=== PATIENT | male | born 1945 | race American Indian/Alaskan Native ===

== ENCOUNTER 2020-10-05 12:10 | Emergency (ER) | payer MEDICARE ==
[2020-10-05 14:25] LABS: Basophils # (Auto) 0.1 K/mm3 (0.0-0.1); Basophils % (Auto) 0.9 % (0.0-1.8); Eosinophils # (Auto) 0.2 K/mm3 (0.0-0.4); Hematocrit 32.5 % (35.5-45.6); Hemoglobin 10.7 gm/dl (11.8-15.2); Lymphocytes # (Auto) 2.4 K/mm3 (1.2-5.4); Lymphocytes % (Auto) 25.7 % (13.4-35.0); Mean Corpuscular HGB Conc 33 % (32-34); Mean Corpuscular Volume 84 fl (84-94); Monocytes # (Auto) 0.8 K/mm3 (0.0-0.8); Monocytes % (Auto) 8.8 % (0.0-7.3); Platelet Count 263 K/mm3 (140-440); Red Blood Count 3.87 M/mm3 (3.65-5.03); Red Cell Distribution Width 15.4 % (13.2-15.2)
[2020-10-05 14:44] LABS: Calcium 9.6 mg/dL (8.4-10.2)
--- NOTE | 2020-10-05 20:21 | Emergency Department Report ---
ED Psych HPI - General Chief Complaint: Psych Stated Complaint: BEHAVIORAL PROMBLEMS Time Seen by Provider: 10/05/20 20:16 Source: patient Mode of arrival: Ambulatory Limitations: Altered Mental Status - History of Present Illness Initial Comments: Patient is a 74-year-old male that presents to the emergency room with complaints of aggressive behavior and agitation. Patient son is at bedside. Patient son states that the patient moved into a new [facility] and became combative and violent and keeps trying to run away from the [facility]. Suha singer was sent here by [facility] for mental health evaluation and to be admitted for a medication adjustment. The son states that the patient is able to go back to this [facility] as long as his meds have been adjusted and his behavior improves. Patient denies pain. Patient is oriented x1. Patient's son states is the patient's baseline. Patient denies recent travel. Patient denies recent international travel. Patient denies exposure to the novel coronavirus. Patient denies sick contacts. Patient denies fever and chills. Patient denies cough. Patient denies diarrhea. Patient denies coming in contact with anybody with symptoms of the novel coronavirus. MD Complaint: altered mental status, other -: Sudden History of same: Yes Quality: constant Improves With: none Worsens With: none Associated Symptoms: denies: headache, shortness of breath, nausea, vomiting, syncope, insomnia Treatments Prior to Arrival: none - Related Data Home Medications Medication Instructions Recorded Confirmed Last Taken Aspirin [Aspirin BABY CHEW TAB] 81 mg PO QDAY 10/06/20 10/06/20 10/05/20 Atorvastatin [Lipitor Tab] 80 mg PO QHS 10/06/20 10/06/20 10/05/20 B-Complex with Vitamin C [Vitamin 1 tab PO DAILY 10/06/20 10/06/20 Unknown B Complex-Vitamin C] Cholecalciferol (Vitamin D3) 1 tab PO DAILY 10/06/20 10/06/20 Unknown [Vitamin D3 2,000 UNIT CAP] Donepezil HCl [Donepezil HCl Odt] 10 mg PO QHS 10/06/20 10/06/20 Unknown Doxazosin Mesylate [Cardura Xl] 4 mg PO BID 10/06/20 10/06/20 10/05/20 Fenofibrate 160 mg PO DAILY 10/06/20 10/06/20 10/05/20 Fiber 2 tab PO QHS 10/06/20 10/06/20 Unknown Furosemide [Lasix] 20 mg PO QDAY 10/06/20 10/06/20 10/05/20 Insulin Lispro [Humalog Kwikpen See Protocol SQ ACHS 10/06/20 10/06/20 Unknown 200 UNITS/ML] Isosorbide Mononitrate [Isosorbide 30 mg PO QHS 10/06/20 10/06/20 10/05/20 Mononitrate ER] LORazepam [Ativan] 0.5 mg PO BID PRN 10/06/20 10/06/20 Unknown Lisinopril [Zestril TAB] 30 mg PO QDAY 10/06/20 10/06/20 10/05/20 Memantine HCl 10 mg PO BID 10/06/20 10/06/20 Unknown Mv,Ca,Min/FA/K1/Lycopene/Lutn [Eql 1 tab PO DAILY 10/06/20 10/06/20 10/05/20 Century Mature Tablet] Mycophenolate [Cellcept] 2 tab PO BID 10/06/20 10/06/20 10/05/20 NIFEdipine [Nifedipine ER] 60 mg PO DAILY 10/06/20 10/06/20 10/05/20 OLANZapine [Zyprexa] 0.5 tab PO QHS 10/06/20 10/06/20 Unknown [place]-3/Dha/Epa/Fish Oil [[place] 3 1,000 mg PO DAILY 10/06/20 10/06/20 Unknown 500 Softgel] Primidone [Mysoline] 3 tab PO HS 10/06/20 10/06/20 10/05/20 Ranolazine ER [Ranexa ER] 500 mg PO BID 10/06/20 10/06/20 Unknown Sirolimus [Rapamune] 1 mg PO Q4W 10/06/20 10/06/20 10/05/20 Sodium Bicarbonate 1 tab PO 3XW 10/06/20 10/06/20 Unknown Sulfamethoxazole/Trimethoprim 1 each PO 4XW 10/06/20 10/06/20 10/05/20 [Sulfamethoxazole-Tmp Ds Tablet] allopurinoL [Zyloprim] 100 mg PO 4XW 10/06/20 10/06/20 10/05/20 carvediloL [Coreg] 12.5 mg PO BID 10/06/20 10/06/20 10/05/20 cilostazoL [Pletal] 100 mg PO BID 10/06/20 10/06/20 Unknown glipiZIDE XL [Glucotrol Xl] 10 mg PO QHS 10/06/20 10/06/20 10/05/20 predniSONE [Deltasone] 5 mg PO QDAY 10/06/20 10/06/20 10/05/20 Allergies Allergy/AdvReac Type Severity Reaction Status Date / Time clopidogrel Allergy Swelling Verified 10/06/20 00:43 ED Review of Systems ROS: Stated complaint: BEHAVIORAL PROMBLEMS Other details as noted in HPI Comment: All other systems reviewed and negative ED Past Medical Hx - Past Medical History Previous Medical History?: Yes Hx Hypertension: Yes Hx Diabetes: Yes Hx Renal Disease: Yes Hx Dementia: Yes Additional medical history: hyperlipidemia - Surgical History Past Surgical History?: Yes Additional Surgical History: kidney transplant - Social History Smoking Status: Former Smoker - Medications Home Medications: Home Medications Medication Instructions Recorded Confirmed Last Taken Type Aspirin [Aspirin BABY CHEW TAB] 81 mg PO QDAY 10/06/20 10/06/20 10/05/20 History Atorvastatin [Lipitor Tab] 80 mg PO QHS 10/06/20 10/06/20 10/05/20 History B-Complex with Vitamin C [Vitamin 1 tab PO DAILY 10/06/20 10/06/20 Unknown His tory B Complex-Vitamin C] Cholecalciferol (Vitamin D3) 1 tab PO DAILY 10/06/20 10/06/20 Unknown History [Vitamin D3 2,000 UNIT CAP] Donepezil HCl [Donepezil HCl Odt] 10 mg PO QHS 10/06/20 10/06/20 Unknown History Doxazosin Mesylate [Cardura Xl] 4 mg PO BID 10/06/20 10/06/20 10/05/20 History Fenofibrate 160 mg PO DAILY 10/06/20 10/06/20 10/05/20 History Fiber 2 tab PO QHS 10/06/20 10/06/20 Unknown History Furosemide [Lasix] 20 mg PO QDAY 10/06/20 10/06/20 10/05/20 History Insulin Lispro [Humalog Kwikpen See Protocol SQ ACHS 10/06/20 10/06/20 Unknown History 200 UNITS/ML] Isosorbide Mononitrate [Isosorbide 30 mg PO QHS 10/06/20 10/06/20 10/05/20 History Mononitrate ER] LORazepam [Ativan] 0.5 mg PO BID PRN 10/06/20 10/06/20 Unknown History Lisinopril [Zestril TAB] 30 mg PO QDAY 10/06/20 10/06/20 10/05/20 History Memantine HCl 10 mg PO BID 10/06/20 10/06/20 Unknown History Mv,Ca,Min/FA/K1/Lycopene/Lutn [Eql 1 tab PO DAILY 10/06/20 10/06/20 10/05/20 History Century Mature Tablet] Mycophenolate [Cellcept] 2 tab PO BID 10/06/20 10/06/20 10/05/20 History NIFEdipine [Nifedipine ER] 60 mg PO DAILY 10/06/20 10/06/20 10/05/20 History OLANZapine [Zyprexa] 0.5 tab PO QHS 10/06/20 10/06/20 Unknown History [place]-3/Dha/Epa/Fish Oil [[place] 3 1,000 mg PO DAILY 10/06/20 10/06/20 Unknown History 500 Softgel] Primidone [Mysoline] 3 tab PO HS 10/06/20 10/06/20 10/05/20 History Ranolazine ER [Ranexa ER] 500 mg PO BID 10/06/20 10/06/20 Unknown History Sirolimus [Rapamune] 1 mg PO Q4W 10/06/20 10/06/20 10/05/20 History Sodium Bicarbonate 1 tab PO 3XW 10/06/20 10/06/20 Unknown History Sulfamethoxazole/Trimethoprim 1 each PO 4XW 10/06/20 10/06/20 10/05/20 History [Sulfamethoxazole-Tmp Ds Tablet] allopurinoL [Zyloprim] 100 mg PO 4XW 10/06/20 10/06/20 10/05/20 History carvediloL [Coreg] 12.5 mg PO BID 10/06/20 10/06/20 10/05/20 History cilostazoL [Pletal] 100 mg PO BID 10/06/20 10/06/20 Unknown History glipiZIDE XL [Glucotrol Xl] 10 mg PO QHS 10/06/20 10/06/20 10/05/20 History predniSONE [Deltasone] 5 mg PO QDAY 10/06/20 10/06/20 10/05/20 History ED Physical Exam - General Limitations: No Limitations General appearance: alert, in no apparent distress - Head Head exam: Present: atraumatic, normocephalic - Eye Eye exam: Present: normal appearance - ENT ENT exam: Present: mucous membranes moist - Neck Neck exam: Present: normal inspection - Respiratory Respiratory exam: Present: normal lung sounds bilaterally. Absent: respiratory distress - Cardiovascular Cardiovascular Exam: Present: regular rate, normal rhythm. Absent: systolic murmur, diastolic murmur, rubs, gallop - GI/Abdominal GI/Abdominal exam: Present: soft, normal bowel sounds - Rectal Rectal exam: Present: deferred - Extremities Exam Extremities exam: Present: normal inspection - Back Exam Back exam: Present: normal inspection - Neurological Exam Neurological exam: Present: alert, altered - Psychiatric Psychiatric exam: Present: flat affect - Skin Skin exam: Present: warm, dry, intact, normal color. Absent: rash ED Course Vital Signs 10/05/20 10/05/20 10/06/20 12:59 20:28 01:20 Temperature 98.2 F 97.7 F Pulse Rate 72 74 76 Respiratory 20 18 18 Rate Blood Pressure 141/70 Blood Pressure 173/65 156/69 [Left] O2 Sat by Pulse 98 98 95 Oximetry 10/06/20 10/06/20 10/06/20 08:19 08:50 13:04 Temperature 97.8 F Pulse Rate 63 98 H Respiratory 18 18 Rate Blood Pressure 163/67 Blood Pressure 156/57 [Left] O2 Sat by Pulse 100 100 Oximetry 10/06/20 10/06/20 10/06/20 13:07 13:31 13:46 Temperature 98 F Pulse Rate 98 H 98 H Respiratory 20 Rate Blood Pressure 163/67 163/67 Blood Pressure [Left] O2 Sat by Pulse 97 Oximetry 10/06/20 20:37 Temperature Pulse Rate Respiratory 20 Rate Blood Pressure Blood Pressure [Left] O2 Sat by Pulse 97 Oximetry - Reevaluation(s) Reevaluation #1: Patient is medically cleared. Patient will remain in the ER as an ER hold until the patient is accepted into the [facility]. Patient has a pending Covid test. I discussed all results and clinical findings with patient. I discussed plan of care with patient. Patient agrees with plan of care. Patient is stable for transfer to [facility]. 10/05/20 21:50 Reevaluation #2: Patient to be discharged from the ER and directly readmitted to the geriatric psych floor. Patient placed on a 1013 in accordance with the geriatric psych floor policy. 10/06/20 21:54 - Consultations Consultation #1: Mental health consulted. 10/05/20 20:21 I discussed case with mental health latin american studies professor and the medical latin american studies professor states that the patient can be accepted into the [facility] but the patient needs a Covid test done. 10/05/20 21:52 ED Medical Decision Making - Lab Data Result diagrams: 10/05/20 13:50 10/05/20 13:50 - Medical Decision Making Patient is a 74-year-old male that presents emergency room for aggressive behavior and agitation. Patient recently transferred to another [facility] and the family brought the patient to the emergency room to be evaluated for possible [facility] admission because the staff at the [facility] was unable to accept him due to his behaviors. Patient has a history of dementia is at his baseline but is having increased wandering and running away as well as aggressive and agitated behavior and confusion. Patient had labs done which were essentially unremarkable. Patient is medically cleared. I discussed the case with our mental health lithographic photographer and they are recommending a general psych admission and the patient has been accepted to 0 psych but just needs a Covid test. Patient will remain in the ER until the Covid test is done and negative. Patient medically cleared. - Differential Diagnosis Agitation, psychosis, dementia, aggressive behavior Critical care attestation.: If time is entered above; I have spent that time in minutes in the direct care of this critically ill patient, excluding procedure time. ED Disposition Clinical Impression: Aggressive behavior due to dementia, Agitation due to dementia Disposition: DC-01 TO HOME OR SELFCARE Is pt being admited?: No Does the pt Need Aspirin: No Condition: Stable Instructions: Dementia, Dementia, [id number] Additional Instructions: Patient to be discharged from the ER and readmitted into the general psych floor. Referrals: PRIMARY CARE,MD [Primary Care Provider] - 2-3 Days Time of Disposition: 21:51
[2020-10-06 05:52] LABS: Bilirubin,Urine NEG (Negative); Blood,Urine NEG (Negative); Color,Urine Yellow (Yellow); Urobilinogen,Urine < 2.0 mg/dL (<2.0)
[2020-10-06 06:00] LABS: Amphetamine Screen,Urine Negative; Benzodiazepines Screen,Urine Negative; Cannabinoid Screen,Urine Negative; Cocaine Screen,Urine Negative; Methadone Screen,Urine Negative; Opiate Screen,Urine Negative
--- NOTE | 2020-10-06 10:40 | Consultation ---
History of Present Illness - Reason for Consult Consult date: 10/06/20 Reason for consult: agitation - History of Present Psychiatric Illness Per ER Note: Patient is a 74-year-old male that presents to the emergency room with complaints of aggressive behavior and agitation. Patient son is at bedside. Patient son states that the patient moved into a new alf and became combative and violent and keeps trying to run away from the alf. Patient was sent here by alf for mental health evaluation and to be admitted for a medication adjustment. The son states that the patient is able to go back to this alf as long as his meds have been adjusted and his behavior improves. The patient was seen today, he is calm and cooperative. He is confused with poor insight. It's reported that the patient was violent at the alf, when I mentioned this to him, he replied "I kept trying to tell them they needed to stop." PAST PSYCHIATRIC HISTORY: Unable to obtain PAST MEDICAL HISTORY: unable to obtain Family Psychiatric History: None reported or documented SOCIAL HISTORY unable to obtain REVIEW OF SYSTEMS Unable to obtain MENTAL STATUS EXAMINATION unable to assess Assessment Dementia with Behavioral Disturbance Treatment Plan [address] 125mg po BID Sitter: Per primary Medical: Per primary Disposition: Recommend acute psychiatric inpatient treatment Will follow. Thanks Case staffed with Dr. [place] Medications and Allergies Allergies Allergy/AdvReac Type Severity Reaction Status Date / Time clopidogrel Allergy Swelling Verified 10/06/20 00:43 Home Medications Medication Instructions Recorded Confirmed Last Taken Type Aspirin [Aspirin BABY CHEW TAB] 81 mg PO QDAY 10/06/20 10/06/20 10/05/20 History Atorvastatin [Lipitor Tab] 80 mg PO QHS 10/06/20 10/06/20 10/05/20 History B-Complex with Vitamin C [Vitamin 1 tab PO DAILY 10/06/20 10/06/20 Unknown History B Complex-Vitamin C] Cholecalciferol (Vitamin D3) 1 tab PO DAILY 10/06/20 10/06/20 Unknown History [Vitamin D3 2,000 UNIT CAP] Donepezil HCl [Donepezil HCl Odt] 10 mg PO QHS 10/06/20 10/06/20 Unknown History Doxazosin Mesylate [Cardura Xl] 4 mg PO BID 10/06/20 10/06/20 10/05/20 History Fenofibrate 160 mg PO DAILY 10/06/20 10/06/20 10/05/20 History Fiber 2 tab PO QHS 10/06/20 10/06/20 Unknown History Furosemide [Lasix] 20 mg PO QDAY 10/06/20 10/06/20 10/05/20 History Insulin Lispro [Humalog Kwikpen See Protocol SQ ACHS 10/06/20 10/06/20 Unknown History 200 UNITS/ML] Isosorbide Mononitrate [Isosorbide 30 mg PO QHS 10/06/20 10/06/20 10/05/20 History Mononitrate ER] LORazepam [Ativan] 0.5 mg PO BID PRN 10/06/20 10/06/20 Unknown History Lisinopril [Zestril TAB] 30 mg PO QDAY 10/06/20 10/06/20 10/05/20 History Memantine HCl 10 mg PO BID 10/06/20 10/06/20 Unknown History Mv,Ca,Min/FA/K1/Lycopene/Lutn [Eql 1 tab PO DAILY 10/06/20 10/06/20 10/05/20 History Century Mature Tablet] Mycophenolate [Cellcept] 2 tab PO BID 10/06/20 10/06/20 10/05/20 History NIFEdipine [Nifedipine ER] 60 mg PO DAILY 10/06/20 10/06/20 10/05/20 History OLANZapine [Zyprexa] 0.5 tab PO QHS 10/06/20 10/06/20 Unknown History [place]-3/Dha/Epa/Fish Oil [[place] 3 1,000 mg PO DAILY 10/06/20 10/06/20 Unknown History 500 Softgel] Primidone [Mysoline] 3 tab PO HS 10/06/20 10/06/20 10/05/20 History Ranolazine ER [Ranexa ER] 500 mg PO BID 10/06/20 10/06/20 Unknown History Sirolimus [Rapamune] 1 mg PO Q4W 10/06/20 10/06/20 10/05/20 History Sodium Bicarbonate 1 tab PO 3XW 10/06/20 10/06/20 Unknown History Sulfamethoxazole/Trimethoprim 1 each PO 4XW 10/06/20 10/06/20 10/05/20 History [Sulfamethoxazole-Tmp Ds Tablet] allopurinoL [Zyloprim] 100 mg PO 4XW 10/06/20 10/06/20 10/05/20 History carvediloL [Coreg] 12.5 mg PO BID 10/06/20 10/06/20 10/05/20 History cilostazoL [Pletal] 100 mg PO BID 10/06/20 10/06/20 Unknown History glipiZIDE XL [Glucotrol Xl] 10 mg PO QHS 10/06/20 10/06/20 10/05/20 History predniSONE [Deltasone] 5 mg PO QDAY 10/06/20 10/06/20 10/05/20 History Mental Status Exam - Vital signs Last Vital Signs Temp 97.8 F 10/06/20 08:19 Pulse 63 10/06/20 08:19 Resp 18 10/06/20 08:50 BP 156/57 10/06/20 08:19 Pulse Ox 100 10/06/20 08:50 Results Result Diagrams: 10/05/20 13:50 10/05/20 13:50 Abnormal lab results 10/05/20 10/05/20 10/05/20 Range/Units 13:50 13:50 13:50 Hgb (11.8-15.2) gm/dl Hct (35.5-45.6) % RDW (13.2-15.2) % Cascade % (Auto) (0.0-7.3) % Chloride 108.6 H (98-107) mmol/L BUN 30 H (9-20) mg/dL Glucose 117 H (75-100) mg/dL Salicylates < 0.3 L (2.8-20.0) mg/dL Acetaminophen 5.0 L (10.0-30.0) ug/mL 10/05/20 Range/Units 13:50 Hgb 10.7 L (11.8-15.2) gm/dl Hct 32.5 L (35.5-45.6) % RDW 15.4 H (13.2-15.2) % Cascade % (Auto) 8.8 H (0.0-7.3) % Chloride (98-107) mmol/L BUN (9-20) mg/dL Glucose (75-100) mg/dL Salicylates (2.8-20.0) mg/dL Acetaminophen (10.0-30.0) ug/mL All other labs normal.
[2020-10-06] MEDS ORDERED: SIROLIMUS 1 MG PO SCH (11:00)
[2020-10-06] MEDS ORDERED: [UNRECOGNIZED DRUG - OTHER] PO SCH (11:00)
[2020-10-06] MEDS ORDERED: K1 PO SCH (11:00)
[2020-10-06] MEDS ORDERED: NON-FORMULARY EACH (Cholecalciferol (Vitamin D3) [Vitamin D3 2,000 Unit Cap] 2,000 UNIT Ca PO SCH (11:00)
[2020-10-06] MEDS ORDERED: DOXAZOSIN MESYLATE 4 MG PO SCH (11:00)
[2020-10-06] MEDS ORDERED: predniSONE 5 MG TAB PO SCH (11:00)
[2020-10-06] MEDS ORDERED: LYCOPENE PO SCH (11:00)
[2020-10-06] MEDS ORDERED: NON-FORMULARY EACH (Fenofibrate [Fenofibrate] 160 MG Tablet) PO SCH (11:00)
[2020-10-06] MEDS ORDERED: B COMPLEX W/VITAMIN C TAB PO SCH (12:00)
[2020-10-06] MEDS ORDERED: ASPIRIN 81 MG TAB CHEW PO SCH (12:00)
[2020-10-06] MEDS ORDERED: MULTIVITAMINS,THER W-MINERALS TAB PO SCH (12:00)
[2020-10-06] MEDS ORDERED: FENOFIBRATE 145 MG TAB PO SCH (12:00)
[2020-10-06] MEDS ORDERED: FUROSEMIDE 20 MG TAB PO SCH (12:00)
[2020-10-06] MEDS ORDERED: CHOLECALCIFEROL (VIT D3) 1000 UNIT (25 mcg) TAB PO SCH (12:00)
[2020-10-06] MEDS ORDERED: NIFEdipine XL 60 MG TAB PO SCH (12:00)
[2020-10-06] MEDS: CILOSTAZOL 100 MG TAB PO SCH ×2 (13:04→22:45)
[2020-10-06] MEDS: carvediloL 12.5 MG TAB PO SCH ×2 (13:04→22:43)
[2020-10-06] MEDS: MEMANTINE 10 MG TAB PO SCH ×2 (13:04→22:44)
[2020-10-06] MEDS: DIVALPROEX DR 125 MG TAB PO SCH ×2 (13:18→22:43)
[2020-10-06] MEDS: MYCOPHENOLATE 250 MG CAP PO SCH ×2 (13:46→22:43)
[2020-10-06] MEDS: DOXAZOSIN 4 MG TAB PO SCH ×2 (13:46→22:42)
[2020-10-06] MEDS ORDERED: NON-FORMULARY EACH (Donepezil Hcl [Donepezil Hcl Odt] 10 MG Tab.Rapdis) PO SCH (22:00)
[2020-10-06] MEDS ORDERED: RANOLAZINE ER 500 MG TAB 12HR PO SCH (22:00)
[2020-10-06] MEDS ORDERED: PRIMIDONE 50 MG TAB PO SCH (22:00)
[2020-10-06] MEDS ORDERED: NON-FORMULARY EACH (Atorvastatin [Lipitor] 80 MG Tablet) PO SCH (22:00)
[2020-10-06] MEDS ORDERED: DONEPEZIL 10 MG TAB PO SCH (22:00)
[2020-10-06 22:45] VITALS: BP 132/94
[2020-10-07] MEDS ORDERED: SODIUM BICARBONATE 650 MG TAB PO SCH (10:00)
[2020-10-07] MEDS ORDERED: LISINOPRIL 10 MG TAB PO SCH (10:00)
[2020-10-07] MEDS ORDERED: NON-FORMULARY EACH (Lisinopril [Zestril Tab] 30 MG Tablet) PO SCH (10:00)
[2020-10-07] MEDS ORDERED: SULFAMETHOXAZOLE/TRIMETHOPRIM 800/160MG DS TAB PO SCH (10:00)
[2020-10-07] MEDS ORDERED: SIROLIMUS 1 MG PO SCH (15:51)
== END 2020-10-06 23:00 | disposition home or self-care (01) ==
LOC: EEVIPCON 12:10 → ED 12:10
DX: F03.91 Unspecified dementia, unspecified severity, with behavioral disturbance (principal); Z20.822 Contact with and (suspected) exposure to COVID-19; R45.4 Irritability and anger; R45.1 Restlessness and agitation; I10 Essential (primary) hypertension; E11.9 Type 2 diabetes mellitus without complications; Z98.890 Other specified postprocedural states; Z79.4 Long term (current) use of insulin; Z79.899 Other long term (current) drug therapy; Z88.8 Allergy status to other drugs, medicaments and biological substances
CPT/HCPCS: 36415; 80048; 80307; 81001; 85025; 99285; A9270; U0003; 80320; G0480; J7512; J7517

== ENCOUNTER 2020-10-06 00:19 | Inpatient (IN) | payer MEDICARE ==
[2020-10-07] MEDS ORDERED: SIROLIMUS 1 MG PO SCH ×2 (09:30→11:00)
[2020-10-07] MEDS ORDERED: NON-FORMULARY EACH (Fenofibrate [Fenofibrate] 160 MG Tablet) PO SCH (10:00)
[2020-10-07] MEDS ORDERED: NON-FORMULARY EACH (Lisinopril [Zestril Tab] 30 MG Tablet) PO SCH (10:00)
[2020-10-07] MEDS ORDERED: NON-FORMULARY EACH (Cholecalciferol (Vitamin D3) [Vitamin D3 2,000 Unit Cap] 2,000 UNIT Ca PO SCH (10:00)
--- NOTE | 2020-10-07 10:07 | Progress Note ---
Subjective Date of service: 10/07/20 Subjective Comment: Per Nurse Note: After the admission the patient rested quietly in bed. He woke one time and was confused. He tried to kick staff and demanded to know where he is at. Patient was oriented to his surroundings and returned to bed. Will continue to monitor patient for safety. Patient was seen inn the activity room. Patient presents with disorganized thoughts. When asked why he is here, patient continued to repeat " I just want to know where my son is." This contract writer is unable to obtain information at this time. PAST PSYCHIATRIC HISTORY- Unable to assess SOCIAL HISTORY- Unable to assess REVIEW OF SYSTEMS- Unable to assess MENTAL STATUS EXAMINATION- Unable to assess Assessment and Plan (1) MDD Treatment Plan Patient admitted for inpatient psychiatric evaluation, medication adjustment and close monitoring The patient's behavior, mood, sleep and appetite will be closely monitored. Patient enrolled in individual and group therapeutic sessions and encouraged to attend. Patient provided with a safe and structured environment. Patient's physical health needs will be addressed by the Hospitalist. Hospitalist Consulted Labs including CBC, CMP, Lipid profile and Hemoglobin A1C levels ordered for baseline reference Social Assessment will be completed and the Analyst Business Analysis will work with patient and family to ensure a suitable and safe disposition Medication adjustment will be made as clinically indicated Contrinue- Olanzapine 5mg 1/2 tablet at bedtime Continue- Depakote DR 125mg po BID Please see Mar- Continue home medications. Usual Wellness Jainism/Preservation: - Start Trazodone 50 mg po QHS & 50 mg po QHS PRN between 10 PM & 2 AM for insomnia - Start Melatonin 5 mg po QHS to promote circadian rhythm - Start Turon-3 for brain health, reduce impulsivity, and as adjunctive treatment for mood disorder, continue upon discharge given overall benefits. - Start B1 prophylaxis with 200 mg po for 5 days The patient agreed on the treatment plan, understood the risk, benefit, alternative treatment, potential consequence of no treatment, and gave informed consent. Estimated days: 7 Post hospital care: primary care provider, psychiatric provider Legal Status: Voluntary Reaction to Hospitalization: Accepting Medications and Allergies Allergies Allergy/AdvReac Type Severity Reaction Status Date / Time clopidogrel Allergy Swelling Verified 10/06/20 00:43 Home Medications Medication Instructions Recorded Confirmed Last Taken Type Aspirin [Aspirin BABY CHEW TAB] 81 mg PO QDAY 10/06/20 10/07/20 10/06/20 10:00 History Atorvastatin [Lipitor Tab] 80 mg PO QHS 10/06/20 10/07/20 10/06/20 22:00 History B-Complex with Vitamin C [Vitamin 1 tab PO DAILY 10/06/20 10/07/20 10/06/20 10:00 History B Complex-Vitamin C] Cholecalciferol (Vitamin D3) 1 tab PO DAILY 10/06/20 10/07/20 Unknown History [Vitamin D3 2,000 UNIT CAP] Donepezil HCl [Donepezil HCl Odt] 10 mg PO QHS 10/06/20 10/07/20 10/06/20 22:00 History Fenofibrate 160 mg PO DAILY 10/06/20 10/07/20 10/06/20 13:00 History Fiber 2 tab PO QHS 10/06/20 10/07/20 Unknown History Furosemide [Lasix] 20 mg PO QDAY 10/06/20 10/07/20 10/06/20 10:00 History Insulin Lispro [Humalog Kwikpen See Protocol SQ ACHS 10/06/20 10/07/20 Unknown History 200 UNITS/ML] Isosorbide Mononitrate [Isosorbide 30 mg PO QHS 10/06/20 10/07/20 10/06/20 22:00 History Mononitrate ER] LORazepam [Ativan] 0.5 mg PO BID PRN 10/06/20 10/07/20 Unknown History Lisinopril [Zestril TAB] 30 mg PO QDAY 10/06/20 10/07/20 10/06/20 10:00 History Memantine HCl 10 mg PO BID 10/06/20 10/07/20 10/06/20 22:00 History Mv,Ca,Min/FA/K1/Lycopene/Lutn [Eql 1 tab PO DAILY 10/06/20 10/07/20 10/05/20 History Century Mature Tablet] Mycophenolate [Cellcept] 2 tab PO BID 10/06/20 10/07/20 10/06/20 22:00 History NIFEdipine [Nifedipine ER] 60 mg PO DAILY 10/06/20 10/07/20 10/06/20 10:00 History OLANZapine [Zyprexa] 0.5 tab PO QHS 10/06/20 10/07/20 Unknown History [place]-3/Dha/Epa/Fish Oil [[place] 3 1,000 mg PO DAILY 10/06/20 10/07/20 Unknown History 500 Softgel] Primidone [Mysoline] 3 tab PO HS 10/06/20 10/07/20 10/06/20 22:00 History Ranolazine ER [Ranexa ER] 500 mg PO BID 10/06/20 10/07/20 10/06/20 22:00 History Sirolimus [Rapamune] 1 mg PO Q4W 10/06/20 10/07/20 10/05/20 History Sodium Bicarbonate 1 tab PO 3XW 10/06/20 10/07/20 10/05/20 10:00 History Sulfamethoxazole/Trimethoprim 1 each PO 4XW 10/06/20 10/07/20 10/05/20 History [Sulfamethoxazole-Tmp Ds Tablet] allopurinoL [Zyloprim] 100 mg PO 4XW 10/06/20 10/07/20 10/05/20 History carvediloL [Coreg] 12.5 mg PO BID 10/06/20 10/07/20 10/06/20 22:00 History cilostazoL [Pletal] 100 mg PO BID 10/06/20 10/07/20 10/06/20 22:00 History glipiZIDE XL [Glucotrol Xl] 10 mg PO QHS 10/06/20 10/07/20 10/06/20 22:00 History predniSONE [Deltasone] 5 mg PO QDAY 10/06/20 10/07/20 10/06/20 22:00 History Divalproex [Jak NUR] 125 mg PO BID 10/07/20 10/07/20 10/06/20 22:00 History Doxazosin [Cardura] 4 mg PO BID 10/07/20 10/07/20 10/06/20 22:00 History Multivitamin Tab W-MINERAL 1 each PO QD 10/07/20 10/07/20 10/06/20 10:00 History [Multiple Vitamin/Mineral (Theragran M)] Active Meds: Active Medications Allopurinol (Allopurinol 100 Mg Tab) 100 mg PO 4XW BRYAN Aspirin (Aspirin 81 Mg Tab Chew) 81 mg PO QDAY BRYAN Atorvastatin Calcium (Atorvastatin 40 Mg Tab) 80 mg PO QHS BRYAN Carvedilol (Carvedilol 12.5 Mg Tab) 12.5 mg PO BID [facility] Cholecalciferol (Cholecalciferol (Vit D3) 1000 Unit (25 Mcg) Tab) 2,000 unit PO QDAY [facility] Cilostazol (Cilostazol 100 Mg Tab) 100 mg PO BID [facility] Divalproex Sodium (Divalproex Dr 125 Mg Tab) 125 mg PO BID [facility] Donepezil HCl (Donepezil 10 Mg Tab) 10 mg PO QHS [facility] Doxazosin Mesylate (Doxazosin 4 Mg Tab) 4 mg PO BID [facility] Glipizide (Glipizide Xl 10 Mg Tab) 10 mg PO QHS [facility] Isosorbide Mononitrate (Isosorbide Mononitrate Er 30 Mg Tab) 30 mg PO QHS [facility] Lisinopril (Lisinopril 10 Mg Tab) 30 mg PO QDAY [facility] Memantine (Memantine 10 Mg Tab) 10 mg PO BID [facility] Miscellaneous Medication (Sirolimus [Rapamune]) 1 mg PO Q4W [facility] Miscellaneous Medication (Fenofibrate [Fenofibrate]) 160 mg PO DAILY [facility] Miscellaneous Medication (Insulin Lispro [Humalog Kwikpen 200 Units/Ml]) 0 units SQ ACHS [facility] Mycophenolate Mofetil (Mycophenolate 250 Mg Cap) 500 mg PO BID [facility] Nifedipine (Nifedipine Xl 60 Mg Tab) 60 mg PO DAILY [facility] Olanzapine (Olanzapine 5 Mg Tab) mg PO QHS [facility] Prednisone (Prednisone 5 Mg Tab) 5 mg PO QDAY [facility] Primidone (Primidone 50 Mg Tab) 150 mg PO QHS [facility] Ranolazine (Ranolazine Er 500 Mg Tab 12hr) 500 mg PO BID [facility] Results - Results Labs/Vitals: Laboratory Last Values POC Glucose 79 mg/dL (70-105) 10/07/20 08:15 Last Vital Signs Temp 97.6 F 10/07/20 00:00 Pulse 101 H 10/07/20 00:00 Resp 18 10/07/20 00:00 BP 133/69 10/07/20 00:00 Pulse Ox 96 10/07/20 00:00
[2020-10-07] MEDS ORDERED: INSULIN LISPRO 200 UNIT/ML SQ SCH (11:30)
[2020-10-07] MEDS ORDERED: [UNRECOGNIZED DRUG - OTHER] SQ SCH (11:30)
[2020-10-07] MEDS: DOXAZOSIN 4 MG TAB PO SCH ×2 (11:46→21:38)
[2020-10-07] MEDS: CILOSTAZOL 100 MG TAB PO SCH ×2 (11:47→21:38)
[2020-10-07] MEDS: ASPIRIN 81 MG TAB CHEW PO SCH (11:47)
[2020-10-07] MEDS: MEMANTINE 10 MG TAB PO SCH ×2 (11:48→21:35)
[2020-10-07] MEDS: NIFEdipine XL 60 MG TAB PO SCH (11:48)
[2020-10-07] MEDS: DIVALPROEX DR 125 MG TAB PO SCH ×2 (11:48→21:34)
[2020-10-07] MEDS: CHOLECALCIFEROL (VIT D3) 1000 UNIT (25 mcg) TAB PO SCH (11:48)
[2020-10-07] MEDS: RANOLAZINE ER 500 MG TAB 12HR PO SCH ×2 (11:48→21:40)
[2020-10-07] MEDS: LISINOPRIL 10 MG TAB PO SCH (11:49)
[2020-10-07] MEDS: carvediloL 12.5 MG TAB PO SCH ×2 (11:50→21:40)
[2020-10-07] MEDS: MYCOPHENOLATE 250 MG CAP PO SCH ×2 (11:53→21:37)
[2020-10-07] MEDS: INSULIN LISPRO 100 UNIT/ML SUB-Q SCH ×3 (12:02→21:43)
[2020-10-07] MEDS: FENOFIBRATE 145 MG TAB PO SCH (12:02)
[2020-10-07] MEDS: predniSONE 5 MG TAB PO SCH (15:47)
[2020-10-07] MEDS: DONEPEZIL 10 MG TAB PO SCH (21:35)
[2020-10-07] MEDS: PRIMIDONE 50 MG TAB PO SCH (21:41)
[2020-10-07] MEDS: SIROLIMUS 1 MG PO SCH (21:41)
[2020-10-07] MEDS ORDERED: NON-FORMULARY EACH (Donepezil Hcl [Donepezil Hcl Odt] 10 MG Tab.Rapdis) PO SCH (22:00)
[2020-10-07] MEDS ORDERED: NON-FORMULARY EACH (Atorvastatin [Lipitor] 80 MG Tablet) PO SCH (22:00)
[2020-10-08] MEDS: INSULIN LISPRO 100 UNIT/ML SUB-Q SCH ×4 (07:40→23:12)
[2020-10-08] MEDS: ASPIRIN 81 MG TAB CHEW PO SCH (09:52)
[2020-10-08] MEDS: MEMANTINE 10 MG TAB PO SCH ×2 (09:52→22:01)
[2020-10-08] MEDS: FENOFIBRATE 145 MG TAB PO SCH (09:52)
[2020-10-08] MEDS: DOXAZOSIN 4 MG TAB PO SCH ×2 (09:52→22:07)
[2020-10-08] MEDS: DIVALPROEX DR 125 MG TAB PO SCH ×2 (09:52→21:56)
[2020-10-08] MEDS: predniSONE 5 MG TAB PO SCH (09:54)
[2020-10-08] MEDS: NIFEdipine XL 60 MG TAB PO SCH (09:54)
[2020-10-08] MEDS: allopurinoL 100 MG TAB PO SCH (09:54)
[2020-10-08] MEDS: CHOLECALCIFEROL (VIT D3) 1000 UNIT (25 mcg) TAB PO SCH (09:54)
[2020-10-08] MEDS: RANOLAZINE ER 500 MG TAB 12HR PO SCH ×2 (09:54→22:01)
[2020-10-08] MEDS: MYCOPHENOLATE 250 MG CAP PO SCH ×2 (09:55→21:56)
[2020-10-08] MEDS: CILOSTAZOL 100 MG TAB PO SCH ×2 (09:56→21:59)
[2020-10-08] MEDS: carvediloL 12.5 MG TAB PO SCH ×2 (09:56→21:56)
[2020-10-08] MEDS: LISINOPRIL 10 MG TAB PO SCH (09:56)
--- NOTE | 2020-10-08 11:29 | Progress Note ---
Subjective Date of service: 10/08/20 Subjective Comment: Per Nurse note: pt is compliant with medication, pleasantly confused, no aggressive behaviour issue, slept all night, no distress noted, will continue to monitor for safety. Patient was seen today in the activity room. Patient continues to present with confusion. " I want to find my , I don't know what is going on." Patient states mood as good. He denies suicidal/homicidal ideation. REVIEW OF SYSTEMS- Unable to assess MENTAL STATUS EXAMINATION- Unable to assess Assessment and Plan (1) MDD Treatment Plan Patient admitted for inpatient psychiatric evaluation, medication adjustment and close monitoring The patient's behavior, mood, sleep and appetite will be closely monitored. Patient enrolled in individual and group therapeutic sessions and encouraged to attend. Patient provided with a safe and structured environment. Patient's physical health needs will be addressed by the Hospitalist. Hospitalist Consulted Labs including CBC, CMP, Lipid profile and Hemoglobin A1C levels ordered for baseline reference Social Assessment will be completed and the Grocery Sacker will work with patient and family to ensure a suitable and safe disposition Medication adjustment will be made as clinically indicated Continue- Olanzapine 5mg 1/2 tablet at bedtime Continue- Depakote DR 125mg po BID Please see Mar- Continue home medications. Usual Wellness Jainism/Preservation: - Start Trazodone 50 mg po QHS & 50 mg po QHS PRN between 10 PM & 2 AM for insomnia - Start Melatonin 5 mg po QHS to promote circadian rhythm - Start [place]-3 for brain health, reduce impulsivity, and as adjunctive treatment for mood disorder, continue upon discharge given overall benefits. - Start B1 prophylaxis with 200 mg po for 5 days The patient agreed on the treatment plan, understood the risk, benefit, alternative treatment, potential consequence of no treatment, and gave informed consent. Estimated days: 7 Post hospital care: primary care provider, psychiatric provider Legal Status: Voluntary Reaction to Hospitalization: Accepting Medications and Allergies Allergies Allergy/AdvReac Type Severity Reaction Status Date / Time clopidogrel Allergy Swelling Verified 10/06/20 00:43 Home Medications Medication Instructions Recorded Confirmed Last Taken Type Aspirin [Aspirin BABY CHEW TAB] 81 mg PO QDAY 10/06/20 10/07/20 10/06/20 10:00 History Atorvastatin [Lipitor Tab] 80 mg PO QHS 10/06/20 10/07/20 10/06/20 22:00 History B-Complex with Vitamin C [Vitamin 1 tab PO DAILY 10/06/20 10/07/20 10/06/20 10:00 History B Complex-Vitamin C] Cholecalciferol (Vitamin D3) 1 tab PO DAILY 10/06/20 10/07/20 Unknown History [Vitamin D3 2,000 UNIT CAP] Donepezil HCl [Donepezil HCl Odt] 10 mg PO QHS 10/06/20 10/07/20 10/06/20 22:00 History Fenofibrate 160 mg PO DAILY 10/06/20 10/07/20 10/06/20 13:00 History Fiber 2 tab PO QHS 10/06/20 10/07/20 Unknown History Furosemide [Lasix] 20 mg PO QDAY 10/06/20 10/07/20 10/06/20 10:00 History Insulin Lispro [Humalog Kwikpen See Protocol SQ ACHS 10/06/20 10/07/20 Unknown History 200 UNITS/ML] Isosorbide Mononitrate [Isosorbide 30 mg PO QHS 10/06/20 10/07/20 10/06/20 22:00 History Mononitrate ER] LORazepam [Ativan] 0.5 mg PO BID PRN 10/06/20 10/07/20 Unknown History Lisinopril [Zestril TAB] 30 mg PO QDAY 10/06/20 10/07/20 10/06/20 10:00 History Memantine HCl 10 mg PO BID 10/06/20 10/07/20 10/06/20 22:00 History Mv,Ca,Min/FA/K1/Lycopene/Lutn [Eql 1 tab PO DAILY 10/06/20 10/07/20 10/05/20 History Century Mature Tablet] Mycophenolate [Cellcept] 2 tab PO BID 10/06/20 10/07/20 10/06/20 22:00 History NIFEdipine [Nifedipine ER] 60 mg PO DAILY 10/06/20 10/07/20 10/06/20 10:00 History OLANZapine [Zyprexa] 0.5 tab PO QHS 10/06/20 10/07/20 Unknown History [place]-3/Dha/Epa/Fish Oil [[place] 3 1,000 mg PO DAILY 10/06/20 10/07/20 Unknown History 500 Softgel] Primidone [Mysoline] 3 tab PO HS 10/06/20 10/07/20 10/06/20 22:00 History Ranolazine ER [Ranexa ER] 500 mg PO BID 10/06/20 10/07/20 10/06/20 22:00 History Sirolimus [Rapamune] 1 mg PO Q4W 10/06/20 10/07/20 10/05/20 History Sodium Bicarbonate 1 tab PO 3XW 10/06/20 10/07/20 10/05/20 10:00 History Sulfamethoxazole/Trimethoprim 1 each PO 4XW 10/06/20 10/07/20 10/05/20 History [Sulfamethoxazole-Tmp Ds Tablet] allopurinoL [Zyloprim] 100 mg PO 4XW 10/06/20 10/07/20 10/05/20 History carvediloL [Coreg] 12.5 mg PO BID 10/06/20 10/07/20 10/06/20 22:00 History cilostazoL [Pletal] 100 mg PO BID 10/06/20 10/07/20 10/06/20 22:00 History glipiZIDE XL [Glucotrol Xl] 10 mg PO QHS 10/06/20 10/07/20 10/06/20 22:00 History predniSONE [Deltasone] 5 mg PO QDAY 10/06/20 10/07/20 10/06/20 22:[address] [DepGenTE DR] 125 mg PO BID 10/07/20 10/07/20 10/06/20 22:00 History Doxazosin [Cardura] 4 mg PO BID 10/07/20 10/07/20 10/06/20 22:00 History Multivitamin Tab W-MINERAL 1 each PO QD 10/07/20 10/07/20 10/06/20 10:00 History [Multiple Vitamin/Mineral (Theragran M)] Active Meds: Active Medications [facility] Mg [facility]: 10/08/20 09:54 Dose: 100 mg Documented by: Aspirin (Aspirin 81 Mg Tab Chew) 81 mg PO QDAY [facility] Last Admin: 10/08/20 09:52 Dose: 81 mg Documented by: Atorvastatin Calcium (Atorvastatin 40 Mg Tab) 80 mg PO QHS [facility] Last Admin: 10/07/20 21:40 Dose: 80 mg Documented by: Carvedilol (Carvedilol 12.5 Mg Tab) 12.5 mg PO BID [facility] Last Admin: 10/08/20 09:56 Dose: 12.5 mg Documented by: Cholecalciferol (Cholecalciferol (Vit D3) 1000 Unit (25 Mcg) Tab) 2,000 unit PO QDAY [facility] Last Admin: 10/08/20 09:54 Dose: 2,000 unit Documented by: Cilostazol (Cilostazol 100 Mg Tab) 100 mg PO BID [facility] Last Admin: 10/08/20 09:56 Dose: 100 mg Documented by: Divalproex Sodium (Divalproex Dr 125 Mg Tab) 125 mg PO BID [facility] Last Admin: 10/08/20 09:52 Dose: 125 mg Documented by: Donepezil HCl (Donepezil 10 Mg Tab) 10 mg PO QHS [facility] Last Admin: 10/07/20 21:35 Dose: 10 mg Documented by: Doxazosin Mesylate (Doxazosin 4 Mg Tab) 4 mg PO BID [facility] Last Admin: 10/08/20 09:52 Dose: 4 mg Documented by: Fenofibrate (Fenofibrate 145 Mg Tab) 145 mg PO DAILY [facility] Last Admin: 10/08/20 09:52 Dose: 145 mg Documented by: Glipizide (Glipizide Xl 10 Mg Tab) 10 mg PO QHS [facility] Last Admin: 10/07/20 21:35 Dose: 10 mg Documented by: Insulin Human Lispro (Insulin Lispro 100 Unit/Ml) 0 unit SUB-Q ACHS [facility] Last Admin: 10/08/20 07:40 Dose: Not Given Documented by: Isosorbide Mononitrate (Isosorbide Mononitrate Er 30 Mg Tab) 30 mg PO QHS [facility] Last Admin: 10/07/20 21:39 Dose: 30 mg Documented by: Lisinopril (Lisinopril 10 Mg Tab) 30 mg PO QDAY [facility] Last Admin: 10/08/20 09:56 Dose: 30 mg Documented by: Memantine (Memantine 10 Mg Tab) 10 mg PO BID [facility] Last Admin: 10/08/20 09:52 Dose: 10 mg Documented by: Mycophenolate Mofetil (Mycophenolate 250 Mg Cap) 500 mg PO BID [facility] Last Admin: 10/08/20 09:55 Dose: 500 mg Documented by: Nifedipine (Nifedipine Xl 60 Mg Tab) 60 mg PO DAILY [facility] Last Admin: 10/08/20 09:54 Dose: 60 mg Documented by: Olanzapine (Olanzapine 5 Mg Tab) 2.5 mg PO QHS [facility] Last Admin: 10/07/20 21:36 Dose: 2.5 mg Documented by: Prednisone (Prednisone 5 Mg Tab) 5 mg PO QDAY [facility] Last Admin: 10/08/20 09:54 Dose: 5 mg Documented by: Primidone (Primidone 50 Mg Tab) 150 mg PO QHS [facility] Last Admin: 10/07/20 21:41 Dose: 150 mg Documented by: Ranolazine (Ranolazine Er 500 Mg Tab 12hr) 500 mg PO BID [facility] Last Admin: 10/08/20 09:54 Dose: 500 mg Documented by: Sirolimus (Sirolimus (Nf) 1 Mg Tab) 2 mg PO [facility] Sirolimus (Sirolimus (Nf) 1 Mg Tab) [facility] Last Admin: 10/07/20 21:41 Dose: 1 mg Documented by: Results - Results Labs/Vitals: Laboratory Last Values POC Glucose 115 mg/dL (70-105) H 10/08/20 06:06 Last Vital Signs Temp 97.6 F 10/07/20 00:00 Pulse 84 10/08/20 09:56 Resp 18 10/07/20 00:00 BP 121/67 10/08/20 09:56 Pulse Ox 98 10/08/20 09:53
[2020-10-08] MEDS: SIROLIMUS 1 MG PO SCH (21:55)
[2020-10-08] MEDS: PRIMIDONE 50 MG TAB PO SCH (22:00)
[2020-10-08] MEDS: DONEPEZIL 10 MG TAB PO SCH (22:01)
[2020-10-09] MEDS: INSULIN LISPRO 100 UNIT/ML SUB-Q SCH ×4 (07:34→21:38)
[2020-10-09] MEDS: DIVALPROEX DR 125 MG TAB PO SCH ×2 (09:29→21:36)
[2020-10-09] MEDS: MEMANTINE 10 MG TAB PO SCH ×2 (09:29→21:39)
[2020-10-09] MEDS: CHOLECALCIFEROL (VIT D3) 1000 UNIT (25 mcg) TAB PO SCH (09:29)
[2020-10-09] MEDS: ASPIRIN 81 MG TAB CHEW PO SCH (09:29)
[2020-10-09] MEDS: RANOLAZINE ER 500 MG TAB 12HR PO SCH ×2 (09:30→21:38)
[2020-10-09] MEDS: LISINOPRIL 10 MG TAB PO SCH (09:30)
[2020-10-09] MEDS: MYCOPHENOLATE 250 MG CAP PO SCH ×2 (09:31→21:35)
[2020-10-09] MEDS: allopurinoL 100 MG TAB PO SCH (09:32)
[2020-10-09] MEDS: carvediloL 12.5 MG TAB PO SCH ×2 (09:32→21:40)
[2020-10-09] MEDS: NIFEdipine XL 60 MG TAB PO SCH (09:32)
[2020-10-09] MEDS: predniSONE 5 MG TAB PO SCH (09:33)
[2020-10-09] MEDS: FENOFIBRATE 145 MG TAB PO SCH (09:33)
[2020-10-09] MEDS: CILOSTAZOL 100 MG TAB PO SCH ×2 (09:33→21:37)
[2020-10-09] MEDS: DOXAZOSIN 4 MG TAB PO SCH ×2 (09:33→21:35)
--- NOTE | 2020-10-09 09:37 | Progress Note ---
Subjective Date of service: 10/09/20 Subjective Comment: Per Nurse note: Last evening the patient spent time with peer in the activity room. There was no agitation or aggression. He denies si/hi/ah/vh. He was medication compliant. He requested to talk to his . Staff assisted with the call. He made jokes with her and smiled during the call. He became mildly upset when he was asking her to come visit. He is upset he has none of his clothes here. Overnight the patient rested quietly. He slept until around 3 am and has been awake since then. He is questioning staff about his clothing and why he has to stay in his room. Will continue to monitor patient for safety. I interviewed the patient this morning. Medical records reviewed and patient's progress was discussed with unit staff. Patient was seen in the activity room eating breakfast. Patient states he is doing well. Patient is asking about his . He reports mood as "ok. " States sleep and appetite as fair. Patient denies any current SI/HI and denies AVHs. REVIEW OF SYSTEMS Constitutional: Negative for weight loss ENT: Negative for stridor Respiratory: Negative for cough or hemoptysis All other systems reviewed and are negative MENTAL STATUS EXAMINATION General Appearance and Behavior: Age appropriate, dressed appropriately, calm and cooperative Cooperation: Participating Psychomotor Behavior: psychomotor normal Mood: "ok" Affect and affective range: congruent with states mood Thought Process: goal directed Thought Content: obsessions Speech: Normal volume, Regular rate and rhythm, Intellectual Functioning: Average Suicidal Ideation: Denies Homicidal Ideation: Denies Hallucinations: Denies Impulse Control: Impaired Insight and Judgment: Limited insight and judgment, Memory: Limited Attention: Undivided Orientation: Alert, oriented Assessment and Plan (1) MDD Treatment Plan Patient admitted for inpatient psychiatric evaluation, medication adjustment and close monitoring The patient's behavior, mood, sleep and appetite will be closely monitored. Patient enrolled in individual and group therapeutic sessions and encouraged to attend. Patient provided with a safe and structured environment. Patient's physical health needs will be addressed by the Hospitalist. Hospitalist Consulted Labs including CBC, CMP, Lipid profile and Hemoglobin A1C levels ordered for baseline reference Social Assessment will be completed and the Director Of Leadership Development will work with patient and family to ensure a suitable and safe disposition Medication adjustment will be made as clinically indicated Continue- Olanzapine 2.5mg tablet at bedtime Continue- Depakote DR 125mg po BID Please see Mar- Continue home medications. Usual Wellness Restorationism/Preservation: - Start Trazodone 50 mg po QHS & 50 mg po QHS PRN between 10 PM & 2 AM for insomnia - Start Melatonin 5 mg po QHS to promote circadian rhythm - Start [place]-3 for brain health, reduce impulsivity, and as adjunctive treatment for mood disorder, continue upon discharge given overall benefits. - Start B1 prophylaxis with 200 mg po for 5 days The patient agreed on the treatment plan, understood the risk, benefit, alternative treatment, potential consequence of no treatment, and gave informed consent. Estimated days: 7 Post hospital care: primary care provider, psychiatric provider Legal Status: Voluntary Reaction to Hospitalization: Accepting Medications and Allergies Allergies Allergy/AdvReac Type Severity Reaction Status Date / Time clopidogrel Allergy Swelling Verified 10/06/20 00:43 Home Medications Medication Instructions Recorded Confirmed Last Taken Type Aspirin [Aspirin BABY CHEW TAB] 81 mg PO QDAY 10/06/20 10/07/20 10/06/20 10:00 History Atorvastatin [Lipitor Tab] 80 mg PO QHS 10/06/20 10/07/20 10/06/20 22:00 History B-Complex with Vitamin C [Vitamin 1 tab PO DAILY 10/06/20 10/07/20 10/06/20 10:00 History B Complex-Vitamin C] Cholecalciferol (Vitamin D3) 1 tab PO DAILY 10/06/20 10/07/20 Unknown History [Vitamin D3 2,000 UNIT CAP] Donepezil HCl [Donepezil HCl Odt] 10 mg PO QHS 10/06/20 10/07/20 10/06/20 22:00 History Fenofibrate 160 mg PO DAILY 10/06/20 10/07/20 10/06/20 13:00 History Fiber 2 tab PO QHS 10/06/20 10/07/20 Unknown History Furosemide [Lasix] 20 mg PO QDAY 10/06/20 10/07/20 10/06/20 10:00 History Insulin Lispro [Humalog Kwikpen See Protocol SQ ACHS 10/06/20 10/07/20 Unknown History 200 UNITS/ML] Isosorbide Mononitrate [Isosorbide 30 mg PO QHS 10/06/20 10/07/20 10/06/20 22:00 History Mononitrate ER] LORazepam [Ativan] 0.5 mg PO BID PRN 10/06/20 10/07/20 Unknown History Lisinopril [Zestril TAB] 30 mg PO QDAY 10/06/20 10/07/20 10/06/20 10:00 History Memantine HCl 10 mg PO BID 10/06/20 10/07/20 10/06/20 22:00 History Mv,Ca,Min/FA/K1/Lycopene/Lutn [Eql 1 tab PO DAILY 10/06/20 10/07/20 10/05/20 History Century Mature Tablet] Mycophenolate [Cellcept] 2 tab PO BID 10/06/20 10/07/20 10/06/20 22:00 History NIFEdipine [Nifedipine ER] 60 mg PO DAILY 10/06/20 10/07/20 10/06/20 10:00 History OLANZapine [Zyprexa] 0.5 tab PO QHS 10/06/20 10/07/20 Unknown History [place]-3/Dha/Epa/Fish Oil [[place] 3 1,000 mg PO DAILY 10/06/20 10/07/20 Unknown History 500 Softgel] Primidone [Mysoline] 3 tab PO HS 10/06/20 10/07/20 10/06/20 22:00 History Ranolazine ER [Ranexa ER] 500 mg PO BID 10/06/20 10/07/20 10/06/20 22:00 History Sirolimus [Rapamune] 1 mg PO Q4W 10/06/20 10/07/20 10/05/20 History Sodium Bicarbonate 1 tab PO 3XW 10/06/20 10/07/20 10/05/20 10:00 History Sulfamethoxazole/Trimethoprim 1 each PO 4XW 10/06/20 10/07/20 10/05/20 History [Sulfamethoxazole-Tmp Ds Tablet] allopurinoL [Zyloprim] 100 mg PO 4XW 10/06/20 10/07/20 10/05/20 History carvediloL [Coreg] 12.5 mg PO BID 10/06/20 10/07/20 10/06/20 22:00 History cilostazoL [Pletal] 100 mg PO BID 10/06/20 10/07/20 10/06/20 22:00 History glipiZIDE XL [Glucotrol Xl] 10 mg PO QHS 10/06/20 10/07/20 10/06/20 22:00 History predniSONE [Deltasone] 5 mg PO QDAY 10/06/20 10/07/20 10/06/20 22:[address] [DepaKOTE DR] 125 mg PO BID 10/07/20 10/07/20 10/06/20 22:00 History Doxazosin [Cardura] 4 mg PO BID 10/07/20 10/07/20 10/06/20 22:00 History Multivitamin Tab W-MINERAL 1 each PO QD 10/07/20 10/07/20 10/06/20 10:00 History [Multiple Vitamin/Mineral (Theragran M)] Active Meds: Active Medications Allop[facility] ([facility] 100 Mg Tab) [facility] Admin: 10/09/20 09:32 Dose: 100 mg Documented by: Aspirin (Aspirin 81 Mg Tab Chew) 81 mg PO QDAY [facility] Last Admin: 10/09/20 09:29 Dose: 81 mg Documented by: Atorvastatin Calcium (Atorvastatin 40 Mg Tab) 80 mg PO QHS [facility] Last Admin: 10/08/20 21:59 Dose: 80 mg Documented by: Carvedilol (Carvedilol 12.5 Mg Tab) 12.5 mg PO BID [facility] Last Admin: 10/09/20 09:32 Dose: 12.5 mg Documented by: Cholecalciferol (Cholecalciferol (Vit D3) 1000 Unit (25 Mcg) Tab) 2,000 unit PO QDAY [facility] Last Admin: 10/09/20 09:29 Dose: 2,000 unit Documented by: Cilostazol (Cilostazol 100 Mg Tab) 100 mg PO BID [facility] Last Admin: 10/09/20 09:33 Dose: 100 mg Documented by: Divalproex Sodium (Divalproex Dr 125 Mg Tab) 125 mg PO BID [facility] Last Admin: 10/09/20 09:29 Dose: 125 mg Documented by: Donepezil HCl (Donepezil 10 Mg Tab) 10 mg PO QHS [facility] Last Admin: 10/08/20 22:01 Dose: 10 mg Documented by: Doxazosin Mesylate (Doxazosin 4 Mg Tab) 4 mg PO BID [facility] Last Admin: 10/09/20 09:33 Dose: 4 mg Documented by: Fenofibrate (Fenofibrate 145 Mg Tab) 145 mg PO DAILY [facility] Last Admin: 10/09/20 09:33 Dose: 145 mg Documented by: Glipizide (Glipizide Xl 10 Mg Tab) 10 mg PO QHS [facility] Last Admin: 10/08/20 22:01 Dose: 10 mg Documented by: Insulin Human Lispro (Insulin Lispro 100 Unit/Ml) 0 unit SUB-Q ACHS [facility] Last Admin: 10/09/20 07:34 Dose: Not Given Documented by: Isosorbide Mononitrate (Isosorbide Mononitrate Er 30 Mg Tab) 30 mg PO QHS [facility] Last Admin: 10/08/20 22:00 Dose: 30 mg Documented by: Lisinopril (Lisinopril 10 Mg Tab) 30 mg PO QDAY [facility] Last Admin: 10/09/20 09:30 Dose: 30 mg Documented by: Memantine (Memantine 10 Mg Tab) 10 mg PO BID [facility] Last Admin: 10/09/20 09:29 Dose: 10 mg Documented by: Mycophenolate Mofetil (Mycophenolate 250 Mg Cap) 500 mg PO BID [facility] Last Admin: 10/09/20 09:31 Dose: 500 mg Documented by: Nifedipine (Nifedipine Xl 60 Mg Tab) 60 mg PO DAILY [facility] Last Admin: 10/09/20 09:32 Dose: 60 mg Documented by: Olanzapine (Olanzapine 5 Mg Tab) 2.5 mg PO QHS [facility] Last Admin: 10/08/20 21:57 Dose: 2.5 mg Documented by: Prednisone (Prednisone 5 Mg Tab) 5 mg PO QDAY [facility] Last Admin: 10/09/20 09:33 Dose: 5 mg Documented by: Primidone (Primidone 50 Mg Tab) 150 mg PO QHS [facility] Last Admin: 10/08/20 22:00 Dose: 150 mg Documented by: Ranolazine (Ranolazine Er 500 Mg Tab 12hr) 500 mg PO BID [facility] Last Admin: 10/09/20 09:30 Dose: 500 mg Documented by: Sirolimus (Sirolimus (Nf) 1 Mg Tab) 2 mg PO SuTuThSa [facility] Last Admin: 10/08/20 21:55 Dose: 2 mg Documented by: Sirolimus (Sirolimus (Nf) 1 Mg Tab) 1 mg PO MoWeFr [facility] Last Admin: 10/07/20 21:41 Dose: 1 mg Documented by: Results - Results Labs/Vitals: Laboratory Last Values POC Glucose 115 mg/dL (70-105) H 10/08/20 06:06 Last Vital Signs Temp 97.4 F L 10/09/20 06:33 Pulse 78 10/09/20 09:33 Resp 20 10/09/20 06:33 BP 150/67 10/09/20 09:33 Pulse Ox 98 10/09/20 09:29
[2020-10-09] MEDS: DONEPEZIL 10 MG TAB PO SCH (21:34)
[2020-10-09] MEDS: PRIMIDONE 50 MG TAB PO SCH (21:37)
[2020-10-09] MEDS: SIROLIMUS 1 MG PO SCH (23:35)
[2020-10-10 00:01] LABS: Hematocrit 30.4 % (35.5-45.6); Hemoglobin 10.2 gm/dl (11.8-15.2); Mean Corpuscular HGB Conc 34 % (32-34); Mean Corpuscular Volume 84 fl (84-94); Platelet Count 262 K/mm3 (140-440); Red Blood Count 3.63 M/mm3 (3.65-5.03)
[2020-10-10 03:07] LABS: Albumin 3.6 g/dL (3.9-5); Calcium 9.3 mg/dL (8.4-10.2); Chol/HDL Ratio 5.1 %
[2020-10-10 05:22] LABS: Anisocytosis 1+; Platelet Estimate Consistent w Auto; Total Cells Counted 100
[2020-10-10] MEDS: INSULIN LISPRO 100 UNIT/ML SUB-Q SCH ×4 (08:00→21:28)
--- NOTE | 2020-10-10 09:13 | Progress Note ---
Subjective Date of service: 10/10/20 Subjective Comment: Per Nurse Note: Last evening the patient spent in the activity room with peers. His interactions with others were appropriate. He presents as confused and he forgets he is in a hospital. He often asks what he is supposed to be doing. He denies si/hi/ah/vh. His appetite is about 50%. He is medication compliant. He has no complaints of pain. He often asks to talk to his by phone. When that happens he becomes calmer. Overnight the patient slept until around 2 am. He awoke for about an hour. He wandered in the hallway wondering how to open doors. He came and stated he forgot where he was staying. Patient was assisted back to his room and he returned to sleep. He slept around 7 hours. Will continue to monitor patient for safety. I interviewed the patient this morning. Medical records reviewed and patient's progress was discussed with unit staff. Patient was seen in the activity room with peers but withdrawn. Patient reports doing well. Patient is asking about his and when asked if he spoke to his yesterday his response was "no". States sleep and appetite as fair. Patient denies any current SI/HI and denies AVHs. BUN- 59 and Creatinine 1.7, Nurse consulted medical team. REVIEW OF SYSTEMS Constitutional: Negative for weight loss ENT: Negative for stridor Respiratory: Negative for cough or hemoptysis All other systems reviewed and are negative MENTAL STATUS EXAMINATION General Appearance and Behavior: Age appropriate, dressed appropriately, calm and cooperative Cooperation: Participating Psychomotor Behavior: psychomotor normal Mood: "ok" Affect and affective range: congruent with states mood Thought Process: goal directed Thought Content: obsessions Speech: Normal volume, Regular rate and rhythm, Intellectual Functioning: Average Suicidal Ideation: Denies Homicidal Ideation: Denies Hallucinations: Denies Impulse Control: Impaired Insight and Judgment: Limited insight and judgment, Memory: Limited Attention: Undivided Orientation: Alert, oriented Assessment and Plan (1) MDD Treatment Plan Patient admitted for inpatient psychiatric evaluation, medication adjustment and close monitoring The patient's behavior, mood, sleep and appetite will be closely monitored. Patient enrolled in individual and group therapeutic sessions and encouraged to attend. Patient provided with a safe and structured environment. Patient's physical health needs will be addressed by the Hospitalist. Hospitalist Consulted Labs including CBC, CMP, Lipid profile and Hemoglobin A1C levels ordered for baseline reference Social Assessment will be completed and the Analyst Microbiology Lab will work with patient and family to ensure a suitable and safe disposition Medication adjustment will be made as clinically indicated Continue- Olanzapine 2.5mg tablet at bedtime Continue- Depakote DR 125mg po BID Please see Mar- Continue home medications. Usual Wellness Mormonism/Preservation: - Start Trazodone 50 mg po QHS & 50 mg po QHS PRN between 10 PM & 2 AM for insomnia - Start Melatonin 5 mg po QHS to promote circadian rhythm - Start Colden-3 for brain health, reduce impulsivity, and as adjunctive treatment for mood disorder, continue upon discharge given overall benefits. - Start B1 prophylaxis with 200 mg po for 5 days The patient agreed on the treatment plan, understood the risk, benefit, alternative treatment, potential consequence of no treatment, and gave informed consent. Estimated days: 7 Post hospital care: primary care provider, psychiatric provider Legal Status: Voluntary Reaction to Hospitalization: Accepting Medications and Allergies Medications and Allergies Allergies Allergy/AdvReac Type Severity Reaction Status Date / Time clopidogrel Allergy Swelling Verified 10/06/20 00:43 Home Medications Medication Instructions Recorded Confirmed Last Taken Type Aspirin [Aspirin BABY CHEW TAB] 81 mg PO QDAY 10/06/20 10/07/20 10/06/20 10:00 History Atorvastatin [Lipitor Tab] 80 mg PO QHS 10/06/20 10/07/20 10/06/20 22:00 History B-Complex with Vitamin C [Vitamin 1 tab PO DAILY 10/06/20 10/07/20 10/06/20 10:00 History B Complex-Vitamin C] Cholecalciferol (Vitamin D3) 1 tab PO DAILY 10/06/20 10/07/20 Unknown History [Vitamin D3 2,000 UNIT CAP] Donepezil HCl [Donepezil HCl Odt] 10 mg PO QHS 10/06/20 10/07/20 10/06/20 22:00 History Fenofibrate 160 mg PO DAILY 10/06/20 10/07/20 10/06/20 13:00 History Fiber 2 tab PO QHS 10/06/20 10/07/20 Unknown History Furosemide [Lasix] 20 mg PO QDAY 10/06/20 10/07/20 10/06/20 10:00 History Insulin Lispro [Humalog Kwikpen See Protocol SQ ACHS 10/06/20 10/07/20 Unknown History 200 UNITS/ML] Isosorbide Mononitrate [Isosorbide 30 mg PO QHS 10/06/20 10/07/20 10/06/20 22:00 History Mononitrate ER] LORazepam [Ativan] 0.5 mg PO BID PRN 10/06/20 10/07/20 Unknown History Lisinopril [Zestril TAB] 30 mg PO QDAY 10/06/20 10/07/20 10/06/20 10:00 History Memantine HCl 10 mg PO BID 10/06/20 10/07/20 10/06/20 22:00 History Mv,Ca,Min/FA/K1/Lycopene/Lutn [Eql 1 tab PO DAILY 10/06/20 10/07/20 10/05/20 History Century Mature Tablet] Mycophenolate [Cellcept] 2 tab PO BID 10/06/20 10/07/20 10/06/20 22:00 History NIFEdipine [Nifedipine ER] 60 mg PO DAILY 10/06/20 10/07/20 10/06/20 10:00 History OLANZapine [Zyprexa] 0.5 tab PO QHS 10/06/20 10/07/20 Unknown History Colden-3/Dha/Epa/Fish Oil [Colden 3 1,000 mg PO DAILY 10/06/20 10/07/20 Unknown History 500 Softgel] Primidone [Mysoline] 3 tab PO HS 10/06/20 10/07/20 10/06/20 22:00 History Ranolazine ER [Ranexa ER] 500 mg PO BID 10/06/20 10/07/20 10/06/20 22:00 History Sirolimus [Rapamune] 1 mg PO Q4W 10/06/20 10/07/20 10/05/20 History Sodium Bicarbonate 1 tab PO 3XW 10/06/20 10/07/20 10/05/20 10:00 History Sulfamethoxazole/Trimethoprim 1 each PO 4XW 10/06/20 10/07/20 10/05/20 History [Sulfamethoxazole-Tmp Ds Tablet] allopurinoL [Zyloprim] 100 mg PO 4XW 10/06/20 10/07/20 10/05/20 History carvediloL [Coreg] 12.5 mg PO BID 10/06/20 10/07/20 10/06/20 22:00 History cilostazoL [Pletal] 100 mg PO BID 10/06/20 10/07/20 10/06/20 22:00 History glipiZIDE XL [Glucotrol Xl] 10 mg PO QHS 10/06/20 10/07/20 10/06/20 22:00 History predniSONE [Deltasone] 5 mg PO QDAY 10/06/20 10/07/20 10/06/20 22:[address] [DepaKOTE DR] 125 mg PO BID 10/07/20 10/07/20 10/06/20 22:00 History Doxazosin [Cardura] 4 mg PO BID 10/07/20 10/07/20 10/06/20 22:00 History Multivitamin Tab W-MINERAL 1 each PO QD 10/07/20 10/07/20 10/06/20 10:00 History [Multiple Vitamin/Mineral (Theragran M)] Active Meds: Active Medications Allopurinol (Allopurinol 100 Mg Tab) 100 mg PO [facility] Last Admin: 10/09/20 09:32 Dose: 100 mg Documented by: Aspirin (Aspirin 81 Mg Tab Chew) 81 mg PO QDAY [facility] Last Admin: 10/09/20 09:29 Dose: 81 mg Documented by: Atorvastatin Calcium (Atorvastatin 40 Mg Tab) 80 mg PO QHS [facility] Last Admin: 10/09/20 21:38 Dose: 80 mg Documented by: Carvedilol (Carvedilol 12.5 Mg Tab) 12.5 mg PO BID [facility] Last Admin: 10/09/20 21:40 Dose: 12.5 mg Documented by: Cholecalciferol (Cholecalciferol (Vit D3) 1000 Unit (25 Mcg) Tab) 2,000 unit PO QDAY [facility] Last Admin: 10/09/20 09:29 Dose: 2,000 unit Documented by: Cilostazol (Cilostazol 100 Mg Tab) 100 mg PO BID [facility] Last Admin: 10/09/20 21:37 Dose: 100 mg Documented by: Divalproex Sodium (Divalproex Dr 125 Mg Tab) 125 mg PO BID [facility] Last Admin: 10/09/20 21:36 Dose: 125 mg Documented by: Donepezil HCl (Donepezil 10 Mg Tab) 10 mg PO QHS [facility] Last Admin: 10/09/20 21:34 Dose: 10 mg Documented by: Doxazosin Mesylate (Doxazosin 4 Mg Tab) 4 mg PO BID [facility] Last Admin: 10/09/20 21:35 Dose: 4 mg Documented by: Fenofibrate (Fenofibrate 145 Mg Tab) 145 mg PO DAILY [facility] Last Admin: 10/09/20 09:33 Dose: 145 mg Documented by: Glipizide (Glipizide Xl 10 Mg Tab) 10 mg PO QHS [facility] Last Admin: 10/09/20 21:38 Dose: 10 mg Documented by: Insulin Human Lispro (Insulin Lispro 100 Unit/Ml) 0 unit SUB-Q ACHS [facility] Last Admin: 10/09/20 21:38 Dose: Not Given Documented by: Isosorbide Mononitrate (Isosorbide Mononitrate Er 30 Mg Tab) 30 mg PO QHS [facility] Last Admin: 10/09/20 21:40 Dose: 30 mg Documented by: Lisinopril (Lisinopril 10 Mg Tab) 30 mg PO QDAY [facility] Last Admin: 10/09/20 09:30 Dose: 30 mg Documented by: Memantine (Memantine 10 Mg Tab) 10 mg PO BID [facility] Last Admin: 10/09/20 21:39 Dose: 10 mg Documented by: Mycophenolate Mofetil (Mycophenolate 250 Mg Cap) 500 mg PO BID [facility] Last Admin: 10/09/20 21:35 Dose: 500 mg Documented by: Nifedipine (Nifedipine Xl 60 Mg Tab) 60 mg PO DAILY [facility] Last Admin: 10/09/20 09:32 Dose: 60 mg Documented by: Olanzapine (Olanzapine 5 Mg Tab) 2.5 mg PO QHS [facility] Last Admin: 10/09/20 21:39 Dose: 2.5 mg Documented by: Prednisone (Prednisone 5 Mg Tab) 5 mg PO QDAY [facility] Last Admin: 10/09/20 09:33 Dose: 5 mg Documented by: Primidone (Primidone 50 Mg Tab) 150 mg PO QHS [facility] Last Admin: 10/09/20 21:37 Dose: 150 mg Documented by: Ranolazine (Ranolazine Er 500 Mg Tab 12hr) 500 mg PO BID [facility] Last Admin: 10/09/20 21:38 Dose: 500 mg Documented by: Sirolimus (Sirolimus (Nf) 1 Mg Tab) 2 mg PO SuTuThSa [facility] Last Admin: 10/09/20 23:35 Dose: 2 mg Documented by: Sirolimus (Sirolimus (Nf) 1 Mg Tab) 1 mg PO MoWeFr [facility] Last Admin: 10/07/20 21:41 Dose: 1 mg Documented by: Results - Results Labs/Vitals: Laboratory Last Values WBC 6.4 K/mm3 (4.5-11.0) 10/09/20 23:39 RBC 3.63 M/mm3 (3.65-5.03) L 10/09/20 23:39 Hgb 10.2 gm/dl (11.8-15.2) L 10/09/20 23:39 Hct 30.4 % (35.5-45.6) L 10/09/20 23:39 MCV 84 fl (84-94) 10/09/20 23:39 MCH 28 pg (28-32) 10/09/20 23:39 MCHC 34 % (32-34) 10/09/20 23:39 RDW 15.0 % (13.2-15.2) 10/09/20 23:39 Plt Count 262 K/mm3 (140-440) 10/09/20 23:39 [place] % (Auto) Brass Cutter 10/09/20 23:39 Add Manual Diff Complete 10/09/20 23:39 Total Counted 100 10/09/20 23:39 Seg Neuts % (Manual) 72.0 % (40.0-70.0) H 10/09/20 23:39 Lymphocytes % (Manual) 18.0 % (13.4-35.0) 10/09/20 23:39 Monocytes % (Manual) 8.0 % (0.0-7.3) H 10/09/20 23:39 Eosinophils % (Manual) 2.0 % (0.0-4.3) 10/09/20 23:39 Nucleated RBC % Not Reportable 10/09/20 23:39 Seg Neutrophils # Man 4.6 K/mm3 (1.8-7.7) 10/09/20 23:39 Band Neutrophils # 0.0 K/mm3 10/09/20 23:39 Lymphocytes # (Manual) 1.2 K/mm3 (1.2-5.4) 10/09/20 23:39 Abs React Lymphs (Man) 0.0 K/mm3 10/09/20 23:39 Monocytes # (Manual) 0.5 K/mm3 (0.0-0.8) 10/09/20 23:39 Eosinophils # (Manual) 0.1 K/mm3 (0.0-0.4) 10/09/20 23:39 Basophils # (Manual) 0.0 K/mm3 (0.0-0.1) 10/09/20 23:39 Metamyelocytes # 0.0 K/mm3 10/09/20 23:39 Myelocytes # 0.0 K/mm3 10/09/20 23:39 Promyelocytes # 0.0 K/mm3 10/09/20 23:39 Blast Cells # 0.0 K/mm3 10/09/20 23:39 WBC Morphology Not Reportable 10/09/20 23:39 Hypersegmented Neuts Not Reportable 10/09/20 23:39 Hyposegmented Neuts Not Reportable 10/09/20 23:39 Hypogranular Neuts Not Reportable 10/09/20 23:39 Smudge Cells Not Reportable 10/09/20 23:39 Toxic Granulation Not Reportable 10/09/20 23:39 Toxic Vacuolation Not Reportable 10/09/20 23:39 Dohle Bodies Not Reportable 10/09/20 23:39 Pelger-Huet Anomaly Not Reportable 10/09/20 23:39 Sly Rods Not Reportable 10/09/20 23:39 Platelet Estimate Consistent w auto 10/09/20 23:39 Clumped Platelets Not Reportable 10/09/20 23:39 Plt Clumps, EDTA Not Reportable 10/09/20 23:39 Large Platelets Not Reportable 10/09/20 23:39 Giant Platelets Not Reportable 10/09/20 23:39 Platelet Satelliting Not Reportable 10/09/20 23:39 Plt Morphology Comment Not Reportable 10/09/20 23:39 RBC Morphology Not Reportable 10/09/20 23:39 Dimorphic RBCs Not Reportable 10/09/20 23:39 Polychromasia Not Reportable 10/09/20 23:39 Hypochromasia Not Reportable 10/09/20 23:39 Poikilocytosis Not Reportable 10/09/20 23:39 Anisocytosis 1+ 10/09/20 23:39 Microcytosis Not Reportable 10/09/20 23:39 Macrocytosis Not Reportable 10/09/20 23:39 Spherocytes Not Reportable 10/09/20 23:39 Pappenheimer Bodies Not Reportable 10/09/20 23:39 Sickle Cells Not Reportable 10/09/20 23:39 Target Cells Not Reportable 10/09/20 23:39 Tear Drop Cells Not Reportable 10/09/20 23:39 Ovalocytes Not Reportable 10/09/20 23:39 Helmet Cells Not Reportable 10/09/20 23:39 [place] Bodies Not Reportable 10/09/20 23:39 Mangum Rings Not Reportable 10/09/20 23:39 Johnnie Cells Not Reportable 10/09/20 23:39 Bite Cells Not Reportable 10/09/20 23:39 Crenated Cell Not Reportable 10/09/20 23:39 Elliptocytes Not Reportable 10/09/20 23:39 Acanthocytes (Spur) Not Reportable 10/09/20 23:39 Rouleaux Not Reportable 10/09/20 23:39 Hemoglobin C Crystals Not Reportable 10/09/20 23:39 Schistocytes Not Reportable 10/09/20 23:39 Malaria parasites Not Reportable 10/09/20 23:39 Khai Bodies Not Reportable 10/09/20 23:39 Hem Pathologist Commnt No 10/09/20 23:39 Sodium 140 mmol/L (137-145) 10/09/20 23:39 Potassium 4.0 mmol/L (3.6-5.0) 10/09/20 23:39 Chloride 103.8 mmol/L (98-107) 10/09/20 23:39 Carbon Dioxide 18 mmol/L (22-30) L 10/09/20 23:39 Anion Gap 22 mmol/L 10/09/20 23:39 BUN 59 mg/dL (9-20) H 10/09/20 23:39 Creatinine 1.7 mg/dL (0.8-1.3) H 10/09/20 23:39 Estimated GFR 48 ml/min 10/09/20 23:39 BUN/Creatinine Ratio 35 % 10/09/20 23:39 Glucose 132 mg/dL (75-100) H 10/09/20 23:39 POC Glucose 115 mg/dL (70-105) H 10/08/20 06:06 Hemoglobin A1c 6.5 % (4-6) H 10/09/20 23:39 Calcium 9.3 mg/dL (8.4-10.2) 10/09/20 23:39 Total Bilirubin 0.30 mg/dL (0.1-1.2) 10/09/20 23:39 AST 40 units/L (5-40) 10/09/20 23:39 ALT 25 units/L (7-56) 10/09/20 23:39 Alkaline Phosphatase 51 units/L (35-129) 10/09/20 23:39 Total Protein 6.1 g/dL (6.3-8.2) L 10/09/20 23:39 Albumin 3.6 g/dL (3.9-5) L 10/09/20 23:39 Albumin/Globulin Ratio 1.4 % 10/09/20 23:39 Triglycerides 235 mg/dL (2-149) H 10/09/20 23:39 Cholesterol 143 mg/dL (50-199) 10/09/20 23:39 LDL Cholesterol Direct 77 mg/dL (50-130) 10/09/20 23:39 HDL Cholesterol 28 mg/dL (40-59) L 10/09/20 23:39 Cholesterol/HDL Ratio 5.10 % 10/09/20 23:39 Last Vital Signs Temp 97.6 F 10/10/20 07:35 Pulse 86 10/10/20 07:35 Resp 20 10/10/20 07:35 BP 118/65 10/10/20 07:35 Pulse Ox 99 10/10/20 07:35
[2020-10-10] MEDS: FENOFIBRATE 145 MG TAB PO SCH (11:53)
[2020-10-10] MEDS: MYCOPHENOLATE 250 MG CAP PO SCH ×2 (11:53→21:23)
[2020-10-10] MEDS: CILOSTAZOL 100 MG TAB PO SCH ×2 (11:53→21:22)
[2020-10-10] MEDS: predniSONE 5 MG TAB PO SCH (11:54)
[2020-10-10] MEDS: DOXAZOSIN 4 MG TAB PO SCH ×2 (11:54→21:24)
[2020-10-10] MEDS: ASPIRIN 81 MG TAB CHEW PO SCH (11:55)
[2020-10-10] MEDS: DIVALPROEX DR 125 MG TAB PO SCH ×2 (11:55→21:22)
[2020-10-10] MEDS: carvediloL 12.5 MG TAB PO SCH ×2 (11:55→21:25)
[2020-10-10] MEDS: MEMANTINE 10 MG TAB PO SCH ×2 (11:56→21:23)
[2020-10-10] MEDS: NIFEdipine XL 60 MG TAB PO SCH (11:57)
[2020-10-10] MEDS: RANOLAZINE ER 500 MG TAB 12HR PO SCH ×2 (11:57→21:23)
[2020-10-10] MEDS: CHOLECALCIFEROL (VIT D3) 1000 UNIT (25 mcg) TAB PO SCH (11:57)
[2020-10-10] MEDS: LISINOPRIL 10 MG TAB PO SCH (15:17)
--- NOTE | 2020-10-10 19:43 | Consultation ---
History of Present Illness - Reason for Consult Consult date: 10/10/20 medical Management Requesting physician: JAS DIALLO - History of Present Illness 74 YO Male with HTN, DM, Vascular Dementia with Behavioral Disturbance, Cerebral Atherosclerosis, HLD, CKD S/P Renal Transplant on anti Graft rejection medication, DM, Gout admitted to [facility] for psychiatric stabilization. Consult placed by Dr. Diallo for medical management. Patient seen and evaluate d in the recreation room. Patient denies fever, chills, chest pain, palpitation, adductive cough, skin rash, recent ill contact, or known exposure to COVID-19. No reported nursing events. Past History Past Medical History: diabetes, hypertension, hyperlipidemia, other (See HPI) Past Surgical History: Other (Renal transplant) Social history: . denies: smoking, alcohol abuse Family history: diabetes, hypertension Medications and Allergies Allergies Allergy/AdvReac Type Severity Reaction Status Date / Time clopidogrel Allergy Swelling Verified 10/06/20 00:43 Home Medications Medication Instructions Recorded Confirmed Last Taken Type Aspirin [Aspirin BABY CHEW TAB] 81 mg PO QDAY 10/06/20 10/07/20 10/06/20 10:00 History Atorvastatin [Lipitor Tab] 80 mg PO QHS 10/06/20 10/07/20 10/06/20 22:00 History B-Complex with Vitamin C [Vitamin 1 tab PO DAILY 10/06/20 10/07/20 10/06/20 1 0:00 History B Complex-Vitamin C] Cholecalciferol (Vitamin D3) 1 tab PO DAILY 10/06/20 10/07/20 Unknown History [Vitamin D3 2,000 UNIT CAP] Donepezil HCl [Donepezil HCl Odt] 10 mg PO QHS 10/06/20 10/07/20 10/06/20 22:00 History Fenofibrate 160 mg PO DAILY 10/06/20 10/07/20 10/06/20 13:00 History Fiber 2 tab PO QHS 10/06/20 10/07/20 Unknown History Furosemide [Lasix] 20 mg PO QDAY 10/06/20 10/07/20 10/06/20 10:00 History Insulin Lispro [Humalog Kwikpen See Protocol SQ ACHS 10/06/20 10/07/20 Unknown History 200 UNITS/ML] Isosorbide Mononitrate [Isosorbide 30 mg PO QHS 10/06/20 10/07/20 10/06/20 22:00 History Mononitrate ER] LORazepam [Ativan] 0.5 mg PO BID PRN 10/06/20 10/07/20 Unknown History Lisinopril [Zestril TAB] 30 mg PO QDAY 10/06/20 10/07/20 10/06/20 10:00 History Memantine HCl 10 mg PO BID 10/06/20 10/07/20 10/06/20 22:00 History Mv,Ca,Min/FA/K1/Lycopene/Lutn [Eql 1 tab PO DAILY 10/06/20 10/07/20 10/05/20 History Century Mature Tablet] Mycophenolate [Cellcept] 2 tab PO BID 10/06/20 10/07/20 10/06/20 22:00 History NIFEdipine [Nifedipine ER] 60 mg PO DAILY 10/06/20 10/07/20 10/06/20 10:00 History OLANZapine [Zyprexa] 0.5 tab PO QHS 10/06/20 10/07/20 Unknown History [place]-3/Dha/Epa/Fish Oil [[place] 3 1,000 mg PO DAILY 10/06/20 10/07/20 Unknown History 500 Softgel] Primidone [Mysoline] 3 tab PO HS 10/06/20 10/07/20 10/06/20 22:00 History Ranolazine ER [Ranexa ER] 500 mg PO BID 10/06/20 10/07/20 10/06/20 22:00 History Sirolimus [Rapamune] 1 mg PO Q4W 10/06/20 10/07/20 10/05/20 History Sodium Bicarbonate 1 tab PO 3XW 10/06/20 10/07/20 10/05/20 10:00 History Sulfamethoxazole/Trimethoprim 1 each PO 4XW 10/06/20 10/07/20 10/05/20 History [Sulfamethoxazole-Tmp Ds Tablet] allopurinoL [Zyloprim] 100 mg PO 4XW 10/06/20 10/07/20 10/05/20 History carvediloL [Coreg] 12.5 mg PO BID 10/06/20 10/07/20 10/06/20 22:00 History cilostazoL [Pletal] 100 mg PO BID 10/06/20 10/07/20 10/06/20 22:00 History glipiZIDE XL [Glucotrol Xl] 10 mg PO QHS 10/06/20 10/07/20 10/06/20 22:00 History predniSONE [Deltasone] 5 mg PO QDAY 10/06/20 10/07/20 10/06/20 22:[address] [DepaKOTE DR] 125 mg PO BID 10/07/20 10/07/20 10/06/20 22:00 History Doxazosin [Cardura] 4 mg PO BID 10/07/20 10/07/20 10/06/20 22:00 History Multivitamin Tab W-MINERAL 1 each PO QD 10/07/20 10/07/20 10/06/20 10:00 History [Multiple Vitamin/Mineral (Theragran M)] Active Meds: Active Medications Allopurinol (Allopurinol 100 Mg Tab) 100 mg PO [facility] Last Admin: 10/09/20 09:32 Dose: 100 mg Documented by: Aspirin (Aspirin 81 Mg Tab Chew) 81 mg PO QDAY [facility] Last Admin: 10/10/20 11:55 Dose: 81 mg Documented by: Atorvastatin Calcium (Atorvastatin 40 Mg Tab) 80 mg PO QHS [facility] Last Admin: 10/09/20 21:38 Dose: 80 mg Documented by: Carvedilol (Carvedilol 12.5 Mg Tab) 12.5 mg PO BID [facility] Last Admin: 10/10/20 11:55 Dose: 12.5 mg Documented by: Cholecalciferol (Cholecalciferol (Vit D3) 1000 Unit (25 Mcg) Tab) 2,000 unit PO QDAY [facility] Last Admin: 10/10/20 11:57 Dose: 2,000 unit Documented by: Cilostazol (Cilostazol 100 Mg Tab) 100 mg PO BID [facility] Last Admin: 10/10/20 11:53 Dose: 100 mg Documented by: Divalproex Sodium (Divalproex Dr 125 Mg Tab) 125 mg PO BID [facility] Last Admin: 10/10/20 11:55 Dose: 125 mg Documented by: Donepezil HCl (Donepezil 10 Mg Tab) 10 mg PO QHS [facility] Last Admin: 10/09/20 21:34 Dose: 10 mg Documented by: Doxazosin Mesylate (Doxazosin 4 Mg Tab) 4 mg PO BID [facility] Last Admin: 10/10/20 11:54 Dose: 4 mg Documented by: Fenofibrate (Fenofibrate 145 Mg Tab) 145 mg PO DAILY [facility] Last Admin: 10/10/20 11:53 Dose: 145 mg Documented by: Glipizide (Glipizide Xl 10 Mg Tab) 10 mg PO QHS [facility] Last Admin: 10/09/20 21:38 Dose: 10 mg Documented by: Insulin Human Lispro (Insulin Lispro 100 Unit/Ml) 0 unit SUB-Q ACHS [facility] Last Admin: 10/10/20 17:00 Dose: Not Given Documented by: Isosorbide Mononitrate (Isosorbide Mononitrate Er 30 Mg Tab) 30 mg PO QHS [facility] Last Admin: 10/09/20 21:40 Dose: 30 mg Documented by: Lisinopril (Lisinopril 10 Mg Tab) 30 mg PO QDAY [facility] Last Admin: 10/10/20 15:17 Dose: 30 mg Documented by: Memantine (Memantine 10 Mg Tab) 10 mg PO BID [facility] Last Admin: 10/10/20 11:56 Dose: 10 mg Documented by: Mycophenolate Mofetil (Mycophenolate 250 Mg Cap) 500 mg PO BID [facility] Last Admin: 10/10/20 11:53 Dose: 500 mg Documented by: Nifedipine (Nifedipine Xl 60 Mg Tab) 60 mg PO DAILY [facility] Last Admin: 10/10/20 11:57 Dose: 60 mg Documented by: Olanzapine (Olanzapine 5 Mg Tab) 2.5 mg PO QHS [facility] Last Admin: 10/09/20 21:39 Dose: 2.5 mg Documented by: Prednisone (Prednisone 5 Mg Tab) 5 mg PO QDAY [facility] Last Admin: 10/10/20 11:54 Dose: 5 mg Documented by: Primidone (Primidone 50 Mg Tab) 150 mg PO QHS [facility] Last Admin: 10/09/20 21:37 Dose: 150 mg Documented by: Ranolazine (Ranolazine Er 500 Mg Tab 12hr) 500 mg PO BID [facility] Last Admin: 10/10/20 11:57 Dose: 500 mg Documented by: Sirolimus (Sirolimus (Nf) 1 Mg Tab) 2 mg PO SuTuThSa [facility] Last Admin: 10/09/20 23:35 Dose: 2 mg Documented by: Sirolimus (Sirolimus (Nf) 1 Mg Tab) 1 mg PO MoWe [facility] Last Admin: 10/07/20 21:41 Dose: 1 mg Documented by: Review of Systems Constitutional: no weight loss, no weight gain, no fever, no chills Ears, nose, mouth and throat: no ear pain, no ear discharge, no decreased hearing, no nose pain, no nasal discharge Cardiovascular: no chest pain, no orthopnea, no palpitations, no edema, no syncope Respiratory: no cough, no excessive sputum Gastrointestinal: no abdominal pain, no nausea, no vomiting, no diarrhea Genitourinary Male: no hematuria, no flank pain, no discharge, no urinary frequency Rectal: no pain, no bleeding Musculoskeletal: no neck stiffness, no neck pain, no shooting arm pain, no shooting leg pain Integumentary: no rash, no pruritis, no redness, no sores, no jaundice Neurological: no head injury, no transient paralysis, no paralysis, no parathesias, no numbness Endocrine: no cold intolerance, no heat intolerance, no polyphagia, no polydipsia, no nocturia Hematologic/Lymphatic: no easy bruising, no easy bleeding Allergic/Immunologic: no urticaria, no allergic rhinitis, no wheezing Exam - Constitutional Vitals: Temp Pulse Resp BP Pulse Ox 97.6 F 92 H 18 133/74 95 10/10/20 19:38 10/10/20 19:38 10/10/20 19:38 10/10/20 19:38 10/10/20 19:38 General appearance: Present: no acute distress, well-nourished - EENT Eyes: Present: PERRL ENT: hearing intact, clear oral mucosa - Neck Neck: Present: supple, normal ROM - Respiratory Respiratory effort: normal Respiratory: bilateral: CTA - Cardiovascular Heart Sounds: Present: S1 & S2. Absent: rub, click - Extremities Extremities: pulses symmetrical, No edema Peripheral Pulses: within normal limits - Abdominal General gastrointestinal: Present: soft, non-tender, non-distended, normal bowel sounds Male genitourinary: Present: normal - Integumentary Integumentary: Present: clear, warm, dry - Musculoskeletal Musculoskeletal: gait normal, strength equal bilaterally - Psychiatric Psychiatric: appropriate mood/affect, intact judgment & insight - Neurologic Neurologic: CNII-XII intact, moves all extremities Results - Labs CBC & Chem 7: 10/09/20 23:39 10/09/20 23:39 Labs: Abnormal lab results 10/09/20 10/09/20 10/09/20 Range/Units 23:39 23:39 23:39 RBC 3.63 L (3.65-5.03) M/mm3 Hgb 10.2 L (11.8-15.2) gm/dl Hct 30.4 L (35.5-45.6) % Seg Neuts % (Manual) 72.0 H (40.0-70.0) % Monocytes % (Manual) 8.0 H (0.0-7.3) % Carbon Dioxide 18 L (22-30) mmol/L BUN 59 H (9-20) mg/dL Creatinine 1.7 H (0.8-1.3) mg/dL Glucose 132 H (75-100) mg/dL Hemoglobin A1c 6.5 H (4-6) % Total Protein 6.1 L (6.3-8.2) g/dL Albumin 3.6 L (3.9-5) g/dL Triglycerides 235 H (2-149) mg/dL HDL Cholesterol 28 L (40-59) mg/dL Assessment and Plan - Patient Problems (1) Vascular dementia with behavioral disturbance Current Visit: Yes Status: Acute Plan to address problem: Verbal prompting, verbal redirection, benzodiazepine therapy as clinically indicated, supportive care. (2) Cerebral atherosclerosis Current Visit: Yes Status: Acute Plan to address problem: Supportive care, risk factor reduction, antiplatelet therapy as clinically indicated. (3) Renal transplant recipient Current Visit: Yes Status: Acute Plan to address problem: Continue prehospital antigravity action medication, supportive care, outpatient transplant follow-up as per routine (4) Hypertension Current Visit: Yes Status: Acute Qualifiers: Hypertension type: essential hypertension Qualified Code(s): I10 - Essential (primary) hypertension Plan to address problem: Monitor blood pressure every shift, continue medical management (5) Hyperlipidemia Current Visit: Yes Status: Acute Qualifiers: Hyperlipidemia type: mixed hyperlipidemia Qualified Code(s): E78.2 - Mixed hyperlipidemia Plan to address problem: Statin therapy, supportive care. Low-cholesterol diet
[2020-10-10] MEDS ORDERED: LORazepam 0.5 MG TAB PO PRN (20:06)
[2020-10-10] MEDS: DONEPEZIL 10 MG TAB PO SCH (21:22)
[2020-10-10] MEDS: SIROLIMUS 1 MG PO SCH (21:24)
[2020-10-10] MEDS: PRIMIDONE 50 MG TAB PO SCH (21:24)
[2020-10-10] MEDS: PSYLLIUM SEED (WITH SUGAR) 3.4 GM PACKET PO SCH (23:12)
[2020-10-11] MEDS: INSULIN LISPRO 100 UNIT/ML SUB-Q SCH ×4 (07:30→21:42)
--- NOTE | 2020-10-11 09:22 | Progress Note ---
Subjective Date of service: 10/11/20 Subjective Comment: Per Nurse Note: pt spent last evening in activity room watching television, alert and oriented to person,calm and cooperative, confused, forgetful, constantly asking for his , pt is medication compliant, pt observed to have a wet cough at night intermittently, pt got up at approximately 0230 and refused to go back to bed, he was setting off bed alarm, pt was brought to the nursing station in javier chair so that staff will monitor him, while in recliner, he slept off and on, pt slept for 6hrs, no distress noted, will continue to monitor for safety. I interviewed the patient this morning. Medical records reviewed and patient's progress was discussed with unit staff. Patient was seen in the activity room with peers. Patient continues to be confused. He reports not sleeping well last night and when asked why, he reports " I was worried about my because she has been in the hospital for too long. " Patient denies any current SI/HI and denies AVHs. REVIEW OF SYSTEMS Constitutional: Negative for weight loss ENT: Negative for stridor Respiratory: Negative for cough or hemoptysis All other systems reviewed and are negative MENTAL STATUS EXAMINATION General Appearance and Behavior: Age appropriate, dressed appropriately, calm and cooperative Cooperation: Participating Psychomotor Behavior: psychomotor normal Mood: "ok" Affect and affective range: congruent with states mood Thought Process: goal directed Thought Content: obsessions Speech: Normal volume, Regular rate and rhythm, Intellectual Functioning: Average Suicidal Ideation: Denies Homicidal Ideation: Denies Hallucinations: Denies Impulse Control: Impaired Insight and Judgment: Limited insight and judgment, Memory: Abnormal Attention: Undivided Orientation: Alert, oriented Assessment and Plan (1) MDD Treatment Plan Patient admitted for inpatient psychiatric evaluation, medication adjustment and close monitoring The patient's behavior, mood, sleep and appetite will be closely monitored. Patient enrolled in individual and group therapeutic sessions and encouraged to attend. Patient provided with a safe and structured environment. Patient's physical health needs will be addressed by the Hospitalist. Hospitalist Consulted Labs including CBC, CMP, Lipid profile and Hemoglobin A1C levels ordered for baseline reference Social Assessment will be completed and the Potato Inspector will work with patient and family to ensure a suitable and safe disposition Medication adjustment will be made as clinically indicated Continue- Olanzapine 2.5mg tablet at bedtime Continue- Depakote DR 125mg po BID Please see Mar- Continue home medications. Usual Wellness Buddhist/Preservation: - Start Trazodone 50 mg po QHS & 50 mg po QHS PRN between 10 PM & 2 AM for insomnia - Start Melatonin 5 mg po QHS to promote circadian rhythm - Start [place]-3 for brain health, reduce impulsivity, and as adjunctive treatment for mood disorder, continue upon discharge given overall benefits. - Start B1 prophylaxis with 200 mg po for 5 days The patient agreed on the treatment plan, understood the risk, benefit, alternative treatment, potential consequence of no treatment, and gave informed consent. Estimated days: 7 Post hospital care: primary care provider, psychiatric provider Legal Status: Voluntary Reaction to Hospitalization: Accepting Medications and Allergies Medications and Allergies Allergies Allergy/AdvReac Type Severity Reaction Status Date / Time clopidogrel Allergy Swelling Verified 10/06/20 00:43 Home Medications Medication Instructions Recorded Confirmed Last Taken Type Aspirin [Aspirin BABY CHEW TAB] 81 mg PO QDAY 10/06/20 10/07/20 10/06/20 10:00 History Atorvastatin [Lipitor Tab] 80 mg PO QHS 10/06/20 10/07/20 10/06/20 22:00 History B-Complex with Vitamin C [Vitamin 1 tab PO DAILY 10/06/20 10/07/20 10/06/20 10:00 History B Complex-Vitamin C] Cholecalciferol (Vitamin D3) 1 tab PO DAILY 10/06/20 10/07/20 Unknown History [Vitamin D3 2,000 UNIT CAP] Donepezil HCl [Donepezil HCl Odt] 10 mg PO QHS 10/06/20 10/07/20 10/06/20 22:00 History Fenofibrate 160 mg PO DAILY 10/06/20 10/07/20 10/06/20 13:00 History Fiber 2 tab PO QHS 10/06/20 10/07/20 Unknown History Furosemide [Lasix] 20 mg PO QDAY 10/06/20 10/07/20 10/06/20 10:00 History Insulin Lispro [Humalog Kwikpen See Protocol SQ ACHS 10/06/20 10/07/20 Unknown History 200 UNITS/ML] Isosorbide Mononitrate [Isosorbide 30 mg PO QHS 10/06/20 10/07/20 10/06/20 22:00 History Mononitrate ER] LORazepam [Ativan] 0.5 mg PO BID PRN 10/06/20 10/07/20 Unknown History Lisinopril [Zestril TAB] 30 mg PO QDAY 10/06/20 10/07/20 10/06/20 10:00 History Memantine HCl 10 mg PO BID 10/06/20 10/07/20 10/06/20 22:00 History Mv,Ca,Min/FA/K1/Lycopene/Lutn [Eql 1 tab PO DAILY 10/06/20 10/07/20 10/05/20 History Century Mature Tablet] Mycophenolate [Cellcept] 2 tab PO BID 10/06/20 10/07/20 10/06/20 22:00 History NIFEdipine [Nifedipine ER] 60 mg PO DAILY 10/06/20 10/07/20 10/06/20 10:00 History OLANZapine [Zyprexa] 0.5 tab PO QHS 10/06/20 10/07/20 Unknown History [place]-3/Dha/Epa/Fish Oil [[place] 3 1,000 mg PO DAILY 10/06/20 10/07/20 Unknown History 500 Softgel] Primidone [Mysoline] 3 tab PO HS 10/06/20 10/07/20 10/06/20 22:00 History Ranolazine ER [Ranexa ER] 500 mg PO BID 10/06/20 10/07/20 10/06/20 22:00 History Sirolimus [Rapamune] 1 mg PO Q4W 10/06/20 10/07/20 10/05/20 History Sodium Bicarbonate 1 tab PO 3XW 10/06/20 10/07/20 10/05/20 10:00 History Sulfamethoxazole/Trimethoprim 1 each PO 4XW 10/06/20 10/07/20 10/05/20 History [Sulfamethoxazole-Tmp Ds Tablet] allopurinoL [Zyloprim] 100 mg PO 4XW 10/06/20 10/07/20 10/05/20 History carvediloL [Coreg] 12.5 mg PO BID 10/06/20 10/07/20 10/06/20 22:00 History cilostazoL [Pletal] 100 mg PO BID 10/06/20 10/07/20 10/06/20 22:00 History glipiZIDE XL [Glucotrol Xl] 10 mg PO QHS 10/06/20 10/07/20 10/06/20 22:00 History predniSONE [Deltasone] 5 mg PO QDAY 10/06/20 10/07/20 10/06/20 22:[address] [DepaKOTE DR] 125 mg PO BID 10/07/20 10/07/20 10/06/20 22:00 History Doxazosin [Cardura] 4 mg PO BID 10/07/20 10/07/20 10/06/20 22:00 History Multivitamin Tab W-MINERAL 1 each PO QD 10/07/20 10/07/20 10/06/20 10:00 History [Multiple Vitamin/Mineral (Theragran M)] Active Meds: Active Medications All[facility] ([facility] 100 Mg Tab) [facility] Admin: 10/09/20 09:32 Dose: 100 mg Documented by: Aspirin (Aspirin 81 Mg Tab Chew) 81 mg PO QDAY [facility] Last Admin: 10/10/20 11:55 Dose: 81 mg Documented by: Atorvastatin Calcium (Atorvastatin 40 Mg Tab) 80 mg PO QHS [facility] Last Admin: 10/10/20 21:23 Dose: 80 mg Documented by: Carvedilol (Carvedilol 12.5 Mg Tab) 12.5 mg PO BID [facility] Last Admin: 10/10/20 21:25 Dose: 12.5 mg Documented by: Cholecalciferol (Cholecalciferol (Vit D3) 1000 Unit (25 Mcg) Tab) 2,000 unit PO QDAY [facility] Last Admin: 10/10/20 11:57 Dose: 2,000 unit Documented by: Cilostazol (Cilostazol 100 Mg Tab) 100 mg PO BID [facility] Last Admin: 10/10/20 21:22 Dose: 100 mg Documented by: Divalproex Sodium (Divalproex Dr 125 Mg Tab) 125 mg PO BID [facility] Last Admin: 10/10/20 21:22 Dose: 125 mg Documented by: Donepezil HCl (Donepezil 10 Mg Tab) 10 mg PO QHS [facility] Last Admin: 10/10/20 21:22 Dose: 10 mg Documented by: Doxazosin Mesylate (Doxazosin 4 Mg Tab) 4 mg PO BID [facility] Last Admin: 10/10/20 21:24 Dose: 4 mg Documented by: Fenofibrate (Fenofibrate 145 Mg Tab) 145 mg PO DAILY [facility] Last Admin: 10/10/20 11:53 Dose: 145 mg Documented by: Fish Oil ([place]-3 Fatty Acids/Fish Oil 1 Gram Cap) 1,000 mg PO DAILY [facility] Furosemide (Furosemide 20 Mg Tab) 20 mg PO QDAY [facility] Glipizide (Glipizide Xl 10 Mg Tab) 10 mg PO QHS [facility] Last Admin: 10/10/20 21:23 Dose: 10 mg Documented by: Insulin Human Lispro (Insulin Lispro 100 Unit/Ml) 0 unit SUB-Q ACHS [facility] Last Admin: 10/10/20 21:28 Dose: Not Given Documented by: Isosorbide Mononitrate (Isosorbide Mononitrate Er 30 Mg Tab) 30 mg PO QHS [facility] Last Admin: 10/10/20 21:25 Dose: 30 mg Documented by: Lisinopril (Lisinopril 10 Mg Tab) 30 mg PO QDAY [facility] Last Admin: 10/10/20 15:17 Dose: 30 mg Documented by: Lorazepam (Lorazepam 0.5 Mg Tab) 0.5 mg PO BID PRN PRN Reason: Anxiety Memantine (Memantine 10 Mg Tab) 10 mg PO BID [facility] Last Admin: 10/10/20 21:23 Dose: 10 mg Documented by: Multivitamins/Minerals (Multivitamins,Ther W-Minerals Tab) 1 each PO QDAY [facility] Mycophenolate Mofetil (Mycophenolate 250 Mg Cap) 500 mg PO BID [facility] Last Admin: 10/10/20 21:23 Dose: 500 mg Documented by: Nifedipine (Nifedipine Xl 60 Mg Tab) 60 mg PO DAILY [facility] Last Admin: 10/10/20 11:57 Dose: 60 mg Documented by: Olanzapine (Olanzapine 5 Mg Tab) 2.5 mg PO QHS [facility] Last Admin: 10/10/20 21:21 Dose: 2.5 mg Documented by: Prednisone (Prednisone 5 Mg Tab) 5 mg PO QDAY [facility] Last Admin: 10/10/20 11:54 Dose: 5 mg Documented by: Primidone (Primidone 50 Mg Tab) 150 mg PO QHS [facility] Last Admin: 10/10/20 21:24 Dose: 150 mg Documented by: Psyllium Hydrophilic Mucilloid (Psyllium Seed (With Sugar) 3.4 Gm Packet) 1 each PO QHS [facility] Last Admin: 10/10/20 23:12 Dose: Not Given Documented by: Ranolazine (Ranolazine Er 500 Mg Tab 12hr) 500 mg PO BID [facility] Last Admin: 10/10/20 21:23 Dose: 500 mg Documented by: Sirolimus (Sirolimus (Nf) 1 Mg Tab) 2 mg PO SuTuThSa [facility] Last Admin: 10/09/20 23:35 Dose: 2 mg Documented by: Sirolimus (Sirolimus (Nf) 1 Mg Tab) 1 mg PO MoWeFr [facility] Last Admin: 10/10/20 21:24 Dose: 1 mg Documented by: Sodium Bicarbonate (Sodium Bicarbonate 650 Mg Tab) 650 mg PO MoWeFr [facility] Vitamin B Complex/Vitamin C (B Complex W/Vitamin C Tab) 1 each PO DAILY [facility] Results - Results Labs/Vitals: Laboratory Last Values WBC 6.4 K/mm3 (4.5-11.0) 10/09/20 23:39 RBC 3.63 M/mm3 (3.65-5.03) L 10/09/20 23:39 Hgb 10.2 gm/dl (11.8-15.2) L 10/09/20 23:39 Hct 30.4 % (35.5-45.6) L 10/09/20 23:39 MCV 84 fl (84-94) 10/09/20 23:39 MCH 28 pg (28-32) 10/09/20 23:39 MCHC 34 % (32-34) 10/09/20 23:39 RDW 15.0 % (13.2-15.2) 10/09/20 23:39 Plt Count 262 K/mm3 (140-440) 10/09/20 23:39 Imperial % (Auto) Boiler Room Helper 10/09/20 23:39 Add Manual Diff Complete 10/09/20 23:39 Total Counted 100 10/09/20 23:39 Seg Neuts % (Manual) 72.0 % (40.0-70.0) H 10/09/20 23:39 Lymphocytes % (Manual) 18.0 % (13.4-35.0) 10/09/20 23:39 Monocytes % (Manual) 8.0 % (0.0-7.3) H 10/09/20 23:39 Eosinophils % (Manual) 2.0 % (0.0-4.3) 10/09/20 23:39 Nucleated RBC % Not Reportable 10/09/20 23:39 Seg Neutrophils # Man 4.6 K/mm3 (1.8-7.7) 10/09/20 23:39 Band Neutrophils # 0.0 K/mm3 10/09/20 23:39 Lymphocytes # (Manual) 1.2 K/mm3 (1.2-5.4) 10/09/20 23:39 Abs React Lymphs (Man) 0.0 K/mm3 10/09/20 23:39 Monocytes # (Manual) 0.5 K/mm3 (0.0-0.8) 10/09/20 23:39 Eosinophils # (Manual) 0.1 K/mm3 (0.0-0.4) 10/09/20 23:39 Basophils # (Manual) 0.0 K/mm3 (0.0-0.1) 10/09/20 23:39 Metamyelocytes # 0.0 K/mm3 10/09/20 23:39 Myelocytes # 0.0 K/mm3 10/09/20 23:39 Promyelocytes # 0.0 K/mm3 10/09/20 23:39 Blast Cells # 0.0 K/mm3 10/09/20 23:39 WBC Morphology Not Reportable 10/09/20 23:39 Hypersegmented Neuts Not Reportable 10/09/20 23:39 Hyposegmented Neuts Not Reportable 10/09/20 23:39 Hypogranular Neuts Not Reportable 10/09/20 23:39 Smudge Cells Not Reportable 10/09/20 23:39 Toxic Granulation Not Reportable 10/09/20 23:39 Toxic Vacuolation Not Reportable 10/09/20 23:39 Dohle Bodies Not Reportable 10/09/20 23:39 Pelger-Huet Anomaly Not Reportable 10/09/20 23:39 Sly Rods Not Reportable 10/09/20 23:39 Platelet Estimate Consistent w auto 10/09/20 23:39 Clumped Platelets Not Reportable 10/09/20 23:39 Plt Clumps, EDTA Not Reportable 10/09/20 23:39 Large Platelets Not Reportable 10/09/20 23:39 Giant Platelets Not Reportable 10/09/20 23:39 Platelet Satelliting Not Reportable 10/09/20 23:39 Plt Morphology Comment Not Reportable 10/09/20 23:39 RBC Morphology Not Reportable 10/09/20 23:39 Dimorphic RBCs Not Reportable 10/09/20 23:39 Polychromasia Not Reportable 10/09/20 23:39 Hypochromasia Not Reportable 10/09/20 23:39 Poikilocytosis Not Reportable 10/09/20 23:39 Anisocytosis 1+ 10/09/20 23:39 Microcytosis Not Reportable 10/09/20 23:39 Macrocytosis Not Reportable 10/09/20 23:39 Spherocytes Not Reportable 10/09/20 23:39 Pappenheimer Bodies Not Reportable 10/09/20 23:39 Sickle Cells Not Reportable 10/09/20 23:39 Target Cells Not Reportable 10/09/20 23:39 Tear Drop Cells Not Reportable 10/09/20 23:39 Ovalocytes Not Reportable 10/09/20 23:39 Helmet Cells Not Reportable 10/09/20 23:39 [place] Bodies Not Reportable 10/09/20 23:39 [place] Rings Not Reportable 10/09/20 23:39 Johnnie Cells Not Reportable 10/09/20 23:39 Bite Cells Not Reportable 10/09/20 23:39 Crenated Cell Not Reportable 10/09/20 23:39 Elliptocytes Not Reportable 10/09/20 23:39 Acanthocytes (Spur) Not Reportable 10/09/20 23:39 Rouleaux Not Reportable 10/09/20 23:39 Hemoglobin C Crystals Not Reportable 10/09/20 23:39 Schistocytes Not Reportable 10/09/20 23:39 Malaria parasites Not Reportable 10/09/20 23:39 Khai Bodies Not Reportable 10/09/20 23:39 Hem Pathologist Commnt No 10/09/20 23:39 Sodium 140 mmol/L (137-145) 10/09/20 23:39 Potassium 4.0 mmol/L (3.6-5.0) 10/09/20 23:39 Chloride 103.8 mmol/L (98-107) 10/09/20 23:39 Carbon Dioxide 18 mmol/L (22-30) L 10/09/20 23:39 Anion Gap 22 mmol/L 10/09/20 23:39 BUN 59 mg/dL (9-20) H 10/09/20 23:39 Creatinine 1.7 mg/dL (0.8-1.3) H 10/09/20 23:39 Estimated GFR 48 ml/min 10/09/20 23:39 BUN/Creatinine Ratio 35 % 10/09/20 23:39 Glucose 132 mg/dL (75-100) H 10/09/20 23:39 POC Glucose 76 mg/dL (70-105) 10/11/20 06:09 Hemoglobin A1c 6.5 % (4-6) H 10/09/20 23:39 Calcium 9.3 mg/dL (8.4-10.2) 10/09/20 23:39 Total Bilirubin 0.30 mg/dL (0.1-1.2) 10/09/20 23:39 AST 40 units/L (5-40) 10/09/20 23:39 ALT 25 units/L (7-56) 10/09/20 23:39 Alkaline Phosphatase 51 units/L (35-129) 10/09/20 23:39 Total Protein 6.1 g/dL (6.3-8.2) L 10/09/20 23:39 Albumin 3.6 g/dL (3.9-5) L 10/09/20 23:39 Albumin/Globulin Ratio 1.4 % 10/09/20 23:39 Triglycerides 235 mg/dL (2-149) H 10/09/20 23:39 Cholesterol 143 mg/dL (50-199) 10/09/20 23:39 LDL Cholesterol Direct 77 mg/dL (50-130) 10/09/20 23:39 HDL Cholesterol 28 mg/dL (40-59) L 10/09/20 23:39 Cholesterol/HDL Ratio 5.10 % 10/09/20 23:39 Last Vital Signs Temp 97.6 F 10/10/20 19:38 Pulse 92 H 10/10/20 21:25 Resp 18 10/10/20 19:38 BP 133/74 10/10/20 21:25 Pulse Ox 95 10/10/20 19:38
[2020-10-11] MEDS ORDERED: K1 PO SCH (10:00)
[2020-10-11] MEDS ORDERED: [UNRECOGNIZED DRUG - OTHER] PO SCH (10:00)
[2020-10-11] MEDS ORDERED: LYCOPENE PO SCH (10:00)
[2020-10-11] MEDS: MYCOPHENOLATE 250 MG CAP PO SCH ×2 (11:37→21:37)
[2020-10-11] MEDS: CILOSTAZOL 100 MG TAB PO SCH ×2 (11:38→21:41)
[2020-10-11] MEDS: B COMPLEX W/VITAMIN C TAB PO SCH (11:38)
[2020-10-11] MEDS: FENOFIBRATE 145 MG TAB PO SCH (11:38)
[2020-10-11] MEDS: MULTIVITAMINS,THER W-MINERALS TAB PO SCH (11:38)
[2020-10-11] MEDS: OMEGA-3 FATTY ACIDS/FISH OIL 1 GRAM CAP PO SCH (11:38)
[2020-10-11] MEDS: DIVALPROEX DR 125 MG TAB PO SCH ×2 (11:38→21:37)
[2020-10-11] MEDS: MEMANTINE 10 MG TAB PO SCH ×2 (11:38→21:56)
[2020-10-11] MEDS: FUROSEMIDE 20 MG TAB PO SCH (11:38)
[2020-10-11] MEDS: predniSONE 5 MG TAB PO SCH (11:39)
[2020-10-11] MEDS: allopurinoL 100 MG TAB PO SCH (11:39)
[2020-10-11] MEDS: RANOLAZINE ER 500 MG TAB 12HR PO SCH ×2 (11:39→21:37)
[2020-10-11] MEDS: ASPIRIN 81 MG TAB CHEW PO SCH (11:39)
[2020-10-11] MEDS: carvediloL 12.5 MG TAB PO SCH ×2 (11:40→21:43)
[2020-10-11] MEDS: LISINOPRIL 10 MG TAB PO SCH (11:40)
[2020-10-11] MEDS: NIFEdipine XL 60 MG TAB PO SCH (11:54)
[2020-10-11] MEDS: DOXAZOSIN 4 MG TAB PO SCH ×2 (12:13→21:37)
[2020-10-11] MEDS: CHOLECALCIFEROL (VIT D3) 1000 UNIT (25 mcg) TAB PO SCH (12:13)
--- NOTE | 2020-10-11 13:48 | History and Physical Report ---
GP History & Physical - History of Present Illness Date of admission: 10/07/20 Reason for Admission: Danger to self Chief Complaint: Altered mental status History of Present Illness: er Nurse Note: After the admission the patient rested quietly in bed. He woke one time and was confused. He tried to kick staff and demanded to know where he is at. Patient was oriented to his surroundings and returned to bed. Will continue to monitor patient for safety. Patient was seen inn the activity room. Patient presents with disorganized thoughts. 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 PAST PSYCHIATRIC HISTORY- Unable to assess SOCIAL HISTORY- Unable to assess REVIEW OF SYSTEMS- Unable to assess MENTAL STATUS EXAMINATION- Unable to assess Assessment and Plan (1) MDD Treatment Plan Patient admitted for inpatient psychiatric evaluation, medication adjustment and close monitoring The patient's behavior, mood, sleep and appetite will be closely monitored. Patient enrolled in individual and group therapeutic sessions and encouraged to attend. Patient provided with a safe and structured environment. Patient's physical health needs will be addressed by the Hospitalist. Hospitalist Consulted Labs including CBC, CMP, Lipid profile and Hemoglobin A1C levels ordered for baseline reference Social Assessment will be completed and the Operator Receptionist will work with patient and family to ensure a suitable and safe disposition Medication adjustment will be made as clinically indicated Start- Olanzapine 5mg 1/2 tablet at bedtime Start- Depakote DR 125mg po BID Please see Mar- Continue home medications. Usual Wellness Cheondoism/Preservation: - Start Trazodone 50 mg po QHS & 50 mg po QHS PRN between 10 PM & 2 AM for insomnia - Start Melatonin 5 mg po QHS to promote circadian rhythm - Start [place]-3 for brain health, reduce impulsivity, and as adjunctive treatment for mood disorder, continue upon discharge given overall benefits. - Start B1 prophylaxis with 200 mg po for 5 days The patient agreed on the treatment plan, understood the risk, benefit, alternative treatment, potential consequence of no treatment, and gave informed consent. Estimated days: 7 Post hospital care: primary care provider, psychiatric provider Legal Status: Voluntary Reaction to Hospitalization: Accepting Legal Status: Voluntary Patient Problems: Current Active Problems Cerebral atherosclerosis (Acute) Hyperlipidemia (Acute) Hypertension (Acute) Renal transplant recipient (Acute) Vascular dementia with behavioral disturbance (Acute) Reaction to Hospitalization: Accepting Medications and Allergies Allergies Allergy/AdvReac Type Severity Reaction Status Date / Time clopidogrel Allergy Swelling Verified 10/06/20 00:43 Home Medications Medication Instructions Recorded Confirmed Last Taken Type Aspirin [Aspirin BABY CHEW TAB] 81 mg PO QDAY 10/06/20 10/07/20 10/06/20 10:00 History Atorvastatin [Lipitor Tab] 80 mg PO QHS 10/06/20 10/07/20 10/06/20 22:00 History B-Complex with Vitamin C [Vitamin 1 tab PO DAILY 10/06/20 10/07/20 10/06/20 10:00 History B Complex-Vitamin C] Cholecalciferol (Vitamin D3) 1 tab PO DAILY 10/06/20 10/07/20 Unknown History [Vitamin D3 2,000 UNIT CAP] Donepezil HCl [Donepezil HCl Odt] 10 mg PO QHS 10/06/20 10/07/20 10/06/20 22:00 History Fenofibrate 160 mg PO DAILY 10/06/20 10/07/20 10/06/20 13:00 History Fiber 2 tab PO QHS 10/06/20 10/07/20 Unknown History Furosemide [Lasix] 20 mg PO QDAY 10/06/20 10/07/20 10/06/20 10:00 History Insulin Lispro [Humalog Kwikpen See Protocol SQ ACHS 10/06/20 10/07/20 Unknown History 200 UNITS/ML] Isosorbide Mononitrate [Isosorbide 30 mg PO QHS 10/06/20 10/07/20 10/06/20 22:00 History Mononitrate ER] LORazepam [Ativan] 0.5 mg PO BID PRN 10/06/20 10/07/20 Unknown History Lisinopril [Zestril TAB] 30 mg PO QDAY 10/06/20 10/07/20 10/06/20 10:00 History Memantine HCl 10 mg PO BID 10/06/20 10/07/20 10/06/20 22:00 History Mv,Ca,Min/FA/K1/Lycopene/Lutn [Eql 1 tab PO DAILY 10/06/20 10/07/20 10/05/20 History Century Mature Tablet] Mycophenolate [Cellcept] 2 tab PO BID 10/06/20 10/07/20 10/06/20 22:00 History NIFEdipine [Nifedipine ER] 60 mg PO DAILY 10/06/20 10/07/20 10/06/20 10:00 History OLANZapine [Zyprexa] 0.5 tab PO QHS 10/06/20 10/07/20 Unknown History Weston-3/Dha/Epa/Fish Oil [[place]on 3 1,000 mg PO DAILY 10/06/20 10/07/20 Unknown History 500 Softgel] Primidone [Mysoline] 3 tab PO HS 10/06/20 10/07/20 10/06/20 22:00 History Ranolazine ER [Ranexa ER] 500 mg PO BID 10/06/20 10/07/20 10/06/20 22:00 History Sirolimus [Rapamune] 1 mg PO Q4W 10/06/20 10/07/20 10/05/20 History Sodium Bicarbonate 1 tab PO 3XW 10/06/20 10/07/20 10/05/20 10:00 History Sulfamethoxazole/Trimethoprim 1 each PO 4XW 10/06/20 10/07/20 10/05/20 History [Sulfamethoxazole-Tmp Ds Tablet] allopurinoL [Zyloprim] 100 mg PO 4XW 10/06/20 10/07/20 10/05/20 History carvediloL [Coreg] 12.5 mg PO BID 10/06/20 10/07/20 10/06/20 22:00 History cilostazoL [Pletal] 100 mg PO BID 10/06/20 10/07/20 10/06/20 22:00 History glipiZIDE XL [Glucotrol Xl] 10 mg PO QHS 10/06/20 10/07/20 10/06/20 22:00 History predniSONE [Deltasone] 5 mg PO QDAY 10/06/20 10/07/20 10/06/20 22:00 History Divalproex [Jak NUR] 125 mg PO BID 10/07/20 10/07/20 10/06/20 22:00 History Doxazosin [Cardura] 4 mg PO BID 10/07/20 10/07/20 10/06/20 22:00 History Multivitamin Tab W-MINERAL 1 each PO QD 10/07/20 10/07/20 10/06/20 10:00 History [Multiple Vitamin/Mineral (Theragran M)] Active Meds: Active Medications Allopurinol (Allopurinol 100 Mg Tab) 100 mg PO SuTuThSa [facility] Last Admin: 10/11/20 11:39 Dose: 100 mg Documented by: Aspirin (Aspirin 81 Mg Tab Chew) 81 mg PO QDAY [facility] Last Admin: 10/11/20 11:39 Dose: 81 mg Documented by: Atorvastatin Calcium (Atorvastatin 40 Mg Tab) 80 mg PO QHS [facility] Last Admin: 10/10/20 21:23 Dose: 80 mg Documented by: Carvedilol (Carvedilol 12.5 Mg Tab) 12.5 mg PO BID [facility] Last Admin: 10/11/20 11:40 Dose: 12.5 mg Documented by: Cholecalciferol (Cholecalciferol (Vit D3) 1000 Unit (25 Mcg) Tab) 2,000 unit PO QDAY [facility] Last Admin: 10/11/20 12:13 Dose: 2,000 unit Documented by: Cilostazol (Cilostazol 100 Mg Tab) 100 mg PO BID [facility] Last Admin: 10/11/20 11:38 Dose: 100 mg Documented by: Divalproex Sodium (Divalproex Dr 125 Mg Tab) 125 mg PO BID [facility] Last Admin: 10/11/20 11:38 Dose: 125 mg Documented by: Donepezil HCl (Donepezil 10 Mg Tab) 10 mg PO QHS [facility] Last Admin: 10/10/20 21:22 Dose: 10 mg Documented by: Doxazosin Mesylate (Doxazosin 4 Mg Tab) 4 mg PO BID [facility] Last Admin: 10/11/20 12:13 Dose: 4 mg Documented by: Fenofibrate (Fenofibrate 145 Mg Tab) 145 mg PO DAILY [facility] Last Admin: 10/11/20 11:38 Dose: 145 mg Documented by: Fish Oil (Weston-3 Fatty Acids/Fish Oil 1 Gram Cap) 1,000 mg PO DAILY [facility] Last Admin: 10/11/20 11:38 Dose: 1,000 mg Documented by: Furosemide (Furosemide 20 Mg Tab) 20 mg PO QDAY [facility] Last Admin: 10/11/20 11:38 Dose: 20 mg Documented by: Glipizide (Glipizide Xl 10 Mg Tab) 10 mg PO QHS [facility] Last Admin: 10/10/20 21:23 Dose: 10 mg Documented by: Insulin Human Lispro (Insulin Lispro 100 Unit/Ml) 0 unit SUB-Q ACHS [facility] Last Admin: 10/11/20 12:22 Dose: Not Given Documented by: Isosorbide Mononitrate (Isosorbide Mononitrate Er 30 Mg Tab) 30 mg PO QHS [facility] Last Admin: 10/10/20 21:25 Dose: 30 mg Documented by: Lisinopril (Lisinopril 10 Mg Tab) 30 mg PO QDAY [facility] Last Admin: 10/11/20 11:40 Dose: 30 mg Documented by: Lorazepam (Lorazepam 0.5 Mg Tab) 0.5 mg PO BID PRN PRN Reason: Anxiety Memantine (Memantine 10 Mg Tab) 10 mg PO BID [facility] Last Admin: 10/11/20 11:38 Dose: 10 mg Documented by: Multivitamins/Minerals (Multivitamins,Ther W-Minerals Tab) 1 each PO QDAY [facility] Last Admin: 10/11/20 11:38 Dose: 1 each Documented by: Mycophenolate Mofetil (Mycophenolate 250 Mg Cap) 500 mg PO BID [facility] Last Admin: 10/11/20 11:37 Dose: 500 mg Documented by: Nifedipine (Nifedipine Xl 60 Mg Tab) 60 mg PO DAILY [facility] Last Admin: 10/11/20 11:54 Dose: 60 mg Documented by: Olanzapine (Olanzapine 5 Mg Tab) 2.5 mg PO QHS [facility] Last Admin: 10/10/20 21:21 Dose: 2.5 mg Documented by: Prednisone (Prednisone 5 Mg Tab) 5 mg PO QDAY [facility] Last Admin: 10/11/20 11:39 Dose: 5 mg Documented by: Primidone (Primidone 50 Mg Tab) 150 mg PO QHS [facility] Last Admin: 10/10/20 21:24 Dose: 150 mg Documented by: Psyllium Hydrophilic Mucilloid (Psyllium Seed (With Sugar) 3.4 Gm Packet) 1 each PO QHS [facility] Last Admin: 10/10/20 23:12 Dose: Not Given Documented by: Ranolazine (Ranolazine Er 500 Mg Tab 12hr) 500 mg PO BID [facility] Last Admin: 10/11/20 11:39 Dose: 500 mg Documented by: Sirolimus (Sirolimus (Nf) 1 Mg Tab) 2 mg PO SuTuThSa [facility] Last Admin: 10/09/20 23:35 Dose: 2 mg Documented by: Sirolimus (Sirolimus (Nf) 1 Mg Tab) 1 mg PO MoWeFr [facility] Last Admin: 10/10/20 21:24 Dose: 1 mg Documented by: Sodium Bicarbonate (Sodium Bicarbonate 650 Mg Tab) 650 mg PO MoWeFr [facility] Vitamin B Complex/Vitamin C (B Complex W/Vitamin C Tab) 1 each PO DAILY [facility] Last Admin: 10/11/20 11:38 Dose: 1 each Documented by: Results - Results Labs/Vitals: Laboratory Last Values WBC 6.4 K/mm3 (4.5-11.0) 10/09/20 23:39 RBC 3.63 M/mm3 (3.65-5.03) L 10/09/20 23:39 Hgb 10.2 gm/dl (11.8-15.2) L 10/09/20 23:39 Hct 30.4 % (35.5-45.6) L 10/09/20 23:39 MCV 84 fl (84-94) 10/09/20 23:39 MCH 28 pg (28-32) 10/09/20 23:39 MCHC 34 % (32-34) 10/09/20 23:39 RDW 15.0 % (13.2-15.2) 10/09/20 23:39 Plt Count 262 K/mm3 (140-440) 10/09/20 23:39 [place] % (Auto) Tech Intern 10/09/20 23:39 Add Manual Diff Complete 10/09/20 23:39 Total Counted 100 10/09/20 23:39 Seg Neuts % (Manual) 72.0 % (40.0-70.0) H 10/09/20 23:39 Lymphocytes % (Manual) 18.0 % (13.4-35.0) 10/09/20 23:39 Monocytes % (Manual) 8.0 % (0.0-7.3) H 10/09/20 23:39 Eosinophils % (Manual) 2.0 % (0.0-4.3) 10/09/20 23:39 Nucleated RBC % Not Reportable 10/09/20 23:39 Seg Neutrophils # Man 4.6 K/mm3 (1.8-7.7) 10/09/20 23:39 Band Neutrophils # 0.0 K/mm3 10/09/20 23:39 Lymphocytes # (Manual) 1.2 K/mm3 (1.2-5.4) 10/09/20 23:39 Abs React Lymphs (Man) 0.0 K/mm3 10/09/20 23:39 Monocytes # (Manual) 0.5 K/mm3 (0.0-0.8) 10/09/20 23:39 Eosinophils # (Manual) 0.1 K/mm3 (0.0-0.4) 10/09/20 23:39 Basophils # (Manual) 0.0 K/mm3 (0.0-0.1) 10/09/20 23:39 Metamyelocytes # 0.0 K/mm3 10/09/20 23:39 Myelocytes # 0.0 K/mm3 10/09/20 23:39 Promyelocytes # 0.0 K/mm3 10/09/20 23:39 Blast Cells # 0.0 K/mm3 10/09/20 23:39 WBC Morphology Not Reportable 10/09/20 23:39 Hypersegmented Neuts Not Reportable 10/09/20 23:39 Hyposegmented Neuts Not Reportable 10/09/20 23:39 Hypogranular Neuts Not Reportable 10/09/20 23:39 Smudge Cells Not Reportable 10/09/20 23:39 Toxic Granulation Not Reportable 10/09/20 23:39 Toxic Vacuolation Not Reportable 10/09/20 23:39 Dohle Bodies Not Reportable 10/09/20 23:39 Pelger-Huet Anomaly Not Reportable 10/09/20 23:39 Sly Rods Not Reportable 10/09/20 23:39 Platelet Estimate Consistent w auto 10/09/20 23:39 Clumped Platelets Not Reportable 10/09/20 23:39 Plt Clumps, EDTA Not Reportable 10/09/20 23:39 Large Platelets Not Reportable 10/09/20 23:39 Giant Platelets Not Reportable 10/09/20 23:39 Platelet Satelliting Not Reportable 10/09/20 23:39 Plt Morphology Comment Not Reportable 10/09/20 23:39 RBC Morphology Not Reportable 10/09/20 23:39 Dimorphic RBCs Not Reportable 10/09/20 23:39 Polychromasia Not Reportable 10/09/20 23:39 Hypochromasia Not Reportable 10/09/20 23:39 Poikilocytosis Not Reportable 10/09/20 23:39 Anisocytosis 1+ 10/09/20 23:39 Microcytosis Not Reportable 10/09/20 23:39 Macrocytosis Not Reportable 10/09/20 23:39 Spherocytes Not Reportable 10/09/20 23:39 Pappenheimer Bodies Not Reportable 10/09/20 23:39 Sickle Cells Not Reportable 10/09/20 23:39 Target Cells Not Reportable 10/09/20 23:39 Tear Drop Cells Not Reportable 10/09/20 23:39 Ovalocytes Not Reportable 10/09/20 23:39 Helmet Cells Not Reportable 10/09/20 23:39 [place] Bodies Not Reportable 10/09/20 23:39 [place] Rings Not Reportable 10/09/20 23:39 [place] Cells Not Reportable 10/09/20 23:39 Bite Cells Not Reportable 10/09/20 23:39 Crenated Cell Not Reportable 10/09/20 23:39 Elliptocytes Not Reportable 10/09/20 23:39 Acanthocytes (Spur) Not Reportable 10/09/20 23:39 Rouleaux Not Reportable 10/09/20 23:39 Hemoglobin C Crystals Not Reportable 10/09/20 23:39 Schistocytes Not Reportable 10/09/20 23:39 Malaria parasites Not Reportable 10/09/20 23:39 Khai Bodies Not Reportable 10/09/20 23:39 Hem Pathologist Commnt No 10/09/20 23:39 Sodium 140 mmol/L (137-145) 10/09/20 23:39 Potassium 4.0 mmol/L (3.6-5.0) 10/09/20 23:39 Chloride 103.8 mmol/L (98-107) 10/09/20 23:39 Carbon Dioxide 18 mmol/L (22-30) L 10/09/20 23:39 Anion Gap 22 mmol/L 10/09/20 23:39 BUN 59 mg/dL (9-20) H 10/09/20 23:39 Creatinine 1.7 mg/dL (0.8-1.3) H 10/09/20 23:39 Estimated GFR 48 ml/min 10/09/20 23:39 BUN/Creatinine Ratio 35 % 10/09/20 23:39 Glucose 132 mg/dL (75-100) H 10/09/20 23:39 POC Glucose 76 mg/dL (70-105) 10/11/20 06:09 Hemoglobin A1c 6.5 % (4-6) H 10/09/20 23:39 Calcium 9.3 mg/dL (8.4-10.2) 10/09/20 23:39 Total Bilirubin 0.30 mg/dL (0.1-1.2) 10/09/20 23:39 AST 40 units/L (5-40) 10/09/20 23:39 ALT 25 units/L (7-56) 10/09/20 23:39 Alkaline Phosphatase 51 units/L (35-129) 10/09/20 23:39 Total Protein 6.1 g/dL (6.3-8.2) L 10/09/20 23:39 Albumin 3.6 g/dL (3.9-5) L 10/09/20 23:39 Albumin/Globulin Ratio 1.4 % 10/09/20 23:39 Triglycerides 235 mg/dL (2-149) H 10/09/20 23:39 Cholesterol 143 mg/dL (50-199) 10/09/20 23:39 LDL Cholesterol Direct 77 mg/dL (50-130) 10/09/20 23:39 HDL Cholesterol 28 mg/dL (40-59) L 10/09/20 23:39 Cholesterol/HDL Ratio 5.10 % 10/09/20 23:39 Last Vital Signs Temp 97.6 F 10/10/20 19:38 Pulse 80 10/11/20 12:13 Resp 18 10/10/20 19:38 BP 157/91 10/11/20 12:13 Pulse Ox 95 10/10/20 19:38 Physical Examination - Constitutional Vitals: Vital Signs Temp Pulse Resp BP Pulse Ox 97.6 F 80 18 157/91 95 10/10/20 19:38 10/11/20 12:13 10/10/20 19:38 10/11/20 12:13 10/10/20 19:38 Temperature -Last 24 Hours Temperature 97.6 F Mental Status Exam - Vital signs Last Vital Signs Temp 97.6 F 10/10/20 19:38 Pulse 80 10/11/20 12:13 Resp 18 10/10/20 19:38 BP 157/91 10/11/20 12:13 Pulse Ox 95 10/10/20 19:38 Physician Certification - Certification Statement Physician Certification Statement: This is an acknowledgement statement that GENE SUN is a 74 year old M who requires inpatient psychiatric admission for treatment which could reasonably be expected to improve the patient's condition for Estimated period of time patient will need to remain in the hospital: [ ] Plan for post-hospital care: [ ]
--- NOTE | 2020-10-11 15:01 | XRay Report ---
CHEST 1 VIEW INDICATION / CLINICAL INFORMATION: For discharge. COMPARISON: None available. FINDINGS: SUPPORT DEVICES: None. HEART / MEDIASTINUM: No significant abnormality. LUNGS / PLEURA: Minimal left basilar density No pneumothorax. ADDITIONAL FINDINGS: No significant additional findings. IMPRESSION: Minimal left basilar density represents either subsegmental atelectasis or scar. No other significant abnormality Signer Name: Cliff Lozano MD FACR Signed: 10/11/2020 2:56 PM Workstation Name: [id number]
--- NOTE | 2020-10-11 19:41 | Event Note ---
Date: 10/11/20 I spoke with Mrs Jill Cleaning regarding the recent medical consult for elevated BUN and Creatinine. She is in agreement with the recommendation given by Dr. Cyrus Landaverde for the patient to follow-up with his PCP post discharge.
[2020-10-11] MEDS: PRIMIDONE 50 MG TAB PO SCH (21:37)
[2020-10-11] MEDS: DONEPEZIL 10 MG TAB PO SCH (21:43)
[2020-10-11] MEDS: PSYLLIUM SEED (WITH SUGAR) 3.4 GM PACKET PO SCH (21:44)
[2020-10-11] MEDS: SIROLIMUS 1 MG PO SCH (21:57)
[2020-10-12] MEDS: INSULIN LISPRO 100 UNIT/ML SUB-Q SCH ×4 (08:45→21:35)
--- NOTE | 2020-10-12 09:39 | Progress Note ---
Subjective Date of service: 10/12/20 Subjective Comment: Per Nurse Note: Last evening the patient was calm and cooperative until almost 2200. He began to focus on his not being here with him. He started cursing her if she wasn't at home. He kept forgetting that she visited during the afternoon. He denies si/hi/ah/vh. His appetite is good and he is medication compliant. Overnight the patient rested quietly. He slept 8 hours. Will continue to monitor patient for safety. I interviewed the patient this morning. Medical records reviewed and patient's progress was discussed with unit staff. Patient was seen eating breakfast in activity room. Patient continues to be confused. He reports mood as good. He continues to ask about his . Patient denies any current SI/HI and denies AVHs. REVIEW OF SYSTEMS Constitutional: Negative for weight loss ENT: Negative for stridor Respiratory: Negative for cough or hemoptysis All other systems reviewed and are negative MENTAL STATUS EXAMINATION General Appearance and Behavior: Age appropriate, dressed appropriately, calm and cooperative Cooperation: Participating Psychomotor Behavior: psychomotor normal Mood: "good" Affect and affective range: congruent with states mood Thought Process: goal directed Thought Content: obsessions Speech: Normal volume, Regular rate and rhythm, Intellectual Functioning: Average Suicidal Ideation: Denies Homicidal Ideation: Denies Hallucinations: Denies Impulse Control: Impaired Insight and Judgment: Limited insight and judgment, Memory: Abnormal Attention: Undivided Orientation: Alert, oriented Assessment and Plan (1) MDD Treatment Plan Patient admitted for inpatient psychiatric evaluation, medication adjustment and close monitoring The patient's behavior, mood, sleep and appetite will be closely monitored. Patient enrolled in individual and group therapeutic sessions and encouraged to attend. Patient provided with a safe and structured environment. Patient's physical health needs will be addressed by the Hospitalist. Hospitalist Consulted Labs including CBC, CMP, Lipid profile and Hemoglobin A1C levels ordered for baseline reference Social Assessment will be completed and the [facility] will work with patient and family to ensure a suitable and safe disposition Medication adjustment will be made as clinically indicated Continue- Olanzapine 2.5mg tablet at bedtime Continue- Depakote DR 125mg po BID Please see Mar- Continue home medications. Usual Wellness [employer]/Preservation: - Start Trazodone 50 mg po QHS & 50 mg po QHS PRN between 10 PM & 2 AM for insomnia - Start Melatonin 5 mg po QHS to promote circadian rhythm - Start [place]-3 for brain health, reduce impulsivity, and as adjunctive treatment for mood disorder, continue upon discharge given overall benefits. - Start B1 prophylaxis with 200 mg po for 5 days The patient agreed on the treatment plan, understood the risk, benefit, alternative treatment, potential consequence of no treatment, and gave informed consent. Estimated days: 7 Post hospital care: primary care provider, psychiatric provider Legal Status: Voluntary Reaction to Hospitalization: Accepting Medications and Allergies Medications and Allergies Allergies Allergy/AdvReac Type Severity Reaction Status Date / Time clopidogrel Allergy Swelling Verified 10/06/20 00:43 Home Medications Medication Instructions Recorded Confirmed Last Taken Type Aspirin [Aspirin BABY CHEW TAB] 81 mg PO QDAY 10/06/20 10/07/20 10/06/20 10:00 History Atorvastatin [Lipitor Tab] 80 mg PO QHS 10/06/20 10/07/20 10/06/20 22:00 History B-Complex with Vitamin C [Vitamin 1 tab PO DAILY 10/06/20 10/07/20 10/06/20 10:00 History B Complex-Vitamin C] Cholecalciferol (Vitamin D3) 1 tab PO DAILY 10/06/20 10/07/20 Unknown History [Vitamin D3 2,000 UNIT CAP] Donepezil HCl [Donepezil HCl Odt] 10 mg PO QHS 10/06/20 10/07/20 10/06/20 22:00 History Fenofibrate 160 mg PO DAILY 10/06/20 10/07/20 10/06/20 13:00 History Fiber 2 tab PO QHS 10/06/20 10/07/20 Unknown History Furosemide [Lasix] 20 mg PO QDAY 10/06/20 10/07/20 10/06/20 10:00 History Insulin Lispro [Humalog Kwikpen See Protocol SQ ACHS 10/06/20 10/07/20 Unknown History 200 UNITS/ML] Isosorbide Mononitrate [Isosorbide 30 mg PO QHS 10/06/20 10/07/20 10/06/20 22:00 History Mononitrate ER] LORazepam [Ativan] 0.5 mg PO BID PRN 10/06/20 10/07/20 Unknown History Lisinopril [Zestril TAB] 30 mg PO QDAY 10/06/20 10/07/20 10/06/20 10:00 History Memantine HCl 10 mg PO BID 10/06/20 10/07/20 10/06/20 22:00 History Mv,Ca,Min/FA/K1/Lycopene/Lutn [Eql 1 tab PO DAILY 10/06/20 10/07/20 10/05/20 History Century Mature Tablet] Mycophenolate [Cellcept] 2 tab PO BID 10/06/20 10/07/20 10/06/20 22:00 History NIFEdipine [Nifedipine ER] 60 mg PO DAILY 10/06/20 10/07/20 10/06/20 10:00 History OLANZapine [Zyprexa] 0.5 tab PO QHS 10/06/20 10/07/20 Unknown History [place]-3/Dha/Epa/Fish Oil [[place] 3 1,000 mg PO DAILY 10/06/20 10/07/20 Unknown History 500 Softgel] Primidone [Mysoline] 3 tab PO HS 10/06/20 10/07/20 10/06/20 22:00 History Ranolazine ER [Ranexa ER] 500 mg PO BID 10/06/20 10/07/20 10/06/20 22:00 History Sirolimus [Rapamune] 1 mg PO Q4W 10/06/20 10/07/20 10/05/20 History Sodium Bicarbonate 1 tab PO 3XW 10/06/20 10/07/20 10/05/20 10:00 History Sulfamethoxazole/Trimethoprim 1 each PO 4XW 10/06/20 10/07/20 10/05/20 History [Sulfamethoxazole-Tmp Ds Tablet] allopurinoL [Zyloprim] 100 mg PO 4XW 10/06/20 10/07/20 10/05/20 History carvediloL [Coreg] 12.5 mg PO BID 10/06/20 10/07/20 10/06/20 22:00 History cilostazoL [Pletal] 100 mg PO BID 10/06/20 10/07/20 10/06/20 22:00 History glipiZIDE XL [Glucotrol Xl] 10 mg PO QHS 10/06/20 10/07/20 10/06/20 22:00 History predniSONE [Deltasone] 5 mg PO QDAY 10/06/20 10/07/20 10/06/20 22:[address] [Jak NUR] 125 mg PO BID 10/07/20 10/07/20 10/06/20 22:00 History Doxazosin [Cardura] 4 mg PO BID 10/07/20 10/07/20 10/06/20 22:00 History Multivitamin Tab W-MINERAL 1 each PO QD 10/07/20 10/07/20 10/06/20 10:00 History [Multiple Vitamin/Mineral (Theragran M)] Active Meds: Active Medications Allopurinol (Allopurinol 100 Mg Tab) 100 mg PO SuTuThSa [facility] Last Admin: 10/11/20 11:39 Dose: 100 mg Documented by: Aspirin (Aspirin 81 Mg Tab Chew) 81 mg PO QDAY [facility] Last Admin: 10/11/20 11:39 Dose: 81 mg Documented by: Atorvastatin Calcium (Atorvastatin 40 Mg Tab) 80 mg PO QHS [facility] Last Admin: 10/11/20 21:41 Dose: 80 mg Documented by: Carvedilol (Carvedilol 12.5 Mg Tab) 12.5 mg PO BID [facility] Last Admin: 10/11/20 21:43 Dose: 12.5 mg Documented by: Cholecalciferol (Cholecalciferol (Vit D3) 1000 Unit (25 Mcg) Tab) 2,000 unit PO QDAY [facility] Last Admin: 10/11/20 12:13 Dose: 2,000 unit Documented by: Cilostazol (Cilostazol 100 Mg Tab) 100 mg PO BID [facility] Last Admin: 10/11/20 21:41 Dose: 100 mg Documented by: Divalproex Sodium (Divalproex Dr 125 Mg Tab) 125 mg PO BID [facility] Last Admin: 10/11/20 21:37 Dose: 125 mg Documented by: Donepezil HCl (Donepezil 10 Mg Tab) 10 mg PO QHS [facility] Last Admin: 10/11/20 21:43 Dose: 10 mg Documented by: Doxazosin Mesylate (Doxazosin 4 Mg Tab) 4 mg PO BID [facility] Last Admin: 10/11/20 21:37 Dose: 4 mg Documented by: Fenofibrate (Fenofibrate 145 Mg Tab) 145 mg PO DAILY [facility] Last Admin: 10/11/20 11:38 Dose: 145 mg Documented by: Fish Oil ([place]-3 Fatty Acids/Fish Oil 1 Gram Cap) 1,000 mg PO DAILY [facility] Last Admin: 10/11/20 11:38 Dose: 1,000 mg Documented by: Furosemide (Furosemide 20 Mg Tab) 20 mg PO QDAY [facility] Last Admin: 10/11/20 11:38 Dose: 20 mg Documented by: Glipizide (Glipizide Xl 10 Mg Tab) 10 mg PO QHS [facility] Last Admin: 10/11/20 21:41 Dose: 10 mg Documented by: Insulin Human Lispro (Insulin Lispro 100 Unit/Ml) 0 unit SUB-Q ACHS [facility] Last Admin: 10/12/20 08:45 Dose: Not Given Documented by: Isosorbide Mononitrate (Isosorbide Mononitrate Er 30 Mg Tab) 30 mg PO QHS [facility] Last Admin: 10/11/20 21:41 Dose: 30 mg Documented by: Lisinopril (Lisinopril 10 Mg Tab) 30 mg PO QDAY [facility] Last Admin: 10/11/20 11:40 Dose: 30 mg Documented by: Lorazepam (Lorazepam 0.5 Mg Tab) 0.5 mg PO BID PRN PRN Reason: Anxiety Memantine (Memantine 10 Mg Tab) 10 mg PO BID [facility] Last Admin: 10/11/20 21:56 Dose: 10 mg Documented by: Multivitamins/Minerals (Multivitamins,Ther W-Minerals Tab) 1 each PO QDAY [facility] Last Admin: 10/11/20 11:38 Dose: 1 each Documented by: Mycophenolate Mofetil (Mycophenolate 250 Mg Cap) 500 mg PO BID [facility] Last Admin: 10/11/20 21:37 Dose: 500 mg Documented by: Nifedipine (Nifedipine Xl 60 Mg Tab) 60 mg PO DAILY [facility] Last Admin: 10/11/20 11:54 Dose: 60 mg Documented by: Olanzapine (Olanzapine 5 Mg Tab) 2.5 mg PO QHS [facility] Last Admin: 10/11/20 21:56 Dose: 2.5 mg Documented by: Prednisone (Prednisone 5 Mg Tab) 5 mg PO QDAY [facility] Last Admin: 10/11/20 11:39 Dose: 5 mg Documented by: Primidone (Primidone 50 Mg Tab) 150 mg PO QHS [facility] Last Admin: 10/11/20 21:37 Dose: 150 mg Documented by: Psyllium Hydrophilic Mucilloid (Psyllium Seed (With Sugar) 3.4 Gm Packet) 1 each PO QHS [facility] Last Admin: 10/11/20 21:44 Dose: 1 each Documented by: Ranolazine (Ranolazine Er 500 Mg Tab 12hr) 500 mg PO BID [facility] Last Admin: 10/11/20 21:37 Dose: 500 mg Documented by: Sirolimus (Sirolimus (Nf) 1 Mg Tab) 2 mg PO SuTuThSa [facility] Last Admin: 10/11/20 21:57 Dose: 2 mg Documented by: Sirolimus (Sirolimus (Nf) 1 Mg Tab) 1 mg PO MoWeFr [facility] Last Admin: 10/10/20 21:24 Dose: 1 mg Documented by: Sodium Bicarbonate (Sodium Bicarbonate 650 Mg Tab) 650 mg PO MoWeFr [facility] Vitamin B Complex/Vitamin C (B Complex W/Vitamin C Tab) 1 each PO DAILY [facility] Last Admin: 10/11/20 11:38 Dose: 1 each Documented by: Results - Results Labs/Vitals: Laboratory Last Values WBC 6.4 K/mm3 (4.5-11.0) 10/09/20 23:39 RBC 3.63 M/mm3 (3.65-5.03) L 10/09/20 23:39 Hgb 10.2 gm/dl (11.8-15.2) L 10/09/20 23:39 Hct 30.4 % (35.5-45.6) L 10/09/20 23:39 MCV 84 fl (84-94) 10/09/20 23:39 MCH 28 pg (28-32) 10/09/20 23:39 MCHC 34 % (32-34) 10/09/20 23:39 RDW 15.0 % (13.2-15.2) 10/09/20 23:39 Plt Count 262 K/mm3 (140-440) 10/09/20 23:39 Grant % (Auto) Tax Adjuster 10/09/20 23:39 Add Manual Diff Complete 10/09/20 23:39 Total Counted 100 10/09/20 23:39 Seg Neuts % (Manual) 72.0 % (40.0-70.0) H 10/09/20 23:39 Lymphocytes % (Manual) 18.0 % (13.4-35.0) 10/09/20 23:39 Monocytes % (Manual) 8.0 % (0.0-7.3) H 10/09/20 23:39 Eosinophils % (Manual) 2.0 % (0.0-4.3) 10/09/20 23:39 Nucleated RBC % Not Reportable 10/09/20 23:39 Seg Neutrophils # Man 4.6 K/mm3 (1.8-7.7) 10/09/20 23:39 Band Neutrophils # 0.0 K/mm3 10/09/20 23:39 Lymphocytes # (Manual) 1.2 K/mm3 (1.2-5.4) 10/09/20 23:39 Abs React Lymphs (Man) 0.0 K/mm3 10/09/20 23:39 Monocytes # (Manual) 0.5 K/mm3 (0.0-0.8) 10/09/20 23:39 Eosinophils # (Manual) 0.1 K/mm3 (0.0-0.4) 10/09/20 23:39 Basophils # (Manual) 0.0 K/mm3 (0.0-0.1) 10/09/20 23:39 Metamyelocytes # 0.0 K/mm3 10/09/20 23:39 Myelocytes # 0.0 K/mm3 10/09/20 23:39 Promyelocytes # 0.0 K/mm3 10/09/20 23:39 Blast Cells # 0.0 K/mm3 10/09/20 23:39 WBC Morphology Not Reportable 10/09/20 23:39 Hypersegmented Neuts Not Reportable 10/09/20 23:39 Hyposegmented Neuts Not Reportable 10/09/20 23:39 Hypogranular Neuts Not Reportable 10/09/20 23:39 Smudge Cells Not Reportable 10/09/20 23:39 Toxic Granulation Not Reportable 10/09/20 23:39 Toxic Vacuolation Not Reportable 10/09/20 23:39 Dohle Bodies Not Reportable 10/09/20 23:39 Pelger-Huet Anomaly Not Reportable 10/09/20 23:39 Sly Rods Not Reportable 10/09/20 23:39 Platelet Estimate Consistent w auto 10/09/20 23:39 Clumped Platelets Not Reportable 10/09/20 23:39 Plt Clumps, EDTA Not Reportable 10/09/20 23:39 Large Platelets Not Reportable 10/09/20 23:39 Giant Platelets Not Reportable 10/09/20 23:39 Platelet Satelliting Not Reportable 10/09/20 23:39 Plt Morphology Comment Not Reportable 10/09/20 23:39 RBC Morphology Not Reportable 10/09/20 23:39 Dimorphic RBCs Not Reportable 10/09/20 23:39 Polychromasia Not Reportable 10/09/20 23:39 Hypochromasia Not Reportable 10/09/20 23:39 Poikilocytosis Not Reportable 10/09/20 23:39 Anisocytosis 1+ 10/09/20 23:39 Microcytosis Not Reportable 10/09/20 23:39 Macrocytosis Not Reportable 10/09/20 23:39 Spherocytes Not Reportable 10/09/20 23:39 Pappenheimer Bodies Not Reportable 10/09/20 23:39 Sickle Cells Not Reportable 10/09/20 23:39 Target Cells Not Reportable 10/09/20 23:39 Tear Drop Cells Not Reportable 10/09/20 23:39 Ovalocytes Not Reportable 10/09/20 23:39 Helmet Cells Not Reportable 10/09/20 23:39 Nava-Prue Bodies Not Reportable 10/09/20 23:39 Gridley Rings Not Reportable 10/09/20 23:39 Barrington Cells Not Reportable 10/09/20 23:39 Bite Cells Not Reportable 10/09/20 23:39 Crenated Cell Not Reportable 10/09/20 23:39 Elliptocytes Not Reportable 10/09/20 23:39 Acanthocytes (Spur) Not Reportable 10/09/20 23:39 Rouleaux Not Reportable 10/09/20 23:39 Hemoglobin C Crystals Not Reportable 10/09/20 23:39 Schistocytes Not Reportable 10/09/20 23:39 Malaria parasites Not Reportable 10/09/20 23:39 Khai Bodies Not Reportable 10/09/20 23:39 Hem Pathologist Commnt No 10/09/20 23:39 Sodium 140 mmol/L (137-145) 10/09/20 23:39 Potassium 4.0 mmol/L (3.6-5.0) 10/09/20 23:39 Chloride 103.8 mmol/L (98-107) 10/09/20 23:39 Carbon Dioxide 18 mmol/L (22-30) L 10/09/20 23:39 Anion Gap 22 mmol/L 10/09/20 23:39 BUN 59 mg/dL (9-20) H 10/09/20 23:39 Creatinine 1.7 mg/dL (0.8-1.3) H 10/09/20 23:39 Estimated GFR 48 ml/min 10/09/20 23:39 BUN/Creatinine Ratio 35 % 10/09/20 23:39 Glucose 132 mg/dL (75-100) H 10/09/20 23:39 POC Glucose 98 mg/dL (70-105) 10/12/20 08:02 Hemoglobin A1c 6.5 % (4-6) H 10/09/20 23:39 Calcium 9.3 mg/dL (8.4-10.2) 10/09/20 23:39 Total Bilirubin 0.30 mg/dL (0.1-1.2) 10/09/20 23:39 AST 40 units/L (5-40) 10/09/20 23:39 ALT 25 units/L (7-56) 10/09/20 23:39 Alkaline Phosphatase 51 units/L (35-129) 10/09/20 23:39 Total Protein 6.1 g/dL (6.3-8.2) L 10/09/20 23:39 Albumin 3.6 g/dL (3.9-5) L 10/09/20 23:39 Albumin/Globulin Ratio 1.4 % 10/09/20 23:39 Triglycerides 235 mg/dL (2-149) H 10/09/20 23:39 Cholesterol 143 mg/dL (50-199) 10/09/20 23:39 LDL Cholesterol Direct 77 mg/dL (50-130) 10/09/20 23:39 HDL Cholesterol 28 mg/dL (40-59) L 10/09/20 23:39 Cholesterol/HDL Ratio 5.10 % 10/09/20 23:39 Last Vital Signs Temp 97.9 F 10/11/20 22:00 Pulse 73 10/11/20 22:00 Resp 18 10/11/20 22:00 BP 149/83 10/11/20 22:00 Pulse Ox 96 10/11/20 22:00
[2020-10-12] MEDS: ASPIRIN 81 MG TAB CHEW PO SCH (10:03)
[2020-10-12] MEDS: CHOLECALCIFEROL (VIT D3) 1000 UNIT (25 mcg) TAB PO SCH (10:03)
[2020-10-12] MEDS: OMEGA-3 FATTY ACIDS/FISH OIL 1 GRAM CAP PO SCH (10:03)
[2020-10-12] MEDS: DIVALPROEX DR 125 MG TAB PO SCH ×2 (10:04→21:16)
[2020-10-12] MEDS: DOXAZOSIN 4 MG TAB PO SCH ×2 (10:04→21:21)
[2020-10-12] MEDS: MEMANTINE 10 MG TAB PO SCH ×2 (10:04→21:23)
[2020-10-12] MEDS: MULTIVITAMINS,THER W-MINERALS TAB PO SCH (10:04)
[2020-10-12] MEDS: SODIUM BICARBONATE 650 MG TAB PO SCH (10:04)
[2020-10-12] MEDS: B COMPLEX W/VITAMIN C TAB PO SCH (10:04)
[2020-10-12] MEDS: NIFEdipine XL 60 MG TAB PO SCH (10:04)
[2020-10-12] MEDS: LISINOPRIL 10 MG TAB PO SCH (10:05)
[2020-10-12] MEDS: FUROSEMIDE 20 MG TAB PO SCH (10:05)
[2020-10-12] MEDS: carvediloL 12.5 MG TAB PO SCH ×2 (10:06→21:17)
[2020-10-12] MEDS: FENOFIBRATE 145 MG TAB PO SCH (10:06)
[2020-10-12] MEDS: predniSONE 5 MG TAB PO SCH (10:06)
[2020-10-12] MEDS: CILOSTAZOL 100 MG TAB PO SCH ×2 (10:07→21:23)
[2020-10-12] MEDS: RANOLAZINE ER 500 MG TAB 12HR PO SCH ×2 (10:07→21:43)
[2020-10-12] MEDS: MYCOPHENOLATE 250 MG CAP PO SCH ×2 (10:07→21:16)
[2020-10-12] MEDS: SIROLIMUS 1 MG PO SCH (21:15)
[2020-10-12] MEDS: PRIMIDONE 50 MG TAB PO SCH (21:19)
[2020-10-12] MEDS: DONEPEZIL 10 MG TAB PO SCH (21:23)
[2020-10-12] MEDS: PSYLLIUM SEED (WITH SUGAR) 3.4 GM PACKET PO SCH (21:24)
[2020-10-13] MEDS: INSULIN LISPRO 100 UNIT/ML SUB-Q SCH ×4 (08:10→21:16)
--- NOTE | 2020-10-13 08:54 | Progress Note ---
Subjective Date of service: 10/13/20 Subjective Comment: Per Nurse Note: pt is compliant with medication, pleasantly confused, talked to his last night, no aggressive behaviour, no distress noted, will continue to monitor for safety. slept for approximately 7hrs plus. I interviewed the patient this morning. Medical records reviewed and patient's progress was discussed with unit staff. Patient was seen in activity room socializing with peers. He reports doing well " . He states sleep and appetite as good. Patient denies any current SI/HI and denies AVHs. REVIEW OF SYSTEMS Constitutional: Negative for weight loss ENT: Negative for stridor Respiratory: Negative for cough or hemoptysis All other systems reviewed and are negative MENTAL STATUS EXAMINATION General Appearance and Behavior: Age appropriate, dressed appropriately, calm and cooperative Cooperation: Participating Psychomotor Behavior: psychomotor normal Mood: Ok Affect and affective range: congruent with states mood Thought Process: goal directed Thought Content: obsessions Speech: Normal volume, Regular rate and rhythm, Intellectual Functioning: Average Suicidal Ideation: Denies Homicidal Ideation: Denies Hallucinations: Denies Impulse Control: Impaired Insight and Judgment: Limited insight and judgment, Memory: Abnormal Attention: Undivided Orientation: Alert, oriented Assessment and Plan (1) MDD Treatment Plan Patient admitted for inpatient psychiatric evaluation, medication adjustment and close monitoring The patient's behavior, mood, sleep and appetite will be closely monitored. Patient enrolled in individual and group therapeutic sessions and encouraged to attend. Patient provided with a safe and structured environment. Patient's physical health needs will be addressed by the Hospitalist. Hospitalist Consulted Labs including CBC, CMP, Lipid profile and Hemoglobin A1C levels ordered for baseline reference Social Assessment will be completed and the Sider will work with patient and family to ensure a suitable and safe disposition Medication adjustment will be made as clinically indicated Continue- Olanzapine 2.5mg tablet at bedtime Continue- Depakote DR 125mg po BID Please see Mar- Continue home medications. Usual Wellness Buddhist/Preservation: - Start Trazodone 50 mg po QHS & 50 mg po QHS PRN between 10 PM & 2 AM for insomnia - Start Melatonin 5 mg po QHS to promote circadian rhythm - Start [place]-3 for brain health, reduce impulsivity, and as adjunctive treatment for mood disorder, continue upon discharge given overall benefits. - Start B1 prophylaxis with 200 mg po for 5 days The patient agreed on the treatment plan, understood the risk, benefit, alternative treatment, potential consequence of no treatment, and gave informed consent. Estimated days: 7 Post hospital care: primary care provider, psychiatric provider Legal Status: Voluntary Reaction to Hospitalization: Accepting Medications and Allergies Allergies Allergy/AdvReac Type Severity Reaction Status Date / Time clopidogrel Allergy Swelling Verified 10/06/20 00:43 Home Medications Medication Instructions Recorded Confirmed Last Taken Type Aspirin [Aspirin BABY CHEW TAB] 81 mg PO QDAY 10/06/20 10/07/20 10/06/20 10:00 History Atorvastatin [Lipitor Tab] 80 mg PO QHS 10/06/20 10/07/20 10/06/20 22:00 History B-Complex with Vitamin C [Vitamin 1 tab PO DAILY 10/06/20 10/07/20 10/06/20 10:00 History B Complex-Vitamin C] Cholecalciferol (Vitamin D3) 1 tab PO DAILY 10/06/20 10/07/20 Unknown History [Vitamin D3 2,000 UNIT CAP] Donepezil HCl [Donepezil HCl Odt] 10 mg PO QHS 10/06/20 10/07/20 10/06/20 22:00 History Fenofibrate 160 mg PO DAILY 10/06/20 10/07/20 10/06/20 13:00 History Fiber 2 tab PO QHS 10/06/20 10/07/20 Unknown History Furosemide [Lasix] 20 mg PO QDAY 10/06/20 10/07/20 10/06/20 10:00 History Insulin Lispro [Humalog Kwikpen See Protocol SQ ACHS 10/06/20 10/07/20 Unknown History 200 UNITS/ML] Isosorbide Mononitrate [Isosorbide 30 mg PO QHS 10/06/20 10/07/20 10/06/20 22:00 History Mononitrate ER] LORazepam [Ativan] 0.5 mg PO BID PRN 10/06/20 10/07/20 Unknown History Lisinopril [Zestril TAB] 30 mg PO QDAY 10/06/20 10/07/20 10/06/20 10:00 History Memantine HCl 10 mg PO BID 10/06/20 10/07/20 10/06/20 22:00 History Mv,Ca,Min/FA/K1/Lycopene/Lutn [Eql 1 tab PO DAILY 0610/07/20 10/05/20 History Century Mature Tablet] Mycophenolate [Cellcept] 2 tab PO BID 10/06/20 10/07/20 10/06/20 22:00 History NIFEdipine [Nifedipine ER] 60 mg PO DAILY 10/06/20 10/07/20 10/06/20 10:00 History OLANZapine [Zyprexa] 0.5 tab PO QHS 10/06/20 10/07/20 Unknown History [place]-3/Dha/Epa/Fish Oil [[place] 3 1,000 mg PO DAILY 10/06/20 10/07/20 Unknown History 500 Softgel] Primidone [Mysoline] 3 tab PO HS 10/06/20 10/07/20 10/06/20 22:00 History Ranolazine ER [Ranexa ER] 500 mg PO BID 10/06/20 10/07/20 10/06/20 22:00 History Sirolimus [Rapamune] 1 mg PO Q4W 10/06/20 10/07/20 10/05/20 History Sodium Bicarbonate 1 tab PO 3XW 10/06/20 10/07/20 10/05/20 10:00 History Sulfamethoxazole/Trimethoprim 1 each PO 4XW 10/06/20 10/07/20 10/05/20 History [Sulfamethoxazole-Tmp Ds Tablet] allopurinoL [Zyloprim] 100 mg PO 4XW 10/06/20 10/07/20 10/05/20 History carvediloL [Coreg] 12.5 mg PO BID 10/06/20 10/07/20 10/06/20 22:00 History cilostazoL [Pletal] 100 mg PO BID 10/06/20 10/07/20 10/06/20 22:00 History glipiZIDE XL [Glucotrol Xl] 10 mg PO QHS 10/06/20 10/07/20 10/06/20 22:00 History predniSONE [Deltasone] 5 mg PO QDAY 10/06/20 10/07/20 10/06/20 22:00 History Divalproex [Jak NUR] 125 mg PO BID 10/07/20 10/07/20 10/06/20 22:00 History Doxazosin [Cardura] 4 mg PO BID 10/07/20 10/07/20 10/06/20 22:00 History Multivitamin Tab W-MINERAL 1 each PO QD 10/07/20 10/07/20 10/06/20 10:00 History [Multiple Vitamin/Mineral (Theragran M)] Active Meds: Active Medications Allopurinol (Allopurinol 100 Mg Tab) 100 mg PO SuTuThSa [facility] Last Admin: 10/11/20 11:39 Dose: 100 mg Documented by: Aspirin (Aspirin 81 Mg Tab Chew) 81 mg PO QDAY [facility] Last Admin: 10/12/20 10:03 Dose: 81 mg Documented by: Atorvastatin Calcium (Atorvastatin 40 Mg Tab) 80 mg PO QHS [facility] Last Admin: 10/12/20 21:20 Dose: 80 mg Documented by: Carvedilol (Carvedilol 12.5 Mg Tab) 12.5 mg PO BID [facility] Last Admin: 10/12/20 21:17 Dose: 12.5 mg Documented by: Cholecalciferol (Cholecalciferol (Vit D3) 1000 Unit (25 Mcg) Tab) 2,000 unit PO QDAY [facility] Last Admin: 10/12/20 10:03 Dose: 2,000 unit Documented by: Cilostazol (Cilostazol 100 Mg Tab) 100 mg PO BID [facility] Last Admin: 10/12/20 21:23 Dose: 100 mg Documented by: Divalproex Sodium (Divalproex Dr 125 Mg Tab) 125 mg PO BID [facility] Last Admin: 10/12/20 21:16 Dose: 125 mg Documented by: Donepezil HCl (Donepezil 10 Mg Tab) 10 mg PO QHS [facility] Last Admin: 10/12/20 21:23 Dose: 10 mg Documented by: Doxazosin Mesylate (Doxazosin 4 Mg Tab) 4 mg PO BID [facility] Last Admin: 10/12/20 21:21 Dose: 4 mg Documented by: Fenofibrate (Fenofibrate 145 Mg Tab) 145 mg PO DAILY [facility] Last Admin: 10/12/20 10:06 Dose: 145 mg Documented by: Fish Oil ([place]-3 Fatty Acids/Fish Oil 1 Gram Cap) 1,000 mg PO DAILY [facility] Last Admin: 10/12/20 10:03 Dose: 1,000 mg Documented by: Furosemide (Furosemide 20 Mg Tab) 20 mg PO QDAY [facility] Last Admin: 10/12/20 10:05 Dose: 20 mg Documented by: Glipizide (Glipizide Xl 10 Mg Tab) 10 mg PO QHS [facility] Last Admin: 10/12/20 21:22 Dose: 10 mg Documented by: Insulin Human Lispro (Insulin Lispro 100 Unit/Ml) 0 unit SUB-Q ACHS [facility] Last Admin: 10/12/20 21:35 Dose: Not Given Documented by: Isosorbide Mononitrate (Isosorbide Mononitrate Er 30 Mg Tab) 30 mg PO QHS [facility] Last Admin: 10/12/20 21:18 Dose: 30 mg Documented by: Lisinopril (Lisinopril 10 Mg Tab) 30 mg PO QDAY [facility] Last Admin: 10/12/20 10:05 Dose: 30 mg Documented by: Lorazepam (Lorazepam 0.5 Mg Tab) 0.5 mg PO BID PRN PRN Reason: Anxiety Memantine (Memantine 10 Mg Tab) 10 mg PO BID [facility] Last Admin: 10/12/20 21:23 Dose: 10 mg Documented by: Multivitamins/Minerals (Multivitamins,Ther W-Minerals Tab) 1 each PO QDAY [facility] Last Admin: 10/12/20 10:04 Dose: 1 each Documented by: Mycophenolate Mofetil (Mycophenolate 250 Mg Cap) 500 mg PO BID [facility] Last Admin: 10/12/20 21:16 Dose: 500 mg Documented by: Nifedipine (Nifedipine Xl 60 Mg Tab) 60 mg PO DAILY [facility] Last Admin: 10/12/20 10:04 Dose: 60 mg Documented by: Olanzapine (Olanzapine 5 Mg Tab) 2.5 mg PO QHS [facility] Last Admin: 10/12/20 21:21 Dose: 2.5 mg Documented by: Prednisone (Prednisone 5 Mg Tab) 5 mg PO QDAY [facility] Last Admin: 10/12/20 10:06 Dose: 5 mg Documented by: Primidone (Primidone 50 Mg Tab) 150 mg PO QHS [facility] Last Admin: 10/12/20 21:19 Dose: 150 mg Documented by: Psyllium Hydrophilic Mucilloid (Psyllium Seed (With Sugar) 3.4 Gm Packet) 1 each PO QHS [facility] Last Admin: 10/12/20 21:24 Dose: 1 each Documented by: Ranolazine (Ranolazine Er 500 Mg Tab 12hr) 500 mg PO BID [facility] Last Admin: 10/12/20 21:43 Dose: 500 mg Documented by: Sirolimus (Sirolimus (Nf) 1 Mg Tab) 2 mg PO SuTuThSa [facility] Last Admin: 10/11/20 21:57 Dose: 2 mg Documented by: Sirolimus ([facility] (Nf) 1 Mg Tab) [facility]: 10/12/20 21:15 Dose: 1 mg Documented by: Sodium Bicarbonate (Sodium Bicarbonate 650 Mg Tab) 650 mg PO MoWe [facility] Last Admin: 10/12/20 10:04 Dose: 650 mg Documented by: Vitamin B Complex/Vitamin C (B Complex W/Vitamin C Tab) 1 each PO DAILY [facility] Last Admin: 10/12/20 10:04 Dose: 1 each Documented by: Results - Results Labs/Vitals: Laboratory Last Values WBC 6.4 K/mm3 (4.5-11.0) 10/09/20 23:39 RBC 3.63 M/mm3 (3.65-5.03) L 10/09/20 23:39 Hgb 10.2 gm/dl (11.8-15.2) L 10/09/20 23:39 Hct 30.4 % (35.5-45.6) L 10/09/20 23:39 MCV 84 fl (84-94) 10/09/20 23:39 MCH 28 pg (28-32) 10/09/20 23:39 MCHC 34 % (32-34) 10/09/20 23:39 RDW 15.0 % (13.2-15.2) 10/09/20 23:39 Plt Count 262 K/mm3 (140-440) 10/09/20 23:39 George % (Auto) Night Nurse 10/09/20 23:39 Add Manual Diff Complete 10/09/20 23:39 Total Counted 100 10/09/20 23:39 Seg Neuts % (Manual) 72.0 % (40.0-70.0) H 10/09/20 23:39 Lymphocytes % (Manual) 18.0 % (13.4-35.0) 10/09/20 23:39 Monocytes % (Manual) 8.0 % (0.0-7.3) H 10/09/20 23:39 Eosinophils % (Manual) 2.0 % (0.0-4.3) 10/09/20 23:39 Nucleated RBC % Not Reportable 10/09/20 23:39 Seg Neutrophils # Man 4.6 K/mm3 (1.8-7.7) 10/09/20 23:39 Band Neutrophils # 0.0 K/mm3 10/09/20 23:39 Lymphocytes # (Manual) 1.2 K/mm3 (1.2-5.4) 10/09/20 23:39 Abs React Lymphs (Man) 0.0 K/mm3 10/09/20 23:39 Monocytes # (Manual) 0.5 K/mm3 (0.0-0.8) 10/09/20 23:39 Eosinophils # (Manual) 0.1 K/mm3 (0.0-0.4) 10/09/20 23:39 Basophils # (Manual) 0.0 K/mm3 (0.0-0.1) 10/09/20 23:39 Metamyelocytes # 0.0 K/mm3 10/09/20 23:39 Myelocytes # 0.0 K/mm3 10/09/20 23:39 Promyelocytes # 0.0 K/mm3 10/09/20 23:39 Blast Cells # 0.0 K/mm3 10/09/20 23:39 WBC Morphology Not Reportable 10/09/20 23:39 Hypersegmented Neuts Not Reportable 10/09/20 23:39 Hyposegmented Neuts Not Reportable 10/09/20 23:39 Hypogranular Neuts Not Reportable 10/09/20 23:39 Smudge Cells Not Reportable 10/09/20 23:39 Toxic Granulation Not Reportable 10/09/20 23:39 Toxic Vacuolation Not Reportable 10/09/20 23:39 Dohle Bodies Not Reportable 10/09/20 23:39 Pelger-Huet Anomaly Not Reportable 10/09/20 23:39 Sly Rods Not Reportable 10/09/20 23:39 Platelet Estimate Consistent w auto 10/09/20 23:39 Clumped Platelets Not Reportable 10/09/20 23:39 Plt Clumps, EDTA Not Reportable 10/09/20 23:39 Large Platelets Not Reportable 10/09/20 23:39 Giant Platelets Not Reportable 10/09/20 23:39 Platelet Satelliting Not Reportable 10/09/20 23:39 Plt Morphology Comment Not Reportable 10/09/20 23:39 RBC Morphology Not Reportable 10/09/20 23:39 Dimorphic RBCs Not Reportable 10/09/20 23:39 Polychromasia Not Reportable 10/09/20 23:39 Hypochromasia Not Reportable 10/09/20 23:39 Poikilocytosis Not Reportable 10/09/20 23:39 Anisocytosis 1+ 10/09/20 23:39 Microcytosis Not Reportable 10/09/20 23:39 Macrocytosis Not Reportable 10/09/20 23:39 Spherocytes Not Reportable 10/09/20 23:39 Pappenheimer Bodies Not Reportable 10/09/20 23:39 Sickle Cells Not Reportable 10/09/20 23:39 Target Cells Not Reportable 10/09/20 23:39 Tear Drop Cells Not Reportable 10/09/20 23:39 Ovalocytes Not Reportable 10/09/20 23:39 Helmet Cells Not Reportable 10/09/20 23:39 [place] Bodies Not Reportable 10/09/20 23:39 [place] Rings Not Reportable 10/09/20 23:39 Johnnie Cells Not Reportable 10/09/20 23:39 Bite Cells Not Reportable 10/09/20 23:39 Crenated Cell Not Reportable 10/09/20 23:39 Elliptocytes Not Reportable 10/09/20 23:39 Acanthocytes (Spur) Not Reportable 10/09/20 23:39 Rouleaux Not Reportable 10/09/20 23:39 Hemoglobin C Crystals Not Reportable 10/09/20 23:39 Schistocytes Not Reportable 10/09/20 23:39 Malaria parasites Not Reportable 10/09/20 23:39 Khai Bodies Not Reportable 10/09/20 23:39 Hem Pathologist Commnt No 10/09/20 23:39 Sodium 140 mmol/L (137-145) 10/09/20 23:39 Potassium 4.0 mmol/L (3.6-5.0) 10/09/20 23:39 Chloride 103.8 mmol/L (98-107) 10/09/20 23:39 Carbon Dioxide 18 mmol/L (22-30) L 10/09/20 23:39 Anion Gap 22 mmol/L 10/09/20 23:39 BUN 59 mg/dL (9-20) H 10/09/20 23:39 Creatinine 1.7 mg/dL (0.8-1.3) H 10/09/20 23:39 Estimated GFR 48 ml/min 10/09/20 23:39 BUN/Creatinine Ratio 35 % 10/09/20 23:39 Glucose 132 mg/dL (75-100) H 10/09/20 23:39 POC Glucose 75 mg/dL (70-105) 10/13/20 06:23 Hemoglobin A1c 6.5 % (4-6) H 10/09/20 23:39 Calcium 9.3 mg/dL (8.4-10.2) 10/09/20 23:39 Total Bilirubin 0.30 mg/dL (0.1-1.2) 10/09/20 23:39 AST 40 units/L (5-40) 10/09/20 23:39 ALT 25 units/L (7-56) 10/09/20 23:39 Alkaline Phosphatase 51 units/L (35-129) 10/09/20 23:39 Total Protein 6.1 g/dL (6.3-8.2) L 10/09/20 23:39 Albumin 3.6 g/dL (3.9-5) L 10/09/20 23:39 Albumin/Globulin Ratio 1.4 % 10/09/20 23:39 Triglycerides 235 mg/dL (2-149) H 10/09/20 23:39 Cholesterol 143 mg/dL (50-199) 10/09/20 23:39 LDL Cholesterol Direct 77 mg/dL (50-130) 10/09/20 23:39 HDL Cholesterol 28 mg/dL (40-59) L 10/09/20 23:39 Cholesterol/HDL Ratio 5.10 % 10/09/20 23:39 Coronavirus (PCR) Negative (Negative) 10/11/20 Unknown Last Vital Signs Temp 98.2 F 10/13/20 08:10 Pulse 86 10/13/20 08:10 Resp 18 10/13/20 08:10 BP 127/72 10/13/20 08:10 Pulse Ox 95 10/13/20 08:10
[2020-10-13] MEDS: OMEGA-3 FATTY ACIDS/FISH OIL 1 GRAM CAP PO SCH (09:10)
[2020-10-13] MEDS: NIFEdipine XL 60 MG TAB PO SCH (09:10)
[2020-10-13] MEDS: MYCOPHENOLATE 250 MG CAP PO SCH ×2 (09:10→21:14)
[2020-10-13] MEDS: allopurinoL 100 MG TAB PO SCH (09:11)
[2020-10-13] MEDS: B COMPLEX W/VITAMIN C TAB PO SCH (09:11)
[2020-10-13] MEDS: DIVALPROEX DR 125 MG TAB PO SCH ×2 (09:11→21:15)
[2020-10-13] MEDS: ASPIRIN 81 MG TAB CHEW PO SCH (09:11)
[2020-10-13] MEDS: FENOFIBRATE 145 MG TAB PO SCH (09:11)
[2020-10-13] MEDS: predniSONE 5 MG TAB PO SCH (09:11)
[2020-10-13] MEDS: MULTIVITAMINS,THER W-MINERALS TAB PO SCH (09:11)
[2020-10-13] MEDS: RANOLAZINE ER 500 MG TAB 12HR PO SCH ×2 (09:11→21:46)
[2020-10-13] MEDS: FUROSEMIDE 20 MG TAB PO SCH (09:11)
[2020-10-13] MEDS: MEMANTINE 10 MG TAB PO SCH ×2 (09:11→21:21)
[2020-10-13] MEDS: CILOSTAZOL 100 MG TAB PO SCH ×2 (09:11→21:22)
[2020-10-13] MEDS: DOXAZOSIN 4 MG TAB PO SCH ×2 (09:12→21:12)
[2020-10-13] MEDS: CHOLECALCIFEROL (VIT D3) 1000 UNIT (25 mcg) TAB PO SCH (09:12)
[2020-10-13] MEDS: LISINOPRIL 10 MG TAB PO SCH (09:12)
[2020-10-13] MEDS: carvediloL 12.5 MG TAB PO SCH ×2 (09:12→21:14)
--- NOTE | 2020-10-13 14:59 | Event Note ---
Date: 10/13/20
[2020-10-13] MEDS: QUEtiapine 25 MG TAB PO SCH ×2 (16:29→21:25)
[2020-10-13] MEDS: DONEPEZIL 10 MG TAB PO SCH (21:12)
[2020-10-13] MEDS: PSYLLIUM SEED (WITH SUGAR) 3.4 GM PACKET PO SCH (21:21)
[2020-10-13] MEDS: PRIMIDONE 50 MG TAB PO SCH (21:21)
[2020-10-13] MEDS: SIROLIMUS 1 MG PO SCH (21:25)
--- NOTE | 2020-10-14 09:02 | Progress Note ---
Subjective Date of service: 10/14/20 Principal diagnosis: Dementia with Behavioral Disturbance Subjective Comment: Per Nurse Note: Last evening the patient was confused. He was focused on his and could talk of hardly anything else. Staff reported he had already spoken to her multiple times. His appetite was not good on this shift. He denies si/hi/ah/vh. When it was time to take medications the patient refused until he could speak to his . He agreed to take them and staff assisted with his call to his . The patient was seen today, he is sitting in the dayroom. He is confused, but pleasant and polite. He greets me and thanks me. He says he "feels well." He says "I'm just waiting to get out of here and have them put me where I live." He denies SI/HI, stating "I have no desire to hurt myself or anybody else. I would hurt somebody only if I had to." He also denies hallucinations of any kind, stating "no ma'am, I don't." Reason for continued inpatient treatment: The patient appears to be stable for discharge from a psych standpoint, but is awaiting placement to ensue a safe discharge and continuity of psych care upon discharging. REVIEW OF SYSTEMS Constitutional: Negative for weight loss ENT: Negative for stridor Respiratory: Negative for cough or hemoptysis All other systems reviewed and are negative MENTAL STATUS EXAMINATION General Appearance and Behavior: Age appropriate, dressed appropriately, calm and cooperative Cooperation: Participating Psychomotor Behavior: psychomotor normal Mood: "well" Affect and affective range: congruent with states mood Thought Process: goal directed Thought Content: obsessions Speech: Normal volume, Regular rate and rhythm, Intellectual Functioning: Average Suicidal Ideation: Denies Homicidal Ideation: Denies Hallucinations: Denies Delusions: None elicited Impulse Control: Impaired Insight and Judgment: Limited insight and judgment, Memory: Impaired Attention: Undivided Orientation: Alert, oriented Assessment and Plan (1) Dementia with Behavioral Disturbance Treatment Plan Patient admitted for inpatient psychiatric evaluation, medication adjustment and close monitoring The patient's behavior, mood, sleep and appetite will be closely monitored. Patient enrolled in individual and group therapeutic sessions and encouraged to attend. Patient provided with a safe and structured environment. Patient's physical health needs will be addressed by the Hospitalist. Hospitalist Consulted Labs including CBC, CMP, Lipid profile and Hemoglobin A1C levels ordered for [facility] reference Social Assessment will be completed and the Corporate Administrative Assistant will work with patient and family to ensure a suitable and safe disposition Medication adjustment will be made as clinically indicated D/C seroquel to prevent polypharm Continue Olanzapine [facility]: - Start Trazodone 50 mg po QHS & 50 mg po QHS PRN between 10 PM & 2 AM for insomnia - Start Melatonin 5 mg po QHS to promote circadian rhythm - Start [place]-3 for brain health, reduce impulsivity, and as adjunctive treatment for mood disorder, continue upon discharge given overall benefits. - Start B1 prophylaxis with 200 mg po for 5 days The patient agreed on the treatment plan, understood the risk, benefit, alternative treatment, potential consequence of no treatment, and gave informed consent. Estimated days: 2 Post hospital care: primary care provider, psychiatric provider Medications and Allergies Allergies Allergy/AdvReac Type Severity Reaction Status Date / Time clopidogrel Allergy Swelling Verified 10/06/20 00:43 Home Medications Medication Instructions Recorded Confirmed Last Taken Type Aspirin [Aspirin BABY CHEW TAB] 81 mg PO QDAY 10/06/20 10/07/20 10/06/20 10:00 History Atorvastatin [Lipitor Tab] 80 mg PO QHS 10/06/20 10/07/20 10/06/20 22:00 History B-Complex with Vitamin C [Vitamin 1 tab PO DAILY 10/06/20 10/07/20 10/06/20 10:00 History B Complex-Vitamin C] Cholecalciferol (Vitamin D3) 1 tab PO DAILY 10/06/20 10/07/20 Unknown History [Vitamin D3 2,000 UNIT CAP] Donepezil HCl [Donepezil HCl Odt] 10 mg PO QHS 10/06/20 10/07/20 10/06/20 22:00 History Fenofibrate 160 mg PO DAILY 10/06/20 10/07/20 10/06/20 13:00 History Fiber 2 tab PO QHS 10/06/20 10/07/20 Unknown History Furosemide [Lasix] 20 mg PO QDAY 10/06/20 10/07/20 10/06/20 10:00 History Insulin Lispro [Humalog Kwikpen See Protocol SQ ACHS 10/06/20 10/07/20 Unknown History 200 UNITS/ML] Isosorbide Mononitrate [Isosorbide 30 mg PO QHS 10/06/20 10/07/20 10/06/20 22:00 History Mononitrate ER] LORazepam [Ativan] 0.5 mg PO BID PRN 10/06/20 10/07/20 Unknown History Lisinopril [Zestril TAB] 30 mg PO QDAY 10/06/20 10/07/20 10/06/20 10:00 History Memantine HCl 10 mg PO BID 10/06/20 10/07/20 10/06/20 22:00 History Mv,Ca,Min/FA/K1/Lycopene/Lutn [Eql 1 tab PO DAILY 10/06/20 10/07/20 10/05/20 History Century Mature Tablet] Mycophenolate [Cellcept] 2 tab PO BID 10/06/20 10/07/20 10/06/20 22:00 History NIFEdipine [Nifedipine ER] 60 mg PO DAILY 10/06/20 10/07/20 10/06/20 10:00 History OLANZapine [Zyprexa] 0.5 tab PO QHS 10/06/20 10/07/20 Unknown History [place]-3/Dha/Epa/Fish Oil [[place] 3 1,000 mg PO DAILY 10/06/20 10/07/20 Unknown History 500 Softgel] Primidone [Mysoline] 3 tab PO HS 10/06/20 10/07/20 10/06/20 22:00 History Ranolazine ER [Ranexa ER] 500 mg PO BID 10/06/20 10/07/20 10/06/20 22:00 History Sirolimus [Rapamune] 1 mg PO Q4W 10/06/20 10/07/20 10/05/20 History Sodium Bicarbonate 1 tab PO 3XW 10/06/20 10/07/20 10/05/20 10:00 History Sulfamethoxazole/Trimethoprim 1 each PO 4XW 10/06/20 10/07/20 10/05/20 History [Sulfamethoxazole-Tmp Ds Tablet] allopurinoL [Zyloprim] 100 mg PO 4XW 10/06/20 10/07/20 10/05/20 History carvediloL [Coreg] 12.5 mg PO BID 10/06/20 10/07/20 10/06/20 22:00 History cilostazoL [Pletal] 100 mg PO BID 10/06/20 10/07/20 10/06/20 22:00 History glipiZIDE XL [Glucotrol Xl] 10 mg PO QHS 10/06/20 10/07/20 10/06/20 22:00 History predniSONE [Deltasone] 5 mg PO QDAY 10/06/20 10/07/20 10/06/20 22:[address] [DepaKOTE DR] 125 mg PO BID 10/07/20 10/07/20 10/06/20 22:00 History Doxazosin [Cardura] 4 mg PO BID 10/07/20 10/07/20 10/06/20 22:00 History Multivitamin Tab W-MINERAL 1 each PO QD 10/07/20 10/07/20 10/06/20 10:00 History [Multiple Vitamin/Mineral (Theragran M)] Active Meds: Active Medications All[facility] ([facility] 100 Mg Tab) [facility] Admin: 10/13/20 09:11 Dose: 100 mg Documented by: Aspirin (Aspirin 81 Mg Tab Chew) 81 mg PO QDAY [facility] Last Admin: 10/13/20 09:11 Dose: 81 mg Documented by: Atorvastatin Calcium (Atorvastatin 40 Mg Tab) 80 mg PO QHS [facility] Last Admin: 10/13/20 21:21 Dose: 80 mg Documented by: Carvedilol (Carvedilol 12.5 Mg Tab) 12.5 mg PO BID [facility] Last Admin: 10/13/20 21:14 Dose: 12.5 mg Documented by: Cholecalciferol (Cholecalciferol (Vit D3) 1000 Unit (25 Mcg) Tab) 2,000 unit PO QDAY [facility] Last Admin: 10/13/20 09:12 Dose: 2,000 unit Documented by: Cilostazol (Cilostazol 100 Mg Tab) 100 mg PO BID [facility] Last Admin: 10/13/20 21:22 Dose: 100 mg Documented by: Divalproex Sodium (Divalproex Dr 125 Mg Tab) 125 mg PO BID [facility] Last Admin: 10/13/20 21:15 Dose: 125 mg Documented by: Donepezil HCl (Donepezil 10 Mg Tab) 10 mg PO QHS [facility] Last Admin: 10/13/20 21:12 Dose: 10 mg Documented by: Doxazosin Mesylate (Doxazosin 4 Mg Tab) 4 mg PO BID [facility] Last Admin: 10/13/20 21:12 Dose: 4 mg Documented by: Fenofibrate (Fenofibrate 145 Mg Tab) 145 mg PO DAILY [facility] Last Admin: 10/13/20 09:11 Dose: 145 mg Documented by: Fish Oil ([place]-3 Fatty Acids/Fish Oil 1 Gram Cap) 1,000 mg PO DAILY [facility] Last Admin: 10/13/20 09:10 Dose: 1,000 mg Documented by: Furosemide (Furosemide 20 Mg Tab) 20 mg PO QDAY [facility] Last Admin: 10/13/20 09:11 Dose: 20 mg Documented by: Glipizide (Glipizide Xl 10 Mg Tab) 10 mg PO QHS [facility] Last Admin: 10/13/20 21:16 Dose: 10 mg Documented by: Insulin Human Lispro (Insulin Lispro 100 Unit/Ml) 0 unit SUB-Q ACHS [facility] Last Admin: 10/13/20 21:16 Dose: Not Given Documented by: Isosorbide Mononitrate (Isosorbide Mononitrate Er 30 Mg Tab) 30 mg PO QHS [facility] Last Admin: 10/13/20 21:20 Dose: 30 mg Documented by: Lisinopril (Lisinopril 10 Mg Tab) 30 mg PO QDAY [facility] Last Admin: 10/13/20 09:12 Dose: 30 mg Documented by: Lorazepam (Lorazepam 0.5 Mg Tab) 0.5 mg PO BID PRN PRN Reason: Anxiety Memantine (Memantine 10 Mg Tab) 10 mg PO BID [facility] Last Admin: 10/13/20 21:21 Dose: 10 mg Documented by: Multivitamins/Minerals (Multivitamins,Ther W-Minerals Tab) 1 each PO QDAY [facility] Last Admin: 10/13/20 09:11 Dose: 1 each Documented by: Mycophenolate Mofetil (Mycophenolate 250 Mg Cap) 500 mg PO BID [facility] Last Admin: 10/13/20 21:14 Dose: 500 mg Documented by: Nifedipine (Nifedipine Xl 60 Mg Tab) 60 mg PO DAILY [facility] Last Admin: 10/13/20 09:10 Dose: 60 mg Documented by: Olanzapine (Olanzapine 5 Mg Tab) 2.5 mg PO QHS [facility] Last Admin: 10/13/20 21:26 Dose: 2.5 mg Documented by: Prednisone (Prednisone 5 Mg Tab) 5 mg PO QDAY [facility] Last Admin: 10/13/20 09:11 Dose: 5 mg Documented by: Primidone (Primidone 50 Mg Tab) 150 mg PO QHS [facility] Last Admin: 10/13/20 21:21 Dose: 150 mg Documented by: Psyllium Hydrophilic Mucilloid (Psyllium Seed (With Sugar) 3.4 Gm Packet) 1 each PO QHS [facility] Last Admin: 10/13/20 21:21 Dose: 1 each Documented by: Quetiapine Fumarate (Quetiapine 25 Mg Tab) 25 mg PO BID [facility] Last Admin: 10/13/20 21:25 Dose: 25 mg Documented by: Ranolazine (Ranolazine Er 500 Mg Tab 12hr) 500 mg PO BID [facility] Last Admin: 10/13/20 21:46 Dose: 500 mg Documented by: Sirolimus (Sirolimus (Nf) 1 Mg Tab) 2 mg PO SuTuThSa [facility] Last Admin: 10/13/20 21:25 Dose: 2 mg Documented by: Sirolimus (Sirolimus (Nf) 1 Mg Tab) 1 mg PO MoWeFr [facility] Last Admin: 10/12/20 21:15 Dose: 1 mg Documented by: Sodium Bicarbonate (Sodium Bicarbonate 650 Mg Tab) 650 mg PO MoWeFr [facility] Last Admin: 10/12/20 10:04 Dose: 650 mg Documented by: Vitamin B Complex/Vitamin C (B Complex W/Vitamin C Tab) 1 each PO DAILY [facility] Last Admin: 10/13/20 09:11 Dose: 1 each Documented by: Results - Results Labs/Vitals: Laboratory Last Values WBC 6.4 K/mm3 (4.5-11.0) 10/09/20 23:39 RBC 3.63 M/mm3 (3.65-5.03) L 10/09/20 23:39 Hgb 10.2 gm/dl (11.8-15.2) L 10/09/20 23:39 Hct 30.4 % (35.5-45.6) L 10/09/20 23:39 MCV 84 fl (84-94) 10/09/20 23:39 MCH 28 pg (28-32) 10/09/20 23:39 MCHC 34 % (32-34) 10/09/20 23:39 RDW 15.0 % (13.2-15.2) 10/09/20 23:39 Plt Count 262 K/mm3 (140-440) 10/09/20 23:39 Moffat % (Auto) Filler And Trimmer 10/09/20 23:39 Add Manual Diff Complete 10/09/20 23:39 Total Counted 100 10/09/20 23:39 Seg Neuts % (Manual) 72.0 % (40.0-70.0) H 10/09/20 23:39 Lymphocytes % (Manual) 18.0 % (13.4-35.0) 10/09/20 23:39 Monocytes % (Manual) 8.0 % (0.0-7.3) H 10/09/20 23:39 Eosinophils % (Manual) 2.0 % (0.0-4.3) 10/09/20 23:39 Nucleated RBC % Not Reportable 10/09/20 23:39 Seg Neutrophils # Man 4.6 K/mm3 (1.8-7.7) 10/09/20 23:39 Band Neutrophils # 0.0 K/mm3 10/09/20 23:39 Lymphocytes # (Manual) 1.2 K/mm3 (1.2-5.4) 10/09/20 23:39 Abs React Lymphs (Man) 0.0 K/mm3 10/09/20 23:39 Monocytes # (Manual) 0.5 K/mm3 (0.0-0.8) 10/09/20 23:39 Eosinophils # (Manual) 0.1 K/mm3 (0.0-0.4) 10/09/20 23:39 Basophils # (Manual) 0.0 K/mm3 (0.0-0.1) 10/09/20 23:39 Metamyelocytes # 0.0 K/mm3 10/09/20 23:39 Myelocytes # 0.0 K/mm3 10/09/20 23:39 Promyelocytes # 0.0 K/mm3 10/09/20 23:39 Blast Cells # 0.0 K/mm3 10/09/20 23:39 WBC Morphology Not Reportable 10/09/20 23:39 Hypersegmented Neuts Not Reportable 10/09/20 23:39 Hyposegmented Neuts Not Reportable 10/09/20 23:39 Hypogranular Neuts Not Reportable 10/09/20 23:39 Smudge Cells Not Reportable 10/09/20 23:39 Toxic Granulation Not Reportable 10/09/20 23:39 Toxic Vacuolation Not Reportable 10/09/20 23:39 Dohle Bodies Not Reportable 10/09/20 23:39 Pelger-Huet Anomaly Not Reportable 10/09/20 23:39 Sly Rods Not Reportable 10/09/20 23:39 Platelet Estimate Consistent w auto 10/09/20 23:39 Clumped Platelets Not Reportable 10/09/20 23:39 Plt Clumps, EDTA Not Reportable 10/09/20 23:39 Large Platelets Not Reportable 10/09/20 23:39 Giant Platelets Not Reportable 10/09/20 23:39 Platelet Satelliting Not Reportable 10/09/20 23:39 Plt Morphology Comment Not Reportable 10/09/20 23:39 RBC Morphology Not Reportable 10/09/20 23:39 Dimorphic RBCs Not Reportable 10/09/20 23:39 Polychromasia Not Reportable 10/09/20 23:39 Hypochromasia Not Reportable 10/09/20 23:39 Poikilocytosis Not Reportable 10/09/20 23:39 Anisocytosis 1+ 10/09/20 23:39 Microcytosis Not Reportable 10/09/20 23:39 Macrocytosis Not Reportable 10/09/20 23:39 Spherocytes Not Reportable 10/09/20 23:39 Pappenheimer Bodies Not Reportable 10/09/20 23:39 Sickle Cells Not Reportable 10/09/20 23:39 Target Cells Not Reportable 10/09/20 23:39 Tear Drop Cells Not Reportable 10/09/20 23:39 Ovalocytes Not Reportable 10/09/20 23:39 Helmet Cells Not Reportable 10/09/20 23:39 Nava-Moquino Bodies Not Reportable 10/09/20 23:39 [place] Rings Not Reportable 10/09/20 23:39 Johnnie Cells Not Reportable 10/09/20 23:39 Bite Cells Not Reportable 10/09/20 23:39 Crenated Cell Not Reportable 10/09/20 23:39 Elliptocytes Not Reportable 10/09/20 23:39 Acanthocytes (Spur) Not Reportable 10/09/20 23:39 Rouleaux Not Reportable 10/09/20 23:39 Hemoglobin C Crystals Not Reportable 10/09/20 23:39 Schistocytes Not Reportable 10/09/20 23:39 Malaria parasites Not Reportable 10/09/20 23:39 Khai Bodies Not Reportable 10/09/20 23:39 Hem Pathologist Commnt No 10/09/20 23:39 Sodium 140 mmol/L (137-145) 10/09/20 23:39 Potassium 4.0 mmol/L (3.6-5.0) 10/09/20 23:39 Chloride 103.8 mmol/L (98-107) 10/09/20 23:39 Carbon Dioxide 18 mmol/L (22-30) L 10/09/20 23:39 Anion Gap 22 mmol/L 10/09/20 23:39 BUN 59 mg/dL (9-20) H 10/09/20 23:39 Creatinine 1.7 mg/dL (0.8-1.3) H 10/09/20 23:39 Estimated GFR 48 ml/min 10/09/20 23:39 BUN/Creatinine Ratio 35 % 10/09/20 23:39 Glucose 132 mg/dL (75-100) H 10/09/20 23:39 POC Glucose 86 mg/dL (70-105) 10/14/20 08:04 Hemoglobin A1c 6.5 % (4-6) H 10/09/20 23:39 Calcium 9.3 mg/dL (8.4-10.2) 10/09/20 23:39 Total Bilirubin 0.30 mg/dL (0.1-1.2) 10/09/20 23:39 AST 40 units/L (5-40) 10/09/20 23:39 ALT 25 units/L (7-56) 10/09/20 23:39 Alkaline Phosphatase 51 units/L (35-129) 10/09/20 23:39 Total Protein 6.1 g/dL (6.3-8.2) L 10/09/20 23:39 Albumin 3.6 g/dL (3.9-5) L 10/09/20 23:39 Albumin/Globulin Ratio 1.4 % 10/09/20 23:39 Triglycerides 235 mg/dL (2-149) H 10/09/20 23:39 Cholesterol 143 mg/dL (50-199) 10/09/20 23:39 LDL Cholesterol Direct 77 mg/dL (50-130) 10/09/20 23:39 HDL Cholesterol 28 mg/dL (40-59) L 10/09/20 23:39 Cholesterol/HDL Ratio 5.10 % 10/09/20 23:39 Coronavirus (PCR) Negative (Negative) 10/11/20 Unknown Last Vital Signs Temp 98.1 F 10/13/20 19:05 Pulse 83 10/13/20 21:20 Resp 18 10/13/20 19:05 BP 174/82 10/13/20 21:20 Pulse Ox 98 10/13/20 19:05
[2020-10-14] MEDS: FENOFIBRATE 145 MG TAB PO SCH (10:59)
[2020-10-14] MEDS: ASPIRIN 81 MG TAB CHEW PO SCH (10:59)
[2020-10-14] MEDS: SODIUM BICARBONATE 650 MG TAB PO SCH (10:59)
[2020-10-14] MEDS: OMEGA-3 FATTY ACIDS/FISH OIL 1 GRAM CAP PO SCH (10:59)
[2020-10-14] MEDS: CHOLECALCIFEROL (VIT D3) 1000 UNIT (25 mcg) TAB PO SCH (11:00)
[2020-10-14] MEDS: MULTIVITAMINS,THER W-MINERALS TAB PO SCH (11:00)
[2020-10-14] MEDS: MYCOPHENOLATE 250 MG CAP PO SCH ×2 (11:00→21:27)
[2020-10-14] MEDS: predniSONE 5 MG TAB PO SCH (11:00)
[2020-10-14] MEDS: B COMPLEX W/VITAMIN C TAB PO SCH (11:00)
[2020-10-14] MEDS: DIVALPROEX DR 125 MG TAB PO SCH ×2 (11:00→21:31)
[2020-10-14] MEDS: CILOSTAZOL 100 MG TAB PO SCH ×2 (11:01→21:26)
[2020-10-14] MEDS: INSULIN LISPRO 100 UNIT/ML SUB-Q SCH ×4 (11:01→21:33)
[2020-10-14] MEDS: MEMANTINE 10 MG TAB PO SCH ×2 (11:01→21:26)
[2020-10-14] MEDS: FUROSEMIDE 20 MG TAB PO SCH (11:01)
[2020-10-14] MEDS: NIFEdipine XL 60 MG TAB PO SCH (11:02)
[2020-10-14] MEDS: carvediloL 12.5 MG TAB PO SCH ×2 (11:03→21:30)
[2020-10-14] MEDS: RANOLAZINE ER 500 MG TAB 12HR PO SCH ×2 (11:04→21:32)
[2020-10-14] MEDS: DOXAZOSIN 4 MG TAB PO SCH ×2 (11:05→21:27)
[2020-10-14] MEDS: LISINOPRIL 10 MG TAB PO SCH (11:07)
[2020-10-14] MEDS: SIROLIMUS 1 MG PO SCH (21:25)
[2020-10-14] MEDS: PRIMIDONE 50 MG TAB PO SCH (21:26)
[2020-10-14] MEDS: DONEPEZIL 10 MG TAB PO SCH (21:26)
[2020-10-14] MEDS: PSYLLIUM SEED (WITH SUGAR) 3.4 GM PACKET PO SCH (21:31)
[2020-10-15] MEDS: ASPIRIN 81 MG TAB CHEW PO SCH (09:05)
[2020-10-15] MEDS: MULTIVITAMINS,THER W-MINERALS TAB PO SCH (09:06)
[2020-10-15] MEDS: FUROSEMIDE 20 MG TAB PO SCH (09:07)
[2020-10-15] MEDS: OMEGA-3 FATTY ACIDS/FISH OIL 1 GRAM CAP PO SCH (09:07)
[2020-10-15] MEDS: DIVALPROEX DR 125 MG TAB PO SCH ×2 (09:07→21:13)
[2020-10-15] MEDS: predniSONE 5 MG TAB PO SCH (09:08)
[2020-10-15] MEDS: MEMANTINE 10 MG TAB PO SCH ×2 (09:08→21:12)
[2020-10-15] MEDS: LISINOPRIL 10 MG TAB PO SCH (09:09)
[2020-10-15] MEDS: CHOLECALCIFEROL (VIT D3) 1000 UNIT (25 mcg) TAB PO SCH (09:09)
[2020-10-15] MEDS: carvediloL 12.5 MG TAB PO SCH ×2 (09:10→21:14)
[2020-10-15] MEDS: NIFEdipine XL 60 MG TAB PO SCH (09:12)
[2020-10-15] MEDS: allopurinoL 100 MG TAB PO SCH (09:13)
[2020-10-15] MEDS: B COMPLEX W/VITAMIN C TAB PO SCH (09:13)
[2020-10-15] MEDS: RANOLAZINE ER 500 MG TAB 12HR PO SCH ×2 (09:14→21:12)
[2020-10-15] MEDS: DOXAZOSIN 4 MG TAB PO SCH ×2 (09:15→21:13)
[2020-10-15] MEDS: MYCOPHENOLATE 250 MG CAP PO SCH ×2 (09:17→21:12)
[2020-10-15] MEDS: CILOSTAZOL 100 MG TAB PO SCH ×2 (09:18→21:13)
[2020-10-15] MEDS: FENOFIBRATE 145 MG TAB PO SCH (09:18)
[2020-10-15] MEDS ORDERED: INSULIN LISPRO 100 UNIT/ML SUB-Q SCH (10:00)
--- NOTE | 2020-10-15 10:36 | Progress Note ---
Subjective Date of service: 10/15/20 Principal diagnosis: Dementia with Behavioral Disturbance Subjective Comment: The patient was seen today, sitting in the dayroom. He is dressed appropriately. He is confused, but pleasant. He says he's "doing okay" when asked. He denies SI/HI, he smiles and says "I assume not unless I had to." The patient denies hallucinations. He says he's just waiting to leave and work on some things. Reason for continued inpatient treatment: The patient appears to be stable for discharge from a psych standpoint, but is awaiting placement to ensue a safe discharge and continuity of psych care upon discharging. REVIEW OF SYSTEMS Constitutional: Negative for weight loss ENT: Negative for stridor Respiratory: Negative for cough or hemoptysis All other systems reviewed and are negative MENTAL STATUS EXAMINATION General Appearance and Behavior: Age appropriate, dressed appropriately, calm and cooperative Cooperation: Participating Psychomotor Behavior: psychomotor normal Mood: "good" Affect and affective range: congruent with states mood Thought Process: goal directed Thought Content: obsessions Speech: Normal volume, Regular rate and rhythm, Intellectual Functioning: Average Suicidal Ideation: Denies Homicidal Ideation: Denies Hallucinations: Denies Delusions: None elicited Impulse Control: Impaired Insight and Judgment: Limited insight and judgment, Memory: Impaired Attention: Undivided Orientation: Alert, oriented Assessment and Plan (1) Dementia with Behavioral Disturbance Treatment Plan Patient admitted for inpatient psychiatric evaluation, medication adjustment and close monitoring The patient's behavior, mood, sleep and appetite will be closely monitored. Patient enrolled in individual and group therapeutic sessions and encouraged to attend. Patient provided with a safe and structured environment. Patient's physical health needs will be addressed by the Hospitalist. Hospitalist Consulted Labs including CBC, CMP, Lipid profile and Hemoglobin A1C levels ordered for baseline reference Social Assessment will be completed and the Aviation Safety Equipment Technician will work with patient and family to ensure a suitable and safe disposition Medication adjustment will be made as clinically indicated No changes made Usual Wellness Yazidism/Preservation: - Start Trazodone 50 mg po QHS & 50 mg po QHS PRN between 10 PM & 2 AM for insomnia - Start Melatonin 5 mg po QHS to promote circadian rhythm - Start Williams-3 for brain health, reduce impulsivity, and as adjunctive treatment for mood disorder, continue upon discharge given overall benefits. - Start B1 prophylaxis with 200 mg po for 5 days The patient agreed on the treatment plan, understood the risk, benefit, alternative treatment, potential consequence of no treatment, and gave informed consent. Estimated days: 2 Post hospital care: primary care provider, psychiatric provider Medications and Allergies Allergies Allergy/AdvReac Type Severity Reaction Status Date / Time clopidogrel Allergy Swelling Verified 10/06/20 00:43 Home Medications Medication Instructions Recorded Confirmed Last Taken Type Aspirin [Aspirin BABY CHEW TAB] 81 mg PO QDAY 10/06/20 10/07/20 10/06/20 10:00 History Atorvastatin [Lipitor Tab] 80 mg PO QHS 10/06/20 10/07/20 10/06/20 22:00 History B-Complex with Vitamin C [Vitamin 1 tab PO DAILY 10/06/20 10/07/20 10/06/20 10:00 History B Complex-Vitamin C] Cholecalciferol (Vitamin D3) 1 tab PO DAILY 10/06/20 10/07/20 Unknown History [Vitamin D3 2,000 UNIT CAP] Donepezil HCl [Donepezil HCl Odt] 10 mg PO QHS 10/06/20 10/07/20 10/06/20 22:00 History Fenofibrate 160 mg PO DAILY 10/06/20 10/07/20 10/06/20 13:00 History Fiber 2 tab PO QHS 10/06/20 10/07/20 Unknown History Furosemide [Lasix] 20 mg PO QDAY 10/06/20 10/07/20 10/06/20 10:00 History Insulin Lispro [Humalog Kwikpen See Protocol SQ ACHS 10/06/20 10/07/20 Unknown History 200 UNITS/ML] Isosorbide Mononitrate [Isosorbide 30 mg PO QHS 10/06/20 10/07/20 10/06/20 22:00 History Mononitrate ER] LORazepam [Ativan] 0.5 mg PO BID PRN 10/06/20 10/07/20 Unknown History Lisinopril [Zestril TAB] 30 mg PO QDAY 10/06/20 10/07/20 10/06/20 10:00 History Memantine HCl 10 mg PO BID 10/06/20 10/07/20 10/06/20 22:00 History Mv,Ca,Min/FA/K1/Lycopene/Lutn [Eql 1 tab PO DAILY 10/06/20 10/07/20 10/05/20 History Century Mature Tablet] Mycophenolate [Cellcept] 2 tab PO BID 10/06/20 10/07/20 10/06/20 22:00 History NIFEdipine [Nifedipine ER] 60 mg PO DAILY 10/06/20 10/07/20 10/06/20 10:00 History OLANZapine [Zyprexa] 0.5 tab PO QHS 10/06/20 10/07/20 Unknown History Williams-3/Dha/Epa/Fish Oil [Williams 3 1,000 mg PO DAILY 10/06/20 10/07/20 Unknown History 500 Softgel] Primidone [Mysoline] 3 tab PO HS 10/06/20 10/07/20 10/06/20 22:00 History Ranolazine ER [Ranexa ER] 500 mg PO BID 10/06/20 10/07/20 10/06/20 22:00 History Sirolimus [Rapamune] 1 mg PO Q4W 10/06/20 10/07/20 10/05/20 History Sodium Bicarbonate 1 tab PO 3XW 10/06/20 10/07/20 10/05/20 10:00 History Sulfamethoxazole/Trimethoprim 1 each PO 4XW 10/06/20 10/07/20 10/05/20 History [Sulfamethoxazole-Tmp Ds Tablet] allopurinoL [Zyloprim] 100 mg PO 4XW 10/06/20 10/07/20 10/05/20 History carvediloL [Coreg] 12.5 mg PO BID 10/06/20 10/07/20 10/06/20 22:00 History cilostazoL [Pletal] 100 mg PO BID 10/06/20 10/07/20 10/06/20 22:00 History glipiZIDE XL [Glucotrol Xl] 10 mg PO QHS 10/06/20 10/07/20 10/06/20 22:00 History predniSONE [Deltasone] 5 mg PO QDAY 10/06/20 10/07/20 10/06/20 22:00 History Divalproex [Jak NUR] 125 mg PO BID 10/07/20 10/07/20 10/06/20 22:00 History Doxazosin [Cardura] 4 mg PO BID 10/07/20 10/07/20 10/06/20 22:00 History Multivitamin Tab W-MINERAL 1 each PO QD 10/07/20 10/07/20 10/06/20 10:00 History [Multiple Vitamin/Mineral (Theragran M)] Active Meds: Active Medications Allopurinol (Allopurinol 100 Mg Tab) 100 mg PO SuTuThSa [facility] Last Admin: 10/15/20 09:13 Dose: 100 mg Documented by: Aspirin (Aspirin 81 Mg Tab Chew) 81 mg PO QDAY [facility] Last Admin: 10/15/20 09:05 Dose: 81 mg Documented by: Atorvastatin Calcium (Atorvastatin 40 Mg Tab) 80 mg PO QHS [facility] Last Admin: 10/14/20 21:27 Dose: 80 mg Documented by: Carvedilol (Carvedilol 12.5 Mg Tab) 12.5 mg PO BID [facility] Last Admin: 10/15/20 09:10 Dose: 12.5 mg Documented by: Cholecalciferol (Cholecalciferol (Vit D3) 1000 Unit (25 Mcg) Tab) 2,000 unit PO QDAY [facility] Last Admin: 10/15/20 09:09 Dose: 2,000 unit Documented by: Cilostazol (Cilostazol 100 Mg Tab) 100 mg PO BID [facility] Last Admin: 10/15/20 09:18 Dose: 100 mg Documented by: Divalproex Sodium (Divalproex Dr 125 Mg Tab) 125 mg PO BID [facility] Last Admin: 10/15/20 09:07 Dose: 125 mg Documented by: Donepezil HCl (Donepezil 10 Mg Tab) 10 mg PO QHS [facility] Last Admin: 10/14/20 21:26 Dose: 10 mg Documented by: Doxazosin Mesylate (Doxazosin 4 Mg Tab) 4 mg PO BID [facility] Last Admin: 10/15/20 09:15 Dose: 4 mg Documented by: Fenofibrate (Fenofibrate 145 Mg Tab) 145 mg PO DAILY [facility] Last Admin: 10/15/20 09:18 Dose: 145 mg Documented by: Fish Oil (Williams-3 Fatty Acids/Fish Oil 1 Gram Cap) 1,000 mg PO DAILY [facility] Last Admin: 10/15/20 09:07 Dose: 1,000 mg Documented by: Furosemide (Furosemide 20 Mg Tab) 20 mg PO QDAY [facility] Last Admin: 10/15/20 09:07 Dose: 20 mg Documented by: Glipizide (Glipizide Xl 10 Mg Tab) 10 mg PO QHS [facility] Last Admin: 10/14/20 21:29 Dose: 10 mg Documented by: Insulin Human Lispro (Insulin Lispro 100 Unit/Ml) 0 unit SUB-Q QHS [facility]; Protocol Last Admin: 10/14/20 21:33 Dose: Not Given Documented by: Isosorbide Mononitrate (Isosorbide Mononitrate Er 30 Mg Tab) 30 mg PO QHS [facility] Last Admin: 10/14/20 21:29 Dose: 30 mg Documented by: Lisinopril (Lisinopril 10 Mg Tab) 30 mg PO QDAY [facility] Last Admin: 10/15/20 09:09 Dose: 30 mg Documented by: Lorazepam (Lorazepam 0.5 Mg Tab) 0.5 mg PO BID PRN PRN Reason: Anxiety Memantine (Memantine 10 Mg Tab) 10 mg PO BID [facility] Last Admin: 10/15/20 09:08 Dose: 10 mg Documented by: Multivitamins/Minerals (Multivitamins,Ther W-Minerals Tab) 1 each PO QDAY [facility] Last Admin: 10/15/20 09:06 Dose: 1 each Documented by: Mycophenolate Mofetil (Mycophenolate 250 Mg Cap) 500 mg PO BID [facility] Last Admin: 10/15/20 09:17 Dose: 500 mg Documented by: Nifedipine (Nifedipine Xl 60 Mg Tab) 60 mg PO DAILY [facility] Last Admin: 10/15/20 09:12 Dose: 60 mg Documented by: Olanzapine (Olanzapine 5 Mg Tab) 2.5 mg PO QHS [facility] Last Admin: 10/14/20 21:29 Dose: 2.5 mg Documented by: Prednisone (Prednisone 5 Mg Tab) 5 mg PO QDAY [facility] Last Admin: 10/15/20 09:08 Dose: 5 mg Documented by: Primidone (Primidone 50 Mg Tab) 150 mg PO QHS [facility] Last Admin: 10/14/20 21:26 Dose: 150 mg Documented by: Psyllium Hydrophilic Mucilloid (Psyllium Seed (With Sugar) 3.4 Gm Packet) 1 each PO QHS [facility] Last Admin: 10/14/20 21:31 Dose: 1 each Documented by: Ranolazine (Ranolazine Er 500 Mg Tab 12hr) 500 mg PO BID [facility] Last Admin: 10/15/20 09:14 Dose: 500 mg Documented by: Sirolimus (Sirolimus (Nf) 1 Mg Tab) 2 mg PO SuTuThSa [facility] Last Admin: 10/13/20 21:25 Dose: 2 mg Documented by: Sirolimus (Sirolimus (Nf) 1 Mg Tab) [facility] Admin: 10/14/20 21:25 Dose: 1 mg Documented by: Sodium Bicarbonate (Sodium Bicarbonate 650 Mg Tab) 650 mg PO MoWeFr [facility] Last Admin: 10/14/20 10:59 Dose: 650 mg Documented by: Vitamin B Complex/Vitamin C (B Complex W/Vitamin C Tab) 1 each PO DAILY [facility] Last Admin: 10/15/20 09:13 Dose: 1 each Documented by: Results - Results Labs/Vitals: Laboratory Last Values WBC 6.4 K/mm3 (4.5-11.0) 10/09/20 23:39 RBC 3.63 M/mm3 (3.65-5.03) L 10/09/20 23:39 Hgb 10.2 gm/dl (11.8-15.2) L 10/09/20 23:39 Hct 30.4 % (35.5-45.6) L 10/09/20 23:39 MCV 84 fl (84-94) 10/09/20 23:39 MCH 28 pg (28-32) 10/09/20 23:39 MCHC 34 % (32-34) 10/09/20 23:39 RDW 15.0 % (13.2-15.2) 10/09/20 23:39 Plt Count 262 K/mm3 (140-440) 10/09/20 23:39 Sebastian % (Auto) Blowing [place]and 10/09/20 23:39 Add Manual Diff Complete 10/09/20 23:39 Total Counted 100 10/09/20 23:39 Seg Neuts % (Manual) 72.0 % (40.0-70.0) H 10/09/20 23:39 Lymphocytes % (Manual) 18.0 % (13.4-35.0) 10/09/20 23:39 Monocytes % (Manual) 8.0 % (0.0-7.3) H 10/09/20 23:39 Eosinophils % (Manual) 2.0 % (0.0-4.3) 10/09/20 23:39 Nucleated RBC % Not Reportable 10/09/20 23:39 Seg Neutrophils # Man 4.6 K/mm3 (1.8-7.7) 10/09/20 23:39 Band Neutrophils # 0.0 K/mm3 10/09/20 23:39 Lymphocytes # (Manual) 1.2 K/mm3 (1.2-5.4) 10/09/20 23:39 Abs React Lymphs (Man) 0.0 K/mm3 10/09/20 23:39 Monocytes # (Manual) 0.5 K/mm3 (0.0-0.8) 10/09/20 23:39 Eosinophils # (Manual) 0.1 K/mm3 (0.0-0.4) 10/09/20 23:39 Basophils # (Manual) 0.0 K/mm3 (0.0-0.1) 10/09/20 23:39 Metamyelocytes # 0.0 K/mm3 10/09/20 23:39 Myelocytes # 0.0 K/mm3 10/09/20 23:39 Promyelocytes # 0.0 K/mm3 10/09/20 23:39 Blast Cells # 0.0 K/mm3 10/09/20 23:39 WBC Morphology Not Reportable 10/09/20 23:39 Hypersegmented Neuts Not Reportable 10/09/20 23:39 Hyposegmented Neuts Not Reportable 10/09/20 23:39 Hypogranular Neuts Not Reportable 10/09/20 23:39 Smudge Cells Not Reportable 10/09/20 23:39 Toxic Granulation Not Reportable 10/09/20 23:39 Toxic Vacuolation Not Reportable 10/09/20 23:39 Dohle Bodies Not Reportable 10/09/20 23:39 Pelger-Huet Anomaly Not Reportable 10/09/20 23:39 Sly Rods Not Reportable 10/09/20 23:39 Platelet Estimate Consistent w auto 10/09/20 23:39 Clumped Platelets Not Reportable 10/09/20 23:39 Plt Clumps, EDTA Not Reportable 10/09/20 23:39 Large Platelets Not Reportable 10/09/20 23:39 Giant Platelets Not Reportable 10/09/20 23:39 Platelet Satelliting Not Reportable 10/09/20 23:39 Plt Morphology Comment Not Reportable 10/09/20 23:39 RBC Morphology Not Reportable 10/09/20 23:39 Dimorphic RBCs Not Reportable 10/09/20 23:39 Polychromasia Not Reportable 10/09/20 23:39 Hypochromasia Not Reportable 10/09/20 23:39 Poikilocytosis Not Reportable 10/09/20 23:39 Anisocytosis 1+ 10/09/20 23:39 Microcytosis Not Reportable 10/09/20 23:39 Macrocytosis Not Reportable 10/09/20 23:39 Spherocytes Not Reportable 10/09/20 23:39 Pappenheimer Bodies Not Reportable 10/09/20 23:39 Sickle Cells Not Reportable 10/09/20 23:39 Target Cells Not Reportable 10/09/20 23:39 Tear Drop Cells Not Reportable 10/09/20 23:39 Ovalocytes Not Reportable 10/09/20 23:39 Helmet Cells Not Reportable 10/09/20 23:39 Nava-Egeland Bodies Not Reportable 10/09/20 23:39 Little Silver Rings Not Reportable 10/09/20 23:39 D[place] Cells Not Reportable 10/09/20 23:39 Bite Cells Not Reportable 10/09/20 23:39 Crenated Cell Not Reportable 10/09/20 23:39 Elliptocytes Not Reportable 10/09/20 23:39 Acanthocytes (Spur) Not Reportable 10/09/20 23:39 Rouleaux Not Reportable 10/09/20 23:39 Hemoglobin C Crystals Not Reportable 10/09/20 23:39 Schistocytes Not Reportable 10/09/20 23:39 Malaria parasites Not Reportable 10/09/20 23:39 Khai Bodies Not Reportable 10/09/20 23:39 Hem Pathologist Commnt No 10/09/20 23:39 Sodium 140 mmol/L (137-145) 10/09/20 23:39 Potassium 4.0 mmol/L (3.6-5.0) 10/09/20 23:39 Chloride 103.8 mmol/L (98-107) 10/09/20 23:39 Carbon Dioxide 18 mmol/L (22-30) L 10/09/20 23:39 Anion Gap 22 mmol/L 10/09/20 23:39 BUN 59 mg/dL (9-20) H 10/09/20 23:39 Creatinine 1.7 mg/dL (0.8-1.3) H 10/09/20 23:39 Estimated GFR 48 ml/min 10/09/20 23:39 BUN/Creatinine Ratio 35 % 10/09/20 23:39 Glucose 132 mg/dL (75-100) H 10/09/20 23:39 POC Glucose 83 mg/dL (70-105) 10/15/20 08:36 Hemoglobin A1c 6.5 % (4-6) H 10/09/20 23:39 Calcium 9.3 mg/dL (8.4-10.2) 10/09/20 23:39 Total Bilirubin 0.30 mg/dL (0.1-1.2) 10/09/20 23:39 AST 40 units/L (5-40) 10/09/20 23:39 ALT 25 units/L (7-56) 10/09/20 23:39 Alkaline Phosphatase 51 units/L (35-129) 10/09/20 23:39 Total Protein 6.1 g/dL (6.3-8.2) L 10/09/20 23:39 Albumin 3.6 g/dL (3.9-5) L 10/09/20 23:39 Albumin/Globulin Ratio 1.4 % 10/09/20 23:39 Triglycerides 235 mg/dL (2-149) H 10/09/20 23:39 Cholesterol 143 mg/dL (50-199) 10/09/20 23:39 LDL Cholesterol Direct 77 mg/dL (50-130) 10/09/20 23:39 HDL Cholesterol 28 mg/dL (40-59) L 10/09/20 23:39 Cholesterol/HDL Ratio 5.10 % 10/09/20 23:39 Coronavirus (PCR) Negative (Negative) 10/11/20 Unknown Last Vital Signs Temp 97.5 F L 10/14/20 19:35 Pulse 73 10/15/20 09:15 Resp 16 10/14/20 19:35 BP 138/66 10/15/20 09:15 Pulse Ox 98 10/14/20 19:35
[2020-10-15] MEDS: PSYLLIUM SEED (WITH SUGAR) 3.4 GM PACKET PO SCH (21:12)
[2020-10-15] MEDS: PRIMIDONE 50 MG TAB PO SCH (21:13)
[2020-10-15] MEDS: DONEPEZIL 10 MG TAB PO SCH (21:13)
[2020-10-15] MEDS: SIROLIMUS 1 MG PO SCH (21:15)
[2020-10-15] MEDS: INSULIN LISPRO 100 UNIT/ML SUB-Q SCH (21:16)
--- NOTE | 2020-10-16 09:16 | Progress Note ---
Subjective Date of service: 10/16/20 Principal diagnosis: Dementia with Behavioral Disturbance Subjective Comment: The patient was seen today, he is walking around in the dayroom. He is pleasant and smiling. He greets me. He is asking to call his . He denies SI/HI or hallucinations of any kind. Reason for continued inpatient treatment: The patient is stable for discharge from a psych standpoint, but is awaiting placement to ensue a safe discharge and continuity of psych care upon discharging. REVIEW OF SYSTEMS Constitutional: Negative for weight loss ENT: Negative for stridor Respiratory: Negative for cough or hemoptysis All other systems reviewed and are negative MENTAL STATUS EXAMINATION General Appearance and Behavior: Age appropriate, dressed appropriately, calm and cooperative Cooperation: Participating Psychomotor Behavior: psychomotor normal Mood: "good" Affect and affective range: congruent with states mood Thought Process: goal directed Thought Content: obsessions Speech: Normal volume, Regular rate and rhythm, Intellectual Functioning: Average Suicidal Ideation: Denies Homicidal Ideation: Denies Hallucinations: Denies Delusions: None elicited Impulse Control: Impaired Insight and Judgment: Limited insight and judgment, Memory: Impaired Attention: Undivided Orientation: Alert, oriented Assessment and Plan (1) Dementia with Behavioral Disturbance Treatment Plan Patient admitted for inpatient psychiatric evaluation, medication adjustment and close monitoring The patient's behavior, mood, sleep and appetite will be closely monitored. Patient enrolled in individual and group therapeutic sessions and encouraged to attend. Patient provided with a safe and structured environment. Patient's physical health needs will be addressed by the Hospitalist. Hospitalist Consulted Labs including CBC, CMP, Lipid profile and Hemoglobin A1C levels ordered for baseline reference Social Assessment will be completed and the Filling Operator will work with patient and family to ensure a suitable and safe disposition Medication adjustment will be made as clinically indicated No changes made Usual Wellness Anglican/Preservation: - Start Trazodone 50 mg po QHS & 50 mg po QHS PRN between 10 PM & 2 AM for insomnia - Start Melatonin 5 mg po QHS to promote circadian rhythm - Start Weiser-3 for brain health, reduce impulsivity, and as adjunctive treatment for mood disorder, continue upon discharge given overall benefits. - Start B1 prophylaxis with 200 mg po for 5 days The patient agreed on the treatment plan, understood the risk, benefit, alternative treatment, potential consequence of no treatment, and gave informed consent. Estimated days: 2 Post hospital care: primary care provider, psychiatric provider Medications and Allergies Allergies Allergy/AdvReac Type Severity Reaction Status Date / Time clopidogrel Allergy Swelling Verified 10/06/20 00:43 Home Medications Medication Instructions Recorded Confirmed Last Taken Type Aspirin [Aspirin BABY CHEW TAB] 81 mg PO QDAY 10/06/20 10/07/20 10/06/20 10:00 History Atorvastatin [Lipitor Tab] 80 mg PO QHS 10/06/20 10/07/20 10/06/20 22:00 History B-Complex with Vitamin C [Vitamin 1 tab PO DAILY 10/06/20 10/07/20 10/06/20 10:00 History B Complex-Vitamin C] Cholecalciferol (Vitamin D3) 1 tab PO DAILY 10/06/20 10/07/20 Unknown History [Vitamin D3 2,000 UNIT CAP] Donepezil HCl [Donepezil HCl Odt] 10 mg PO QHS 10/06/20 10/07/20 10/06/20 22:00 History Fenofibrate 160 mg PO DAILY 10/06/20 10/07/20 10/06/20 13:00 History Fiber 2 tab PO QHS 10/06/20 10/07/20 Unknown History Furosemide [Lasix] 20 mg PO QDAY 10/06/20 10/07/20 10/06/20 10:00 History Insulin Lispro [Humalog Kwikpen See Protocol SQ ACHS 10/06/20 10/07/20 Unknown History 200 UNITS/ML] Isosorbide Mononitrate [Isosorbide 30 mg PO QHS 10/06/20 10/07/20 10/06/20 22:00 History Mononitrate ER] LORazepam [Ativan] 0.5 mg PO BID PRN 10/06/20 10/07/20 Unknown History Lisinopril [Zestril TAB] 30 mg PO QDAY 10/06/20 10/07/20 10/06/20 10:00 History Memantine HCl 10 mg PO BID 10/06/20 10/07/20 10/06/20 22:00 History Mv,Ca,Min/FA/K1/Lycopene/Lutn [Eql 1 tab PO DAILY 10/06/20 10/07/20 10/05/20 History Century Mature Tablet] Mycophenolate [Cellcept] 2 tab PO BID 10/06/20 10/07/20 10/06/20 22:00 History NIFEdipine [Nifedipine ER] 60 mg PO DAILY 10/06/20 10/07/20 10/06/20 10:00 History OLANZapine [Zyprexa] 0.5 tab PO QHS 10/06/20 10/07/20 Unknown History Weiser-3/Dha/Epa/Fish Oil [Weiser 3 1,000 mg PO DAILY 10/06/20 10/07/20 Unknown History 500 Softgel] Primidone [Mysoline] 3 tab PO HS 10/06/20 10/07/20 10/06/20 22:00 History Ranolazine ER [Ranexa ER] 500 mg PO BID 10/06/20 10/07/20 10/06/20 22:00 History Sirolimus [Rapamune] 1 mg PO Q4W 10/06/20 10/07/20 10/05/20 History Sodium Bicarbonate 1 tab PO 3XW 10/06/20 10/07/20 10/05/20 10:00 History Sulfamethoxazole/Trimethoprim 1 each PO 4XW 10/06/20 10/07/20 10/05/20 History [Sulfamethoxazole-Tmp Ds Tablet] allopurinoL [Zyloprim] 100 mg PO 4XW 10/06/20 10/07/20 10/05/20 History carvediloL [Coreg] 12.5 mg PO BID 10/06/20 10/07/20 10/06/20 22:00 History cilostazoL [Pletal] 100 mg PO BID 10/06/20 10/07/20 10/06/20 22:00 History glipiZIDE XL [Glucotrol Xl] 10 mg PO QHS 10/06/20 10/07/20 10/06/20 22:00 History predniSONE [Deltasone] 5 mg PO QDAY 10/06/20 10/07/20 10/06/20 22:00 History Divalproex [Jak NUR] 125 mg PO BID 10/07/20 10/07/20 10/06/20 22:00 History Doxazosin [Cardura] 4 mg PO BID 10/07/20 10/07/20 10/06/20 22:00 History Multivitamin Tab W-MINERAL 1 each PO QD 10/07/20 10/07/20 10/06/20 10:00 History [Multiple Vitamin/Mineral (Theragran M)] Active Meds: Active Medications Allopurinol (Allopurinol 100 Mg Tab) 100 mg PO SuTuThSa [facility] Last Admin: 10/15/20 09:13 Dose: 100 mg Documented by: Aspirin (Aspirin 81 Mg Tab Chew) 81 mg PO QDAY [facility] Last Admin: 10/15/20 09:05 Dose: 81 mg Documented by: Atorvastatin Calcium (Atorvastatin 40 Mg Tab) 80 mg PO QHS [facility] Last Admin: 10/15/20 21:13 Dose: 80 mg Documented by: Carvedilol (Carvedilol 12.5 Mg Tab) 12.5 mg PO BID [facility] Last Admin: 10/15/20 21:14 Dose: 12.5 mg Documented by: Cholecalciferol (Cholecalciferol (Vit D3) 1000 Unit (25 Mcg) Tab) 2,000 unit PO QDAY [facility] Last Admin: 10/15/20 09:09 Dose: 2,000 unit Documented by: Cilostazol (Cilostazol 100 Mg Tab) 100 mg PO BID [facility] Last Admin: 10/15/20 21:13 Dose: 100 mg Documented by: Divalproex Sodium (Divalproex Dr 125 Mg Tab) 125 mg PO BID [facility] Last Admin: 10/15/20 21:13 Dose: 125 mg Documented by: Donepezil HCl (Donepezil 10 Mg Tab) 10 mg PO QHS [facility] Last Admin: 10/15/20 21:13 Dose: 10 mg Documented by: Doxazosin Mesylate (Doxazosin 4 Mg Tab) 4 mg PO BID [facility] Last Admin: 10/15/20 21:13 Dose: 4 mg Documented by: Fenofibrate (Fenofibrate 145 Mg Tab) 145 mg PO DAILY [facility] Last Admin: 10/15/20 09:18 Dose: 145 mg Documented by: Fish Oil (Weiser-3 Fatty Acids/Fish Oil 1 Gram Cap) 1,000 mg PO DAILY [facility] Last Admin: 10/15/20 09:07 Dose: 1,000 mg Documented by: Furosemide (Furosemide 20 Mg Tab) 20 mg PO QDAY [facility] Last Admin: 10/15/20 09:07 Dose: 20 mg Documented by: Glipizide (Glipizide Xl 10 Mg Tab) 10 mg PO QHS [facility] Last Admin: 10/15/20 21:13 Dose: 10 mg Documented by: Insulin Human Lispro (Insulin Lispro 100 Unit/Ml) 0 unit SUB-Q QHS [facility]; Protocol Last Admin: 10/15/20 21:16 Dose: Not Given Documented by: Isosorbide Mononitrate (Isosorbide Mononitrate Er 30 Mg Tab) 30 mg PO QHS [facility] Last Admin: 10/15/20 21:14 Dose: 30 mg Documented by: Lisinopril (Lisinopril 10 Mg Tab) 30 mg PO QDAY [facility] Last Admin: 10/15/20 09:09 Dose: 30 mg Documented by: Lorazepam (Lorazepam 0.5 Mg Tab) 0.5 mg PO BID PRN PRN Reason: Anxiety Memantine (Memantine 10 Mg Tab) 10 mg PO BID [facility] Last Admin: 10/15/20 21:12 Dose: 10 mg Documented by: Multivitamins/Minerals (Multivitamins,Ther W-Minerals Tab) 1 each PO QDAY [facility] Last Admin: 10/15/20 09:06 Dose: 1 each Documented by: Mycophenolate Mofetil (Mycophenolate 250 Mg Cap) 500 mg PO BID [facility] Last Admin: 10/15/20 21:12 Dose: 500 mg Documented by: Nifedipine (Nifedipine Xl 60 Mg Tab) 60 mg PO DAILY [facility] Last Admin: 10/15/20 09:12 Dose: 60 mg Documented by: Olanzapine (Olanzapine 5 Mg Tab) 2.5 mg PO QHS [facility] Last Admin: 10/15/20 21:12 Dose: 2.5 mg Documented by: Prednisone (Prednisone 5 Mg Tab) 5 mg PO QDAY [facility] Last Admin: 10/15/20 09:08 Dose: 5 mg Documented by: Primidone (Primidone 50 Mg Tab) 150 mg PO QHS [facility] Last Admin: 10/15/20 21:13 Dose: 150 mg Documented by: Psyllium Hydrophilic Mucilloid (Psyllium Seed (With Sugar) 3.4 Gm Packet) 1 each PO QHS [facility] Last Admin: 10/15/20 21:12 Dose: 1 each Documented by: Ranolazine (Ranolazine Er 500 Mg Tab 12hr) 500 mg PO BID [facility] Last Admin: 10/15/20 21:12 Dose: 500 mg Documented by: Sirolimus ([facility] (Nf) 1 Mg Tab) [facility] Admin: 10/15/20 21:15 Dose: 2 mg Documented by: Sirolimus (Sirolimus (Nf) 1 Mg Tab) 1 mg PO MoWeFr [facility] Last Admin: 10/14/20 21:25 Dose: 1 mg Documented by: Sodium Bicarbonate (Sodium Bicarbonate 650 Mg Tab) 650 mg PO MoWeFr [facility] Last Admin: 10/14/20 10:59 Dose: 650 mg Documented by: Vitamin B Complex/Vitamin C (B Complex W/Vitamin C Tab) 1 each PO DAILY [facility] Last Admin: 10/15/20 09:13 Dose: 1 each Documented by: Results - Results Labs/Vitals: Laboratory Last Values WBC 6.4 K/mm3 (4.5-11.0) 10/09/20 23:39 RBC 3.63 M/mm3 (3.65-5.03) L 10/09/20 23:39 Hgb 10.2 gm/dl (11.8-15.2) L 10/09/20 23:39 Hct 30.4 % (35.5-45.6) L 10/09/20 23:39 MCV 84 fl (84-94) 10/09/20 23:39 MCH 28 pg (28-32) 10/09/20 23:39 MCHC 34 % (32-34) 10/09/20 23:39 RDW 15.0 % (13.2-15.2) 10/09/20 23:39 Plt Count 262 K/mm3 (140-440) 10/09/20 23:39 Mathews % (Auto) Merchandising Assistant 10/09/20 23:39 Add Manual Diff Complete 10/09/20 23:39 Total Counted 100 10/09/20 23:39 Seg Neuts % (Manual) 72.0 % (40.0-70.0) H 10/09/20 23:39 Lymphocytes % (Manual) 18.0 % (13.4-35.0) 10/09/20 23:39 Monocytes % (Manual) 8.0 % (0.0-7.3) H 10/09/20 23:39 Eosinophils % (Manual) 2.0 % (0.0-4.3) 10/09/20 23:39 Nucleated RBC % Not Reportable 10/09/20 23:39 Seg Neutrophils # Man 4.6 K/mm3 (1.8-7.7) 10/09/20 23:39 Band Neutrophils # 0.0 K/mm3 10/09/20 23:39 Lymphocytes # (Manual) 1.2 K/mm3 (1.2-5.4) 10/09/20 23:39 Abs React Lymphs (Man) 0.0 K/mm3 10/09/20 23:39 Monocytes # (Manual) 0.5 K/mm3 (0.0-0.8) 10/09/20 23:39 Eosinophils # (Manual) 0.1 K/mm3 (0.0-0.4) 10/09/20 23:39 Basophils # (Manual) 0.0 K/mm3 (0.0-0.1) 10/09/20 23:39 Metamyelocytes # 0.0 K/mm3 10/09/20 23:39 Myelocytes # 0.0 K/mm3 10/09/20 23:39 Promyelocytes # 0.0 K/mm3 10/09/20 23:39 Blast Cells # 0.0 K/mm3 10/09/20 23:39 WBC Morphology Not Reportable 10/09/20 23:39 Hypersegmented Neuts Not Reportable 10/09/20 23:39 Hyposegmented Neuts Not Reportable 10/09/20 23:39 Hypogranular Neuts Not Reportable 10/09/20 23:39 Smudge Cells Not Reportable 10/09/20 23:39 Toxic Granulation Not Reportable 10/09/20 23:39 Toxic Vacuolation Not Reportable 10/09/20 23:39 Dohle Bodies Not Reportable 10/09/20 23:39 Pelger-Huet Anomaly Not Reportable 10/09/20 23:39 Sly Rods Not Reportable 10/09/20 23:39 Platelet Estimate Consistent w auto 10/09/20 23:39 Clumped Platelets Not Reportable 10/09/20 23:39 Plt Clumps, EDTA Not Reportable 10/09/20 23:39 Large Platelets Not Reportable 10/09/20 23:39 Giant Platelets Not Reportable 10/09/20 23:39 Platelet Satelliting Not Reportable 10/09/20 23:39 Plt Morphology Comment Not Reportable 10/09/20 23:39 RBC Morphology Not Reportable 10/09/20 23:39 Dimorphic RBCs Not Reportable 10/09/20 23:39 Polychromasia Not Reportable 10/09/20 23:39 Hypochromasia Not Reportable 10/09/20 23:39 Poikilocytosis Not Reportable 10/09/20 23:39 Anisocytosis 1+ 10/09/20 23:39 Microcytosis Not Reportable 10/09/20 23:39 Macrocytosis Not Reportable 10/09/20 23:39 Spherocytes Not Reportable 10/09/20 23:39 Pappenheimer Bodies Not Reportable 10/09/20 23:39 Sickle Cells Not Reportable 10/09/20 23:39 Target Cells Not Reportable 10/09/20 23:39 Tear Drop Cells Not Reportable 10/09/20 23:39 Ovalocytes Not Reportable 10/09/20 23:39 Helmet Cells Not Reportable 10/09/20 23:39 [place] Bodies Not Reportable 10/09/20 23:39 [place] Rings Not Reportable 10/09/20 23:39 [place] Cells Not Reportable 10/09/20 23:39 Bite Cells Not Reportable 10/09/20 23:39 Crenated Cell Not Reportable 10/09/20 23:39 Elliptocytes Not Reportable 10/09/20 23:39 Acanthocytes (Spur) Not Reportable 10/09/20 23:39 Rouleaux Not Reportable 10/09/20 23:39 Hemoglobin C Crystals Not Reportable 10/09/20 23:39 Schistocytes Not Reportable 10/09/20 23:39 Malaria parasites Not Reportable 10/09/20 23:39 Khai Bodies Not Reportable 10/09/20 23:39 Hem Pathologist Commnt No 10/09/20 23:39 Sodium 140 mmol/L (137-145) 10/09/20 23:39 Potassium 4.0 mmol/L (3.6-5.0) 10/09/20 23:39 Chloride 103.8 mmol/L (98-107) 10/09/20 23:39 Carbon Dioxide 18 mmol/L (22-30) L 10/09/20 23:39 Anion Gap 22 mmol/L 10/09/20 23:39 BUN 59 mg/dL (9-20) H 10/09/20 23:39 Creatinine 1.7 mg/dL (0.8-1.3) H 10/09/20 23:39 Estimated GFR 48 ml/min 10/09/20 23:39 BUN/Creatinine Ratio 35 % 10/09/20 23:39 Glucose 132 mg/dL (75-100) H 10/09/20 23:39 POC Glucose 95 mg/dL (70-105) 10/16/20 06:09 Hemoglobin A1c 6.5 % (4-6) H 10/09/20 23:39 Calcium 9.3 mg/dL (8.4-10.2) 10/09/20 23:39 Total Bilirubin 0.30 mg/dL (0.1-1.2) 10/09/20 23:39 AST 40 units/L (5-40) 10/09/20 23:39 ALT 25 units/L (7-56) 10/09/20 23:39 Alkaline Phosphatase 51 units/L (35-129) 10/09/20 23:39 Total Protein 6.1 g/dL (6.3-8.2) L 10/09/20 23:39 Albumin 3.6 g/dL (3.9-5) L 10/09/20 23:39 Albumin/Globulin Ratio 1.4 % 10/09/20 23:39 Triglycerides 235 mg/dL (2-149) H 10/09/20 23:39 Cholesterol 143 mg/dL (50-199) 10/09/20 23:39 LDL Cholesterol Direct 77 mg/dL (50-130) 10/09/20 23:39 HDL Cholesterol 28 mg/dL (40-59) L 10/09/20 23:39 Cholesterol/HDL Ratio 5.10 % 10/09/20 23:39 Coronavirus (PCR) Negative (Negative) 10/11/20 Unknown Last Vital Signs Temp 97.5 F L 10/16/20 08:00 Pulse 77 10/16/20 08:00 Resp 18 10/16/20 08:00 BP 162/78 10/16/20 08:00 Pulse Ox 99 10/16/20 08:00
[2020-10-16] MEDS: MYCOPHENOLATE 250 MG CAP PO SCH ×2 (09:25→21:23)
[2020-10-16] MEDS: B COMPLEX W/VITAMIN C TAB PO SCH (09:25)
[2020-10-16] MEDS: ASPIRIN 81 MG TAB CHEW PO SCH (09:25)
[2020-10-16] MEDS: MULTIVITAMINS,THER W-MINERALS TAB PO SCH (09:25)
[2020-10-16] MEDS: DIVALPROEX DR 125 MG TAB PO SCH ×2 (09:25→21:24)
[2020-10-16] MEDS: CILOSTAZOL 100 MG TAB PO SCH ×2 (09:26→21:22)
[2020-10-16] MEDS: FENOFIBRATE 145 MG TAB PO SCH (09:26)
[2020-10-16] MEDS: predniSONE 5 MG TAB PO SCH (09:26)
[2020-10-16] MEDS: allopurinoL 100 MG TAB PO SCH (09:26)
[2020-10-16] MEDS: CHOLECALCIFEROL (VIT D3) 1000 UNIT (25 mcg) TAB PO SCH (09:26)
[2020-10-16] MEDS: DOXAZOSIN 4 MG TAB PO SCH ×2 (09:26→21:26)
[2020-10-16] MEDS: OMEGA-3 FATTY ACIDS/FISH OIL 1 GRAM CAP PO SCH (09:26)
[2020-10-16] MEDS: carvediloL 12.5 MG TAB PO SCH ×2 (09:26→21:26)
[2020-10-16] MEDS: FUROSEMIDE 20 MG TAB PO SCH (09:26)
[2020-10-16] MEDS: NIFEdipine XL 60 MG TAB PO SCH (09:27)
[2020-10-16] MEDS: MEMANTINE 10 MG TAB PO SCH ×2 (09:27→21:23)
[2020-10-16] MEDS: LISINOPRIL 10 MG TAB PO SCH (09:31)
[2020-10-16] MEDS: RANOLAZINE ER 500 MG TAB 12HR PO SCH ×2 (09:31→21:23)
[2020-10-16] MEDS: PRIMIDONE 50 MG TAB PO SCH (21:21)
[2020-10-16] MEDS: SIROLIMUS 1 MG PO SCH (21:21)
[2020-10-16] MEDS: DONEPEZIL 10 MG TAB PO SCH (21:23)
[2020-10-16] MEDS: PSYLLIUM SEED (WITH SUGAR) 3.4 GM PACKET PO SCH (21:24)
[2020-10-16] MEDS: INSULIN LISPRO 100 UNIT/ML SUB-Q SCH (21:27)
--- NOTE | 2020-10-17 10:26 | Progress Note ---
Subjective Date of service: 10/17/20 Principal diagnosis: Dementia with Behavioral Disturbance Subjective Comment: The patient was seen today, he is sitting in the dayroom, calm, cooperative. He is confused, but pleasant. He asked was he leaving today. He denies SI/HI or hallucinations of any kind. He says "I don't plan on doing any of that." Reason for continued inpatient treatment: The patient is stable for discharge from a psych standpoint, but is awaiting placement to ensue a safe discharge and continuity of psych care upon discharging. REVIEW OF SYSTEMS Constitutional: Negative for weight loss ENT: Negative for stridor Respiratory: Negative for cough or hemoptysis All other systems reviewed and are negative MENTAL STATUS EXAMINATION General Appearance and Behavior: Age appropriate, dressed appropriately, calm and cooperative Cooperation: Participating Psychomotor Behavior: psychomotor normal Mood: "good" Affect and affective range: congruent with states mood Thought Process: goal directed Thought Content: obsessions Speech: Normal volume, Regular rate and rhythm, Intellectual Functioning: Average Suicidal Ideation: Denies Homicidal Ideation: Denies Hallucinations: Denies Delusions: None elicited Impulse Control: Impaired Insight and Judgment: Limited insight and judgment, Memory: Impaired Attention: Undivided Orientation: Alert, oriented Assessment and Plan (1) Dementia with Behavioral Disturbance Treatment Plan Patient admitted for inpatient psychiatric evaluation, medication adjustment and close monitoring The patient's behavior, mood, sleep and appetite will be closely monitored. Patient enrolled in individual and group therapeutic sessions and encouraged to attend. Patient provided with a safe and structured environment. Patient's physical health needs will be addressed by the Hospitalist. Hospitalist Consulted Labs including CBC, CMP, Lipid profile and Hemoglobin A1C levels ordered for baseline reference Social Assessment will be completed and the [facility] Refrigeration Worker will work with patient and family to ensure a suitable and safe disposition Medication adjustment will be made as clinically indicated No changes made Usual Wellness Druze/Preservation: - Start Trazodone 50 mg po QHS & 50 mg po QHS PRN between 10 PM & 2 AM for insomnia - Start Melatonin 5 mg po QHS to promote circadian rhythm - Start Talmage-3 for brain health, reduce impulsivity, and as adjunctive treatment for mood disorder, continue upon discharge given overall benefits. - Start B1 prophylaxis with 200 mg po for 5 days The patient agreed on the treatment plan, understood the risk, benefit, alternative treatment, potential consequence of no treatment, and gave informed consent. Estimated days: 2 Post hospital care: primary care provider, psychiatric provider Medications and Allergies Allergies Allergy/AdvReac Type Severity Reaction Status Date / Time clopidogrel Allergy Swelling Verified 10/06/20 00:43 Home Medications Medication Instructions Recorded Confirmed Last Taken Type Aspirin [Aspirin BABY CHEW TAB] 81 mg PO QDAY 10/06/20 10/07/20 10/06/20 10:00 History Atorvastatin [Lipitor Tab] 80 mg PO QHS 10/06/20 10/07/20 10/06/20 22:00 History B-Complex with Vitamin C [Vitamin 1 tab PO DAILY 10/06/20 10/07/20 10/06/20 10:00 History B Complex-Vitamin C] Cholecalciferol (Vitamin D3) 1 tab PO DAILY 10/06/20 10/07/20 Unknown History [Vitamin D3 2,000 UNIT CAP] Donepezil HCl [Donepezil HCl Odt] 10 mg PO QHS 10/06/20 10/07/20 10/06/20 22:00 History Fenofibrate 160 mg PO DAILY 10/06/20 10/07/20 10/06/20 13:00 History Fiber 2 tab PO QHS 10/06/20 10/07/20 Unknown History Furosemide [Lasix] 20 mg PO QDAY 10/06/20 10/07/20 10/06/20 10:00 History Insulin Lispro [Humalog Kwikpen See Protocol SQ ACHS 10/06/20 10/07/20 Unknown History 200 UNITS/ML] Isosorbide Mononitrate [Isosorbide 30 mg PO QHS 10/06/20 10/07/20 10/06/20 22:00 History Mononitrate ER] LORazepam [Ativan] 0.5 mg PO BID PRN 10/06/20 10/07/20 Unknown History Lisinopril [Zestril TAB] 30 mg PO QDAY 10/06/20 10/07/20 10/06/20 10:00 History Memantine HCl 10 mg PO BID 10/06/20 10/07/20 10/06/20 22:00 History Mv,Ca,Min/FA/K1/Lycopene/Lutn [Eql 1 tab PO DAILY 10/06/20 10/07/20 10/05/20 History Century Mature Tablet] Mycophenolate [Cellcept] 2 tab PO BID 10/06/20 10/07/20 10/06/20 22:00 History NIFEdipine [Nifedipine ER] 60 mg PO DAILY 10/06/20 10/07/20 10/06/20 10:00 History OLANZapine [Zyprexa] 0.5 tab PO QHS 10/06/20 10/07/20 Unknown History Talmage-3/Dha/Epa/Fish Oil [Talmage 3 1,000 mg PO DAILY 10/06/20 10/07/20 Unknown History 500 Softgel] Primidone [Mysoline] 3 tab PO HS 10/06/20 10/07/20 10/06/20 22:00 History Ranolazine ER [Ranexa ER] 500 mg PO BID 10/06/20 10/07/20 10/06/20 22:00 History Sirolimus [Rapamune] 1 mg PO Q4W 10/06/20 10/07/20 10/05/20 History Sodium Bicarbonate 1 tab PO 3XW 10/06/20 10/07/20 10/05/20 10:00 History Sulfamethoxazole/Trimethoprim 1 each PO 4XW 10/06/20 10/07/20 10/05/20 History [Sulfamethoxazole-Tmp Ds Tablet] allopurinoL [Zyloprim] 100 mg PO 4XW 10/06/20 10/07/20 10/05/20 History carvediloL [Coreg] 12.5 mg PO BID 10/06/20 10/07/20 10/06/20 22:00 History cilostazoL [Pletal] 100 mg PO BID 10/06/20 10/07/20 10/06/20 22:00 History glipiZIDE XL [Glucotrol Xl] 10 mg PO QHS 10/06/20 10/07/20 10/06/20 22:00 History predniSONE [Deltasone] 5 mg PO QDAY 10/06/20 10/07/20 10/06/20 22:00 History Divalproex [Jak NUR] 125 mg PO BID 10/07/20 10/07/20 10/06/20 22:00 History Doxazosin [Cardura] 4 mg PO BID 10/07/20 10/07/20 10/06/20 22:00 History Multivitamin Tab W-MINERAL 1 each PO QD 06/10/07/20 10/06/20 10:00 History [Multiple Vitamin/Mineral (Theragran M)] Active Meds: Active Medications Allopurinol (Allopurinol 100 Mg Tab) 100 mg PO SuTuThSa [facility] Last Admin: 10/16/20 09:26 Dose: 100 mg Documented by: Aspirin (Aspirin 81 Mg Tab Chew) 81 mg PO QDAY [facility] Last Admin: 10/16/20 09:25 Dose: 81 mg Documented by: Atorvastatin Calcium (Atorvastatin 40 Mg Tab) 80 mg PO QHS [facility] Last Admin: 10/16/20 21:22 Dose: 80 mg Documented by: Carvedilol (Carvedilol 12.5 Mg Tab) 12.5 mg PO BID [facility] Last Admin: 10/16/20 21:26 Dose: 12.5 mg Documented by: Cholecalciferol (Cholecalciferol (Vit D3) 1000 Unit (25 Mcg) Tab) 2,000 unit PO QDAY [facility] Last Admin: 10/16/20 09:26 Dose: 2,000 unit Documented by: Cilostazol (Cilostazol 100 Mg Tab) 100 mg PO BID [facility] Last Admin: 10/16/20 21:22 Dose: 100 mg Documented by: Divalproex Sodium (Divalproex Dr 125 Mg Tab) 125 mg PO BID [facility] Last Admin: 10/16/20 21:24 Dose: 125 mg Documented by: Donepezil HCl (Donepezil 10 Mg Tab) 10 mg PO QHS [facility] Last Admin: 10/16/20 21:23 Dose: 10 mg Documented by: Doxazosin Mesylate (Doxazosin 4 Mg Tab) 4 mg PO BID [facility] Last Admin: 10/16/20 21:26 Dose: 4 mg Documented by: Fenofibrate (Fenofibrate 145 Mg Tab) 145 mg PO DAILY [facility] Last Admin: 10/16/20 09:26 Dose: 145 mg Documented by: Fish Oil (Talmage-3 Fatty Acids/Fish Oil 1 Gram Cap) 1,000 mg PO DAILY [facility] Last Admin: 10/16/20 09:26 Dose: 1,000 mg Documented by: Furosemide (Furosemide 20 Mg Tab) 20 mg PO QDAY [facility] Last Admin: 10/16/20 09:26 Dose: 20 mg Documented by: Glipizide (Glipizide Xl 10 Mg Tab) 10 mg PO QHS [facility] Last Admin: 10/16/20 21:23 Dose: 10 mg Documented by: Insulin Human Lispro (Insulin Lispro 100 Unit/Ml) 0 unit SUB-Q QHS [facility]; Pro tocol Last Admin: 10/16/20 21:27 Dose: Not Given Documented by: Isosorbide Mononitrate (Isosorbide Mononitrate Er 30 Mg Tab) 30 mg PO QHS [facility] Last Admin: 10/16/20 21:25 Dose: 30 mg Documented by: Lisinopril (Lisinopril 10 Mg Tab) 30 mg PO QDAY [facility] Last Admin: 10/16/20 09:31 Dose: 30 mg Documented by: Lorazepam (Lorazepam 0.5 Mg Tab) 0.5 mg PO BID PRN PRN Reason: Anxiety Memantine (Memantine 10 Mg Tab) 10 mg PO BID [facility] Last Admin: 10/16/20 21:23 Dose: 10 mg Documented by: Multivitamins/Minerals (Multivitamins,Ther W-Minerals Tab) 1 each PO QDAY [facility] Last Admin: 10/16/20 09:25 Dose: 1 each Documented by: Mycophenolate Mofetil (Mycophenolate 250 Mg Cap) 500 mg PO BID [facility] Last Admin: 10/16/20 21:23 Dose: 500 mg Documented by: Nifedipine (Nifedipine Xl 60 Mg Tab) 60 mg PO DAILY [facility] Last Admin: 10/16/20 09:27 Dose: 60 mg Documented by: Olanzapine (Olanzapine 5 Mg Tab) 2.5 mg PO QHS [facility] Last Admin: 10/16/20 21:24 Dose: 2.5 mg Documented by: Prednisone (Prednisone 5 Mg Tab) 5 mg PO QDAY [facility] Last Admin: 10/16/20 09:26 Dose: 5 mg Documented by: Primidone (Primidone 50 Mg Tab) 150 mg PO QHS [facility] Last Admin: 10/16/20 21:21 Dose: 150 mg Documented by: Psyllium Hydrophilic Mucilloid (Psyllium Seed (With Sugar) 3.4 Gm Packet) 1 each PO QHS [facility] Last Admin: 10/16/20 21:24 Dose: 1 each Documented by: Ranolazine (Ranolazine Er 500 Mg Tab 12hr) 500 mg PO BID [facility] Last Admin: 10/16/20 21:23 Dose: 500 mg Documented by: Sirolimus (Sirolimus (Nf) 1 Mg Tab) 2 mg PO SuTuThSa [facility] Last Admin: 10/16/20 21:21 Dose: 2 mg Documented by: Sirolimus ([facility] (Nf) 1 Mg Tab) [facility] 10/14/20 21:25 Dose: 1 mg Documented by: Sodium Bicarbonate (Sodium Bicarbonate 650 Mg Tab) 650 mg PO MoWe [facility] Last Admin: 10/14/20 10:59 Dose: 650 mg Documented by: Vitamin B Complex/Vitamin C (B Complex W/Vitamin C Tab) 1 each PO DAILY [facility] Last Admin: 10/16/20 09:25 Dose: 1 each Documented by: Results - Results Labs/Vitals: Laboratory Last Values WBC 6.4 K/mm3 (4.5-11.0) 10/09/20 23:39 RBC 3.63 M/mm3 (3.65-5.03) L 10/09/20 23:39 Hgb 10.2 gm/dl (11.8-15.2) L 10/09/20 23:39 Hct 30.4 % (35.5-45.6) L 10/09/20 23:39 MCV 84 fl (84-94) 10/09/20 23:39 MCH 28 pg (28-32) 10/09/20 23:39 MCHC 34 % (32-34) 10/09/20 23:39 RDW 15.0 % (13.2-15.2) 10/09/20 23:39 Plt Count 262 K/mm3 (140-440) 10/09/20 23:39 [place]ite % (Auto) Tanning Consultant 10/09/20 23:39 Add Manual Diff Complete 10/09/20 23:39 Total Counted 100 10/09/20 23:39 Seg Neuts % (Manual) 72.0 % (40.0-70.0) H 10/09/20 23:39 Lymphocytes % (Manual) 18.0 % (13.4-35.0) 10/09/20 23:39 Monocytes % (Manual) 8.0 % (0.0-7.3) H 10/09/20 23:39 Eosinophils % (Manual) 2.0 % (0.0-4.3) 10/09/20 23:39 Nucleated RBC % Not Reportable 10/09/20 23:39 Seg Neutrophils # Man 4.6 K/mm3 (1.8-7.7) 10/09/20 23:39 Band Neutrophils # 0.0 K/mm3 10/09/20 23:39 Lymphocytes # (Manual) 1.2 K/mm3 (1.2-5.4) 10/09/20 23:39 Abs React Lymphs (Man) 0.0 K/mm3 10/09/20 23:39 Monocytes # (Manual) 0.5 K/mm3 (0.0-0.8) 10/09/20 23:39 Eosinophils # (Manual) 0.1 K/mm3 (0.0-0.4) 10/09/20 23:39 Basophils # (Manual) 0.0 K/mm3 (0.0-0.1) 10/09/20 23:39 Metamyelocytes # 0.0 K/mm3 10/09/20 23:39 Myelocytes # 0.0 K/mm3 10/09/20 23:39 Promyelocytes # 0.0 K/mm3 10/09/20 23:39 Blast Cells # 0.0 K/mm3 10/09/20 23:39 WBC Morphology Not Reportable 10/09/20 23:39 Hypersegmented Neuts Not Reportable 10/09/20 23:39 Hyposegmented Neuts Not Reportable 10/09/20 23:39 Hypogranular Neuts Not Reportable 10/09/20 23:39 Smudge Cells Not Reportable 10/09/20 23:39 Toxic Granulation Not Reportable 10/09/20 23:39 Toxic Vacuolation Not Reportable 10/09/20 23:39 Dohle Bodies Not Reportable 10/09/20 23:39 Pelger-Huet Anomaly Not Reportable 10/09/20 23:39 Sly Rods Not Reportable 10/09/20 23:39 Platelet Estimate Consistent w auto 10/09/20 23:39 Clumped Platelets Not Reportable 10/09/20 23:39 Plt Clumps, EDTA Not Reportable 10/09/20 23:39 Large Platelets Not Reportable 10/09/20 23:39 Giant Platelets Not Reportable 10/09/20 23:39 Platelet Satelliting Not Reportable 10/09/20 23:39 Plt Morphology Comment Not Reportable 10/09/20 23:39 RBC Morphology Not Reportable 10/09/20 23:39 Dimorphic RBCs Not Reportable 10/09/20 23:39 Polychromasia Not Reportable 10/09/20 23:39 Hypochromasia Not Reportable 10/09/20 23:39 Poikilocytosis Not Reportable 10/09/20 23:39 Anisocytosis 1+ 10/09/20 23:39 Microcytosis Not Reportable 10/09/20 23:39 Macrocytosis Not Reportable 10/09/20 23:39 Spherocytes Not Reportable 10/09/20 23:39 Pappenheimer Bodies Not Reportable 10/09/20 23:39 Sickle Cells Not Reportable 10/09/20 23:39 Target Cells Not Reportable 10/09/20 23:39 Tear Drop Cells Not Reportable 10/09/20 23:39 Ovalocytes Not Reportable 10/09/20 23:39 Helmet Cells Not Reportable 10/09/20 23:39 [place] Bodies Not Reportable 10/09/20 23:39 [place] Rings Not Reportable 10/09/20 23:39 Johnnie Cells Not Reportable 10/09/20 23:39 Bite Cells Not Reportable 10/09/20 23:39 Crenated Cell Not Reportable 10/09/20 23:39 Elliptocytes Not Reportable 10/09/20 23:39 Acanthocytes (Spur) Not Reportable 10/09/20 23:39 Rouleaux Not Reportable 10/09/20 23:39 Hemoglobin C Crystals Not Reportable 10/09/20 23:39 Schistocytes Not Reportable 10/09/20 23:39 Malaria parasites Not Reportable 10/09/20 23:39 Khai Bodies Not Reportable 10/09/20 23:39 Hem Pathologist Commnt No 10/09/20 23:39 Sodium 140 mmol/L (137-145) 10/09/20 23:39 Potassium 4.0 mmol/L (3.6-5.0) 10/09/20 23:39 Chloride 103.8 mmol/L (98-107) 10/09/20 23:39 Carbon Dioxide 18 mmol/L (22-30) L 10/09/20 23:39 Anion Gap 22 mmol/L 10/09/20 23:39 BUN 59 mg/dL (9-20) H 10/09/20 23:39 Creatinine 1.7 mg/dL (0.8-1.3) H 10/09/20 23:39 Estimated GFR 48 ml/min 10/09/20 23:39 BUN/Creatinine Ratio 35 % 10/09/20 23:39 Glucose 132 mg/dL (75-100) H 10/09/20 23:39 POC Glucose 94 mg/dL (70-105) 10/17/20 06:23 Hemoglobin A1c 6.5 % (4-6) H 10/09/20 23:39 Calcium 9.3 mg/dL (8.4-10.2) 10/09/20 23:39 Total Bilirubin 0.30 mg/dL (0.1-1.2) 10/09/20 23:39 AST 40 units/L (5-40) 10/09/20 23:39 ALT 25 units/L (7-56) 10/09/20 23:39 Alkaline Phosphatase 51 units/L (35-129) 10/09/20 23:39 Total Protein 6.1 g/dL (6.3-8.2) L 10/09/20 23:39 Albumin 3.6 g/dL (3.9-5) L 10/09/20 23:39 Albumin/Globulin Ratio 1.4 % 10/09/20 23:39 Triglycerides 235 mg/dL (2-149) H 10/09/20 23:39 Cholesterol 143 mg/dL (50-199) 10/09/20 23:39 LDL Cholesterol Direct 77 mg/dL (50-130) 10/09/20 23:39 HDL Cholesterol 28 mg/dL (40-59) L 10/09/20 23:39 Cholesterol/HDL Ratio 5.10 % 10/09/20 23:39 Coronavirus (PCR) Negative (Negative) 10/11/20 Unknown Last Vital Signs Temp 97.8 F 10/16/20 21:00 Pulse 77 10/16/20 21:26 Resp 18 10/16/20 21:00 BP 158/83 10/16/20 21:26 Pulse Ox 98 10/16/20 21:00
[2020-10-17] MEDS: MULTIVITAMINS,THER W-MINERALS TAB PO SCH (10:40)
[2020-10-17] MEDS: FENOFIBRATE 145 MG TAB PO SCH (10:40)
[2020-10-17] MEDS: ASPIRIN 81 MG TAB CHEW PO SCH (10:40)
[2020-10-17] MEDS: CILOSTAZOL 100 MG TAB PO SCH ×2 (10:40→22:03)
[2020-10-17] MEDS: DIVALPROEX DR 125 MG TAB PO SCH ×2 (10:40→22:03)
[2020-10-17] MEDS: DOXAZOSIN 4 MG TAB PO SCH ×2 (10:40→22:00)
[2020-10-17] MEDS: MEMANTINE 10 MG TAB PO SCH ×2 (10:40→21:59)
[2020-10-17] MEDS: CHOLECALCIFEROL (VIT D3) 1000 UNIT (25 mcg) TAB PO SCH (10:41)
[2020-10-17] MEDS: predniSONE 5 MG TAB PO SCH (10:41)
[2020-10-17] MEDS: OMEGA-3 FATTY ACIDS/FISH OIL 1 GRAM CAP PO SCH (10:41)
[2020-10-17] MEDS: RANOLAZINE ER 500 MG TAB 12HR PO SCH ×2 (10:41→22:03)
[2020-10-17] MEDS: MYCOPHENOLATE 250 MG CAP PO SCH ×2 (10:41→22:02)
[2020-10-17] MEDS: NIFEdipine XL 60 MG TAB PO SCH (10:42)
[2020-10-17] MEDS: carvediloL 12.5 MG TAB PO SCH ×2 (10:42→21:59)
[2020-10-17] MEDS: SODIUM BICARBONATE 650 MG TAB PO SCH (10:42)
[2020-10-17] MEDS: FUROSEMIDE 20 MG TAB PO SCH (10:42)
[2020-10-17] MEDS: B COMPLEX W/VITAMIN C TAB PO SCH (10:42)
[2020-10-17] MEDS: LISINOPRIL 10 MG TAB PO SCH (10:42)
[2020-10-17] MEDS: SIROLIMUS 1 MG PO SCH (21:57)
[2020-10-17] MEDS: DONEPEZIL 10 MG TAB PO SCH (22:02)
[2020-10-17] MEDS: PRIMIDONE 50 MG TAB PO SCH (22:02)
[2020-10-17] MEDS: PSYLLIUM SEED (WITH SUGAR) 3.4 GM PACKET PO SCH (22:03)
[2020-10-17] MEDS: INSULIN LISPRO 100 UNIT/ML SUB-Q SCH (22:04)
--- NOTE | 2020-10-18 09:27 | Progress Note ---
Subjective Date of service: 10/18/20 Principal diagnosis: Dementia with Behavioral Disturbance Subjective Comment: The patient was seen today, he is sitting in the dayroom, calm and cooperative. He is confused but pleasant. He denies SI/HI or hallucinations of any kind. Reason for continued inpatient treatment: The patient is stable for discharge from a psych standpoint, but is awaiting placement to ensue a safe discharge and continuity of psych care upon discharging. REVIEW OF SYSTEMS Constitutional: Negative for weight loss ENT: Negative for stridor Respiratory: Negative for cough or hemoptysis All other systems reviewed and are negative MENTAL STATUS EXAMINATION General Appearance and Behavior: Age appropriate, dressed appropriately, calm and cooperative Cooperation: Participating Psychomotor Behavior: psychomotor normal Mood: "good" Affect and affective range: congruent with states mood Thought Process: goal directed Thought Content: obsessions Speech: Normal volume, Regular rate and rhythm, Intellectual Functioning: Average Suicidal Ideation: Denies Homicidal Ideation: Denies Hallucinations: Denies Delusions: None elicited Impulse Control: Impaired Insight and Judgment: Limited insight and judgment, Memory: Impaired Attention: Undivided Orientation: Alert, oriented Assessment and Plan (1) Dementia with Behavioral Disturbance Treatment Plan Patient admitted for inpatient psychiatric evaluation, medication adjustment and close monitoring The patient's behavior, mood, sleep and appetite will be closely monitored. Patient enrolled in individual and group therapeutic sessions and encouraged to attend. Patient provided with a safe and structured environment. Patient's physical health needs will be addressed by the Hospitalist. Hospitalist Consulted Labs including CBC, CMP, Lipid profile and Hemoglobin A1C levels ordered for baseline reference Social Assessment will be completed and the Bailiff will work with patient and family to ensure a suitable and safe disposition Medication adjustment will be made as clinically indicated No changes made Usual Wellness Mandaen/Preservation: - Start Trazodone 50 mg po QHS & 50 mg po QHS PRN between 10 PM & 2 AM for insomnia - Start Melatonin 5 mg po QHS to promote circadian rhythm - Start [place]-3 for brain health, reduce impulsivity, and as adjunctive treatment for mood disorder, continue upon discharge given overall benefits. - Start B1 prophylaxis with 200 mg po for 5 days The patient agreed on the treatment plan, understood the risk, benefit, alternative treatment, potential consequence of no treatment, and gave informed consent. Estimated days: 2 Post hospital care: primary care provider, psychiatric provider Medications and Allergies Allergies Allergy/AdvReac Type Severity Reaction Status Date / Time clopidogrel Allergy Swelling Verified 10/06/20 00:43 Home Medications Medication Instructions Recorded Confirmed Last Taken Type Aspirin [Aspirin BABY CHEW TAB] 81 mg PO QDAY 10/06/20 10/07/20 10/06/20 10:00 History Atorvastatin [Lipitor Tab] 80 mg PO QHS 10/06/20 10/07/20 10/06/20 22:00 History B-Complex with Vitamin C [Vitamin 1 tab PO DAILY 10/06/20 10/07/20 10/06/20 10:00 History B Complex-Vitamin C] Cholecalciferol (Vitamin D3) 1 tab PO DAILY 10/06/20 10/07/20 Unknown History [Vitamin D3 2,000 UNIT CAP] Donepezil HCl [Donepezil HCl Odt] 10 mg PO QHS 10/06/20 10/07/20 10/06/20 22:00 History Fenofibrate 160 mg PO DAILY 10/06/20 10/07/20 10/06/20 13:00 History Fiber 2 tab PO QHS 10/06/20 10/07/20 Unknown History Furosemide [Lasix] 20 mg PO QDAY 10/06/20 10/07/20 10/06/20 10:00 History Insulin Lispro [Humalog Kwikpen See Protocol SQ ACHS 10/06/20 10/07/20 Unknown History 200 UNITS/ML] Isosorbide Mononitrate [Isosorbide 30 mg PO QHS 10/06/20 10/07/20 10/06/20 22:00 History Mononitrate ER] LORazepam [Ativan] 0.5 mg PO BID PRN 10/06/20 10/07/20 Unknown History Lisinopril [Zestril TAB] 30 mg PO QDAY 10/06/20 10/07/20 10/06/20 10:00 History Memantine HCl 10 mg PO BID 10/06/20 10/07/20 10/06/20 22:00 History Mv,Ca,Min/FA/K1/Lycopene/Lutn [Eql 1 tab PO DAILY 10/06/20 10/07/20 10/05/20 History Century Mature Tablet] Mycophenolate [Cellcept] 2 tab PO BID 10/06/20 10/07/20 10/06/20 22:00 History NIFEdipine [Nifedipine ER] 60 mg PO DAILY 10/06/20 10/07/20 10/06/20 10:00 History OLANZapine [Zyprexa] 0.5 tab PO QHS 10/06/20 10/07/20 Unknown History [place]-3/Dha/Epa/Fish Oil [[place] 3 1,000 mg PO DAILY 10/06/20 10/07/20 Unknown History 500 Softgel] Primidone [Mysoline] 3 tab PO HS 10/06/20 10/07/20 10/06/20 22:00 History Ranolazine ER [Ranexa ER] 500 mg PO BID 10/06/20 10/07/20 10/06/20 22:00 History Sirolimus [Rapamune] 1 mg PO Q4W 10/06/20 10/07/20 10/05/20 History Sodium Bicarbonate 1 tab PO 3XW 10/06/20 10/07/20 10/05/20 10:00 History Sulfamethoxazole/Trimethoprim 1 each PO 4XW 10/06/20 10/07/20 10/05/20 History [Sulfamethoxazole-Tmp Ds Tablet] allopurinoL [Zyloprim] 100 mg PO 4XW 10/06/20 10/07/20 10/05/20 History carvediloL [Coreg] 12.5 mg PO BID 10/06/20 10/07/20 10/06/20 22:00 History cilostazoL [Pletal] 100 mg PO BID 10/06/20 10/07/20 10/06/20 22:00 History glipiZIDE XL [Glucotrol Xl] 10 mg PO QHS 10/06/20 10/07/20 10/06/20 22:00 History predniSONE [Deltasone] 5 mg PO QDAY 10/06/20 10/07/20 10/06/20 22:[address] [Jak NUR] 125 mg PO BID 10/07/20 10/07/20 10/06/20 22:00 History Doxazosin [Cardura] 4 mg PO BID 10/07/20 10/07/20 10/06/20 22:00 History Multivitamin Tab W-MINERAL 1 each PO QD 10/07/20 10/07/20 10/06/20 10:00 History [Multiple Vitamin/Mineral (Theragran M)] Active Meds: Active Medications Allopurinol (Allopurinol 100 Mg Tab) 100 mg PO SuTuThSa [facility] Last Admin: 10/16/20 09:26 Dose: 100 mg Documented by: Aspirin (Aspirin 81 Mg Tab Chew) 81 mg PO QDAY [facility] Last Admin: 10/17/20 10:40 Dose: 81 mg Documented by: Atorvastatin Calcium (Atorvastatin 40 Mg Tab) 80 mg PO QHS [facility] Last Admin: 10/17/20 22:01 Dose: 80 mg Documented by: Carvedilol (Carvedilol 12.5 Mg Tab) 12.5 mg PO BID [facility] Last Admin: 10/17/20 21:59 Dose: 12.5 mg Documented by: Cholecalciferol (Cholecalciferol (Vit D3) 1000 Unit (25 Mcg) Tab) 2,000 unit PO QDAY [facility] Last Admin: 10/17/20 10:41 Dose: 2,000 unit Documented by: Cilostazol (Cilostazol 100 Mg Tab) 100 mg PO BID [facility] Last Admin: 10/17/20 22:03 Dose: 100 mg Documented by: Divalproex Sodium (Divalproex Dr 125 Mg Tab) 125 mg PO BID [facility] Last Admin: 10/17/20 22:03 Dose: 125 mg Documented by: Donepezil HCl (Donepezil 10 Mg Tab) 10 mg PO QHS [facility] Last Admin: 10/17/20 22:02 Dose: 10 mg Documented by: Doxazosin Mesylate (Doxazosin 4 Mg Tab) 4 mg PO BID [facility] Last Admin: 10/17/20 22:00 Dose: 4 mg Documented by: Fenofibrate (Fenofibrate 145 Mg Tab) 145 mg PO DAILY [facility] Last Admin: 10/17/20 10:40 Dose: 145 mg Documented by: Fish Oil ([place]-3 Fatty Acids/Fish Oil 1 Gram Cap) 1,000 mg PO DAILY [facility] Last Admin: 10/17/20 10:41 Dose: 1,000 mg Documented by: Furosemide (Furosemide 20 Mg Tab) 20 mg PO QDAY [facility] Last Admin: 10/17/20 10:42 Dose: 20 mg Documented by: Glipizide (Glipizide Xl 10 Mg Tab) 10 mg PO QHS [facility] Last Admin: 10/17/20 22:03 Dose: 10 mg Documented by: Insulin Human Lispro (Insulin Lispro 100 Unit/Ml) 0 unit SUB-Q QHS [facility]; Protocol Last Admin: 10/17/20 22:04 Dose: Not Given Documented by: Isosorbide Mononitrate (Isosorbide Mononitrate Er 30 Mg Tab) 30 mg PO QHS [facility] Last Admin: 10/17/20 22:01 Dose: 30 mg Documented by: Lisinopril (Lisinopril 10 Mg Tab) 30 mg PO QDAY [facility] Last Admin: 10/17/20 10:42 Dose: 30 mg Documented by: Lorazepam (Lorazepam 0.5 Mg Tab) 0.5 mg PO BID PRN PRN Reason: Anxiety Memantine (Memantine 10 Mg Tab) 10 mg PO BID [facility] Last Admin: 10/17/20 21:59 Dose: 10 mg Documented by: Multivitamins/Minerals (Multivitamins,Ther W-Minerals Tab) 1 each PO QDAY [facility] Last Admin: 10/17/20 10:40 Dose: 1 each Documented by: Mycophenolate Mofetil (Mycophenolate 250 Mg Cap) 500 mg PO BID [facility] Last Admin: 10/17/20 22:02 Dose: 500 mg Documented by: Nifedipine (Nifedipine Xl 60 Mg Tab) 60 mg PO DAILY [facility] Last Admin: 10/17/20 10:42 Dose: 60 mg Documented by: Olanzapine (Olanzapine 5 Mg Tab) 2.5 mg PO QHS [facility] Last Admin: 10/17/20 22:01 Dose: 2.5 mg Documented by: Prednisone (Prednisone 5 Mg Tab) 5 mg PO QDAY [facility] Last Admin: 10/17/20 10:41 Dose: 5 mg Documented by: Primidone (Primidone 50 Mg Tab) 150 mg PO QHS [facility] Last Admin: 10/17/20 22:02 Dose: 150 mg Documented by: Psyllium Hydrophilic Mucilloid (Psyllium Seed (With Sugar) 3.4 Gm Packet) 1 each PO QHS [facility] Last Admin: 10/17/20 22:03 Dose: 1 each Documented by: Ranolazine (Ranolazine Er 500 Mg Tab 12hr) 500 mg PO BID [facility] Last Admin: 10/17/20 22:03 Dose: 500 mg Documented by: Sirolimus ([facility] (Nf) 1 Mg Tab) [facility] Admin: 10/16/20 21:21 Dose: 2 mg Documented by: Sirolimus (Sirolimus (Nf) 1 Mg Tab) 1 mg PO MoWeFr [facility] Last Admin: 10/17/20 21:57 Dose: 1 mg Documented by: Sodium Bicarbonate (Sodium Bicarbonate 650 Mg Tab) 650 mg PO MoWeFr [facility] Last Admin: 10/17/20 10:42 Dose: 650 mg Documented by: Vitamin B Complex/Vitamin C (B Complex W/Vitamin C Tab) 1 each PO DAILY [facility] Last Admin: 10/17/20 10:42 Dose: 1 each Documented by: Results - Results Labs/Vitals: Laboratory Last Values WBC 6.4 K/mm3 (4.5-11.0) 10/09/20 23:39 RBC 3.63 M/mm3 (3.65-5.03) L 10/09/20 23:39 Hgb 10.2 gm/dl (11.8-15.2) L 10/09/20 23:39 Hct 30.4 % (35.5-45.6) L 10/09/20 23:39 MCV 84 fl (84-94) 10/09/20 23:39 MCH 28 pg (28-32) 10/09/20 23:39 MCHC 34 % (32-34) 10/09/20 23:39 RDW 15.0 % (13.2-15.2) 10/09/20 23:39 Plt Count 262 K/mm3 (140-440) 10/09/20 23:39 [place] % (Auto) Nurse Practitioner 10/09/20 23:39 Add Manual Diff Complete 10/09/20 23:39 Total Counted 100 10/09/20 23:39 Seg Neuts % (Manual) 72.0 % (40.0-70.0) H 10/09/20 23:39 Lymphocytes % (Manual) 18.0 % (13.4-35.0) 10/09/20 23:39 Monocytes % (Manual) 8.0 % (0.0-7.3) H 10/09/20 23:39 Eosinophils % (Manual) 2.0 % (0.0-4.3) 10/09/20 23:39 Nucleated RBC % Not Reportable 10/09/20 23:39 Seg Neutrophils # Man 4.6 K/mm3 (1.8-7.7) 10/09/20 23:39 Band Neutrophils # 0.0 K/mm3 10/09/20 23:39 Lymphocytes # (Manual) 1.2 K/mm3 (1.2-5.4) 10/09/20 23:39 Abs React Lymphs (Man) 0.0 K/mm3 10/09/20 23:39 Monocytes # (Manual) 0.5 K/mm3 (0.0-0.8) 10/09/20 23:39 Eosinophils # (Manual) 0.1 K/mm3 (0.0-0.4) 10/09/20 23:39 Basophils # (Manual) 0.0 K/mm3 (0.0-0.1) 10/09/20 23:39 Metamyelocytes # 0.0 K/mm3 10/09/20 23:39 Myelocytes # 0.0 K/mm3 10/09/20 23:39 Promyelocytes # 0.0 K/mm3 10/09/20 23:39 Blast Cells # 0.0 K/mm3 10/09/20 23:39 WBC Morphology Not Reportable 10/09/20 23:39 Hypersegmented Neuts Not Reportable 10/09/20 23:39 Hyposegmented Neuts Not Reportable 10/09/20 23:39 Hypogranular Neuts Not Reportable 10/09/20 23:39 Smudge Cells Not Reportable 10/09/20 23:39 Toxic Granulation Not Reportable 10/09/20 23:39 Toxic Vacuolation Not Reportable 10/09/20 23:39 Dohle Bodies Not Reportable 10/09/20 23:39 Pelger-Huet Anomaly Not Reportable 10/09/20 23:39 Sly Rods Not Reportable 10/09/20 23:39 Platelet Estimate Consistent w auto 10/09/20 23:39 Clumped Platelets Not Reportable 10/09/20 23:39 Plt Clumps, EDTA Not Reportable 10/09/20 23:39 Large Platelets Not Reportable 10/09/20 23:39 Giant Platelets Not Reportable 10/09/20 23:39 Platelet Satelliting Not Reportable 10/09/20 23:39 Plt Morphology Comment Not Reportable 10/09/20 23:39 RBC Morphology Not Reportable 10/09/20 23:39 Dimorphic RBCs Not Reportable 10/09/20 23:39 Polychromasia Not Reportable 10/09/20 23:39 Hypochromasia Not Reportable 10/09/20 23:39 Poikilocytosis Not Reportable 10/09/20 23:39 Anisocytosis 1+ 10/09/20 23:39 Microcytosis Not Reportable 10/09/20 23:39 Macrocytosis Not Reportable 10/09/20 23:39 Spherocytes Not Reportable 10/09/20 23:39 Pappenheimer Bodies Not Reportable 10/09/20 23:39 Sickle Cells Not Reportable 10/09/20 23:39 Target Cells Not Reportable 10/09/20 23:39 Tear Drop Cells Not Reportable 10/09/20 23:39 Ovalocytes Not Reportable 10/09/20 23:39 Helmet Cells Not Reportable 10/09/20 23:39 [place] Bodies Not Reportable 10/09/20 23:39 [place] Rings Not Reportable 10/09/20 23:39 Immaculata Cells Not Reportable 10/09/20 23:39 Bite Cells Not Reportable 10/09/20 23:39 Crenated Cell Not Reportable 10/09/20 23:39 Elliptocytes Not Reportable 10/09/20 23:39 Acanthocytes (Spur) Not Reportable 10/09/20 23:39 Rouleaux Not Reportable 10/09/20 23:39 Hemoglobin C Crystals Not Reportable 10/09/20 23:39 Schistocytes Not Reportable 10/09/20 23:39 Malaria parasites Not Reportable 10/09/20 23:39 Khai Bodies Not Reportable 10/09/20 23:39 Hem Pathologist Commnt No 10/09/20 23:39 Sodium 140 mmol/L (137-145) 10/09/20 23:39 Potassium 4.0 mmol/L (3.6-5.0) 10/09/20 23:39 Chloride 103.8 mmol/L (98-107) 10/09/20 23:39 Carbon Dioxide 18 mmol/L (22-30) L 10/09/20 23:39 Anion Gap 22 mmol/L 10/09/20 23:39 BUN 59 mg/dL (9-20) H 10/09/20 23:39 Creatinine 1.7 mg/dL (0.8-1.3) H 10/09/20 23:39 Estimated GFR 48 ml/min 10/09/20 23:39 BUN/Creatinine Ratio 35 % 10/09/20 23:39 Glucose 132 mg/dL (75-100) H 10/09/20 23:39 POC Glucose 116 mg/dL (70-105) H 10/18/20 07:20 Hemoglobin A1c 6.5 % (4-6) H 10/09/20 23:39 Calcium 9.3 mg/dL (8.4-10.2) 10/09/20 23:39 Total Bilirubin 0.30 mg/dL (0.1-1.2) 10/09/20 23:39 AST 40 units/L (5-40) 10/09/20 23:39 ALT 25 units/L (7-56) 10/09/20 23:39 Alkaline Phosphatase 51 units/L (35-129) 10/09/20 23:39 Total Protein 6.1 g/dL (6.3-8.2) L 10/09/20 23:39 Albumin 3.6 g/dL (3.9-5) L 10/09/20 23:39 Albumin/Globulin Ratio 1.4 % 10/09/20 23:39 Triglycerides 235 mg/dL (2-149) H 10/09/20 23:39 Cholesterol 143 mg/dL (50-199) 10/09/20 23:39 LDL Cholesterol Direct 77 mg/dL (50-130) 10/09/20 23:39 HDL Cholesterol 28 mg/dL (40-59) L 10/09/20 23:39 Cholesterol/HDL Ratio 5.10 % 10/09/20 23:39 Coronavirus (PCR) Negative (Negative) 10/11/20 Unknown Last Vital Signs Temp 97.5 F L 10/17/20 22:00 Pulse 93 H 10/17/20 22:01 Resp 20 10/17/20 22:00 BP 153/83 10/17/20 22:01 Pulse Ox 97 10/17/20 22:00
[2020-10-18] MEDS: ASPIRIN 81 MG TAB CHEW PO SCH (09:38)
[2020-10-18] MEDS: NIFEdipine XL 60 MG TAB PO SCH (09:38)
[2020-10-18] MEDS: DOXAZOSIN 4 MG TAB PO SCH ×2 (09:38→21:36)
[2020-10-18] MEDS: DIVALPROEX DR 125 MG TAB PO SCH ×2 (09:38→21:39)
[2020-10-18] MEDS: MYCOPHENOLATE 250 MG CAP PO SCH ×2 (09:38→21:37)
[2020-10-18] MEDS: CILOSTAZOL 100 MG TAB PO SCH ×2 (09:39→21:37)
[2020-10-18] MEDS: CHOLECALCIFEROL (VIT D3) 1000 UNIT (25 mcg) TAB PO SCH (09:39)
[2020-10-18] MEDS: MEMANTINE 10 MG TAB PO SCH ×2 (09:39→21:38)
[2020-10-18] MEDS: B COMPLEX W/VITAMIN C TAB PO SCH (09:39)
[2020-10-18] MEDS: FUROSEMIDE 20 MG TAB PO SCH (09:39)
[2020-10-18] MEDS: FENOFIBRATE 145 MG TAB PO SCH (09:40)
[2020-10-18] MEDS: carvediloL 12.5 MG TAB PO SCH ×2 (09:40→21:35)
[2020-10-18] MEDS: OMEGA-3 FATTY ACIDS/FISH OIL 1 GRAM CAP PO SCH (09:40)
[2020-10-18] MEDS: RANOLAZINE ER 500 MG TAB 12HR PO SCH ×2 (09:40→21:35)
[2020-10-18] MEDS: MULTIVITAMINS,THER W-MINERALS TAB PO SCH (09:40)
[2020-10-18] MEDS: allopurinoL 100 MG TAB PO SCH (09:40)
[2020-10-18] MEDS: predniSONE 5 MG TAB PO SCH (09:40)
[2020-10-18] MEDS: LISINOPRIL 10 MG TAB PO SCH (09:41)
[2020-10-18] MEDS: SIROLIMUS 1 MG PO SCH (21:33)
[2020-10-18] MEDS: PRIMIDONE 50 MG TAB PO SCH (21:34)
[2020-10-18] MEDS: DONEPEZIL 10 MG TAB PO SCH (21:38)
[2020-10-18] MEDS: PSYLLIUM SEED (WITH SUGAR) 3.4 GM PACKET PO SCH (21:39)
[2020-10-18] MEDS: INSULIN LISPRO 100 UNIT/ML SUB-Q SCH (21:40)
[2020-10-19] MEDS: MULTIVITAMINS,THER W-MINERALS TAB PO SCH (09:39)
[2020-10-19] MEDS: ASPIRIN 81 MG TAB CHEW PO SCH (09:39)
[2020-10-19] MEDS: RANOLAZINE ER 500 MG TAB 12HR PO SCH ×2 (09:39→21:02)
[2020-10-19] MEDS: FENOFIBRATE 145 MG TAB PO SCH (09:39)
[2020-10-19] MEDS: MYCOPHENOLATE 250 MG CAP PO SCH ×2 (09:39→21:00)
[2020-10-19] MEDS: predniSONE 5 MG TAB PO SCH (09:40)
[2020-10-19] MEDS: CILOSTAZOL 100 MG TAB PO SCH ×2 (09:40→21:01)
[2020-10-19] MEDS: SODIUM BICARBONATE 650 MG TAB PO SCH (09:40)
[2020-10-19] MEDS: OMEGA-3 FATTY ACIDS/FISH OIL 1 GRAM CAP PO SCH (09:40)
[2020-10-19] MEDS: CHOLECALCIFEROL (VIT D3) 1000 UNIT (25 mcg) TAB PO SCH (09:40)
[2020-10-19] MEDS: DIVALPROEX DR 125 MG TAB PO SCH ×2 (09:40→21:00)
[2020-10-19] MEDS: B COMPLEX W/VITAMIN C TAB PO SCH (09:40)
[2020-10-19] MEDS: MEMANTINE 10 MG TAB PO SCH ×2 (09:40→21:01)
[2020-10-19] MEDS: DOXAZOSIN 4 MG TAB PO SCH ×2 (09:40→21:04)
[2020-10-19] MEDS: FUROSEMIDE 20 MG TAB PO SCH (09:41)
[2020-10-19] MEDS: LISINOPRIL 10 MG TAB PO SCH (09:41)
[2020-10-19] MEDS: NIFEdipine XL 60 MG TAB PO SCH (09:41)
[2020-10-19] MEDS: carvediloL 12.5 MG TAB PO SCH ×2 (09:41→21:03)
[2020-10-19] MEDS: PRIMIDONE 50 MG TAB PO SCH (21:00)
[2020-10-19] MEDS: PSYLLIUM SEED (WITH SUGAR) 3.4 GM PACKET PO SCH (21:00)
[2020-10-19] MEDS: DONEPEZIL 10 MG TAB PO SCH (21:01)
[2020-10-19] MEDS: SIROLIMUS 1 MG PO SCH (21:06)
[2020-10-19] MEDS: INSULIN LISPRO 100 UNIT/ML SUB-Q SCH (21:06)
--- NOTE | 2020-10-20 08:38 | Progress Note ---
Subjective Date of service: 10/20/20 Principal diagnosis: Dementia with Behavioral Disturbance Subjective Comment: The patient was seen today, he is sitting in the dayroom, calm and cooperative. He smiles at me and greets me. He is confused but pleasant. He denies SI/HI or hallucinations of any kind. Reason for continued inpatient treatment: The patient is stable for discharge from a psych standpoint, but is awaiting placement to ensue a safe discharge and continuity of psych care upon discharging. REVIEW OF SYSTEMS Constitutional: Negative for weight loss ENT: Negative for stridor Respiratory: Negative for cough or hemoptysis All other systems reviewed and are negative MENTAL STATUS EXAMINATION General Appearance and Behavior: Age appropriate, dressed appropriately, calm and cooperative Cooperation: Participating Psychomotor Behavior: psychomotor normal Mood: "good" Affect and affective range: congruent with states mood Thought Process: goal directed Thought Content: obsessions Speech: Normal volume, Regular rate and rhythm, Intellectual Functioning: Average Suicidal Ideation: Denies Homicidal Ideation: Denies Hallucinations: Denies Delusions: None elicited Impulse Control: Impaired Insight and Judgment: Limited insight and judgment, Memory: Impaired Attention: Undivided Orientation: Alert, oriented Assessment and Plan (1) Dementia with Behavioral Disturbance Treatment Plan Patient admitted for inpatient psychiatric evaluation, medication adjustment and close monitoring The patient's behavior, mood, sleep and appetite will be closely monitored. Patient enrolled in individual and group therapeutic sessions and encouraged to attend. Patient provided with a safe and structured environment. Patient's physical health needs will be addressed by the Hospitalist. Hospitalist Consulted Labs including CBC, CMP, Lipid profile and Hemoglobin A1C levels ordered for baseline reference Social Assessment will be completed and the Broommaker will work with patient and family to ensure a suitable and safe disposition Medication adjustment will be made as clinically indicated No changes made Usual Wellness Orthodoxy/Preservation: - Start Trazodone 50 mg po QHS & 50 mg po QHS PRN between 10 PM & 2 AM for insomnia - Start Melatonin 5 mg po QHS to promote circadian rhythm - Start [place]-3 for brain health, reduce impulsivity, and as adjunctive treatment for mood disorder, continue upon discharge given overall benefits. - Start B1 prophylaxis with 200 mg po for 5 days The patient agreed on the treatment plan, understood the risk, benefit, alternative treatment, potential consequence of no treatment, and gave informed consent. Estimated days: 2 Post hospital care: primary care provider, psychiatric provider Medications and Allergies Allergies Allergy/AdvReac Type Severity Reaction Status Date / Time clopidogrel Allergy Swelling Verified 10/06/20 00:43 Home Medications Medication Instructions Recorded Confirmed Last Taken Type Aspirin [Aspirin BABY CHEW TAB] 81 mg PO QDAY 10/06/20 10/07/20 10/06/20 10:00 History Atorvastatin [Lipitor Tab] 80 mg PO QHS 10/06/20 10/07/20 10/06/20 22:00 History B-Complex with Vitamin C [Vitamin 1 tab PO DAILY 10/06/20 10/07/20 10/06/20 10:0 0 History B Complex-Vitamin C] Cholecalciferol (Vitamin D3) 1 tab PO DAILY 10/06/20 10/07/20 Unknown History [Vitamin D3 2,000 UNIT CAP] Donepezil HCl [Donepezil HCl Odt] 10 mg PO QHS 10/06/20 10/07/20 10/06/20 22:00 History Fenofibrate 160 mg PO DAILY 10/06/20 10/07/20 10/06/20 13:00 History Fiber 2 tab PO QHS 10/06/20 10/07/20 Unknown History Furosemide [Lasix] 20 mg PO QDAY 10/06/20 10/07/20 10/06/20 10:00 History Insulin Lispro [Humalog Kwikpen See Protocol SQ ACHS 10/06/20 10/07/20 Unknown History 200 UNITS/ML] Isosorbide Mononitrate [Isosorbide 30 mg PO QHS 10/06/20 10/07/20 10/06/20 22:00 History Mononitrate ER] LORazepam [Ativan] 0.5 mg PO BID PRN 10/06/20 10/07/20 Unknown History Lisinopril [Zestril TAB] 30 mg PO QDAY 10/06/20 10/07/20 10/06/20 10:00 History Memantine HCl 10 mg PO BID 10/06/20 10/07/20 10/06/20 22:00 History Mv,Ca,Min/FA/K1/Lycopene/Lutn [Eql 1 tab PO DAILY 10/06/20 10/07/20 10/05/20 History [place] Tablet] Mycophenolate [Cellcept] 2 tab PO BID 10/06/20 10/07/20 10/06/20 22:00 History NIFEdipine [Nifedipine ER] 60 mg PO DAILY 10/06/20 10/07/20 10/06/20 10:00 History OLANZapine [Zyprexa] 0.5 tab PO QHS 10/06/20 10/07/20 Unknown History [place]-3/Dha/Epa/Fish Oil [[place] 3 1,000 mg PO DAILY 10/06/20 10/07/20 Unknown History 500 Softgel] Primidone [Mysoline] 3 tab PO HS 10/06/20 10/07/20 10/06/20 22:00 History Ranolazine ER [Ranexa ER] 500 mg PO BID 10/06/20 10/07/20 10/06/20 22:00 History Sirolimus [Rapamune] 1 mg PO Q4W 10/06/20 10/07/20 10/05/20 History Sodium Bicarbonate 1 tab PO 3XW 10/06/20 10/07/20 10/05/20 10:00 History Sulfamethoxazole/Trimethoprim 1 each PO 4XW 10/06/20 10/07/20 10/05/20 History [Sulfamethoxazole-Tmp Ds Tablet] allopurinoL [Zyloprim] 100 mg PO 4XW 10/06/20 10/07/20 10/05/20 History carvediloL [Coreg] 12.5 mg PO BID 10/06/20 10/07/20 10/06/20 22:00 History cilostazoL [Pletal] 100 mg PO BID 10/06/20 10/07/20 10/06/20 22:00 History glipiZIDE XL [Glucotrol Xl] 10 mg PO QHS 10/06/20 10/07/20 10/06/20 22:00 History predniSONE [Deltasone] 5 mg PO QDAY 10/06/20 10/07/20 10/06/20 22:00 History Divalproex [Jak NUR] 125 mg PO BID 10/07/20 10/07/20 10/06/20 22:00 History Doxazosin [Cardura] 4 mg PO BID 10/07/20 10/07/20 10/06/20 22:00 History Multivitamin Tab W-MINERAL 1 each PO QD 10/07/20 10/07/20 10/06/20 10:00 History [Multiple Vitamin/Mineral (Theragran M)] Active Meds: Active Medications Allopurinol (Allopurinol 100 Mg Tab) 100 mg PO SuTuThSa [facility] Last Admin: 10/18/20 09:40 Dose: 100 mg Documented by: Aspirin (Aspirin 81 Mg Tab Chew) 81 mg PO QDAY [facility] Last Admin: 10/19/20 09:39 Dose: 81 mg Documented by: Atorvastatin Calcium (Atorvastatin 40 Mg Tab) 80 mg PO QHS [facility] Last Admin: 10/19/20 21:00 Dose: 80 mg Documented by: Carvedilol (Carvedilol 12.5 Mg Tab) 12.5 mg PO BID [facility] Last Admin: 10/19/20 21:03 Dose: 12.5 mg Documented by: Cholecalciferol (Cholecalciferol (Vit D3) 1000 Unit (25 Mcg) Tab) 2,000 unit PO QDAY [facility] Last Admin: 10/19/20 09:40 Dose: 2,000 unit Documented by: Cilostazol (Cilostazol 100 Mg Tab) 100 mg PO BID [facility] Last Admin: 10/19/20 21:01 Dose: 100 mg Documented by: Divalproex Sodium (Divalproex Dr 125 Mg Tab) 125 mg PO BID [facility] Last Admin: 10/19/20 21:00 Dose: 125 mg Documented by: Donepezil HCl (Donepezil 10 Mg Tab) 10 mg PO QHS [facility] Last Admin: 10/19/20 21:01 Dose: 10 mg Documented by: Doxazosin Mesylate (Doxazosin 4 Mg Tab) 4 mg PO BID [facility] Last Admin: 10/19/20 21:04 Dose: 4 mg Documented by: Fenofibrate (Fenofibrate 145 Mg Tab) 145 mg PO DAILY [facility] Last Admin: 10/19/20 09:39 Dose: 145 mg Documented by: Fish Oil ([place]-3 Fatty Acids/Fish Oil 1 Gram Cap) 1,000 mg PO DAILY [facility] Last Admin: 10/19/20 09:40 Dose: 1,000 mg Documented by: Furosemide (Furosemide 20 Mg Tab) 20 mg PO QDAY [facility] Last Admin: 10/19/20 09:41 Dose: 20 mg Documented by: Glipizide (Glipizide Xl 10 Mg Tab) 10 mg PO QHS [facility] Last Admin: 10/19/20 21:01 Dose: 10 mg Documented by: Insulin Human Lispro (Insulin Lispro 100 Unit/Ml) 0 unit SUB-Q QHS [facility]; Protocol Last Admin: 10/19/20 21:06 Dose: Not Given Documented by: Isosorbide Mononitrate (Isosorbide Mononitrate Er 30 Mg Tab) 30 mg PO QHS [facility] Last Admin: 10/19/20 21:03 Dose: 30 mg Documented by: Lisinopril (Lisinopril 10 Mg Tab) 30 mg PO QDAY [facility] Last Admin: 10/19/20 09:41 Dose: 30 mg Documented by: Lorazepam (Lorazepam 0.5 Mg Tab) 0.5 mg PO BID PRN PRN Reason: Anxiety Memantine (Memantine 10 Mg Tab) 10 mg PO BID [facility] Last Admin: 10/19/20 21:01 Dose: 10 mg Documented by: Multivitamins/Minerals (Multivitamins,Ther W-Minerals Tab) 1 each PO QDAY [facility] Last Admin: 10/19/20 09:39 Dose: 1 each Documented by: Mycophenolate Mofetil (Mycophenolate 250 Mg Cap) 500 mg PO BID [facility] Last Admin: 10/19/20 21:00 Dose: 500 mg Documented by: Nifedipine (Nifedipine Xl 60 Mg Tab) 60 mg PO DAILY [facility] Last Admin: 10/19/20 09:41 Dose: 60 mg Documented by: Olanzapine (Olanzapine 5 Mg Tab) 2.5 mg PO QHS [facility] Last Admin: 10/19/20 21:02 Dose: 2.5 mg Documented by: Prednisone (Prednisone 5 Mg Tab) 5 mg PO QDAY [facility] Last Admin: 10/19/20 09:40 Dose: 5 mg Documented by: Primidone (Primidone 50 Mg Tab) 150 mg PO QHS [facility] Last Admin: 10/19/20 21:00 Dose: 150 mg Documented by: Psyllium Hydrophilic Mucilloid (Psyllium Seed (With Sugar) 3.4 Gm Packet) 1 each PO QHS [facility] Last Admin: 10/19/20 21:00 Dose: 1 each Documented by: Ranolazine (Ranolazine Er 500 Mg Tab 12hr) 500 mg PO BID [facility] Last Admin: 10/19/20 21:02 Dose: 500 mg Documented by: Sirolimus (Sirolimus (Nf) 1 Mg Tab) [facility] Last Admin: 07/06/21 21:33 Dose: 2 mg Documented by: Sirolimus (Sirolimus (Nf) 1 Mg Tab) 1 mg PO MoWeFr [facility] Last Admin: 10/19/20 21:06 Dose: 1 mg Documented by: Sodium Bicarbonate (Sodium Bicarbonate 650 Mg Tab) 650 mg PO MoWeFr [facility] Last Admin: 10/19/20 09:40 Dose: 650 mg Documented by: Vitamin B Complex/Vitamin C (B Complex W/Vitamin C Tab) 1 each PO DAILY [facility] Last Admin: 10/19/20 09:40 Dose: 1 each Documented by: Results - Results Labs/Vitals: Laboratory Last Values WBC 6.4 K/mm3 (4.5-11.0) 10/09/20 23:39 RBC 3.63 M/mm3 (3.65-5.03) L 10/09/20 23:39 Hgb 10.2 gm/dl (11.8-15.2) L 10/09/20 23:39 Hct 30.4 % (35.5-45.6) L 10/09/20 23:39 MCV 84 fl (84-94) 10/09/20 23:39 MCH 28 pg (28-32) 10/09/20 23:39 MCHC 34 % (32-34) 10/09/20 23:39 RDW 15.0 % (13.2-15.2) 10/09/20 23:39 Plt Count 262 K/mm3 (140-440) 10/09/20 23:39 [place] % (Auto) Metropolitan Editor 10/09/20 23:39 Add Manual Diff Complete 10/09/20 23:39 Total Counted 100 10/09/20 23:39 Seg Neuts % (Manual) 72.0 % (40.0-70.0) H 10/09/20 23:39 Lymphocytes % (Manual) 18.0 % (13.4-35.0) 10/09/20 23:39 Monocytes % (Manual) 8.0 % (0.0-7.3) H 10/09/20 23:39 Eosinophils % (Manual) 2.0 % (0.0-4.3) 10/09/20 23:39 Nucleated RBC % Not Reportable 10/09/20 23:39 Seg Neutrophils # Man 4.6 K/mm3 (1.8-7.7) 10/09/20 23:39 Band Neutrophils # 0.0 K/mm3 10/09/20 23:39 Lymphocytes # (Manual) 1.2 K/mm3 (1.2-5.4) 10/09/20 23:39 Abs React Lymphs (Man) 0.0 K/mm3 10/09/20 23:39 Monocytes # (Manual) 0.5 K/mm3 (0.0-0.8) 10/09/20 23:39 Eosinophils # (Manual) 0.1 K/mm3 (0.0-0.4) 10/09/20 23:39 Basophils # (Manual) 0.0 K/mm3 (0.0-0.1) 10/09/20 23:39 Metamyelocytes # 0.0 K/mm3 10/09/20 23:39 Myelocytes # 0.0 K/mm3 10/09/20 23:39 Promyelocytes # 0.0 K/mm3 10/09/20 23:39 Blast Cells # 0.0 K/mm3 10/09/20 23:39 WBC Morphology Not Reportable 10/09/20 23:39 Hypersegmented Neuts Not Reportable 10/09/20 23:39 Hyposegmented Neuts Not Reportable 10/09/20 23:39 Hypogranular Neuts Not Reportable 10/09/20 23:39 Smudge Cells Not Reportable 10/09/20 23:39 Toxic Granulation Not Reportable 10/09/20 23:39 Toxic Vacuolation Not Reportable 10/09/20 23:39 Dohle Bodies Not Reportable 10/09/20 23:39 Pelger-Huet Anomaly Not Reportable 10/09/20 23:39 Sly Rods Not Reportable 10/09/20 23:39 Platelet Estimate Consistent w auto 10/09/20 23:39 Clumped Platelets Not Reportable 10/09/20 23:39 Plt Clumps, EDTA Not Reportable 10/09/20 23:39 Large Platelets Not Reportable 10/09/20 23:39 Giant Platelets Not Reportable 10/09/20 23:39 Platelet Satelliting Not Reportable 10/09/20 23:39 Plt Morphology Comment Not Reportable 10/09/20 23:39 RBC Morphology Not Reportable 10/09/20 23:39 Dimorphic RBCs Not Reportable 10/09/20 23:39 Polychromasia Not Reportable 10/09/20 23:39 Hypochromasia Not Reportable 10/09/20 23:39 Poikilocytosis Not Reportable 10/09/20 23:39 Anisocytosis 1+ 10/09/20 23:39 Microcytosis Not Reportable 10/09/20 23:39 Macrocytosis Not Reportable 10/09/20 23:39 Spherocytes Not Reportable 10/09/20 23:39 Pappenheimer Bodies Not Reportable 10/09/20 23:39 Sickle Cells Not Reportable 10/09/20 23:39 Target Cells Not Reportable 10/09/20 23:39 Tear Drop Cells Not Reportable 10/09/20 23:39 Ovalocytes Not Reportable 10/09/20 23:39 Helmet Cells Not Reportable 10/09/20 23:39 [place] Bodies Not Reportable 10/09/20 23:39 [place] Rings Not Reportable 10/09/20 23:39 [place] Cells Not Reportable 10/09/20 23:39 Bite Cells Not Reportable 10/09/20 23:39 Crenated Cell Not Reportable 10/09/20 23:39 Elliptocytes Not Reportable 10/09/20 23:39 Acanthocytes (Spur) Not Reportable 10/09/20 23:39 Rouleaux Not Reportable 10/09/20 23:39 Hemoglobin C Crystals Not Reportable 10/09/20 23:39 Schistocytes Not Reportable 10/09/20 23:39 Malaria parasites Not Reportable 10/09/20 23:39 Khai Bodies Not Reportable 10/09/20 23:39 Hem Pathologist Commnt No 10/09/20 23:39 Sodium 140 mmol/L (137-145) 10/09/20 23:39 Potassium 4.0 mmol/L (3.6-5.0) 10/09/20 23:39 Chloride 103.8 mmol/L (98-107) 10/09/20 23:39 Carbon Dioxide 18 mmol/L (22-30) L 10/09/20 23:39 Anion Gap 22 mmol/L 10/09/20 23:39 BUN 59 mg/dL (9-20) H 10/09/20 23:39 Creatinine 1.7 mg/dL (0.8-1.3) H 10/09/20 23:39 Estimated GFR 48 ml/min 10/09/20 23:39 BUN/Creatinine Ratio 35 % 10/09/20 23:39 Glucose 132 mg/dL (75-100) H 10/09/20 23:39 POC Glucose 98 mg/dL (70-105) 10/20/20 06:10 Hemoglobin A1c 6.5 % (4-6) H 10/09/20 23:39 Calcium 9.3 mg/dL (8.4-10.2) 10/09/20 23:39 Total Bilirubin 0.30 mg/dL (0.1-1.2) 10/09/20 23:39 AST 40 units/L (5-40) 10/09/20 23:39 ALT 25 units/L (7-56) 10/09/20 23:39 Alkaline Phosphatase 51 units/L (35-129) 10/09/20 23:39 Total Protein 6.1 g/dL (6.3-8.2) L 10/09/20 23:39 Albumin 3.6 g/dL (3.9-5) L 10/09/20 23:39 Albumin/Globulin Ratio 1.4 % 10/09/20 23:39 Triglycerides 235 mg/dL (2-149) H 10/09/20 23:39 Cholesterol 143 mg/dL (50-199) 10/09/20 23:39 LDL Cholesterol Direct 77 mg/dL (50-130) 10/09/20 23:39 HDL Cholesterol 28 mg/dL (40-59) L 10/09/20 23:39 Cholesterol/HDL Ratio 5.10 % 10/09/20 23:39 Coronavirus (PCR) Negative (Negative) 10/11/20 Unknown Last Vital Signs Temp 97.7 F 10/20/20 07:15 Pulse 91 H 10/20/20 07:15 Resp 18 10/20/20 07:15 BP 125/75 10/20/20 07:15 Pulse Ox 97 10/20/20 07:15
[2020-10-20] MEDS: predniSONE 5 MG TAB PO SCH (09:29)
[2020-10-20] MEDS: CILOSTAZOL 100 MG TAB PO SCH ×2 (09:29→22:45)
[2020-10-20] MEDS: ASPIRIN 81 MG TAB CHEW PO SCH (09:29)
[2020-10-20] MEDS: RANOLAZINE ER 500 MG TAB 12HR PO SCH ×2 (09:29→22:45)
[2020-10-20] MEDS: NIFEdipine XL 60 MG TAB PO SCH (09:29)
[2020-10-20] MEDS: MYCOPHENOLATE 250 MG CAP PO SCH ×2 (09:29→22:41)
[2020-10-20] MEDS: FENOFIBRATE 145 MG TAB PO SCH (09:30)
[2020-10-20] MEDS: FUROSEMIDE 20 MG TAB PO SCH (09:30)
[2020-10-20] MEDS: B COMPLEX W/VITAMIN C TAB PO SCH (09:30)
[2020-10-20] MEDS: LISINOPRIL 10 MG TAB PO SCH (09:30)
[2020-10-20] MEDS: CHOLECALCIFEROL (VIT D3) 1000 UNIT (25 mcg) TAB PO SCH (09:30)
[2020-10-20] MEDS: DOXAZOSIN 4 MG TAB PO SCH ×2 (09:30→22:40)
[2020-10-20] MEDS: MULTIVITAMINS,THER W-MINERALS TAB PO SCH (09:30)
[2020-10-20] MEDS: DIVALPROEX DR 125 MG TAB PO SCH ×2 (09:30→22:42)
[2020-10-20] MEDS: allopurinoL 100 MG TAB PO SCH (09:30)
[2020-10-20] MEDS: OMEGA-3 FATTY ACIDS/FISH OIL 1 GRAM CAP PO SCH (09:30)
[2020-10-20] MEDS: MEMANTINE 10 MG TAB PO SCH ×2 (09:30→22:44)
[2020-10-20] MEDS: carvediloL 12.5 MG TAB PO SCH ×2 (09:31→22:41)
--- NOTE | 2020-10-20 19:44 | Progress Note ---
Assessment and Plan - Patient Problems (1) Vascular dementia with behavioral disturbance Current Visit: Yes Status: Acute Plan to address problem: Verbal prompting, verbal redirection, benzodiazepine therapy as clinically indicated, supportive care. (2) Cerebral atherosclerosis Current Visit: Yes Status: Acute Plan to address problem: Supportive care, risk factor reduction, antiplatelet therapy as clinically indicated. (3) Renal transplant recipient Current Visit: Yes Status: Acute Plan to address problem: Continue prehospital antigravity action medication, supportive care, outpatient transplant follow-up as per routine (4) Hypertension Current Visit: Yes Status: Acute Qualifiers: Hypertension type: essential hypertension Plan to address problem: Monitor blood pressure every shift, continue medical management (5) Hyperlipidemia Current Visit: Yes Status: Acute Qualifiers: Hyperlipidemia type: mixed hyperlipidemia Qualified Code(s): E78.2 - Mixed hyperlipidemia Plan to address problem: Statin therapy, supportive care. Low-cholesterol diet History Interval history: 74 YO Male with HTN, DM, Vascular Dementia with Behavioral Disturbance, Cerebral Atherosclerosis, HLD, CKD S/P Renal Transplant on anti Graft rejection medi cation, DM, Gout admitted to [facility] for psychiatric stabilization. No reported nursing events. Hospitalist Physical - Constitutional Vitals: Temp Pulse Resp BP Pulse Ox 97.7 F 91 H 18 125/91 97 10/20/20 07:15 10/20/20 09:30 10/20/20 07:15 10/20/20 09:30 10/20/20 07:15 General appearance: Present: no acute distress, well-nourished - EENT Eyes: Present: PERRL ENT: hearing decreased - Neck Neck: Present: supple - Respiratory Respiratory effort: normal Respiratory: bilateral: CTA - Cardiovascular Rhythm: regular Heart Sounds: Present: S1 & S2 - Extremities Extremities: no ischemia Peripheral Pulses: within normal limits - Abdominal General gastrointestinal: soft, non-tender, non-distended - Integumentary Integumentary: Present: clear, dry - Psychiatric Psychiatric: cooperative - Neurologic Neurologic: CNII-XII intact Results - Labs CBC & Chem 7: 10/09/20 23:39 10/09/20 23:39 Labs: Laboratory Last Values WBC 6.4 K/mm3 (4.5-11.0) 10/09/20 23:39 RBC 3.63 M/mm3 (3.65-5.03) L 10/09/20 23:39 Hgb 10.2 gm/dl (11.8-15.2) L 10/09/20 23:39 Hct 30.4 % (35.5-45.6) L 10/09/20 23:39 MCV 84 fl (84-94) 10/09/20 23:39 MCH 28 pg (28-32) 10/09/20 23:39 MCHC 34 % (32-34) 10/09/20 23:39 RDW 15.0 % (13.2-15.2) 10/09/20 23:39 Plt Count 262 K/mm3 (140-440) 10/09/20 23:39 [place] % (Auto) Broadcast Field Supervisor 10/09/20 23:39 Add Manual Diff Complete 10/09/20 23:39 Total Counted 100 10/09/20 23:39 Seg Neuts % (Manual) 72.0 % (40.0-70.0) H 10/09/20 23:39 Lymphocytes % (Manual) 18.0 % (13.4-35.0) 10/09/20 23:39 Monocytes % (Manual) 8.0 % (0.0-7.3) H 10/09/20 23:39 Eosinophils % (Manual) 2.0 % (0.0-4.3) 10/09/20 23:39 Nucleated RBC % Not Reportable 10/09/20 23:39 Seg Neutrophils # Man 4.6 K/mm3 (1.8-7.7) 10/09/20 23:39 Band Neutrophils # 0.0 K/mm3 10/09/20 23:39 Lymphocytes # (Manual) 1.2 K/mm3 (1.2-5.4) 10/09/20 23:39 Abs React Lymphs (Man) 0.0 K/mm3 10/09/20 23:39 Monocytes # (Manual) 0.5 K/mm3 (0.0-0.8) 10/09/20 23:39 Eosinophils # (Manual) 0.1 K/mm3 (0.0-0.4) 10/09/20 23:39 Basophils # (Manual) 0.0 K/mm3 (0.0-0.1) 10/09/20 23:39 Metamyelocytes # 0.0 K/mm3 10/09/20 23:39 Myelocytes # 0.0 K/mm3 10/09/20 23:39 Promyelocytes # 0.0 K/mm3 10/09/20 23:39 Blast Cells # 0.0 K/mm3 10/09/20 23:39 WBC Morphology Not Reportable 10/09/20 23:39 Hypersegmented Neuts Not Reportable 10/09/20 23:39 Hyposegmented Neuts Not Reportable 10/09/20 23:39 Hypogranular Neuts Not Reportable 10/09/20 23:39 Smudge Cells Not Reportable 10/09/20 23:39 Toxic Granulation Not Reportable 10/09/20 23:39 Toxic Vacuolation Not Reportable 10/09/20 23:39 Dohle Bodies Not Reportable 10/09/20 23:39 Pelger-Huet Anomaly Not Reportable 10/09/20 23:39 Sly Rods Not Reportable 10/09/20 23:39 Platelet Estimate Consistent w auto 10/09/20 23:39 Clumped Platelets Not Reportable 10/09/20 23:39 Plt Clumps, EDTA Not Reportable 10/09/20 23:39 Large Platelets Not Reportable 10/09/20 23:39 Giant Platelets Not Reportable 10/09/20 23:39 Platelet Satelliting Not Reportable 10/09/20 23:39 Plt Morphology Comment Not Reportable 10/09/20 23:39 RBC Morphology Not Reportable 10/09/20 23:39 Dimorphic RBCs Not Reportable 10/09/20 23:39 Polychromasia Not Reportable 10/09/20 23:39 Hypochromasia Not Reportable 10/09/20 23:39 Poikilocytosis Not Reportable 10/09/20 23:39 Anisocytosis 1+ 10/09/20 23:39 Microcytosis Not Reportable 10/09/20 23:39 Macrocytosis Not Reportable 10/09/20 23:39 Spherocytes Not Reportable 10/09/20 23:39 Pappenheimer Bodies Not Reportable 10/09/20 23:39 Sickle Cells Not Reportable 10/09/20 23:39 Target Cells Not Reportable 10/09/20 23:39 Tear Drop Cells Not Reportable 10/09/20 23:39 Ovalocytes Not Reportable 10/09/20 23:39 Helmet Cells Not Reportable 10/09/20 23:39 Nava-Roper Bodies Not Reportable 10/09/20 23:39 [place] Rings Not Reportable 10/09/20 23:39 [place] Cells Not Reportable 10/09/20 23:39 Bite Cells Not Reportable 10/09/20 23:39 Crenated Cell Not Reportable 10/09/20 23:39 Elliptocytes Not Reportable 10/09/20 23:39 Acanthocytes (Spur) Not Reportable 10/09/20 23:39 Rouleaux Not Reportable 10/09/20 23:39 Hemoglobin C Crystals Not Reportable 10/09/20 23:39 Schistocytes Not Reportable 10/09/20 23:39 Malaria parasites Not Reportable 10/09/20 23:39 Khai Bodies Not Reportable 10/09/20 23:39 Hem Pathologist Commnt No 10/09/20 23:39 Sodium 140 mmol/L (137-145) 10/09/20 23:39 Potassium 4.0 mmol/L (3.6-5.0) 10/09/20 23:39 Chloride 103.8 mmol/L (98-107) 10/09/20 23:39 Carbon Dioxide 18 mmol/L (22-30) L 10/09/20 23:39 Anion Gap 22 mmol/L 10/09/20 23:39 BUN 59 mg/dL (9-20) H 10/09/20 23:39 Creatinine 1.7 mg/dL (0.8-1.3) H 10/09/20 23:39 Estimated GFR 48 ml/min 10/09/20 23:39 BUN/Creatinine Ratio 35 % 10/09/20 23:39 Glucose 132 mg/dL (75-100) H 10/09/20 23:39 POC Glucose 98 mg/dL (70-105) 10/20/20 06:10 Hemoglobin A1c 6.5 % (4-6) H 10/09/20 23:39 Calcium 9.3 mg/dL (8.4-10.2) 10/09/20 23:39 Total Bilirubin 0.30 mg/dL (0.1-1.2) 10/09/20 23:39 AST 40 units/L (5-40) 10/09/20 23:39 ALT 25 units/L (7-56) 10/09/20 23:39 Alkaline Phosphatase 51 units/L (35-129) 10/09/20 23:39 Total Protein 6.1 g/dL (6.3-8.2) L 10/09/20 23:39 Albumin 3.6 g/dL (3.9-5) L 10/09/20 23:39 Albumin/Globulin Ratio 1.4 % 10/09/20 23:39 Triglycerides 235 mg/dL (2-149) H 10/09/20 23:39 Cholesterol 143 mg/dL (50-199) 10/09/20 23:39 LDL Cholesterol Direct 77 mg/dL (50-130) 10/09/20 23:39 HDL Cholesterol 28 mg/dL (40-59) L 10/09/20 23:39 Cholesterol/HDL Ratio 5.10 % 10/09/20 23:39 Coronavirus (PCR) Negative (Negative) 10/11/20 Unknown Zhang/IV: Voiding Method Toilet Active Medications - Current Medications Current Medications: Generic Name Dose Route Start Last Admin Trade Name Freq PRN Reason Stop Dose Admin Allopurinol 100 mg 10/08/20 10:00 10/20/20 09:30 Allopurinol 100 Mg Tab PO 100 mg SuTuThSa BRYAN Administration Aspirin 81 mg 10/07/20 10:00 10/20/20 09:29 Aspirin 81 Mg Tab Chew PO 81 mg QDAY BRYAN Administration Atorvastatin Calcium 80 mg 10/07/20 22:00 10/19/20 21:00 Atorvastatin 40 Mg Tab PO 80 mg QHS BRYAN Administration Carvedilol 12.5 mg 10/07/20 10:00 10/20/20 09:31 Carvedilol 12.5 Mg Tab PO 12.5 mg BID BRYAN Administration Cholecalciferol 2,000 unit 10/07/20 10:00 10/20/20 09:30 Cholecalciferol (Vit D3) 1000 Unit (25 Mcg) Tab PO 2,000 unit QDAY BRYAN Administration Cilostazol 100 mg 10/07/20 10:00 10/20/20 09:29 Cilostazol 100 Mg Tab PO 100 mg BID BRYAN Administration Divalproex Sodium 125 mg 10/07/20 10:00 10/20/20 09:[address] 125 Mg Tab PO 125 mg BID BRYAN Administration Donepezil HCl 10 mg 10/07/20 22:00 10/19/20 21:01 Donepezil 10 Mg Tab PO 10 mg QHS BRYAN Administration Doxazosin Mesylate 4 mg 10/07/20 10:00 10/20/20 09:30 Doxazosin 4 Mg Tab PO 4 mg BID BRYAN Administration Fenofibrate 145 mg 10/07/20 12:00 10/20/20 09:30 Fenofibrate 145 Mg Tab PO 145 mg DAILY BRYAN Administration Fish Oil 1,000 mg 10/11/20 10:00 10/20/20 09:30 Gary-3 Fatty Acids/Fish Oil 1 Gram Cap PO 1,000 mg DAILY BRYAN Administration Furosemide 20 mg 10/11/20 10:00 10/20/20 09:30 Furosemide 20 Mg Tab PO 20 mg QDAY BRYAN Administration Glipizide 10 mg 10/07/20 22:00 10/19/20 21:01 Glipizide Xl 10 Mg Tab PO 10 mg QHS BRYAN Administration Insulin Human Lispro 0 unit 10/14/20 22:00 10/19/20 21:06 Insulin Lispro 100 Unit/Ml SUB-Q Not Given [facility] Protocol Isosorbide Mononitrate 30 mg 10/07/20 22:00 10/19/20 21:03 Isosorbide Mononitrate Er 30 Mg Tab PO 30 mg [facility] Administration Lisinopril 30 mg 10/07/20 10:00 10/20/20 09:30 Lisinopril 10 Mg Tab PO 30 mg QDAY BRYAN Administration Lorazepam 0.5 mg 10/10/20 20:06 Lorazepam 0.5 Mg Tab PO BID PRN Anxiety Memantine 10 mg 10/07/20 10:00 10/20/20 09:30 Memantine 10 Mg Tab PO 10 mg BID BRYAN Administration Multivitamins/Minerals 1 each 10/11/20 10:00 10/20/20 09:30 Multivitamins,Ther W-Minerals Tab PO 1 each QDAY BRYAN Administration Mycophenolate Mofetil 500 mg 10/07/20 11:00 10/20/20 09:29 Mycophenolate 250 Mg Cap PO 500 mg BID BRYAN Administration Nifedipine 60 mg 10/07/20 10:00 10/20/20 09:29 Nifedipine Xl 60 Mg Tab PO 60 mg DAILY BRYAN Administration Olanzapine 2.5 mg 10/07/20 22:00 10/19/20 21:02 Olanzapine 5 Mg Tab PO 2.5 mg QHS BRYAN Administration Prednisone 5 mg 10/07/20 10:00 10/20/20 09:29 Prednisone 5 Mg Tab PO 5 mg QDAY BRYAN Administration Primidone 150 mg 10/07/20 22:00 10/19/20 21:00 Primidone 50 Mg Tab PO 150 mg QHS BRYAN Administration Psyllium Hydrophilic Mucilloid 1 each 10/10/20 22:00 10/19/20 21:00 Psyllium Seed (With Sugar) 3.4 Gm Packet PO 1 each QHS BRYAN Administration Ranolazine 500 mg 10/07/20 10:00 10/20/20 09:29 Ranolazine Er 500 Mg Tab 12hr PO 500 mg BID BRYAN Administration Sirolimus 2 mg 10/08/20 22:00 10/18/20 21:33 Sirolimus (Nf) 1 Mg Tab PO 2 mg SuTuThSa BRYAN Administration Sirolimus 1 mg 10/07/20 22:00 10/19/20 21:06 Sirolimus (Nf) 1 Mg Tab PO 1 mg MoWeFr BRYAN Administration Sodium Bicarbonate 650 mg 10/12/20 10:00 10/19/20 09:40 Sodium Bicarbonate 650 Mg Tab PO 650 mg MoWeFr BRYAN Administration Vitamin B Complex/Vitamin C 1 each 10/11/20 10:00 10/20/20 09:30 B Complex W/Vitamin C Tab PO 1 each DAILY BRYAN Administration Nutrition/Malnutrition Assess - Dietary Evaluation Nutrition/Malnutrition Findings: Nutrition Notes Start: 10/14/20 12:26 Freq: Status: Active Protocol: Document 10/18/20 13:53 CW (Rec: 10/18/20 13:59 CW [id number]) Nutrition Notes Initial or Follow up Reassessment Current Diagnosis Hypertension,Hyperlipidemia Other Pertinent Diagnosis dementia, hx kidney transplant Current Diet Cardiac, Consistent CHO with renal Labs/Tests no new labs Pertinent Medications Lasix, Prednisone glucotrol Height 6 ft Weight 85.003 kg [place] Body Weight (kg) 80.90 BMI 25.4 Weight Status Appropriate Subjective/Other Information F/U for intakes. Intakes vary but are typically 75% of meals provided with the occasional 100% intake of snacks/ONS. Intakes likely drop when dementia s/s spike. Percent of energy/protein needs met: 70%/100% (not including snacks /ONS) Burn Absent Trauma Absent GI Symptoms None Current % PO Good (75-100%) Minimum of two criteria No physical signs of malnutrition #1 Nutrition Diagnosis Inadequate oral intake As Evidenced by Signs and Symptoms PO intake typically 75% of meals with snacks Diagnosis Progress(for reassessment Resolved documentation) Is patient on ventilator? No Is Patient Ambulatory and/or Out of Bed Yes REE-([facility]-ambulatory/OOB) [ [id number] NUTR.[id number]] Calculation Used for Recommendations [facility] Additional Notes Protein: (0.6-0.9g/kg) 51-77g Fluid:1 ml/kcal or per MD Nutrition Intervention Change Diet Order: Continue Add Supplement/Snack (indicate name/kcal Nepro daily /protein ) Provides kCal: 425 Provides Protein (gm) 19 Goal #1 Meet at least 75% of protein and energy needs via PO and ONS intakes Revisit per MD consult or patient Sign Off request: Additional Comments S/O Pt meeting needs via PO intake on a stable basis
--- NOTE | 2020-10-20 19:44 | Progress Note ---
Assessment and Plan - Patient Problems (1) Vascular dementia with behavioral disturbance Current Visit: Yes Status: Acute Plan to address problem: Verbal prompting, verbal redirection, benzodiazepine therapy as clinically indicated, supportive care. (2) Cerebral atherosclerosis Current Visit: Yes Status: Acute Plan to address problem: Supportive care, risk factor reduction, antiplatelet therapy as clinically indicated. (3) Renal transplant recipient Current Visit: Yes Status: Acute Plan to address problem: Continue prehospital antigravity action medication, supportive care, outpatient transplant follow-up as per routine (4) Hypertension Current Visit: Yes Status: Acute Qualifiers: Hypertension type: essential hypertension Plan to address problem: Monitor blood pressure every shift, continue medical management (5) Hyperlipidemia Current Visit: Yes Status: Acute Qualifiers: Hyperlipidemia type: mixed hyperlipidemia Qualified Code(s): E78.2 - Mixed hyperlipidemia Plan to address problem: Statin therapy, supportive care. Low-cholesterol diet History Interval history: 74 YO Male with HTN, DM, Vascular Dementia with Behavioral Disturbance, Cerebral Atherosclerosis, HLD, CKD S/P Renal Transplant on anti Graft rejection medi cation, DM, Gout admitted to [facility] for psychiatric stabilization. No reported nursing events. Hospitalist Physical - Constitutional Vitals: Temp Pulse Resp BP Pulse Ox 97.7 F 91 H 18 125/91 97 10/20/20 07:15 10/20/20 09:30 10/20/20 07:15 10/20/20 09:30 10/20/20 07:15 General appearance: Present: no acute distress, well-nourished - EENT Eyes: Present: PERRL, EOM intact ENT: hearing decreased - Neck Neck: Present: supple - Respiratory Respiratory effort: normal Respiratory: bilateral: CTA - Cardiovascular Rhythm: regular - Extremities Extremities: no ischemia Peripheral Pulses: within normal limits - Abdominal General gastrointestinal: soft, non-tender, non-distended - Integumentary Integumentary: Present: clear, dry - Psychiatric Psychiatric: cooperative - Neurologic Neurologic: CNII-XII intact Results - Labs CBC & Chem 7: 10/09/20 23:39 10/09/20 23:39 Labs: Laboratory Last Values WBC 6.4 K/mm3 (4.5-11.0) 10/09/20 23:39 RBC 3.63 M/mm3 (3.65-5.03) L 10/09/20 23:39 Hgb 10.2 gm/dl (11.8-15.2) L 10/09/20 23:39 Hct 30.4 % (35.5-45.6) L 10/09/20 23:39 MCV 84 fl (84-94) 10/09/20 23:39 MCH 28 pg (28-32) 10/09/20 23:39 MCHC 34 % (32-34) 10/09/20 23:39 RDW 15.0 % (13.2-15.2) 10/09/20 23:39 Plt Count 262 K/mm3 (140-440) 10/09/20 23:39 [place] % (Auto) Generator Mechanic 10/09/20 23:39 Add Manual Diff Complete 10/09/20 23:39 Total Counted 100 10/09/20 23:39 Seg Neuts % (Manual) 72.0 % (40.0-70.0) H 10/09/20 23:39 Lymphocytes % (Manual) 18.0 % (13.4-35.0) 10/09/20 23:39 Monocytes % (Manual) 8.0 % (0.0-7.3) H 10/09/20 23:39 Eosinophils % (Manual) 2.0 % (0.0-4.3) 10/09/20 23:39 Nucleated RBC % Not Reportable 10/09/20 23:39 Seg Neutrophils # Man 4.6 K/mm3 (1.8-7.7) 10/09/20 23:39 Band Neutrophils # 0.0 K/mm3 10/09/20 23:39 Lymphocytes # (Manual) 1.2 K/mm3 (1.2-5.4) 10/09/20 23:39 Abs React Lymphs (Man) 0.0 K/mm3 10/09/20 23:39 Monocytes # (Manual) 0.5 K/mm3 (0.0-0.8) 10/09/20 23:39 Eosinophils # (Manual) 0.1 K/mm3 (0.0-0.4) 10/09/20 23:39 Basophils # (Manual) 0.0 K/mm3 (0.0-0.1) 10/09/20 23:39 Metamyelocytes # 0.0 K/mm3 10/09/20 23:39 Myelocytes # 0.0 K/mm3 10/09/20 23:39 Promyelocytes # 0.0 K/mm3 10/09/20 23:39 Blast Cells # 0.0 K/mm3 10/09/20 23:39 WBC Morphology Not Reportable 10/09/20 23:39 Hypersegmented Neuts Not Reportable 10/09/20 23:39 Hyposegmented Neuts Not Reportable 10/09/20 23:39 Hypogranular Neuts Not Reportable 10/09/20 23:39 Smudge Cells Not Reportable 10/09/20 23:39 Toxic Granulation Not Reportable 10/09/20 23:39 Toxic Vacuolation Not Reportable 10/09/20 23:39 Dohle Bodies Not Reportable 10/09/20 23:39 Pelger-Huet Anomaly Not Reportable 10/09/20 23:39 Sly Rods Not Reportable 10/09/20 23:39 Platelet Estimate Consistent w auto 10/09/20 23:39 Clumped Platelets Not Reportable 10/09/20 23:39 Plt Clumps, EDTA Not Reportable 10/09/20 23:39 Large Platelets Not Reportable 10/09/20 23:39 Giant Platelets Not Reportable 10/09/20 23:39 Platelet Satelliting Not Reportable 10/09/20 23:39 Plt Morphology Comment Not Reportable 10/09/20 23:39 RBC Morphology Not Reportable 10/09/20 23:39 Dimorphic RBCs Not Reportable 10/09/20 23:39 Polychromasia Not Reportable 10/09/20 23:39 Hypochromasia Not Reportable 10/09/20 23:39 Poikilocytosis Not Reportable 10/09/20 23:39 Anisocytosis 1+ 10/09/20 23:39 Microcytosis Not Reportable 10/09/20 23:39 Macrocytosis Not Reportable 10/09/20 23:39 Spherocytes Not Reportable 10/09/20 23:39 Pappenheimer Bodies Not Reportable 10/09/20 23:39 Sickle Cells Not Reportable 10/09/20 23:39 Target Cells Not Reportable 10/09/20 23:39 Tear Drop Cells Not Reportable 10/09/20 23:39 Ovalocytes Not Reportable 10/09/20 23:39 Helmet Cells Not Reportable 10/09/20 23:39 [place] Bodies Not Reportable 10/09/20 23:39 Hensley Rings Not Reportable 10/09/20 23:39 Johnnie Cells Not Reportable 10/09/20 23:39 Bite Cells Not Reportable 10/09/20 23:39 Crenated Cell Not Reportable 10/09/20 23:39 Elliptocytes Not Reportable 10/09/20 23:39 Acanthocytes (Spur) Not Reportable 10/09/20 23:39 Rouleaux Not Reportable 10/09/20 23:39 Hemoglobin C Crystals Not Reportable 10/09/20 23:39 Schistocytes Not Reportable 10/09/20 23:39 Malaria parasites Not Reportable 10/09/20 23:39 Khai Bodies Not Reportable 10/09/20 23:39 Hem Pathologist Commnt No 10/09/20 23:39 Sodium 140 mmol/L (137-145) 10/09/20 23:39 Potassium 4.0 mmol/L (3.6-5.0) 10/09/20 23:39 Chloride 103.8 mmol/L (98-107) 10/09/20 23:39 Carbon Dioxide 18 mmol/L (22-30) L 10/09/20 23:39 Anion Gap 22 mmol/L 10/09/20 23:39 BUN 59 mg/dL (9-20) H 10/09/20 23:39 Creatinine 1.7 mg/dL (0.8-1.3) H 10/09/20 23:39 Estimated GFR 48 ml/min 10/09/20 23:39 BUN/Creatinine Ratio 35 % 10/09/20 23:39 Glucose 132 mg/dL (75-100) H 10/09/20 23:39 POC Glucose 98 mg/dL (70-105) 10/20/20 06:10 Hemoglobin A1c 6.5 % (4-6) H 10/09/20 23:39 Calcium 9.3 mg/dL (8.4-10.2) 10/09/20 23:39 Total Bilirubin 0.30 mg/dL (0.1-1.2) 10/09/20 23:39 AST 40 units/L (5-40) 10/09/20 23:39 ALT 25 units/L (7-56) 10/09/20 23:39 Alkaline Phosphatase 51 units/L (35-129) 10/09/20 23:39 Total Protein 6.1 g/dL (6.3-8.2) L 10/09/20 23:39 Albumin 3.6 g/dL (3.9-5) L 10/09/20 23:39 Albumin/Globulin Ratio 1.4 % 10/09/20 23:39 Triglycerides 235 mg/dL (2-149) H 10/09/20 23:39 Cholesterol 143 mg/dL (50-199) 10/09/20 23:39 LDL Cholesterol Direct 77 mg/dL (50-130) 10/09/20 23:39 HDL Cholesterol 28 mg/dL (40-59) L 10/09/20 23:39 Cholesterol/HDL Ratio 5.10 % 10/09/20 23:39 Coronavirus (PCR) Negative (Negative) 10/11/20 Unknown Zhang/IV: Voiding Method Toilet Active Medications - Current Medications Current Medications: Generic Name Dose Route Start Last Admin Trade Name Freq PRN Reason Stop Dose Admin Allopurinol 100 mg 10/08/20 10:00 10/20/20 09:30 Allopurinol 100 Mg Tab PO 100 mg SuTuThSa BRYAN Administration Aspirin 81 mg 10/07/20 10:00 10/20/20 09:29 Aspirin 81 Mg Tab Chew PO 81 mg QDAY BRYAN Administration Atorvastatin Calcium 80 mg 10/07/20 22:00 10/19/20 21:00 Atorvastatin 40 Mg Tab PO 80 mg QHS BRYAN Administration Carvedilol 12.5 mg 10/07/20 10:00 10/20/20 09:31 Carvedilol 12.5 Mg Tab PO 12.5 mg BID BRYAN Administration Cholecalciferol 2,000 unit 10/07/20 10:00 10/20/20 09:30 Cholecalciferol (Vit D3) 1000 Unit (25 Mcg) Tab PO 2,000 unit QDAY BRYAN Administration Cilostazol 100 mg 10/07/20 10:00 10/20/20 09:29 Cilostazol 100 Mg Tab PO 100 mg BID BRYAN Administration Divalproex Sodium 125 mg 10/07/20 10:00 10/20/20 09:[address] 125 Mg Tab PO 125 mg BID BRYAN Administration Donepezil HCl 10 mg 10/07/20 22:00 10/19/20 21:01 Donepezil 10 Mg Tab PO 10 mg QHS BRYAN Administration Doxazosin Mesylate 4 mg 10/07/20 10:00 10/20/20 09:30 Doxazosin 4 Mg Tab PO 4 mg BID BRYAN Administration Fenofibrate 145 mg 10/07/20 12:00 10/20/20 09:30 Fenofibrate 145 Mg Tab PO 145 mg DAILY BRYAN Administration Fish Oil 1,000 mg 10/11/20 10:00 10/20/20 09:30 [place]-3 Fatty Acids/Fish Oil 1 Gram Cap PO 1,000 mg DAILY BRYAN Administration Furosemide 20 mg 10/11/20 10:00 10/20/20 09:30 Furosemide 20 Mg Tab PO 20 mg QDAY BRYAN Administration Glipizide 10 mg 10/07/20 22:00 10/19/20 21:01 Glipizide Xl 10 Mg Tab PO 10 mg QHS BRYAN Administration Insulin Human Lispro 0 unit 10/14/20 22:00 10/19/20 21:06 Insulin Lispro 100 Unit/Ml SUB-Q Not Given QHS [facility] Protocol Isosorbide Mononitrate 30 mg 10/07/20 22:00 10/19/20 21:03 Isosorbide Mononitrate Er 30 Mg Tab PO 30 mg QHS BRYAN Administration Lisinopril 30 mg 10/07/20 10:00 10/20/20 09:30 Lisinopril 10 Mg Tab PO 30 mg QDAY BRYAN Administration Lorazepam 0.5 mg 10/10/20 20:06 Lorazepam 0.5 Mg Tab PO BID PRN Anxiety Memantine 10 mg 10/07/20 10:00 10/20/20 09:30 Memantine 10 Mg Tab PO 10 mg BID BRYAN Administration Multivitamins/Minerals 1 each 10/11/20 10:00 10/20/20 09:30 Multivitamins,Ther W-Minerals Tab PO 1 each QDAY BRYAN Administration Mycophenolate Mofetil 500 mg 10/07/20 11:00 10/20/20 09:29 Mycophenolate 250 Mg Cap PO 500 mg BID BRYAN Administration Nifedipine 60 mg 10/07/20 10:00 10/20/20 09:29 Nifedipine Xl 60 Mg Tab PO 60 mg DAILY BRYAN Administration Olanzapine 2.5 mg 10/07/20 22:00 10/19/20 21:02 Olanzapine 5 Mg Tab PO 2.5 mg QHS BRYAN Administration Prednisone 5 mg 10/07/20 10:00 10/20/20 09:29 Prednisone 5 Mg Tab PO 5 mg QDAY BRYAN Administration Primidone 150 mg 10/07/20 22:00 10/19/20 21:00 Primidone 50 Mg Tab PO 150 mg QHS BRYAN Administration Psyllium Hydrophilic Mucilloid 1 each 10/10/20 22:00 10/19/20 21:00 Psyllium Seed (With Sugar) 3.4 Gm Packet PO 1 each QHS BRYAN Administration Ranolazine 500 mg 10/07/20 10:00 10/20/20 09:29 Ranolazine Er 500 Mg Tab 12hr PO 500 mg BID BRYAN Administration Sirolimus 2 mg 10/08/20 22:00 10/18/20 21:33 Sirolimus (Nf) 1 Mg Tab PO 2 mg SuTuThSa BRYAN Administration Sirolimus 1 mg 10/07/20 22:00 10/19/20 21:06 Sirolimus (Nf) 1 Mg Tab PO 1 mg MoWeFr BRYAN Administration Sodium Bicarbonate 650 mg 10/12/20 10:00 10/19/20 09:40 Sodium Bicarbonate 650 Mg Tab PO 650 mg MoWeFr BRYAN Administration Vitamin B Complex/Vitamin C 1 each 10/11/20 10:00 10/20/20 09:30 B Complex W/Vitamin C Tab PO 1 each DAILY BRYAN Administration Nutrition/Malnutrition Assess - Dietary Evaluation Nutrition/Malnutrition Findings: Nutrition Notes Start: 10/14/20 12:26 Freq: Status: Active Protocol: Document 10/18/20 13:53 CW (Rec: 10/18/20 13:59 CW [id number]) Nutrition Notes Initial or Follow up Reassessment Current Diagnosis Hypertension,Hyperlipidemia Other Pertinent Diagnosis dementia, hx kidney transplant Current Diet Cardiac, Consistent CHO with renal Labs/Tests no new labs Pertinent Medications Lasix, Prednisone glucotrol Height 6 ft Weight 85.003 kg Leslie Body Weight (kg) 80.90 BMI 25.4 Weight Status Appropriate Subjective/Other Information F/U for intakes. Intakes vary but are typically 75% of meals provided with the occasional 100% intake of snacks/ONS. Intakes likely drop when dementia s/s spike. Percent of energy/protein needs met: 70%/100% (not including snacks /ONS) Burn Absent Trauma Absent GI Symptoms None Current % PO Good (75-100%) Minimum of two criteria No physical signs of malnutrition #1 Nutrition Diagnosis Inadequate oral intake As Evidenced by Signs and Symptoms PO intake typically 75% of meals with snacks Diagnosis Progress(for reassessment Resolved documentation) Is patient on ventilator? No Is Patient Ambulatory and/or Out of Bed Yes REE-([facility] [place]-ambulatory/OOB) [ [id number] [id number]] Calculation Used for Recommendations [facility] Additional Notes Protein: (0.6-0.9g/kg) 51-77g Fluid:1 ml/kcal or per MD Nutrition Intervention Change Diet Order: Continue Add Supplement/Snack (indicate name/kcal Nepro daily /protein ) Provides kCal: 425 Provides Protein (gm) 19 Goal #1 Meet at least 75% of protein and energy needs via PO and ONS intakes Revisit per MD consult or patient Sign Off request: Additional Comments S/O Pt meeting needs via PO intake on a stable basis
[2020-10-20] MEDS: INSULIN LISPRO 100 UNIT/ML SUB-Q SCH (21:53)
[2020-10-20] MEDS: DONEPEZIL 10 MG TAB PO SCH (22:38)
[2020-10-20] MEDS: PSYLLIUM SEED (WITH SUGAR) 3.4 GM PACKET PO SCH (22:44)
[2020-10-20] MEDS: PRIMIDONE 50 MG TAB PO SCH (22:45)
[2020-10-20] MEDS: SIROLIMUS 1 MG PO SCH (22:47)
--- NOTE | 2020-10-21 08:43 | Progress Note ---
Subjective Date of service: 10/21/20 Principal diagnosis: Dementia with Behavioral Disturbance Subjective Comment: 10/20/2020- The patient was seen today, he is sitting in the dayroom, calm and cooperative. He smiles at me and greets me. He is confused but pleasant. He denies SI/HI or hallucinations of any kind. 10/21/2020- I interviewed the patient this morning. Medical records reviewed and patient's progress was discussed with unit staff. Nursing staff reports that "last evening, the patient spent part of his time in the activity room. He was yelled at by a peer and he became anxious the rest of the evening. Staff stayed nearby for comfort and assisted him with talking to his . He was focused on being picked up to leave the hospital. The call with his assisted him to become calmer. His appetite was fair and he was medication compliant. Overnight it took him awhile to get to sleep. He slept after midnight for about 7 hours. Will continue to monitor patient for safety." In my interview with the patient this morning, the patient reports mood as "Ok". Appetite is good. Sleep last night was ok. Patient denies any suicidal/homicidal ideation and denies hallucinations. No changes made in treatment plan today. Reason for continued inpatient treatment: The patient is stable for discharge from a psych standpoint, but is awaiting placement. REVIEW OF SYSTEMS Constitutional: Negative for weight loss ENT: Negative for stridor Respiratory: Negative for cough or hemoptysis All other systems reviewed and are negative MENTAL STATUS EXAMINATION General Appearance and Behavior: Age appropriate, dressed appropriately, calm and cooperative Cooperation: Participating Psychomotor Behavior: psychomotor normal Mood: "OK" Affect and affective range: congruent with states mood Thought Process: goal directed Thought Content: obsessions Speech: Normal volume, Regular rate and rhythm, Intellectual Functioning: Average Suicidal Ideation: Denies Homicidal Ideation: Denies Hallucinations: Denies Delusions: None elicited Impulse Control: Impaired Insight and Judgment: Limited insight and judgment, Memory: Impaired Attention: Undivided Orientation: Alert, oriented Assessment and Plan (1) Dementia with Behavioral Disturbance Treatment Plan Patient admitted for inpatient psychiatric evaluation, medication adjustment and close monitoring The patient's behavior, mood, sleep and appetite will be closely monitored. Patient enrolled in individual and group therapeutic sessions and encouraged to attend. Patient provided with a safe and structured environment. Patient's physical health needs will be addressed by the Hospitalist. Hospitalist Consulted Labs including CBC, CMP, Lipid profile and Hemoglobin A1C levels ordered for baseline reference Social Assessment will be completed and the Career Development Specialist will work with patient and family to ensure a suitable and safe disposition Medication adjustment will be made as clinically indicated No changes made Usual Wellness Episcopal/Preservation: - Start Trazodone 50 mg po QHS & 50 mg po QHS PRN between 10 PM & 2 AM for insomnia - Start Melatonin 5 mg po QHS to promote circadian rhythm - Start [place]-3 for brain health, reduce impulsivity, and as adjunctive treatment for mood disorder, continue upon discharge given overall benefits. - Start B1 prophylaxis with 200 mg po for 5 days The patient agreed on the treatment plan, understood the risk, benefit, alternative treatment, potential consequence of no treatment, and gave informed consent. Estimated days: 0 Post hospital care: primary care provider, psychiatric provider Medications and Allergies Medications and Allergies Allergies Allergy/AdvReac Type Severity Reaction Status Date / Time clopidogrel Allergy Swelling Verified 10/06/20 00:43 Home Medications Medication Instructions Recorded Confirmed Last Taken Type Aspirin [Aspirin BABY CHEW TAB] 81 mg PO QDAY 10/06/20 10/07/20 10/06/20 10:00 History Atorvastatin [Lipitor Tab] 80 mg PO QHS 10/06/20 10/07/20 10/06/20 22:00 History B-Complex with Vitamin C [Vitamin 1 tab PO DAILY 10/06/20 10/07/20 10/06/20 10:00 History B Complex-Vitamin C] Cholecalciferol (Vitamin D3) 1 tab PO DAILY 10/06/20 10/07/20 Unknown History [Vitamin D3 2,000 UNIT CAP] Donepezil HCl [Donepezil HCl Odt] 10 mg PO QHS 10/06/20 10/07/20 10/06/20 22:00 History Fenofibrate 160 mg PO DAILY 10/06/20 10/07/20 10/06/20 13:00 History Fiber 2 tab PO QHS 10/06/20 10/07/20 Unknown History Furosemide [Lasix] 20 mg PO QDAY 10/06/20 10/07/20 10/06/20 10:00 History Insulin Lispro [Humalog Kwikpen See Protocol SQ ACHS 10/06/20 10/07/20 Unknown History 200 UNITS/ML] Isosorbide Mononitrate [Isosorbide 30 mg PO QHS 10/06/20 10/07/20 10/06/20 22:00 History Mononitrate ER] LORazepam [Ativan] 0.5 mg PO BID PRN 10/06/20 10/07/20 Unknown History Lisinopril [Zestril TAB] 30 mg PO QDAY 10/06/20 10/07/20 10/06/20 10:00 History Memantine HCl 10 mg PO BID 10/06/20 10/07/20 10/06/20 22:00 History Mv,Ca,Min/FA/K1/Lycopene/Lutn [Eql 1 tab PO DAILY 10/06/20 10/07/20 10/05/20 History Century Mature Tablet] Mycophenolate [Cellcept] 2 tab PO BID 10/06/20 10/07/20 10/06/20 22:00 History NIFEdipine [Nifedipine ER] 60 mg PO DAILY 10/06/20 10/07/20 10/06/20 10:00 History OLANZapine [Zyprexa] 0.5 tab PO QHS 10/06/20 10/07/20 Unknown History [place]-3/Dha/Epa/Fish Oil [[place] 3 1,000 mg PO DAILY 10/06/20 10/07/20 Unknown History 500 Softgel] Primidone [Mysoline] 3 tab PO HS 10/06/20 10/07/20 10/06/20 22:00 History Ranolazine ER [Ranexa ER] 500 mg PO BID 10/06/20 10/07/20 10/06/20 22:00 History Sirolimus [Rapamune] 1 mg PO Q4W 10/06/20 10/07/20 10/05/20 History Sodium Bicarbonate 1 tab PO 3XW 10/06/20 10/07/20 10/05/20 10:00 History Sulfamethoxazole/Trimethoprim 1 each PO 4XW 10/06/20 10/07/20 10/05/20 History [Sulfamethoxazole-Tmp Ds Tablet] allopurinoL [Zyloprim] 100 mg PO 4XW 10/06/20 10/07/20 10/05/20 History carvediloL [Coreg] 12.5 mg PO BID 10/06/20 10/07/20 10/06/20 22:00 History cilostazoL [Pletal] 100 mg PO BID 10/06/20 10/07/20 10/06/20 22:00 History glipiZIDE XL [Glucotrol Xl] 10 mg PO QHS 10/06/20 10/07/20 10/06/20 22:00 History predniSONE [Deltasone] 5 mg PO QDAY 10/06/20 10/07/20 10/06/20 22:[address] [DepaKOTE DR] 125 mg PO BID 10/07/20 10/07/20 10/06/20 22:00 History Doxazosin [Cardura] 4 mg PO BID 10/07/20 10/07/20 10/06/20 22:00 History Multivitamin Tab W-MINERAL 1 each PO QD 10/07/20 10/07/20 10/06/20 10:00 History [Multiple Vitamin/Mineral (Theragran M)] Active Meds: Active Medications Allopurinol (Allopurinol 100 Mg Tab) 100 mg PO [facility] Last Admin: 10/20/20 09:30 Dose: 100 mg Documented by: Aspirin (Aspirin 81 Mg Tab Chew) 81 mg PO QDAY [facility] Last Admin: 10/20/20 09:29 Dose: 81 mg Documented by: Atorvastatin Calcium (Atorvastatin 40 Mg Tab) 80 mg PO QHS [facility] Last Admin: 10/20/20 22:43 Dose: 80 mg Documented by: Carvedilol (Carvedilol 12.5 Mg Tab) 12.5 mg PO BID [facility] Last Admin: 10/20/20 22:41 Dose: 12.5 mg Documented by: Cholecalciferol (Cholecalciferol (Vit D3) 1000 Unit (25 Mcg) Tab) 2,000 unit PO QDAY [facility] Last Admin: 10/20/20 09:30 Dose: 2,000 unit Documented by: Cilostazol (Cilostazol 100 Mg Tab) 100 mg PO BID [facility] Last Admin: 10/20/20 22:45 Dose: 100 mg Documented by: Divalproex Sodium (Divalproex Dr 125 Mg Tab) 125 mg PO BID [facility] Last Admin: 10/20/20 22:42 Dose: 125 mg Documented by: Donepezil HCl (Donepezil 10 Mg Tab) 10 mg PO QHS [facility] Last Admin: 10/20/20 22:38 Dose: 10 mg Documented by: Doxazosin Mesylate (Doxazosin 4 Mg Tab) 4 mg PO BID [facility] Last Admin: 10/20/20 22:40 Dose: 4 mg Documented by: Fenofibrate (Fenofibrate 145 Mg Tab) 145 mg PO DAILY [facility] Last Admin: 10/20/20 09:30 Dose: 145 mg Documented by: Fish Oil ([place]-3 Fatty Acids/Fish Oil 1 Gram Cap) 1,000 mg PO DAILY [facility] Last Admin: 10/20/20 09:30 Dose: 1,000 mg Documented by: Furosemide (Furosemide 20 Mg Tab) 20 mg PO QDAY [facility] Last Admin: 10/20/20 09:30 Dose: 20 mg Documented by: Glipizide (Glipizide Xl 10 Mg Tab) 10 mg PO QHS [facility] Last Admin: 10/20/20 22:42 Dose: 10 mg Documented by: Insulin Human Lispro (Insulin Lispro 100 Unit/Ml) 0 unit SUB-Q QHS [facility]; Protocol Last Admin: 10/20/20 21:53 Dose: Not Given Documented by: Isosorbide Mononitrate (Isosorbide Mononitrate Er 30 Mg Tab) 30 mg PO QHS [facility] Last Admin: 10/20/20 22:43 Dose: 30 mg Documented by: Lisinopril (Lisinopril 10 Mg Tab) 30 mg PO QDAY [facility] Last Admin: 10/20/20 09:30 Dose: 30 mg Documented by: Lorazepam (Lorazepam 0.5 Mg Tab) 0.5 mg PO BID PRN PRN Reason: Anxiety Memantine (Memantine 10 Mg Tab) 10 mg PO BID [facility] Last Admin: 10/20/20 22:44 Dose: 10 mg Documented by: Multivitamins/Minerals (Multivitamins,Ther W-Minerals Tab) 1 each PO QDAY [facility] Last Admin: 10/20/20 09:30 Dose: 1 each Documented by: Mycophenolate Mofetil (Mycophenolate 250 Mg Cap) 500 mg PO BID [facility] Last Admin: 10/20/20 22:41 Dose: 500 mg Documented by: Nifedipine (Nifedipine Xl 60 Mg Tab) 60 mg PO DAILY [facility] Last Admin: 10/20/20 09:29 Dose: 60 mg Documented by: Olanzapine (Olanzapine 5 Mg Tab) 2.5 mg PO QHS [facility] Last Admin: 10/20/20 22:50 Dose: 2.5 mg Documented by: Prednisone (Prednisone 5 Mg Tab) 5 mg PO QDAY [facility] Last Admin: 10/20/20 09:29 Dose: 5 mg Documented by: Primidone (Primidone 50 Mg Tab) 150 mg PO QHS [facility] Last Admin: 10/20/20 22:45 Dose: 150 mg Documented by: Psyllium Hydrophilic Mucilloid (Psyllium Seed (With Sugar) 3.4 Gm Packet) 1 each PO QHS [facility] Last Admin: 10/20/20 22:44 Dose: 1 each Documented by: Ranolazine (Ranolazine Er 500 Mg Tab 12hr) 500 mg PO BID [facility] Last Admin: 10/20/20 22:45 Dose: 500 mg Documented by: Sirolimus (Sirolimus (Nf) 1 Mg Tab) 2 mg PO SuTuThSa [facility] Last Admin: 10/20/20 22:47 Dose: 2 mg Documented by: Sirolimus (Sirolimus (Nf) 1 Mg Tab) 1 mg PO MoWeFr [facility] Last Admin: 10/19/20 21:06 Dose: 1 mg Documented by: Sodium Bicarbonate (Sodium Bicarbonate 650 Mg Tab) 650 mg PO MoWeFr [facility] Last Admin: 10/19/20 09:40 Dose: 650 mg Documented by: Vitamin B Complex/Vitamin C (B Complex W/Vitamin C Tab) 1 each PO DAILY [facility] Last Admin: 10/20/20 09:30 Dose: 1 each Documented by: Results - Results Labs/Vitals: Laboratory Last Values WBC 6.4 K/mm3 (4.5-11.0) 10/09/20 23:39 RBC 3.63 M/mm3 (3.65-5.03) L 10/09/20 23:39 Hgb 10.2 gm/dl (11.8-15.2) L 10/09/20 23:39 Hct 30.4 % (35.5-45.6) L 10/09/20 23:39 MCV 84 fl (84-94) 10/09/20 23:39 MCH 28 pg (28-32) 10/09/20 23:39 MCHC 34 % (32-34) 10/09/20 23:39 RDW 15.0 % (13.2-15.2) 10/09/20 23:39 Plt Count 262 K/mm3 (140-440) 10/09/20 23:39 [place] % (Auto) Wellness Manager 10/09/20 23:39 Add Manual Diff Complete 10/09/20 23:39 Total Counted 100 10/09/20 23:39 Seg Neuts % (Manual) 72.0 % (40.0-70.0) H 10/09/20 23:39 Lymphocytes % (Manual) 18.0 % (13.4-35.0) 10/09/20 23:39 Monocytes % (Manual) 8.0 % (0.0-7.3) H 10/09/20 23:39 Eosinophils % (Manual) 2.0 % (0.0-4.3) 10/09/20 23:39 Nucleated RBC % Not Reportable 10/09/20 23:39 Seg Neutrophils # Man 4.6 K/mm3 (1.8-7.7) 10/09/20 23:39 Band Neutrophils # 0.0 K/mm3 10/09/20 23:39 Lymphocytes # (Manual) 1.2 K/mm3 (1.2-5.4) 10/09/20 23:39 Abs React Lymphs (Man) 0.0 K/mm3 10/09/20 23:39 Monocytes # (Manual) 0.5 K/mm3 (0.0-0.8) 10/09/20 23:39 Eosinophils # (Manual) 0.1 K/mm3 (0.0-0.4) 10/09/20 23:39 Basophils # (Manual) 0.0 K/mm3 (0.0-0.1) 10/09/20 23:39 Metamyelocytes # 0.0 K/mm3 10/09/20 23:39 Myelocytes # 0.0 K/mm3 10/09/20 23:39 Promyelocytes # 0.0 K/mm3 10/09/20 23:39 Blast Cells # 0.0 K/mm3 10/09/20 23:39 WBC Morphology Not Reportable 10/09/20 23:39 Hypersegmented Neuts Not Reportable 10/09/20 23:39 Hyposegmented Neuts Not Reportable 10/09/20 23:39 Hypogranular Neuts Not Reportable 10/09/20 23:39 Smudge Cells Not Reportable 10/09/20 23:39 Toxic Granulation Not Reportable 10/09/20 23:39 Toxic Vacuolation Not Reportable 10/09/20 23:39 Dohle Bodies Not Reportable 10/09/20 23:39 Pelger-Huet Anomaly Not Reportable 10/09/20 23:39 Sly Rods Not Reportable 10/09/20 23:39 Platelet Estimate Consistent w auto 10/09/20 23:39 Clumped Platelets Not Reportable 10/09/20 23:39 Plt Clumps, EDTA Not Reportable 10/09/20 23:39 Large Platelets Not Reportable 10/09/20 23:39 Giant Platelets Not Reportable 10/09/20 23:39 Platelet Satelliting Not Reportable 10/09/20 23:39 Plt Morphology Comment Not Reportable 10/09/20 23:39 RBC Morphology Not Reportable 10/09/20 23:39 Dimorphic RBCs Not Reportable 10/09/20 23:39 Polychromasia Not Reportable 10/09/20 23:39 Hypochromasia Not Reportable 10/09/20 23:39 Poikilocytosis Not Reportable 10/09/20 23:39 Anisocytosis 1+ 10/09/20 23:39 Microcytosis Not Reportable 10/09/20 23:39 Macrocytosis Not Reportable 10/09/20 23:39 Spherocytes Not Reportable 10/09/20 23:39 Pappenheimer Bodies Not Reportable 10/09/20 23:39 Sickle Cells Not Reportable 10/09/20 23:39 Target Cells Not Reportable 10/09/20 23:39 Tear Drop Cells Not Reportable 10/09/20 23:39 Ovalocytes Not Reportable 10/09/20 23:39 Helmet Cells Not Reportable 10/09/20 23:39 [place] Bodies Not Reportable 10/09/20 23:39 [place] Rings Not Reportable 10/09/20 23:39 Johnnie Cells Not Reportable 10/09/20 23:39 Bite Cells Not Reportable 10/09/20 23:39 Crenated Cell Not Reportable 10/09/20 23:39 Elliptocytes Not Reportable 10/09/20 23:39 Acanthocytes (Spur) Not Reportable 10/09/20 23:39 Rouleaux Not Reportable 10/09/20 23:39 Hemoglobin C Crystals Not Reportable 10/09/20 23:39 Schistocytes Not Reportable 10/09/20 23:39 Malaria parasites Not Reportable 10/09/20 23:39 Khai Bodies Not Reportable 10/09/20 23:39 Hem Pathologist Commnt No 10/09/20 23:39 Sodium 140 mmol/L (137-145) 10/09/20 23:39 Potassium 4.0 mmol/L (3.6-5.0) 10/09/20 23:39 Chloride 103.8 mmol/L (98-107) 10/09/20 23:39 Carbon Dioxide 18 mmol/L (22-30) L 10/09/20 23:39 Anion Gap 22 mmol/L 10/09/20 23:39 BUN 59 mg/dL (9-20) H 10/09/20 23:39 Creatinine 1.7 mg/dL (0.8-1.3) H 10/09/20 23:39 Estimated GFR 48 ml/min 10/09/20 23:39 BUN/Creatinine Ratio 35 % 10/09/20 23:39 Glucose 132 mg/dL (75-100) H 10/09/20 23:39 POC Glucose 94 mg/dL (70-105) 10/21/20 06:54 Hemoglobin A1c 6.5 % (4-6) H 10/09/20 23:39 Calcium 9.3 mg/dL (8.4-10.2) 10/09/20 23:39 Total Bilirubin 0.30 mg/dL (0.1-1.2) 10/09/20 23:39 AST 40 units/L (5-40) 10/09/20 23:39 ALT 25 units/L (7-56) 10/09/20 23:39 Alkaline Phosphatase 51 units/L (35-129) 10/09/20 23:39 Total Protein 6.1 g/dL (6.3-8.2) L 10/09/20 23:39 Albumin 3.6 g/dL (3.9-5) L 10/09/20 23:39 Albumin/Globulin Ratio 1.4 % 10/09/20 23:39 Triglycerides 235 mg/dL (2-149) H 10/09/20 23:39 Cholesterol 143 mg/dL (50-199) 10/09/20 23:39 LDL Cholesterol Direct 77 mg/dL (50-130) 10/09/20 23:39 HDL Cholesterol 28 mg/dL (40-59) L 10/09/20 23:39 Cholesterol/HDL Ratio 5.10 % 10/09/20 23:39 Coronavirus (PCR) Negative (Negative) 10/11/20 Unknown Last Vital Signs Temp 97.5 F L 10/20/20 19:33 Pulse 91 H 10/20/20 22:43 Resp 18 10/20/20 19:33 BP 143/84 10/20/20 22:43 Pulse Ox 99 10/20/20 19:33
[2020-10-21] MEDS: DIVALPROEX DR 125 MG TAB PO SCH ×2 (09:09→21:08)
[2020-10-21] MEDS: MYCOPHENOLATE 250 MG CAP PO SCH ×2 (09:09→21:08)
[2020-10-21] MEDS: FUROSEMIDE 20 MG TAB PO SCH (09:09)
[2020-10-21] MEDS: SODIUM BICARBONATE 650 MG TAB PO SCH (09:09)
[2020-10-21] MEDS: CILOSTAZOL 100 MG TAB PO SCH ×2 (09:09→21:08)
[2020-10-21] MEDS: MEMANTINE 10 MG TAB PO SCH ×2 (09:09→21:08)
[2020-10-21] MEDS: FENOFIBRATE 145 MG TAB PO SCH (09:09)
[2020-10-21] MEDS: MULTIVITAMINS,THER W-MINERALS TAB PO SCH (09:09)
[2020-10-21] MEDS: ASPIRIN 81 MG TAB CHEW PO SCH (09:09)
[2020-10-21] MEDS: B COMPLEX W/VITAMIN C TAB PO SCH (09:09)
[2020-10-21] MEDS: NIFEdipine XL 60 MG TAB PO SCH (09:09)
[2020-10-21] MEDS: OMEGA-3 FATTY ACIDS/FISH OIL 1 GRAM CAP PO SCH (09:09)
[2020-10-21] MEDS: predniSONE 5 MG TAB PO SCH (09:09)
[2020-10-21] MEDS: DOXAZOSIN 4 MG TAB PO SCH ×2 (09:10→21:09)
[2020-10-21] MEDS: RANOLAZINE ER 500 MG TAB 12HR PO SCH ×2 (09:10→21:08)
[2020-10-21] MEDS: LISINOPRIL 10 MG TAB PO SCH (09:10)
[2020-10-21] MEDS: carvediloL 12.5 MG TAB PO SCH ×2 (09:10→21:09)
[2020-10-21] MEDS: CHOLECALCIFEROL (VIT D3) 1000 UNIT (25 mcg) TAB PO SCH (09:11)
[2020-10-21] MEDS: SIROLIMUS 1 MG PO SCH (21:01)
[2020-10-21] MEDS: PSYLLIUM SEED (WITH SUGAR) 3.4 GM PACKET PO SCH (21:02)
[2020-10-21] MEDS: DONEPEZIL 10 MG TAB PO SCH (21:08)
[2020-10-21] MEDS: PRIMIDONE 50 MG TAB PO SCH (21:08)
[2020-10-21] MEDS: INSULIN LISPRO 100 UNIT/ML SUB-Q SCH (21:10)
--- NOTE | 2020-10-22 08:22 | Progress Note ---
Subjective Date of service: 10/22/20 Principal diagnosis: Dementia with Behavioral Disturbance Subjective Comment: 10/20/2020: The patient was seen today, he is sitting in the dayroom, calm and cooperative. He smiles at me and greets me. He is confused but pleasant. He denies SI/HI or hallucinations of any kind. 10/21/2020: I interviewed the patient this morning. Medical records reviewed and patient's progress was discussed with unit staff. Nursing staff reports that "last evening, the patient spent part of his time in the activity room. He was yelled at by a peer and he became anxious the rest of the evening. Staff stayed nearby for comfort and assisted him with talking to his . He was focused on being picked up to leave the hospital. The call with his assisted him to become calmer. His appetite was fair and he was medication compliant. Overnight it took him awhile to get to sleep. He slept after midnight for about 7 hours. Will continue to monitor patient for safety." In my interview with the patient this morning, the patient reports mood as "Ok". Appetite is good. Sleep last night was ok. Patient denies any suicidal/homicidal ideation and denies hallucinations. No changes made in treatment plan today. 10/22/2020: I interviewed the patient this morning. Medical records reviewed and patient's progress was discussed with unit staff. Nursing staff reports that patient " Last evening the patient was pleasantly confused. He interacted well with others even though they had difficulty following his thought process. He denies si/hi/ah/vh. His appetite is good and he is medication compliant. Overnight he rested quietly and slept 7 hours. He was awake over an hour at one time but stayed in bed. Will continue to monitor patient for safety. In my interview with the patient this morning, the patient seen in the activity room socializing with peers. He continues to present with some confusion. He reports mood as "good". Appetite is good. Sleep last night was good. He denies any current suicidal ideation and denies hallucinations. No changes to the treat plan today. Reason for continued inpatient treatment: The patient is stable for discharge from a psych standpoint, but is awaiting placement. REVIEW OF SYSTEMS Constitutional: Negative for weight loss ENT: Negative for stridor Respiratory: Negative for cough or hemoptysis All other systems reviewed and are negative MENTAL STATUS EXAMINATION General Appearance and Behavior: Age appropriate, dressed appropriately, calm and cooperative Cooperation: Participating Psychomotor Behavior: psychomotor normal Mood: "good" Affect and affective range: congruent with states mood Thought Process: goal directed Thought Content: obsessions Speech: Normal volume, Regular rate and rhythm, Intellectual Functioning: Average Suicidal Ideation: Denies Homicidal Ideation: Denies Hallucinations: Denies Delusions: None elicited Impulse Control: Impaired Insight and Judgment: Limited insight and judgment, Memory: Impaired Attention: Undivided Orientation: Alert, oriented Assessment and Plan (1) Dementia with Behavioral Disturbance Treatment Plan Patient admitted for inpatient psychiatric evaluation, medication adjustment and close monitoring The patient's behavior, mood, sleep and appetite will be closely monitored. Patient enrolled in individual and group therapeutic sessions and encouraged to attend. Patient provided with a safe and structured environment. Patient's physical health needs will be addressed by the Hospitalist. Hospitalist Consulted Labs including CBC, CMP, Lipid profile and Hemoglobin A1C levels ordered for baseline reference Social Assessment will be completed and the Hand Coremaker will work with patient and family to ensure a suitable and safe disposition Medication adjustment will be made as clinically indicated No changes made Usual Wellness Presybeterian/Preservation: - Start Trazodone 50 mg po QHS & 50 mg po QHS PRN between 10 PM & 2 AM for insomnia - Start Melatonin 5 mg po QHS to promote circadian rhythm - Start [place]-3 for brain health, reduce impulsivity, and as adjunctive treatment for mood disorder, continue upon discharge given overall benefits. - Start B1 prophylaxis with 200 mg po for 5 days The patient agreed on the treatment plan, understood the risk, benefit, alternative treatment, potential consequence of no treatment, and gave informed consent. Estimated days: 0 Post hospital care: primary care provider, psychiatric provider Medications and Allergies Medications and Allergies Allergies Allergy/AdvReac Type Severity Reaction Status Date / Time clopidogrel Allergy Swelling Verified 10/06/20 00:43 Home Medications Medication Instructions Recorded Confirmed Last Taken Type Aspirin [Aspirin BABY CHEW TAB] 81 mg PO QDAY 10/06/20 10/07/20 10/06/20 10:00 History Atorvastatin [Lipitor Tab] 80 mg PO QHS 10/06/20 10/07/20 10/06/20 22:00 History B-Complex with Vitamin C [Vitamin 1 tab PO DAILY 10/06/20 10/07/20 10/06/20 10:00 History B Complex-Vitamin C] Cholecalciferol (Vitamin D3) 1 tab PO DAILY 10/06/20 10/07/20 Unknown History [Vitamin D3 2,000 UNIT CAP] Donepezil HCl [Donepezil HCl Odt] 10 mg PO QHS 10/06/20 10/07/20 10/06/20 22:00 History Fenofibrate 160 mg PO DAILY 10/06/20 10/07/20 10/06/20 13:00 History Fiber 2 tab PO QHS 10/06/20 10/07/20 Unknown History Furosemide [Lasix] 20 mg PO QDAY 10/06/20 10/07/20 10/06/20 10:00 History Insulin Lispro [Humalog Kwikpen See Protocol SQ ACHS 10/06/20 10/07/20 Unknown History 200 UNITS/ML] Isosorbide Mononitrate [Isosorbide 30 mg PO QHS 10/06/20 10/07/20 10/06/20 22:00 History Mononitrate ER] LORazepam [Ativan] 0.5 mg PO BID PRN 10/06/20 10/07/20 Unknown History Lisinopril [Zestril TAB] 30 mg PO QDAY 10/06/20 10/07/20 10/06/20 10:00 History Memantine HCl 10 mg PO BID 10/06/20 10/07/20 10/06/20 22:00 History Mv,Ca,Min/FA/K1/Lycopene/Lutn [Eql 1 tab PO DAILY 10/06/20 10/07/20 10/05/20 History Century Mature Tablet] Mycophenolate [Cellcept] 2 tab PO BID 10/06/20 10/07/20 10/06/20 22:00 History NIFEdipine [Nifedipine ER] 60 mg PO DAILY 10/06/20 10/07/20 10/06/20 10:00 History OLANZapine [Zyprexa] 0.5 tab PO QHS 10/06/20 10/07/20 Unknown History [place]-3/Dha/Epa/Fish Oil [[place] 3 1,000 mg PO DAILY 10/06/20 10/07/20 Unknown History 500 Softgel] Primidone [Mysoline] 3 tab PO HS 10/06/20 10/07/20 10/06/20 22:00 History Ranolazine ER [Ranexa ER] 500 mg PO BID 10/06/20 10/07/20 10/06/20 22:00 History Sirolimus [Rapamune] 1 mg PO Q4W 10/06/20 10/07/20 10/05/20 History Sodium Bicarbonate 1 tab PO 3XW 10/06/20 10/07/20 10/05/20 10:00 History Sulfamethoxazole/Trimethoprim 1 each PO 4XW 10/06/20 10/07/20 10/05/20 History [Sulfamethoxazole-Tmp Ds Tablet] allopurinoL [Zyloprim] 100 mg PO 4XW 10/06/20 10/07/20 10/05/20 History carvediloL [Coreg] 12.5 mg PO BID 10/06/20 10/07/20 10/06/20 22:00 History cilostazoL [Pletal] 100 mg PO BID 10/06/20 10/07/20 10/06/20 22:00 History glipiZIDE XL [Glucotrol Xl] 10 mg PO QHS 10/06/20 10/07/20 10/06/20 22:00 History predniSONE [Deltasone] 5 mg PO QDAY 10/06/20 10/07/20 10/06/20 22:00 History Divalproex [Jak NUR] 125 mg PO BID 10/07/20 10/07/20 10/06/20 22:00 History Doxazosin [Cardura] 4 mg PO BID 10/07/20 10/07/20 10/06/20 22:00 History Multivitamin Tab W-MINERAL 1 each PO QD 10/07/20 10/07/20 10/06/20 10:00 History [Multiple Vitamin/Mineral (Theragran M)] Active Meds: Active Medications [facility] 100 Mg Tab[facility]: 10/20/20 09:30 Dose: 100 mg Documented by: Aspirin (Aspirin 81 Mg Tab Chew) 81 mg PO QDAY [facility] Last Admin: 10/21/20 09:09 Dose: 81 mg Documented by: Atorvastatin Calcium (Atorvastatin 40 Mg Tab) 80 mg PO QHS [facility] Last Admin: 10/21/20 21:09 Dose: 80 mg Documented by: Carvedilol (Carvedilol 12.5 Mg Tab) 12.5 mg PO BID [facility] Last Admin: 10/21/20 21:09 Dose: 12.5 mg Documented by: Cholecalciferol (Cholecalciferol (Vit D3) 1000 Unit (25 Mcg) Tab) 2,000 unit PO QDAY [facility] Last Admin: 10/21/20 09:11 Dose: 2,000 unit Documented by: Cilostazol (Cilostazol 100 Mg Tab) 100 mg PO BID [facility] Last Admin: 10/21/20 21:08 Dose: 100 mg Documented by: Divalproex Sodium (Divalproex Dr 125 Mg Tab) 125 mg PO BID [facility] Last Admin: 10/21/20 21:08 Dose: 125 mg Documented by: Donepezil HCl (Donepezil 10 Mg Tab) 10 mg PO QHS [facility] Last Admin: 10/21/20 21:08 Dose: 10 mg Documented by: Doxazosin Mesylate (Doxazosin 4 Mg Tab) 4 mg PO BID [facility] Last Admin: 10/21/20 21:09 Dose: 4 mg Documented by: Fenofibrate (Fenofibrate 145 Mg Tab) 145 mg PO DAILY [facility] Last Admin: 10/21/20 09:09 Dose: 145 mg Documented by: Fish Oil ([place]-3 Fatty Acids/Fish Oil 1 Gram Cap) 1,000 mg PO DAILY [facility] Last Admin: 10/21/20 09:09 Dose: 1,000 mg Documented by: Furosemide (Furosemide 20 Mg Tab) 20 mg PO QDAY [facility] Last Admin: 10/21/20 09:09 Dose: 20 mg Documented by: Glipizide (Glipizide Xl 10 Mg Tab) 10 mg PO QHS [facility] Last Admin: 10/21/20 21:09 Dose: 10 mg Documented by: Insulin Human Lispro (Insulin Lispro 100 Unit/Ml) 0 unit SUB-Q QHS [facility]; Protocol Last Admin: 10/21/20 21:10 Dose: Not Given Documented by: Isosorbide Mononitrate (Isosorbide Mononitrate Er 30 Mg Tab) 30 mg PO QHS [facility] Last Admin: 10/21/20 21:10 Dose: 30 mg Documented by: Lisinopril (Lisinopril 10 Mg Tab) 30 mg PO QDAY [facility] Last Admin: 10/21/20 09:10 Dose: 30 mg Documented by: Lorazepam (Lorazepam 0.5 Mg Tab) 0.5 mg PO BID PRN PRN Reason: Anxiety Memantine (Memantine 10 Mg Tab) 10 mg PO BID [facility] Last Admin: 10/21/20 21:08 Dose: 10 mg Documented by: Multivitamins/Minerals (Multivitamins,Ther W-Minerals Tab) 1 each PO QDAY [facility] Last Admin: 10/21/20 09:09 Dose: 1 each Documented by: Mycophenolate Mofetil (Mycophenolate 250 Mg Cap) 500 mg PO BID [facility] Last Admin: 10/21/20 21:08 Dose: 500 mg Documented by: Nifedipine (Nifedipine Xl 60 Mg Tab) 60 mg PO DAILY [facility] Last Admin: 10/21/20 09:09 Dose: 60 mg Documented by: Olanzapine (Olanzapine 5 Mg Tab) 2.5 mg PO QHS [facility] Last Admin: 10/21/20 21:02 Dose: 2.5 mg Documented by: Prednisone (Prednisone 5 Mg Tab) 5 mg PO QDAY [facility] Last Admin: 10/21/20 09:09 Dose: 5 mg Documented by: Primidone (Primidone 50 Mg Tab) 150 mg PO QHS [facility] Last Admin: 10/21/20 21:08 Dose: 150 mg Documented by: Psyllium Hydrophilic Mucilloid (Psyllium Seed (With Sugar) 3.4 Gm Packet) 1 each PO QHS [facility] Last Admin: 10/21/20 21:02 Dose: 1 each Documented by: Ranolazine (Ranolazine Er 500 Mg Tab 12hr) 500 mg PO BID [facility] Last Admin: 10/21/20 21:08 Dose: 500 mg Documented by: Sirolimus (Sirolimus (Nf) 1 Mg Tab) 2 mg PO SuTuThSa [facility] Last Admin: 10/20/20 22:47 Dose: 2 mg Documented by: Sirolimus (Sirolimus (Nf) 1 Mg Tab) 1 mg PO MoWeFr [facility] Last Admin: 10/21/20 21:01 Dose: 1 mg Documented by: Sodium Bicarbonate (Sodium Bicarbonate 650 Mg Tab) 650 mg PO MoWeFr [facility] Last Admin: 10/21/20 09:09 Dose: 650 mg Documented by: Vitamin B Complex/Vitamin C (B Complex W/Vitamin C Tab) 1 each PO DAILY [facility] Last Admin: 10/21/20 09:09 Dose: 1 each Documented by: Results - Results Labs/Vitals: Laboratory Last Values WBC 6.4 K/mm3 (4.5-11.0) 10/09/20 23:39 RBC 3.63 M/mm3 (3.65-5.03) L 10/09/20 23:39 Hgb 10.2 gm/dl (11.8-15.2) L 10/09/20 23:39 Hct 30.4 % (35.5-45.6) L 10/09/20 23:39 MCV 84 fl (84-94) 10/09/20 23:39 MCH 28 pg (28-32) 10/09/20 23:39 MCHC 34 % (32-34) 10/09/20 23:39 RDW 15.0 % (13.2-15.2) 10/09/20 23:39 Plt Count 262 K/mm3 (140-440) 10/09/20 23:39 [place] % (Auto) Solar Mechanical Engineer 10/09/20 23:39 Add Manual Diff Complete 10/09/20 23:39 Total Counted 100 10/09/20 23:39 Seg Neuts % (Manual) 72.0 % (40.0-70.0) H 10/09/20 23:39 Lymphocytes % (Manual) 18.0 % (13.4-35.0) 10/09/20 23:39 Monocytes % (Manual) 8.0 % (0.0-7.3) H 10/09/20 23:39 Eosinophils % (Manual) 2.0 % (0.0-4.3) 10/09/20 23:39 Nucleated RBC % Not Reportable 10/09/20 23:39 Seg Neutrophils # Man 4.6 K/mm3 (1.8-7.7) 10/09/20 23:39 Band Neutrophils # 0.0 K/mm3 10/09/20 23:39 Lymphocytes # (Manual) 1.2 K/mm3 (1.2-5.4) 10/09/20 23:39 Abs React Lymphs (Man) 0.0 K/mm3 10/09/20 23:39 Monocytes # (Manual) 0.5 K/mm3 (0.0-0.8) 10/09/20 23:39 Eosinophils # (Manual) 0.1 K/mm3 (0.0-0.4) 10/09/20 23:39 Basophils # (Manual) 0.0 K/mm3 (0.0-0.1) 10/09/20 23:39 Metamyelocytes # 0.0 K/mm3 10/09/20 23:39 Myelocytes # 0.0 K/mm3 10/09/20 23:39 Promyelocytes # 0.0 K/mm3 10/09/20 23:39 Blast Cells # 0.0 K/mm3 10/09/20 23:39 WBC Morphology Not Reportable 10/09/20 23:39 Hypersegmented Neuts Not Reportable 10/09/20 23:39 Hyposegmented Neuts Not Reportable 10/09/20 23:39 Hypogranular Neuts Not Reportable 10/09/20 23:39 Smudge Cells Not Reportable 10/09/20 23:39 Toxic Granulation Not Reportable 10/09/20 23:39 Toxic Vacuolation Not Reportable 10/09/20 23:39 Dohle Bodies Not Reportable 10/09/20 23:39 Pelger-Huet Anomaly Not Reportable 10/09/20 23:39 Sly Rods Not Reportable 10/09/20 23:39 Platelet Estimate Consistent w auto 10/09/20 23:39 Clumped Platelets Not Reportable 10/09/20 23:39 Plt Clumps, EDTA Not Reportable 10/09/20 23:39 Large Platelets Not Reportable 10/09/20 23:39 Giant Platelets Not Reportable 10/09/20 23:39 Platelet Satelliting Not Reportable 10/09/20 23:39 Plt Morphology Comment Not Reportable 10/09/20 23:39 RBC Morphology Not Reportable 10/09/20 23:39 Dimorphic RBCs Not Reportable 10/09/20 23:39 Polychromasia Not Reportable 10/09/20 23:39 Hypochromasia Not Reportable 10/09/20 23:39 Poikilocytosis Not Reportable 10/09/20 23:39 Anisocytosis 1+ 10/09/20 23:39 Microcytosis Not Reportable 10/09/20 23:39 Macrocytosis Not Reportable 10/09/20 23:39 Spherocytes Not Reportable 10/09/20 23:39 Pappenheimer Bodies Not Reportable 10/09/20 23:39 Sickle Cells Not Reportable 10/09/20 23:39 Target Cells Not Reportable 10/09/20 23:39 Tear Drop Cells Not Reportable 10/09/20 23:39 Ovalocytes Not Reportable 10/09/20 23:39 Helmet Cells Not Reportable 10/09/20 23:39 Nava-E. Lopez Bodies Not Reportable 10/09/20 23:39 [place] Rings Not Reportable 10/09/20 23:39 [place] Cells Not Reportable 10/09/20 23:39 Bite Cells Not Reportable 10/09/20 23:39 Crenated Cell Not Reportable 10/09/20 23:39 Elliptocytes Not Reportable 10/09/20 23:39 Acanthocytes (Spur) Not Reportable 10/09/20 23:39 Rouleaux Not Reportable 10/09/20 23:39 Hemoglobin C Crystals Not Reportable 10/09/20 23:39 Schistocytes Not Reportable 10/09/20 23:39 Malaria parasites Not Reportable 10/09/20 23:39 Khai Bodies Not Reportable 10/09/20 23:39 Hem Pathologist Commnt No 10/09/20 23:39 Sodium 140 mmol/L (137-145) 10/09/20 23:39 Potassium 4.0 mmol/L (3.6-5.0) 10/09/20 23:39 Chloride 103.8 mmol/L (98-107) 10/09/20 23:39 Carbon Dioxide 18 mmol/L (22-30) L 10/09/20 23:39 Anion Gap 22 mmol/L 10/09/20 23:39 BUN 59 mg/dL (9-20) H 10/09/20 23:39 Creatinine 1.7 mg/dL (0.8-1.3) H 10/09/20 23:39 Estimated GFR 48 ml/min 10/09/20 23:39 BUN/Creatinine Ratio 35 % 10/09/20 23:39 Glucose 132 mg/dL (75-100) H 10/09/20 23:39 POC Glucose 84 mg/dL (70-105) 10/22/20 06:20 Hemoglobin A1c 6.5 % (4-6) H 10/09/20 23:39 Calcium 9.3 mg/dL (8.4-10.2) 10/09/20 23:39 Total Bilirubin 0.30 mg/dL (0.1-1.2) 10/09/20 23:39 AST 40 units/L (5-40) 10/09/20 23:39 ALT 25 units/L (7-56) 10/09/20 23:39 Alkaline Phosphatase 51 units/L (35-129) 10/09/20 23:39 Total Protein 6.1 g/dL (6.3-8.2) L 10/09/20 23:39 Albumin 3.6 g/dL (3.9-5) L 10/09/20 23:39 Albumin/Globulin Ratio 1.4 % 10/09/20 23:39 Triglycerides 235 mg/dL (2-149) H 10/09/20 23:39 Cholesterol 143 mg/dL (50-199) 10/09/20 23:39 LDL Cholesterol Direct 77 mg/dL (50-130) 10/09/20 23:39 HDL Cholesterol 28 mg/dL (40-59) L 10/09/20 23:39 Cholesterol/HDL Ratio 5.10 % 10/09/20 23:39 Coronavirus (PCR) Negative (Negative) 10/11/20 Unknown Last Vital Signs Temp 97.3 F L 10/21/20 22:00 Pulse 94 H 10/21/20 22:00 Resp 18 10/21/20 22:00 BP 139/83 10/21/20 22:00 Pulse Ox 100 10/21/20 22:00
[2020-10-22] MEDS: ASPIRIN 81 MG TAB CHEW PO SCH (10:10)
[2020-10-22] MEDS: CHOLECALCIFEROL (VIT D3) 1000 UNIT (25 mcg) TAB PO SCH (10:10)
[2020-10-22] MEDS: predniSONE 5 MG TAB PO SCH (10:10)
[2020-10-22] MEDS: DIVALPROEX DR 125 MG TAB PO SCH ×2 (10:10→21:19)
[2020-10-22] MEDS: OMEGA-3 FATTY ACIDS/FISH OIL 1 GRAM CAP PO SCH (10:10)
[2020-10-22] MEDS: MEMANTINE 10 MG TAB PO SCH ×2 (10:10→21:24)
[2020-10-22] MEDS: MULTIVITAMINS,THER W-MINERALS TAB PO SCH (10:10)
[2020-10-22] MEDS: NIFEdipine XL 60 MG TAB PO SCH (10:11)
[2020-10-22] MEDS: RANOLAZINE ER 500 MG TAB 12HR PO SCH ×2 (10:11→21:26)
[2020-10-22] MEDS: DOXAZOSIN 4 MG TAB PO SCH ×2 (10:11→21:17)
[2020-10-22] MEDS: allopurinoL 100 MG TAB PO SCH (10:11)
[2020-10-22] MEDS: FENOFIBRATE 145 MG TAB PO SCH (10:11)
[2020-10-22] MEDS: B COMPLEX W/VITAMIN C TAB PO SCH (10:11)
[2020-10-22] MEDS: CILOSTAZOL 100 MG TAB PO SCH ×2 (10:12→21:24)
[2020-10-22] MEDS: carvediloL 12.5 MG TAB PO SCH ×2 (10:12→21:18)
[2020-10-22] MEDS: MYCOPHENOLATE 250 MG CAP PO SCH ×2 (10:12→21:18)
[2020-10-22] MEDS: FUROSEMIDE 20 MG TAB PO SCH (12:24)
[2020-10-22] MEDS: LISINOPRIL 10 MG TAB PO SCH (12:24)
[2020-10-22] MEDS: DONEPEZIL 10 MG TAB PO SCH (21:16)
[2020-10-22] MEDS: INSULIN LISPRO 100 UNIT/ML SUB-Q SCH (21:21)
[2020-10-22] MEDS: PSYLLIUM SEED (WITH SUGAR) 3.4 GM PACKET PO SCH (21:23)
[2020-10-22] MEDS: PRIMIDONE 50 MG TAB PO SCH (21:24)
[2020-10-22] MEDS: SIROLIMUS 1 MG PO SCH (21:28)
--- NOTE | 2020-10-23 09:29 | Progress Note ---
Subjective Date of service: 10/23/20 Principal diagnosis: Dementia with Behavioral Disturbance Subjective Comment: 10/20/2020: The patient was seen today, he is sitting in the dayroom, calm and cooperative. He smiles at me and greets me. He is confused but pleasant. He denies SI/HI or hallucinations of any kind. 10/21/2020: I interviewed the patient this morning. Medical records reviewed and patient's progress was discussed with unit staff. Nursing staff reports that "last evening, the patient spent part of his time in the activity room. He was yelled at by a peer and he became anxious the rest of the evening. Staff stayed nearby for comfort and assisted him with talking to his . He was focused on being picked up to leave the hospital. The call with his assisted him to become calmer. His appetite was fair and he was medication compliant. Overnight it took him awhile to get to sleep. He slept after midnight for about 7 hours. Will continue to monitor patient for safety." In my interview with the patient this morning, the patient reports mood as "Ok". Appetite is good. Sleep last night was ok. Patient denies any suicidal/homicidal ideation and denies hallucinations. No changes made in treatment plan today. 10/22/2020: I interviewed the patient this morning. Medical records reviewed and patient's progress was discussed with unit staff. Nursing staff reports that patient " Last evening the patient was pleasantly confused. He interacted well with others even though they had difficulty following his thought process. He denies si/hi/ah/vh. His appetite is good and he is medication compliant. Overnight he rested quietly and slept 7 hours. He was awake over an hour at one time but stayed in bed. Will continue to monitor patient for safety. In my interview with the patient this morning, the patient seen in the activity room socializing with peers. He continues to present with some confusion. He reports mood as "good". Appetite is good. Sleep last night was good. He denies any current suicidal ideation and denies hallucinations. No changes to the treat plan today. 10/23/2020: The patient was seen in the activity room eating breakfast. Patient reports mood as" I am about even where I should be." He reports sleep and appetite as good. He denies any current suicidal/homicidal ideation and denies hallucinations. Per nurse, the patient had a quiet night. No changes made to treatment plan today. Reason for continued inpatient treatment: The patient is stable for discharge from a psych standpoint, but is awaiting placement. REVIEW OF SYSTEMS Constitutional: Negative for weight loss ENT: Negative for stridor Respiratory: Negative for cough or hemoptysis All other systems reviewed and are negative MENTAL STATUS EXAMINATION General Appearance and Behavior: Age appropriate, dressed appropriately, calm and cooperative Cooperation: Participating Psychomotor Behavior: psychomotor normal Mood:ok Affect and affective range: congruent with states mood Thought Process: goal directed Thought Content: obsessions Speech: Normal volume, Regular rate and rhythm, Intellectual Functioning: Average Suicidal Ideation: Denies Homicidal Ideation: Denies Hallucinations: Denies Delusions: None elicited Impulse Control: Impaired Insight and Judgment: Limited insight and judgment, Memory: Impaired Attention: Undivided Orientation: Alert, oriented Assessment and Plan (1) Dementia with Behavioral Disturbance Treatment Plan Patient admitted for inpatient psychiatric evaluation, medication adjustment and close monitoring The patient's behavior, mood, sleep and appetite will be closely monitored. Patient enrolled in individual and group therapeutic sessions and encouraged to attend. Patient provided with a safe and structured environment. Patient's physical health needs will be addressed by the Hospitalist. Hospitalist Consulted Labs including CBC, CMP, Lipid profile and Hemoglobin A1C levels ordered for baseline reference Social Assessment will be completed and the Screening Unit Registered Nurse will work with patie nt and family to ensure a suitable and safe disposition Medication adjustment will be made as clinically indicated No changes made Usual Wellness Sabianism/Preservation: - Start Trazodone 50 mg po QHS & 50 mg po QHS PRN between 10 PM & 2 AM for insomnia - Start Melatonin 5 mg po QHS to promote circadian rhythm - Start [place]-3 for brain health, reduce impulsivity, and as adjunctive treatment for mood disorder, continue upon discharge given overall benefits. - Start B1 prophylaxis with 200 mg po for 5 days The patient agreed on the treatment plan, understood the risk, benefit, alternative treatment, potential consequence of no treatment, and gave informed consent. Estimated days: 0 Post hospital care: primary care provider, psychiatric provider Medications and Allergies Allergies Allergy/AdvReac Type Severity Reaction Status Date / Time clopidogrel Allergy Swelling Verified 10/06/20 00:43 Home Medications Medication Instructions Recorded Confirmed Last Taken Type Aspirin [Aspirin BABY CHEW TAB] 81 mg PO QDAY 10/06/20 10/07/20 10/06/20 10:00 History Atorvastatin [Lipitor Tab] 80 mg PO QHS 10/06/20 10/07/20 10/06/20 22:00 History B-Complex with Vitamin C [Vitamin 1 tab PO DAILY 10/06/20 10/07/20 10/06/20 10:00 History B Complex-Vitamin C] Cholecalciferol (Vitamin D3) 1 tab PO DAILY 10/06/20 10/07/20 Unknown History [Vitamin D3 2,000 UNIT CAP] Donepezil HCl [Donepezil HCl Odt] 10 mg PO QHS 10/06/20 10/07/20 10/06/20 22:00 History Fenofibrate 160 mg PO DAILY 10/06/20 10/07/20 10/06/20 13:00 History Fiber 2 tab PO QHS 10/06/20 10/07/20 Unknown History Furosemide [Lasix] 20 mg PO QDAY 10/06/20 10/07/20 10/06/20 10:00 History Insulin Lispro [Humalog Kwikpen See Protocol SQ ACHS 10/06/20 10/07/20 Unknown History 200 UNITS/ML] Isosorbide Mononitrate [Isosorbide 30 mg PO QHS 10/06/20 10/07/20 10/06/20 22:00 History Mononitrate ER] LORazepam [Ativan] 0.5 mg PO BID PRN 10/06/20 10/07/20 Unknown History Lisinopril [Zestril TAB] 30 mg PO QDAY 10/06/20 10/07/20 10/06/20 10:00 History Memantine HCl 10 mg PO BID 10/06/20 10/07/20 10/06/20 22:00 History Mv,Ca,Min/FA/K1/Lycopene/Lutn [Eql 1 tab PO DAILY 10/06/20 10/07/20 10/05/20 History Century Mature Tablet] Mycophenolate [Cellcept] 2 tab PO BID 10/06/20 10/07/20 10/06/20 22:00 History NIFEdipine [Nifedipine ER] 60 mg PO DAILY 10/06/20 10/07/20 10/06/20 10:00 History OLANZapine [Zyprexa] 0.5 tab PO QHS 10/06/20 10/07/20 Unknown History [place]-3/Dha/Epa/Fish Oil [[place] 3 1,000 mg PO DAILY 10/06/20 10/07/20 Unknown History 500 Softgel] Primidone [Mysoline] 3 tab PO HS 10/06/20 10/07/20 10/06/20 22:00 History Ranolazine ER [Ranexa ER] 500 mg PO BID 10/06/20 10/07/20 10/06/20 22:00 History Sirolimus [Rapamune] 1 mg PO Q4W 10/06/20 10/07/20 10/05/20 History Sodium Bicarbonate 1 tab PO 3XW 10/06/20 10/07/20 10/05/20 10:00 History Sulfamethoxazole/Trimethoprim 1 each PO 4XW 10/06/20 10/07/20 10/05/20 History [Sulfamethoxazole-Tmp Ds Tablet] allopurinoL [Zyloprim] 100 mg PO 4XW 10/06/20 10/07/20 10/05/20 History carvediloL [Coreg] 12.5 mg PO BID 10/06/20 10/07/20 10/06/20 22:00 History cilostazoL [Pletal] 100 mg PO BID 10/06/20 10/07/20 10/06/20 22:00 History glipiZIDE XL [Glucotrol Xl] 10 mg PO QHS 10/06/20 10/07/20 10/06/20 22:00 History predniSONE [Deltasone] 5 mg PO QDAY 10/06/20 10/07/20 10/06/20 22:00 History Divalproex [Jak NUR] 125 mg PO BID 10/07/20 10/07/20 10/06/20 22:00 Hi story Doxazosin [Cardura] 4 mg PO BID 10/07/20 10/07/20 10/06/20 22:00 History Multivitamin Tab W-MINERAL 1 each PO QD 10/07/20 10/07/20 10/06/20 10:00 History [Multiple Vitamin/Mineral (Theragran M)] Active Meds: Active Medications Allopurinol (Allopurinol 100 Mg Tab) 100 mg PO [facility] Admin: 10/22/20 10:11 Dose: 100 mg Documented by: Aspirin (Aspirin 81 Mg Tab Chew) 81 mg PO QDAY [facility] Last Admin: 10/22/20 10:10 Dose: 81 mg Documented by: Atorvastatin Calcium (Atorvastatin 40 Mg Tab) 80 mg PO QHS [facility] Last Admin: 10/22/20 21:23 Dose: 80 mg Documented by: Carvedilol (Carvedilol 12.5 Mg Tab) 12.5 mg PO BID [facility] Last Admin: 10/22/20 21:18 Dose: 12.5 mg Documented by: Cholecalciferol (Cholecalciferol (Vit D3) 1000 Unit (25 Mcg) Tab) 2,000 unit PO QDAY [facility] Last Admin: 10/22/20 10:10 Dose: 2,000 unit Documented by: Cilostazol (Cilostazol 100 Mg Tab) 100 mg PO BID [facility] Last Admin: 10/22/20 21:24 Dose: 100 mg Documented by: Divalproex Sodium (Divalproex Dr 125 Mg Tab) 125 mg PO BID [facility] Last Admin: 10/22/20 21:19 Dose: 125 mg Documented by: Donepezil HCl (Donepezil 10 Mg Tab) 10 mg PO QHS [facility] Last Admin: 10/22/20 21:16 Dose: 10 mg Documented by: Doxazosin Mesylate (Doxazosin 4 Mg Tab) 4 mg PO BID [facility] Last Admin: 10/22/20 21:17 Dose: 4 mg Documented by: Fenofibrate (Fenofibrate 145 Mg Tab) 145 mg PO DAILY [facility] Last Admin: 10/22/20 10:11 Dose: 145 mg Documented by: Fish Oil ([place]-3 Fatty Acids/Fish Oil 1 Gram Cap) 1,000 mg PO DAILY [facility] Last Admin: 10/22/20 10:10 Dose: 1,000 mg Documented by: Furosemide (Furosemide 20 Mg Tab) 20 mg PO QDAY [facility] Last Admin: 10/22/20 12:24 Dose: 20 mg Documented by: Glipizide (Glipizide Xl 10 Mg Tab) 10 mg PO QHS [facility] Last Admin: 10/22/20 21:20 Dose: 10 mg Documented by: Insulin Human Lispro (Insulin Lispro 100 Unit/Ml) 0 unit SUB-Q QHS [facility]; Protocol Last Admin: 10/22/20 21:21 Dose: Not Given Documented by: Isosorbide Mononitrate (Isosorbide Mononitrate Er 30 Mg Tab) 30 mg PO QHS [facility] Last Admin: 10/22/20 21:22 Dose: 30 mg Documented by: Lisinopril (Lisinopril 10 Mg Tab) 30 mg PO QDAY [facility] Last Admin: 10/22/20 12:24 Dose: 30 mg Documented by: Lorazepam (Lorazepam 0.5 Mg Tab) 0.5 mg PO BID PRN PRN Reason: Anxiety Memantine (Memantine 10 Mg Tab) 10 mg PO BID [facility] Last Admin: 10/22/20 21:24 Dose: 10 mg Documented by: Multivitamins/Minerals (Multivitamins,Ther W-Minerals Tab) 1 each PO QDAY [facility] Last Admin: 10/22/20 10:10 Dose: 1 each Documented by: Mycophenolate Mofetil (Mycophenolate 250 Mg Cap) 500 mg PO BID [facility] Last Admin: 10/22/20 21:18 Dose: 500 mg Documented by: Nifedipine (Nifedipine Xl 60 Mg Tab) 60 mg PO DAILY [facility] Last Admin: 10/22/20 10:11 Dose: 60 mg Documented by: Olanzapine (Olanzapine 5 Mg Tab) 2.5 mg PO QHS [facility] Last Admin: 10/22/20 21:27 Dose: 2.5 mg Documented by: Prednisone (Prednisone 5 Mg Tab) 5 mg PO QDAY [facility] Last Admin: 10/22/20 10:10 Dose: 5 mg Documented by: Primidone (Primidone 50 Mg Tab) 150 mg PO QHS [facility] Last Admin: 10/22/20 21:24 Dose: 150 mg Documented by: Psyllium Hydrophilic Mucilloid (Psyllium Seed (With Sugar) 3.4 Gm Packet) 1 each PO QHS [facility] Last Admin: 10/22/20 21:23 Dose: 1 each Documented by: Ranolazine (Ranolazine Er 500 Mg Tab 12hr) 500 mg PO BID [facility] Last Admin: 10/22/20 21:26 Dose: 500 mg Documented by: Sirolimus (Sirolimus (Nf) 1 Mg Tab) 2 mg PO SuTuThSa [facility] Last Admin: 10/22/20 21:28 Dose: 2 mg Documented by: Sirolimus (Sirolimus (Nf) 1 Mg Tab) [facility] Admin: 10/21/20 21:01 Dose: 1 mg Documented by: Sodium Bicarbonate (Sodium Bicarbonate 650 Mg Tab) 650 [facility] Admin: 10/21/20 09:09 Dose: 650 mg Documented by: Vitamin B Complex/Vitamin C (B Complex W/Vitamin C Tab) 1 each PO DAILY [facility] Last Admin: 10/22/20 10:11 Dose: 1 each Documented by: Results - Results Labs/Vitals: Laboratory Last Values WBC 6.4 K/mm3 (4.5-11.0) 10/09/20 23:39 RBC 3.63 M/mm3 (3.65-5.03) L 10/09/20 23:39 Hgb 10.2 gm/dl (11.8-15.2) L 10/09/20 23:39 Hct 30.4 % (35.5-45.6) L 10/09/20 23:39 MCV 84 fl (84-94) 10/09/20 23:39 MCH 28 pg (28-32) 10/09/20 23:39 MCHC 34 % (32-34) 10/09/20 23:39 RDW 15.0 % (13.2-15.2) 10/09/20 23:39 Plt Count 262 K/mm3 (140-440) 10/09/20 23:39 [place] % (Auto) Hand Ii Blocker 10/09/20 23:39 Add Manual Diff Complete 10/09/20 23:39 Total Counted 100 10/09/20 23:39 Seg Neuts % (Manual) 72.0 % (40.0-70.0) H 10/09/20 23:39 Lymphocytes % (Manual) 18.0 % (13.4-35.0) 10/09/20 23:39 Monocytes % (Manual) 8.0 % (0.0-7.3) H 10/09/20 23:39 Eosinophils % (Manual) 2.0 % (0.0-4.3) 10/09/20 23:39 Nucleated RBC % Not Reportable 10/09/20 23:39 Seg Neutrophils # Man 4.6 K/mm3 (1.8-7.7) 10/09/20 23:39 Band Neutrophils # 0.0 K/mm3 10/09/20 23:39 Lymphocytes # (Manual) 1.2 K/mm3 (1.2-5.4) 10/09/20 23:39 Abs React Lymphs (Man) 0.0 K/mm3 10/09/20 23:39 Monocytes # (Manual) 0.5 K/mm3 (0.0-0.8) 10/09/20 23:39 Eosinophils # (Manual) 0.1 K/mm3 (0.0-0.4) 10/09/20 23:39 Basophils # (Manual) 0.0 K/mm3 (0.0-0.1) 10/09/20 23:39 Metamyelocytes # 0.0 K/mm3 10/09/20 23:39 Myelocytes # 0.0 K/mm3 10/09/20 23:39 Promyelocytes # 0.0 K/mm3 10/09/20 23:39 Blast Cells # 0.0 K/mm3 10/09/20 23:39 WBC Morphology Not Reportable 10/09/20 23:39 Hypersegmented Neuts Not Reportable 10/09/20 23:39 Hyposegmented Neuts Not Reportable 10/09/20 23:39 Hypogranular Neuts Not Reportable 10/09/20 23:39 Smudge Cells Not Reportable 10/09/20 23:39 Toxic Granulation Not Reportable 10/09/20 23:39 Toxic Vacuolation Not Reportable 10/09/20 23:39 Dohle Bodies Not Reportable 10/09/20 23:39 Pelger-Huet Anomaly Not Reportable 10/09/20 23:39 Sly Rods Not Reportable 10/09/20 23:39 Platelet Estimate Consistent w auto 10/09/20 23:39 Clumped Platelets Not Reportable 10/09/20 23:39 Plt Clumps, EDTA Not Reportable 10/09/20 23:39 Large Platelets Not Reportable 10/09/20 23:39 Giant Platelets Not Reportable 10/09/20 23:39 Platelet Satelliting Not Reportable 10/09/20 23:39 Plt Morphology Comment Not Reportable 10/09/20 23:39 RBC Morphology Not Reportable 10/09/20 23:39 Dimorphic RBCs Not Reportable 10/09/20 23:39 Polychromasia Not Reportable 10/09/20 23:39 Hypochromasia Not Reportable 10/09/20 23:39 Poikilocytosis Not Reportable 10/09/20 23:39 Anisocytosis 1+ 10/09/20 23:39 Microcytosis Not Reportable 10/09/20 23:39 Macrocytosis Not Reportable 10/09/20 23:39 Spherocytes Not Reportable 10/09/20 23:39 Pappenheimer Bodies Not Reportable 10/09/20 23:39 Sickle Cells Not Reportable 10/09/20 23:39 Target Cells Not Reportable 10/09/20 23:39 Tear Drop Cells Not Reportable 10/09/20 23:39 Ovalocytes Not Reportable 10/09/20 23:39 Helmet Cells Not Reportable 10/09/20 23:39 [place] Bodies Not Reportable 10/09/20 23:39 Canjilon Rings Not Reportable 10/09/20 23:39 [place] Cells Not Reportable 10/09/20 23:39 Bite Cells Not Reportable 10/09/20 23:39 Crenated Cell Not Reportable 10/09/20 23:39 Elliptocytes Not Reportable 10/09/20 23:39 Acanthocytes (Spur) Not Reportable 10/09/20 23:39 Rouleaux Not Reportable 10/09/20 23:39 Hemoglobin C Crystals Not Reportable 10/09/20 23:39 Schistocytes Not Reportable 10/09/20 23:39 Malaria parasites Not Reportable 10/09/20 23:39 Khai Bodies Not Reportable 10/09/20 23:39 Hem Pathologist Commnt No 10/09/20 23:39 Sodium 140 mmol/L (137-145) 10/09/20 23:39 Potassium 4.0 mmol/L (3.6-5.0) 10/09/20 23:39 Chloride 103.8 mmol/L (98-107) 10/09/20 23:39 Carbon Dioxide 18 mmol/L (22-30) L 10/09/20 23:39 Anion Gap 22 mmol/L 10/09/20 23:39 BUN 59 mg/dL (9-20) H 10/09/20 23:39 Creatinine 1.7 mg/dL (0.8-1.3) H 10/09/20 23:39 Estimated GFR 48 ml/min 10/09/20 23:39 BUN/Creatinine Ratio 35 % 10/09/20 23:39 Glucose 132 mg/dL (75-100) H 10/09/20 23:39 POC Glucose 75 mg/dL (70-105) 10/23/20 07:38 Hemoglobin A1c 6.5 % (4-6) H 10/09/20 23:39 Calcium 9.3 mg/dL (8.4-10.2) 10/09/20 23:39 Total Bilirubin 0.30 mg/dL (0.1-1.2) 10/09/20 23:39 AST 40 units/L (5-40) 10/09/20 23:39 ALT 25 units/L (7-56) 10/09/20 23:39 Alkaline Phosphatase 51 units/L (35-129) 10/09/20 23:39 Total Protein 6.1 g/dL (6.3-8.2) L 10/09/20 23:39 Albumin 3.6 g/dL (3.9-5) L 10/09/20 23:39 Albumin/Globulin Ratio 1.4 % 10/09/20 23:39 Triglycerides 235 mg/dL (2-149) H 10/09/20 23:39 Cholesterol 143 mg/dL (50-199) 10/09/20 23:39 LDL Cholesterol Direct 77 mg/dL (50-130) 10/09/20 23:39 HDL Cholesterol 28 mg/dL (40-59) L 10/09/20 23:39 Cholesterol/HDL Ratio 5.10 % 10/09/20 23:39 Coronavirus (PCR) Negative (Negative) 10/11/20 Unknown Last Vital Signs Temp 97.6 F 10/22/20 22:00 Pulse 96 H 10/22/20 22:00 Resp 20 10/22/20 22:00 BP 135/83 10/22/20 22:00 Pulse Ox 98 10/22/20 22:00
[2020-10-23] MEDS: CHOLECALCIFEROL (VIT D3) 1000 UNIT (25 mcg) TAB PO SCH (10:45)
[2020-10-23] MEDS: ASPIRIN 81 MG TAB CHEW PO SCH (11:14)
[2020-10-23] MEDS: DIVALPROEX DR 125 MG TAB PO SCH ×2 (11:14→22:20)
[2020-10-23] MEDS: DOXAZOSIN 4 MG TAB PO SCH ×2 (11:14→22:19)
[2020-10-23] MEDS: FENOFIBRATE 145 MG TAB PO SCH (11:14)
[2020-10-23] MEDS: MEMANTINE 10 MG TAB PO SCH ×2 (11:15→22:45)
[2020-10-23] MEDS: RANOLAZINE ER 500 MG TAB 12HR PO SCH ×2 (11:15→22:30)
[2020-10-23] MEDS: MULTIVITAMINS,THER W-MINERALS TAB PO SCH (11:15)
[2020-10-23] MEDS: CILOSTAZOL 100 MG TAB PO SCH ×2 (11:15→22:29)
[2020-10-23] MEDS: OMEGA-3 FATTY ACIDS/FISH OIL 1 GRAM CAP PO SCH (11:15)
[2020-10-23] MEDS: LISINOPRIL 10 MG TAB PO SCH (11:15)
[2020-10-23] MEDS: allopurinoL 100 MG TAB PO SCH (11:15)
[2020-10-23] MEDS: carvediloL 12.5 MG TAB PO SCH ×2 (11:16→22:16)
[2020-10-23] MEDS: B COMPLEX W/VITAMIN C TAB PO SCH (11:16)
[2020-10-23] MEDS: FUROSEMIDE 20 MG TAB PO SCH (11:16)
[2020-10-23] MEDS: MYCOPHENOLATE 250 MG CAP PO SCH ×2 (11:17→22:19)
[2020-10-23] MEDS: NIFEdipine XL 60 MG TAB PO SCH (11:18)
[2020-10-23] MEDS: predniSONE 5 MG TAB PO SCH (11:18)
[2020-10-23] MEDS: DONEPEZIL 10 MG TAB PO SCH (22:20)
[2020-10-23] MEDS: PSYLLIUM SEED (WITH SUGAR) 3.4 GM PACKET PO SCH (22:28)
[2020-10-23] MEDS: PRIMIDONE 50 MG TAB PO SCH (22:32)
[2020-10-23] MEDS: SIROLIMUS 1 MG PO SCH (22:35)
[2020-10-24] MEDS: INSULIN LISPRO 100 UNIT/ML SUB-Q SCH ×2 (05:05→21:24)
--- NOTE | 2020-10-24 08:26 | Progress Note ---
Subjective Date of service: 10/24/20 Principal diagnosis: Dementia with Behavioral Disturbance Subjective Comment: 10/20/2020: The patient was seen today, he is sitting in the dayroom, calm and cooperative. He smiles at me and greets me. He is confused but pleasant. He denies SI/HI or hallucinations of any kind. 10/21/2020: I interviewed the patient this morning. Medical records reviewed and patient's progress was discussed with unit staff. Nursing staff reports that "last evening, the patient spent part of his time in the activity room. He was yelled at by a peer and he became anxious the rest of the evening. Staff stayed nearby for comfort and assisted him with talking to his . He was focused on being picked up to leave the hospital. The call with his assisted him to become calmer. His appetite was fair and he was medication compliant. Overnight it took him awhile to get to sleep. He slept after midnight for about 7 hours. Will continue to monitor patient for safety." In my interview with the patient this morning, the patient reports mood as "Ok". Appetite is good. Sleep last night was ok. Patient denies any suicidal/homicidal ideation and denies hallucinations. No changes made in treatment plan today. 10/22/2020: I interviewed the patient this morning. Medical records reviewed and patient's progress was discussed with unit staff. Nursing staff reports that patient " Last evening the patient was pleasantly confused. He interacted well with others even though they had difficulty following his thought process. He denies si/hi/ah/vh. His appetite is good and he is medication compliant. Overnight he rested quietly and slept 7 hours. He was awake over an hour at one time but stayed in bed. Will continue to monitor patient for safety. In my interview with the patient this morning, the patient seen in the activity room socializing with peers. He continues to present with some confusion. He reports mood as "good". Appetite is good. Sleep last night was good. He denies any current suicidal ideation and denies hallucinations. No changes to the treat plan today. 10/23/2020: The patient was seen in the activity room eating breakfast. Patient reports mood as" I am about even where I should be." He reports sleep and appetite as good. He denies any current suicidal/homicidal ideation and denies hallucinations. Per nurse, the patient had a quiet night. No changes made to treatment plan today. 10/24/2020: The patient was seen in the activity room. He reports doing well and states mood as "OK". per nurse, patient had a quiet night and no aggressive behavior reported. The patient reports sleep and appetite as good. he denies any current suicidal/homicidal ideation and denies hallucinations. No changes made today. Reason for continued inpatient treatment: The patient is stable for discharge from a psych standpoint, but is awaiting placement. REVIEW OF SYSTEMS Constitutional: Negative for weight loss ENT: Negative for stridor Respiratory: Negative for cough or hemoptysis All other systems reviewed and are negative MENTAL STATUS EXAMINATION General Appearance and Behavior: Age appropriate, dressed appropriately, calm and cooperative Cooperation: Participating Psychomotor Behavior: psychomotor normal Mood:"ok" Affect and affective range: congruent with states mood Thought Process: goal directed Thought Content: obsessions Speech: Normal volume, Regular rate and rhythm, Intellectual Functioning: Average Suicidal Ideation: Denies Homicidal Ideation: Denies Hallucinations: Denies Delusions: None elicited Impulse Control: Impaired Insight and Judgment: Limited insight and judgment, Memory: Impaired Attention: Undivided Orientation: Alert, oriented Assessment and Plan (1) Dementia with Behavioral Disturbance Treatment Plan Patient admitted for inpatient psychiatric evaluation, medication adjustment and close monitoring The patient's behavior, mood, sleep and appetite will be closely monitored. Patient enrolled in individual and group therapeutic sessions and encouraged to attend. Patient provided with a safe and structured environment. Patient's physical health needs will be addressed by the Hospitalist. Hospitalist Consulted Labs including CBC, CMP, Lipid profile and Hemoglobin A1C levels ordered for baseline reference Social Assessment will be completed and the [facility] will work with patient and family to ensure a suitable and safe disposition Medication adjustment will be made as clinically indicated No changes made Usual Wellness Yazidi/Preservation: - Start Trazodone 50 mg po QHS & 50 mg po QHS PRN between 10 PM & 2 AM for insomnia - Start Melatonin 5 mg po QHS to promote circadian rhythm - Start [place]-3 for brain health, reduce impulsivity, and as adjunctive treatment for mood disorder, continue upon discharge given overall benefits. - Start B1 prophylaxis with 200 mg po for 5 days The patient agreed on the treatment plan, understood the risk, benefit, alternative treatment, potential consequence of no treatment, and gave informed consent. Estimated days: 0 Post hospital care: primary care provider, psychiatric provider Medications and Allergies Allergies Allergy/AdvReac Type Severity Reaction Status Date / Time clopidogrel Allergy Swelling Verified 10/06/20 00:43 Home Medications Medication Instructions Recorded Confirmed Last Taken Type Aspirin [Aspirin BABY CHEW TAB] 81 mg PO QDAY 10/06/20 10/07/20 10/06/20 10:00 History Atorvastatin [Lipitor Tab] 80 mg PO QHS 10/06/20 10/07/20 10/06/20 22:00 History B-Complex with Vitamin C [Vitamin 1 tab PO DAILY 10/06/20 10/07/20 10/06/20 10:00 History B Complex-Vitamin C] Cholecalciferol (Vitamin D3) 1 tab PO DAILY 10/06/20 10/07/20 Unknown History [Vitamin D3 2,000 UNIT CAP] Donepezil HCl [Donepezil HCl Odt] 10 mg PO QHS 10/06/20 10/07/20 10/06/20 22:00 History Fenofibrate 160 mg PO DAILY 10/06/20 10/07/20 10/06/20 13:00 History Fiber 2 tab PO QHS 10/06/20 10/07/20 Unknown History Furosemide [Lasix] 20 mg PO QDAY 10/06/20 10/07/20 10/06/20 10:00 History Insulin Lispro [Humalog Kwikpen See Protocol SQ ACHS 10/06/20 10/07/20 Unknown History 200 UNITS/ML] Isosorbide Mononitrate [Isosorbide 30 mg PO QHS 10/06/20 10/07/20 10/06/20 22:00 History Mononitrate ER] LORazepam [Ativan] 0.5 mg PO BID PRN 10/06/20 10/07/20 Unknown History Lisinopril [Zestril TAB] 30 mg PO QDAY 10/06/20 10/07/20 10/06/20 10:00 History Memantine HCl 10 mg PO BID 10/06/20 10/07/20 10/06/20 22:00 History Mv,Ca,Min/FA/K1/Lycopene/Lutn [Eql 1 tab PO DAILY 10/06/20 10/07/20 10/05/20 History Century Mature Tablet] Mycophenolate [Cellcept] 2 tab PO BID 10/06/20 10/07/20 10/06/20 22:00 History NIFEdipine [Nifedipine ER] 60 mg PO DAILY 10/06/20 10/07/20 10/06/20 10:00 History OLANZapine [Zyprexa] 0.5 tab PO QHS 10/06/20 10/07/20 Unknown History [place]-3/Dha/Epa/Fish Oil [[place] 3 1,000 mg PO DAILY 10/06/20 10/07/20 Unknown History 500 Softgel] Primidone [Mysoline] 3 tab PO HS 10/06/20 10/07/20 10/06/20 22:00 History Ranolazine ER [Ranexa ER] 500 mg PO BID 10/06/20 10/07/20 10/06/20 22:00 History Sirolimus [Rapamune] 1 mg PO Q4W 10/06/20 10/07/20 10/05/20 History Sodium Bicarbonate 1 tab PO 3XW 10/06/20 10/07/20 10/05/20 10:00 History Sulfamethoxazole/Trimethoprim 1 each PO 4XW 10/06/20 10/07/20 10/05/20 History [Sulfamethoxazole-Tmp Ds Tablet] allopurinoL [Zyloprim] 100 mg PO 4XW 10/06/20 10/07/20 10/05/20 History carvediloL [Coreg] 12.5 mg PO BID 10/06/20 10/07/20 10/06/20 22:00 History cilostazoL [Pletal] 100 mg PO BID 10/06/20 10/07/20 10/06/20 22:00 History glipiZIDE XL [Glucotrol Xl] 10 mg PO QHS 10/06/20 10/07/20 10/06/20 22:00 History predniSONE [Deltasone] 5 mg PO QDAY 10/06/20 10/07/20 10/06/20 22:00 History Divalproex [Jak NUR] 125 mg PO BID 10/07/20 10/07/20 10/06/20 22:00 History Doxazosin [Cardura] 4 mg PO BID 10/07/20 10/07/20 10/06/20 22:00 History Multivitamin Tab W-MINERAL 1 each PO QD 0610/07/20 10/06/20 10:00 History [Multiple Vitamin/Mineral (Theragran M)] Active Meds: Active Medications Allopurinol (Allopurinol 100 Mg Tab) 100 mg PO SuTuThSa [facility] Last Admin: 10/23/20 11:15 Dose: 100 mg Documented by: Aspirin (Aspirin 81 Mg Tab Chew) 81 mg PO QDAY [facility] Last Admin: 10/23/20 11:14 Dose: 81 mg Documented by: Atorvastatin Calcium (Atorvastatin 40 Mg Tab) 80 mg PO QHS [facility] Last Admin: 10/23/20 22:19 Dose: 80 mg Documented by: Carvedilol (Carvedilol 12.5 Mg Tab) 12.5 mg PO BID [facility] Last Admin: 10/23/20 22:16 Dose: 12.5 mg Documented by: Cholecalciferol (Cholecalciferol (Vit D3) 1000 Unit (25 Mcg) Tab) 2,000 unit PO QDAY [facility] Last Admin: 10/23/20 10:45 Dose: 2,000 unit Documented by: Cilostazol (Cilostazol 100 Mg Tab) 100 mg PO BID [facility] Last Admin: 10/23/20 22:29 Dose: 100 mg Documented by: Divalproex Sodium (Divalproex Dr 125 Mg Tab) 125 mg PO BID [facility] Last Admin: 10/23/20 22:20 Dose: 125 mg Documented by: Donepezil HCl (Donepezil 10 Mg Tab) 10 mg PO QHS [facility] Last Admin: 10/23/20 22:20 Dose: 10 mg Documented by: Doxazosin Mesylate (Doxazosin 4 Mg Tab) 4 mg PO BID [facility] Last Admin: 10/23/20 22:19 Dose: 4 mg Documented by: Fenofibrate (Fenofibrate 145 Mg Tab) 145 mg PO DAILY [facility] Last Admin: 10/23/20 11:14 Dose: 145 mg Documented by: Fish Oil (K[place]michael-3 Fatty Acids/Fish Oil 1 Gram Cap) 1,000 mg PO DAILY [facility] Last Admin: 10/23/20 11:15 Dose: 1,000 mg Documented by: Furosemide (Furosemide 20 Mg Tab) 20 mg PO QDAY [facility] Last Admin: 10/23/20 11:16 Dose: 20 mg Documented by: Glipizide (Glipizide Xl 10 Mg Tab) 10 mg PO QHS [facility] Last Admin: 10/23/20 22:20 Dose: 10 mg Documented by: Insulin Human Lispro (Insulin Lispro 100 Unit/Ml) 0 unit SUB-Q QHS [facility]; Protocol Last Admin: 10/24/20 05:05 Dose: Not Given Documented by: Isosorbide Mononitrate (Isosorbide Mononitrate Er 30 Mg Tab) 30 mg PO QHS [facility] Last Admin: 10/23/20 22:21 Dose: 30 mg Documented by: Lisinopril (Lisinopril 10 Mg Tab) 30 mg PO QDAY [facility] Last Admin: 10/23/20 11:15 Dose: 30 mg Documented by: Lorazepam (Lorazepam 0.5 Mg Tab) 0.5 mg PO BID PRN PRN Reason: Anxiety Memantine (Memantine 10 Mg Tab) 10 mg PO BID [facility] Last Admin: 10/23/20 22:45 Dose: 10 mg Documented by: Multivitamins/Minerals (Multivitamins,Ther W-Minerals Tab) 1 each PO QDAY [facility] Last Admin: 10/23/20 11:15 Dose: 1 each Documented by: Mycophenolate Mofetil (Mycophenolate 250 Mg Cap) 500 mg PO BID [facility] Last Admin: 10/23/20 22:19 Dose: 500 mg Documented by: Nifedipine (Nifedipine Xl 60 Mg Tab) 60 mg PO DAILY [facility] Last Admin: 10/23/20 11:18 Dose: 60 mg Documented by: Olanzapine (Olanzapine 5 Mg Tab) 2.5 mg PO QHS [facility] Last Admin: 10/23/20 22:44 Dose: 2.5 mg Documented by: Prednisone (Prednisone 5 Mg Tab) 5 mg PO QDAY [facility] Last Admin: 10/23/20 11:18 Dose: 5 mg Documented by: Primidone (Primidone 50 Mg Tab) 150 mg PO QHS [facility] Last Admin: 10/23/20 22:32 Dose: 150 mg Documented by: Psyllium Hydrophilic Mucilloid (Psyllium Seed (With Sugar) 3.4 Gm Packet) 1 each PO QHS [facility] Last Admin: 10/23/20 22:28 Dose: 1 each Documented by: Ranolazine (Ranolazine Er 500 Mg Tab 12hr) 500 mg PO BID [facility] Last Admin: 10/23/20 22:30 Dose: 500 mg Documented by: Sirolimus (Sirolimus (Nf) 1 Mg Tab) 2 mg PO SuTuThSa [facility] Last Admin: 10/23/20 22:35 Dose: 2 mg Documented by: Sirolimus (Sirolimus (Nf) 1 Mg Tab) 1 mg PO MoWe [facility] Last Admin: 10/21/20 21:01 Dose: 1 mg Documented by: Sodium Bicarbonate (Sodium Bicarbonate 650 Mg Tab) 650 mg PO MoWe [facility] Last Admin: 10/21/20 09:09 Dose: 650 mg Documented by: Vitamin B Complex/Vitamin C (B Complex W/Vitamin C Tab) 1 each PO DAILY [facility] Last Admin: 10/23/20 11:16 Dose: 1 each Documented by: Results - Results Labs/Vitals: Laboratory Last Values WBC 6.4 K/mm3 (4.5-11.0) 10/09/20 23:39 RBC 3.63 M/mm3 (3.65-5.03) L 10/09/20 23:39 Hgb 10.2 gm/dl (11.8-15.2) L 10/09/20 23:39 Hct 30.4 % (35.5-45.6) L 10/09/20 23:39 MCV 84 fl (84-94) 10/09/20 23:39 MCH 28 pg (28-32) 10/09/20 23:39 MCHC 34 % (32-34) 10/09/20 23:39 RDW 15.0 % (13.2-15.2) 10/09/20 23:39 Plt Count 262 K/mm3 (140-440) 10/09/20 23:39 [place] % (Auto) [employer] Operator 10/09/20 23:39 Add Manual Diff Complete 10/09/20 23:39 Total Counted 100 10/09/20 23:39 Seg Neuts % (Manual) 72.0 % (40.0-70.0) H 10/09/20 23:39 Lymphocytes % (Manual) 18.0 % (13.4-35.0) 10/09/20 23:39 Monocytes % (Manual) 8.0 % (0.0-7.3) H 10/09/20 23:39 Eosinophils % (Manual) 2.0 % (0.0-4.3) 10/09/20 23:39 Nucleated RBC % Not Reportable 10/09/20 23:39 Seg Neutrophils # Man 4.6 K/mm3 (1.8-7.7) 10/09/20 23:39 Band Neutrophils # 0.0 K/mm3 10/09/20 23:39 Lymphocytes # (Manual) 1.2 K/mm3 (1.2-5.4) 10/09/20 23:39 Abs React Lymphs (Man) 0.0 K/mm3 10/09/20 23:39 Monocytes # (Manual) 0.5 K/mm3 (0.0-0.8) 10/09/20 23:39 Eosinophils # (Manual) 0.1 K/mm3 (0.0-0.4) 10/09/20 23:39 Basophils # (Manual) 0.0 K/mm3 (0.0-0.1) 10/09/20 23:39 Metamyelocytes # 0.0 K/mm3 10/09/20 23:39 Myelocytes # 0.0 K/mm3 10/09/20 23:39 Promyelocytes # 0.0 K/mm3 10/09/20 23:39 Blast Cells # 0.0 K/mm3 10/09/20 23:39 WBC Morphology Not Reportable 10/09/20 23:39 Hypersegmented Neuts Not Reportable 10/09/20 23:39 Hyposegmented Neuts Not Reportable 10/09/20 23:39 Hypogranular Neuts Not Reportable 10/09/20 23:39 Smudge Cells Not Reportable 10/09/20 23:39 Toxic Granulation Not Reportable 10/09/20 23:39 Toxic Vacuolation Not Reportable 10/09/20 23:39 Dohle Bodies Not Reportable 10/09/20 23:39 Pelger-Huet Anomaly Not Reportable 10/09/20 23:39 Sly Rods Not Reportable 10/09/20 23:39 Platelet Estimate Consistent w auto 10/09/20 23:39 Clumped Platelets Not Reportable 10/09/20 23:39 Plt Clumps, EDTA Not Reportable 10/09/20 23:39 Large Platelets Not Reportable 10/09/20 23:39 Giant Platelets Not Reportable 10/09/20 23:39 Platelet Satelliting Not Reportable 10/09/20 23:39 Plt Morphology Comment Not Reportable 10/09/20 23:39 RBC Morphology Not Reportable 10/09/20 23:39 Dimorphic RBCs Not Reportable 10/09/20 23:39 Polychromasia Not Reportable 10/09/20 23:39 Hypochromasia Not Reportable 10/09/20 23:39 Poikilocytosis Not Reportable 10/09/20 23:39 Anisocytosis 1+ 10/09/20 23:39 Microcytosis Not Reportable 10/09/20 23:39 Macrocytosis Not Reportable 10/09/20 23:39 Spherocytes Not Reportable 10/09/20 23:39 Pappenheimer Bodies Not Reportable 10/09/20 23:39 Sickle Cells Not Reportable 10/09/20 23:39 Target Cells Not Reportable 10/09/20 23:39 Tear Drop Cells Not Reportable 10/09/20 23:39 Ovalocytes Not Reportable 10/09/20 23:39 Helmet Cells Not Reportable 10/09/20 23:39 [place] Bodies Not Reportable 10/09/20 23:39 [place] Rings Not Reportable 10/09/20 23:39 Johnnie Cells Not Reportable 10/09/20 23:39 Bite Cells Not Reportable 10/09/20 23:39 Crenated Cell Not Reportable 10/09/20 23:39 Elliptocytes Not Reportable 10/09/20 23:39 Acanthocytes (Spur) Not Reportable 10/09/20 23:39 Rouleaux Not Reportable 10/09/20 23:39 Hemoglobin C Crystals Not Reportable 10/09/20 23:39 Schistocytes Not Reportable 10/09/20 23:39 Malaria parasites Not Reportable 10/09/20 23:39 Khai Bodies Not Reportable 10/09/20 23:39 Hem Pathologist Commnt No 10/09/20 23:39 Sodium 140 mmol/L (137-145) 10/09/20 23:39 Potassium 4.0 mmol/L (3.6-5.0) 10/09/20 23:39 Chloride 103.8 mmol/L (98-107) 10/09/20 23:39 Carbon Dioxide 18 mmol/L (22-30) L 10/09/20 23:39 Anion Gap 22 mmol/L 10/09/20 23:39 BUN 59 mg/dL (9-20) H 10/09/20 23:39 Creatinine 1.7 mg/dL (0.8-1.3) H 10/09/20 23:39 Estimated GFR 48 ml/min 10/09/20 23:39 BUN/Creatinine Ratio 35 % 10/09/20 23:39 Glucose 132 mg/dL (75-100) H 10/09/20 23:39 POC Glucose 101 mg/dL (70-105) 10/24/20 06:21 Hemoglobin A1c 6.5 % (4-6) H 10/09/20 23:39 Calcium 9.3 mg/dL (8.4-10.2) 10/09/20 23:39 Total Bilirubin 0.30 mg/dL (0.1-1.2) 10/09/20 23:39 AST 40 units/L (5-40) 10/09/20 23:39 ALT 25 units/L (7-56) 10/09/20 23:39 Alkaline Phosphatase 51 units/L (35-129) 10/09/20 23:39 Total Protein 6.1 g/dL (6.3-8.2) L 10/09/20 23:39 Albumin 3.6 g/dL (3.9-5) L 10/09/20 23:39 Albumin/Globulin Ratio 1.4 % 10/09/20 23:39 Triglycerides 235 mg/dL (2-149) H 10/09/20 23:39 Cholesterol 143 mg/dL (50-199) 10/09/20 23:39 LDL Cholesterol Direct 77 mg/dL (50-130) 10/09/20 23:39 HDL Cholesterol 28 mg/dL (40-59) L 10/09/20 23:39 Cholesterol/HDL Ratio 5.10 % 10/09/20 23:39 Coronavirus (PCR) Negative (Negative) 10/11/20 Unknown Last Vital Signs Temp 97.4 F L 10/23/20 19:43 Pulse 92 H 10/23/20 22:21 Resp 20 10/23/20 19:43 BP 140/78 10/23/20 22:21 Pulse Ox 99 10/23/20 19:43
[2020-10-24] MEDS: ASPIRIN 81 MG TAB CHEW PO SCH (09:13)
[2020-10-24] MEDS: OMEGA-3 FATTY ACIDS/FISH OIL 1 GRAM CAP PO SCH (09:13)
[2020-10-24] MEDS: SODIUM BICARBONATE 650 MG TAB PO SCH (09:13)
[2020-10-24] MEDS: predniSONE 5 MG TAB PO SCH (09:13)
[2020-10-24] MEDS: FENOFIBRATE 145 MG TAB PO SCH (09:13)
[2020-10-24] MEDS: MULTIVITAMINS,THER W-MINERALS TAB PO SCH (09:13)
[2020-10-24] MEDS: NIFEdipine XL 60 MG TAB PO SCH (09:14)
[2020-10-24] MEDS: CHOLECALCIFEROL (VIT D3) 1000 UNIT (25 mcg) TAB PO SCH (09:14)
[2020-10-24] MEDS: FUROSEMIDE 20 MG TAB PO SCH (09:14)
[2020-10-24] MEDS: MYCOPHENOLATE 250 MG CAP PO SCH ×2 (09:14→21:20)
[2020-10-24] MEDS: B COMPLEX W/VITAMIN C TAB PO SCH (09:14)
[2020-10-24] MEDS: DIVALPROEX DR 125 MG TAB PO SCH ×2 (09:14→21:20)
[2020-10-24] MEDS: MEMANTINE 10 MG TAB PO SCH ×2 (09:14→21:20)
[2020-10-24] MEDS: CILOSTAZOL 100 MG TAB PO SCH ×2 (09:14→21:20)
[2020-10-24] MEDS: RANOLAZINE ER 500 MG TAB 12HR PO SCH ×2 (09:14→21:19)
[2020-10-24] MEDS: LISINOPRIL 10 MG TAB PO SCH (09:15)
[2020-10-24] MEDS: DOXAZOSIN 4 MG TAB PO SCH ×2 (09:15→21:22)
[2020-10-24] MEDS: carvediloL 12.5 MG TAB PO SCH ×2 (10:21→21:23)
[2020-10-24] MEDS: DONEPEZIL 10 MG TAB PO SCH (21:19)
[2020-10-24] MEDS: PRIMIDONE 50 MG TAB PO SCH (21:20)
[2020-10-24] MEDS: PSYLLIUM SEED (WITH SUGAR) 3.4 GM PACKET PO SCH (21:20)
[2020-10-24] MEDS: SIROLIMUS 1 MG PO SCH (21:21)
--- NOTE | 2020-10-25 08:10 | Progress Note ---
Subjective Date of service: 10/25/20 Principal diagnosis: Dementia with Behavioral Disturbance Subjective Comment: 10/20/2020: The patient was seen today, he is sitting in the dayroom, calm and cooperative. He smiles at me and greets me. He is confused but pleasant. He denies SI/HI or hallucinations of any kind. 10/21/2020: I interviewed the patient this morning. Medical records reviewed and patient's progress was discussed with unit staff. Nursing staff reports that "last evening, the patient spent part of his time in the activity room. He was yelled at by a peer and he became anxious the rest of the evening. Staff stayed nearby for comfort and assisted him with talking to his . He was focused on being picked up to leave the hospital. The call with his assisted him to become calmer. His appetite was fair and he was medication compliant. Overnight it took him awhile to get to sleep. He slept after midnight for about 7 hours. Will continue to monitor patient for safety." In my interview with the patient this morning, the patient reports mood as "Ok". Appetite is good. Sleep last night was ok. Patient denies any suicidal/homicidal ideation and denies hallucinations. No changes made in treatment plan today. 10/22/2020: I interviewed the patient this morning. Medical records reviewed and patient's progress was discussed with unit staff. Nursing staff reports that patient " Last evening the patient was pleasantly confused. He interacted well with others even though they had difficulty following his thought process. He denies si/hi/ah/vh. His appetite is good and he is medication compliant. Overnight he rested quietly and slept 7 hours. He was awake over an hour at one time but stayed in bed. Will continue to monitor patient for safety. In my interview with the patient this morning, the patient seen in the activity room socializing with peers. He continues to present with some confusion. He reports mood as "good". Appetite is good. Sleep last night was good. He denies any current suicidal ideation and denies hallucinations. No changes to the treat plan today. 10/23/2020: The patient was seen in the activity room eating breakfast. Patient reports mood as" I am about even where I should be." He reports sleep and appetite as good. He denies any current suicidal/homicidal ideation and denies hallucinations. Per nurse, the patient had a quiet night. No changes made to treatment plan today. 10/24/2020: The patient was seen in the activity room. He reports doing well and states mood as "OK". per nurse, patient had a quiet night and no aggressive behavior reported. The patient reports sleep and appetite as good. he denies any current suicidal/homicidal ideation and denies hallucinations. No changes made today. 10/25/2020: The patient seen eating breakfast in the activity room. he continue to confused. He states mood as good. No aggressive behavior reported. He denies any current suicidal/homicdal ideation and denies hallucinations. Per nurse, "pt spent the evening in activity room watching, confused, and forgetful, medication compliant, ate about 50mg of snack, able to make needs known, refused to sleep in his room, pt was wandering the hallway, javier chair was brought for pt on the hallway, he sat down, and slept off and on, slept for 4hrs , currently sleeping in javier chair, no distress noted, will continue to monitor for safety." No changes made to the treatment plan today. Reason for continued inpatient treatment: The patient is stable for discharge from a psych standpoint, but is awaiting placement. REVIEW OF SYSTEMS Constitutional: Negative for weight loss ENT: Negative for stridor Respiratory: Negative for cough or hemoptysis All other systems reviewed and are negative MENTAL STATUS EXAMINATION General Appearance and Behavior: Age appropriate, dressed appropriately, calm and cooperative Cooperation: Participating Psychomotor Behavior: psychomotor normal Mood:"good" Affect and affective range: congruent with states mood Thought Process: goal directed Thought Content: obsessions Speech: Normal volume, Regular rate and rhythm, Intellectual Functioning: Average Suicidal Ideation: Denies Homicidal Ideation: Denies Hallucinations: Denies Delusions: None elicited Impulse Control: Impaired Insight and Judgment: Limited insight and judgment, Memory: Impaired Attention: Undivided Orientation: Alert, oriented Assessment and Plan (1) Dementia with Behavioral Disturbance Treatment Plan Patient admitted for inpatient psychiatric evaluation, medication adjustment and close monitoring The patient's behavior, mood, sleep and appetite will be closely monitored. Patient enrolled in individual and group therapeutic sessions and encouraged to attend. Patient provided with a safe and structured environment. Patient's physical health needs will be addressed by the Hospitalist. Hospitalist Consulted Labs including CBC, CMP, Lipid profile and Hemoglobin A1C levels ordered for baseline reference Social Assessment will be completed and the Merchandise Executive will work with patient and family to ensure a suitable and safe disposition Medication adjustment will be made as clinically indicated No changes made Usual Wellness Protestant/Preservation: - Start Trazodone 50 mg po QHS & 50 mg po QHS PRN between 10 PM & 2 AM for insomnia - Start Melatonin 5 mg po QHS to promote circadian rhythm - Start [place]-3 for brain health, reduce impulsivity, and as adjunctive treatment for mood disorder, continue upon discharge given overall benefits. - Start B1 prophylaxis with 200 mg po for 5 days The patient agreed on the treatment plan, understood the risk, benefit, alternative treatment, potential consequence of no treatment, and gave informed consent. Estimated days: 0 Post hospital care: primary care provider, psychiatric provider Medications and Allergies Allergies Allergy/AdvReac Type Severity Reaction Status Date / Time clopidogrel Allergy Swelling Verified 10/06/20 00:43 Home Medications Medication Instructions Recorded Confirmed Last Taken Type Aspirin [Aspirin BABY CHEW TAB] 81 mg PO QDAY 10/06/20 10/07/20 10/06/20 10:00 History Atorvastatin [Lipitor Tab] 80 mg PO QHS 10/06/20 10/07/20 10/06/20 22:00 History B-Complex with Vitamin C [Vitamin 1 tab PO DAILY 10/06/20 10/07/20 10/06/20 10:00 History B Complex-Vitamin C] Cholecalciferol (Vitamin D3) 1 tab PO DAILY 10/06/20 10/07/20 Unknown History [Vitamin D3 2,000 UNIT CAP] Donepezil HCl [Donepezil HCl Odt] 10 mg PO QHS 10/06/20 10/07/20 10/06/20 22:00 History Fenofibrate 160 mg PO DAILY 10/06/20 10/07/20 10/06/20 13:00 History Fiber 2 tab PO QHS 10/06/20 10/07/20 Unknown History Furosemide [Lasix] 20 mg PO QDAY 10/06/20 10/07/20 10/06/20 10:00 History Insulin Lispro [Humalog Kwikpen See Protocol SQ ACHS 10/06/20 10/07/20 Unknown History 200 UNITS/ML] Isosorbide Mononitrate [Isosorbide 30 mg PO QHS 10/06/20 10/07/20 10/06/20 22:00 History Mononitrate ER] LORazepam [Ativan] 0.5 mg PO BID PRN 10/06/20 10/07/20 Unknown History Lisinopril [Zestril TAB] 30 mg PO QDAY 10/06/20 10/07/20 10/06/20 10:00 History Memantine HCl 10 mg PO BID 10/06/20 10/07/20 10/06/20 22:00 History Mv,Ca,Min/FA/K1/Lycopene/Lutn [Eql 1 tab PO DAILY 10/06/20 10/07/20 10/05/20 History Century Mature Tablet] Mycophenolate [Cellcept] 2 tab PO BID 10/06/20 10/07/20 10/06/20 22:00 History NIFEdipine [Nifedipine ER] 60 mg PO DAILY 10/06/20 10/07/20 10/06/20 10:00 History OLANZapine [Zyprexa] 0.5 tab PO QHS 10/06/20 10/07/20 Unknown History [place]-3/Dha/Epa/Fish Oil [[place] 3 1,000 mg PO DAILY 10/06/20 10/07/20 Unknown History 500 Softgel] Primidone [Mysoline] 3 tab PO HS 10/06/20 10/07/20 10/06/20 22:00 History Ranolazine ER [Ranexa ER] 500 mg PO BID 10/06/20 10/07/20 10/06/20 22:00 History Sirolimus [Rapamune] 1 mg PO Q4W 10/06/20 10/07/20 10/05/20 History Sodium Bicarbonate 1 tab PO 3XW 10/06/20 10/07/20 10/05/20 10:00 History Sulfamethoxazole/Trimethoprim 1 each PO 4XW 10/06/20 10/07/20 10/05/20 History [Sulfamethoxazole-Tmp Ds Tablet] allopurinoL [Zyloprim] 100 mg PO 4XW 10/06/20 10/07/20 10/05/20 History carvediloL [Coreg] 12.5 mg PO BID 10/06/20 10/07/20 10/06/20 22:00 History cilostazoL [Pletal] 100 mg PO BID 0610/07/20 10/06/20 22:00 History glipiZIDE XL [Glucotrol Xl] 10 mg PO QHS 10/06/20 10/07/20 10/06/20 22:00 History predniSONE [Deltasone] 5 mg PO QDAY 10/06/20 10/07/20 10/06/20 22:[address] [DepaKOTE DR] 125 mg PO BID 10/07/20 10/07/20 10/06/20 22:00 History Doxazosin [Cardura] 4 mg PO BID 10/07/20 10/07/20 10/06/20 22:00 History Multivitamin Tab W-MINERAL 1 each PO QD 10/07/20 10/07/20 10/06/20 10:00 History [Multiple Vitamin/Mineral (Theragran M)] Active Meds: Active Medications Allopurinol (Allopurinol 100 Mg Tab) 100 mg PO [facility] Last Admin: 10/23/20 11:15 Dose: 100 mg Documented by: Aspirin (Aspirin 81 Mg Tab Chew) 81 mg PO QDAY [facility] Last Admin: 10/24/20 09:13 Dose: 81 mg Documented by: Atorvastatin Calcium (Atorvastatin 40 Mg Tab) 80 mg PO QHS [facility] Last Admin: 10/24/20 21:19 Dose: 80 mg Documented by: Carvedilol (Carvedilol 12.5 Mg Tab) 12.5 mg PO BID [facility] Last Admin: 10/24/20 21:23 Dose: 12.5 mg Documented by: Cholecalciferol (Cholecalciferol (Vit D3) 1000 Unit (25 Mcg) Tab) 2,000 unit PO QDAY [facility] Last Admin: 10/24/20 09:14 Dose: 2,000 unit Documented by: Cilostazol (Cilostazol 100 Mg Tab) 100 mg PO BID [facility] Last Admin: 10/24/20 21:20 Dose: 100 mg Documented by: Divalproex Sodium (Divalproex Dr 125 Mg Tab) 125 mg PO BID [facility] Last Admin: 10/24/20 21:20 Dose: 125 mg Documented by: Donepezil HCl (Donepezil 10 Mg Tab) 10 mg PO QHS [facility] Last Admin: 10/24/20 21:19 Dose: 10 mg Documented by: Doxazosin Mesylate (Doxazosin 4 Mg Tab) 4 mg PO BID [facility] Last Admin: 10/24/20 21:22 Dose: 4 mg Documented by: Fenofibrate (Fenofibrate 145 Mg Tab) 145 mg PO DAILY [facility] Last Admin: 10/24/20 09:13 Dose: 145 mg Documented by: Fish Oil ([place]-3 Fatty Acids/Fish Oil 1 Gram Cap) 1,000 mg PO DAILY [facility] Last Admin: 10/24/20 09:13 Dose: 1,000 mg Documented by: Furosemide (Furosemide 20 Mg Tab) 20 mg PO QDAY [facility] Last Admin: 10/24/20 09:14 Dose: 20 mg Documented by: Glipizide (Glipizide Xl 10 Mg Tab) 10 mg PO QHS [facility] Last Admin: 10/24/20 21:19 Dose: 10 mg Documented by: Insulin Human Lispro (Insulin Lispro 100 Unit/Ml) 0 unit SUB-Q QHS [facility]; Grace col Last Admin: 10/24/20 21:24 Dose: Not Given Documented by: Isosorbide Mononitrate (Isosorbide Mononitrate Er 30 Mg Tab) 30 mg PO QHS [facility] Last Admin: 10/24/20 21:22 Dose: 30 mg Documented by: Lisinopril (Lisinopril 10 Mg Tab) 30 mg PO QDAY [facility] Last Admin: 10/24/20 09:15 Dose: 30 mg Documented by: Lorazepam (Lorazepam 0.5 Mg Tab) 0.5 mg PO BID PRN PRN Reason: Anxiety Memantine (Memantine 10 Mg Tab) 10 mg PO BID [facility] Last Admin: 10/24/20 21:20 Dose: 10 mg Documented by: Multivitamins/Minerals (Multivitamins,Ther W-Minerals Tab) 1 each PO QDAY [facility] Last Admin: 10/24/20 09:13 Dose: 1 each Documented by: Mycophenolate Mofetil (Mycophenolate 250 Mg Cap) 500 mg PO BID [facility] Last Admin: 10/24/20 21:20 Dose: 500 mg Documented by: Nifedipine (Nifedipine Xl 60 Mg Tab) 60 mg PO DAILY [facility] Last Admin: 10/24/20 09:14 Dose: 60 mg Documented by: Olanzapine (Olanzapine 5 Mg Tab) 2.5 mg PO QHS [facility] Last Admin: 10/24/20 21:20 Dose: 2.5 mg Documented by: Prednisone (Prednisone 5 Mg Tab) 5 mg PO QDAY [facility] Last Admin: 10/24/20 09:13 Dose: 5 mg Documented by: Primidone (Primidone 50 Mg Tab) 150 mg PO QHS [facility] Last Admin: 10/24/20 21:20 Dose: 150 mg Documented by: Psyllium Hydrophilic Mucilloid (Psyllium Seed (With Sugar) 3.4 Gm Packet) 1 each PO QHS [facility] Last Admin: 10/24/20 21:20 Dose: 1 each Documented by: Ranolazine (Ranolazine Er 500 Mg Tab 12hr) 500 mg PO BID [facility] Last Admin: 10/24/20 21:19 Dose: 500 mg Documented by: Sirolimus (Sirolimus (Nf) 1 Mg Tab) 2 mg PO SuTuThSa [facility] Last Admin: 10/23/20 22:35 Dose: 2 mg Documented by: Sirolimus (Sirolimus (Nf) 1 Mg Tab) 1 mg PO MoWeFr [facility] Last Admin: 10/24/20 21:21 Dose: 1 mg Documented by: Sodium Bicarbonate (Sodium Bicarbonate 650 Mg Tab) 650 mg PO MoWeFr [facility] Last Admin: 10/24/20 09:13 Dose: 650 mg Documented by: Vitamin B Complex/Vitamin C (B Complex W/Vitamin C Tab) 1 each PO DAILY [facility] Last Admin: 10/24/20 09:14 Dose: 1 each Documented by: Results - Results Labs/Vitals: Laboratory Last Values WBC 6.4 K/mm3 (4.5-11.0) 10/09/20 23:39 RBC 3.63 M/mm3 (3.65-5.03) L 10/09/20 23:39 Hgb 10.2 gm/dl (11.8-15.2) L 10/09/20 23:39 Hct 30.4 % (35.5-45.6) L 10/09/20 23:39 MCV 84 fl (84-94) 10/09/20 23:39 MCH 28 pg (28-32) 10/09/20 23:39 MCHC 34 % (32-34) 10/09/20 23:39 RDW 15.0 % (13.2-15.2) 10/09/20 23:39 Plt Count 262 K/mm3 (140-440) 10/09/20 23:39 [place]ison % (Auto) Drier Belt Conveyor 10/09/20 23:39 Add Manual Diff Complete 10/09/20 23:39 Total Counted 100 10/09/20 23:39 Seg Neuts % (Manual) 72.0 % (40.0-70.0) H 10/09/20 23:39 Lymphocytes % (Manual) 18.0 % (13.4-35.0) 10/09/20 23:39 Monocytes % (Manual) 8.0 % (0.0-7.3) H 10/09/20 23:39 Eosinophils % (Manual) 2.0 % (0.0-4.3) 10/09/20 23:39 Nucleated RBC % Not Reportable 10/09/20 23:39 Seg Neutrophils # Man 4.6 K/mm3 (1.8-7.7) 10/09/20 23:39 Band Neutrophils # 0.0 K/mm3 10/09/20 23:39 Lymphocytes # (Manual) 1.2 K/mm3 (1.2-5.4) 10/09/20 23:39 Abs React Lymphs (Man) 0.0 K/mm3 10/09/20 23:39 Monocytes # (Manual) 0.5 K/mm3 (0.0-0.8) 10/09/20 23:39 Eosinophils # (Manual) 0.1 K/mm3 (0.0-0.4) 10/09/20 23:39 Basophils # (Manual) 0.0 K/mm3 (0.0-0.1) 10/09/20 23:39 Metamyelocytes # 0.0 K/mm3 10/09/20 23:39 Myelocytes # 0.0 K/mm3 10/09/20 23:39 Promyelocytes # 0.0 K/mm3 10/09/20 23:39 Blast Cells # 0.0 K/mm3 10/09/20 23:39 WBC Morphology Not Reportable 10/09/20 23:39 Hypersegmented Neuts Not Reportable 10/09/20 23:39 Hyposegmented Neuts Not Reportable 10/09/20 23:39 Hypogranular Neuts Not Reportable 10/09/20 23:39 Smudge Cells Not Reportable 10/09/20 23:39 Toxic Granulation Not Reportable 10/09/20 23:39 Toxic Vacuolation Not Reportable 10/09/20 23:39 Dohle Bodies Not Reportable 10/09/20 23:39 Pelger-Huet Anomaly Not Reportable 10/09/20 23:39 Sly Rods Not Reportable 10/09/20 23:39 Platelet Estimate Consistent w auto 10/09/20 23:39 Clumped Platelets Not Reportable 10/09/20 23:39 Plt Clumps, EDTA Not Reportable 10/09/20 23:39 Large Platelets Not Reportable 10/09/20 23:39 Giant Platelets Not Reportable 10/09/20 23:39 Platelet Satelliting Not Reportable 10/09/20 23:39 Plt Morphology Comment Not Reportable 10/09/20 23:39 RBC Morphology Not Reportable 10/09/20 23:39 Dimorphic RBCs Not Reportable 10/09/20 23:39 Polychromasia Not Reportable 10/09/20 23:39 Hypochromasia Not Reportable 10/09/20 23:39 Poikilocytosis Not Reportable 10/09/20 23:39 Anisocytosis 1+ 10/09/20 23:39 Microcytosis Not Reportable 10/09/20 23:39 Macrocytosis Not Reportable 10/09/20 23:39 Spherocytes Not Reportable 10/09/20 23:39 Pappenheimer Bodies Not Reportable 10/09/20 23:39 Sickle Cells Not Reportable 10/09/20 23:39 Target Cells Not Reportable 10/09/20 23:39 Tear Drop Cells Not Reportable 10/09/20 23:39 Ovalocytes Not Reportable 10/09/20 23:39 Helmet Cells Not Reportable 10/09/20 23:39 [place] Bodies Not Reportable 10/09/20 23:39 [place] Rings Not Reportable 10/09/20 23:39 [place] Cells Not Reportable 10/09/20 23:39 Bite Cells Not Reportable 10/09/20 23:39 Crenated Cell Not Reportable 10/09/20 23:39 Elliptocytes Not Reportable 10/09/20 23:39 Acanthocytes (Spur) Not Reportable 10/09/20 23:39 Rouleaux Not Reportable 10/09/20 23:39 Hemoglobin C Crystals Not Reportable 10/09/20 23:39 Schistocytes Not Reportable 10/09/20 23:39 Malaria parasites Not Reportable 10/09/20 23:39 Khai Bodies Not Reportable 10/09/20 23:39 Hem Pathologist Commnt No 10/09/20 23:39 Sodium 140 mmol/L (137-145) 10/09/20 23:39 Potassium 4.0 mmol/L (3.6-5.0) 10/09/20 23:39 Chloride 103.8 mmol/L (98-107) 10/09/20 23:39 Carbon Dioxide 18 mmol/L (22-30) L 10/09/20 23:39 Anion Gap 22 mmol/L 10/09/20 23:39 BUN 59 mg/dL (9-20) H 10/09/20 23:39 Creatinine 1.7 mg/dL (0.8-1.3) H 10/09/20 23:39 Estimated GFR 48 ml/min 10/09/20 23:39 BUN/Creatinine Ratio 35 % 10/09/20 23:39 Glucose 132 mg/dL (75-100) H 10/09/20 23:39 POC Glucose 124 mg/dL (70-105) H 10/25/20 06:11 Hemoglobin A1c 6.5 % (4-6) H 10/09/20 23:39 Calcium 9.3 mg/dL (8.4-10.2) 10/09/20 23:39 Total Bilirubin 0.30 mg/dL (0.1-1.2) 10/09/20 23:39 AST 40 units/L (5-40) 10/09/20 23:39 ALT 25 units/L (7-56) 10/09/20 23:39 Alkaline Phosphatase 51 units/L (35-129) 10/09/20 23:39 Total Protein 6.1 g/dL (6.3-8.2) L 10/09/20 23:39 Albumin 3.6 g/dL (3.9-5) L 10/09/20 23:39 Albumin/Globulin Ratio 1.4 % 10/09/20 23:39 Triglycerides 235 mg/dL (2-149) H 10/09/20 23:39 Cholesterol 143 mg/dL (50-199) 10/09/20 23:39 LDL Cholesterol Direct 77 mg/dL (50-130) 10/09/20 23:39 HDL Cholesterol 28 mg/dL (40-59) L 10/09/20 23:39 Cholesterol/HDL Ratio 5.10 % 10/09/20 23:39 Coronavirus (PCR) Negative (Negative) 10/11/20 Unknown Last Vital Signs Temp 98.3 F 10/24/20 19:57 Pulse 99 H 10/24/20 21:23 Resp 18 10/24/20 19:57 BP 140/82 10/24/20 21:23 Pulse Ox 99 10/24/20 19:57
--- NOTE | 2020-10-25 08:30 | Event Note ---
Date: 10/24/20 I called the patient's however, I was unable to reach her.
[2020-10-25] MEDS: LISINOPRIL 10 MG TAB PO SCH (12:10)
[2020-10-25] MEDS: MYCOPHENOLATE 250 MG CAP PO SCH ×2 (12:10→21:17)
[2020-10-25] MEDS: FENOFIBRATE 145 MG TAB PO SCH (12:10)
[2020-10-25] MEDS: CILOSTAZOL 100 MG TAB PO SCH ×2 (12:10→21:24)
[2020-10-25] MEDS: ASPIRIN 81 MG TAB CHEW PO SCH (12:10)
[2020-10-25] MEDS: allopurinoL 100 MG TAB PO SCH (12:11)
[2020-10-25] MEDS: B COMPLEX W/VITAMIN C TAB PO SCH (12:11)
[2020-10-25] MEDS: predniSONE 5 MG TAB PO SCH (12:11)
[2020-10-25] MEDS: CHOLECALCIFEROL (VIT D3) 1000 UNIT (25 mcg) TAB PO SCH (12:12)
[2020-10-25] MEDS: RANOLAZINE ER 500 MG TAB 12HR PO SCH ×2 (12:12→21:18)
[2020-10-25] MEDS: MULTIVITAMINS,THER W-MINERALS TAB PO SCH (12:12)
[2020-10-25] MEDS: NIFEdipine XL 60 MG TAB PO SCH (12:12)
[2020-10-25] MEDS: DIVALPROEX DR 125 MG TAB PO SCH ×2 (12:12→21:19)
[2020-10-25] MEDS: FUROSEMIDE 20 MG TAB PO SCH (12:13)
[2020-10-25] MEDS: MEMANTINE 10 MG TAB PO SCH ×2 (12:13→21:22)
[2020-10-25] MEDS: OMEGA-3 FATTY ACIDS/FISH OIL 1 GRAM CAP PO SCH (12:14)
[2020-10-25] MEDS: DOXAZOSIN 4 MG TAB PO SCH ×2 (12:14→21:16)
[2020-10-25] MEDS: carvediloL 12.5 MG TAB PO SCH ×2 (12:14→21:19)
[2020-10-25] MEDS: DONEPEZIL 10 MG TAB PO SCH (21:16)
[2020-10-25] MEDS: INSULIN LISPRO 100 UNIT/ML SUB-Q SCH (21:20)
[2020-10-25] MEDS: PSYLLIUM SEED (WITH SUGAR) 3.4 GM PACKET PO SCH (21:22)
[2020-10-25] MEDS: PRIMIDONE 50 MG TAB PO SCH (21:22)
[2020-10-25] MEDS: SIROLIMUS 1 MG PO SCH (21:24)
--- NOTE | 2020-10-26 08:43 | Progress Note ---
Subjective Date of service: 10/26/20 Principal diagnosis: Dementia with Behavioral Disturbance Subjective Comment: 10/20/2020: The patient was seen today, he is sitting in the dayroom, calm and cooperative. He smiles at me and greets me. He is confused but pleasant. He denies SI/HI or hallucinations of any kind. 10/21/2020: I interviewed the patient this morning. Medical records reviewed and patient's progress was discussed with unit staff. Nursing staff reports that "last evening, the patient spent part of his time in the activity room. He was yelled at by a peer and he became anxious the rest of the evening. Staff stayed nearby for comfort and assisted him with talking to his . He was focused on being picked up to leave the hospital. The call with his assisted him to become calmer. His appetite was fair and he was medication compliant. Overnight it took him awhile to get to sleep. He slept after midnight for about 7 hours. Will continue to monitor patient for safety." In my interview with the patient this morning, the patient reports mood as "Ok". Appetite is good. Sleep last night was ok. Patient denies any suicidal/homicidal ideation and denies hallucinations. No changes made in treatment plan today. 10/22/2020: I interviewed the patient this morning. Medical records reviewed and patient's progress was discussed with unit staff. Nursing staff reports that patient " Last evening the patient was pleasantly confused. He interacted well with others even though they had difficulty following his thought process. He denies si/hi/ah/vh. His appetite is good and he is medication compliant. Overnight he rested quietly and slept 7 hours. He was awake over an hour at one time but stayed in bed. Will continue to monitor patient for safety. In my interview with the patient this morning, the patient seen in the activity room socializing with peers. He continues to present with some confusion. He reports mood as "good". Appetite is good. Sleep last night was good. He denies any current suicidal ideation and denies hallucinations. No changes to the treat plan today. 10/23/2020: The patient was seen in the activity room eating breakfast. Patient reports mood as" I am about even where I should be." He reports sleep and appetite as good. He denies any current suicidal/homicidal ideation and denies hallucinations. Per nurse, the patient had a quiet night. No changes made to treatment plan today. 10/24/2020: The patient was seen in the activity room. He reports doing well and states mood as "OK". per nurse, patient had a quiet night and no aggressive behavior reported. The patient reports sleep and appetite as good. he denies any current suicidal/homicidal ideation and denies hallucinations. No changes made today. 10/25/2020: The patient seen eating breakfast in the activity room. he continue to confused. He states mood as good. No aggressive behavior reported. He denies any current suicidal/homicdal ideation and denies hallucinations. Per nurse, "pt spent the evening in activity room watching, confused, and forgetful, medication compliant, ate about 50mg of snack, able to make needs known, refused to sleep in his room, pt was wandering the hallway, javier chair was brought for pt on the hallway, he sat down, and slept off and on, slept for 4hrs , currently sleeping in javier chair, no distress noted, will continue to monitor for safety." No changes made to the treatment plan today. 10/26/2020: The patient was seen resting in bed. The patient still presents with some confusion. He reports doing well. He states mood as good. The patient states sleep and appetite as good. He denies any current suicidal/ homicidal thoughts and denies hallucinations. per nurse, "Last evening the patient presents as mildly anxious. He is walking in the hallway with peers. Patient is pleasantly confused and has pleasant interactions with peers and staff. His appetite is good and he is medication compliant. Staff assisted him with a phone call to his before bed. Overnight the patient rested quietly. He slept 8 hours." No changes made today. Reason for continued inpatient treatment: The patient is stable for discharge from a psych standpoint, but is awaiting placement. REVIEW OF SYSTEMS Constitutional: Negative for weight loss ENT: Negative for stridor Respiratory: Negative for cough or hemoptysis All other systems reviewed and are negative MENTAL STATUS EXAMINATION General Appearance and Behavior: Age appropriate, dressed appropriately, calm and cooperative Cooperation: Participating Psychomotor Behavior: psychomotor normal Mood:"good" Affect and affective range: congruent with states mood Thought Process: goal directed Thought Content: obsessions Speech: Normal volume, Regular rate and rhythm, Intellectual Functioning: Average Suicidal Ideation: Denies Homicidal Ideation: Denies Hallucinations: Denies Delusions: None elicited Impulse Control: Impaired Insight and Judgment: Limited insight and judgment, Memory: Impaired Attention: Undivided Orientation: Alert, oriented Assessment and Plan (1) Dementia with Behavioral Disturbance Treatment Plan Patient admitted for inpatient psychiatric evaluation, medication adjustment and close monitoring The patient's behavior, mood, sleep and appetite will be closely monitored. Patient enrolled in individual and group therapeutic sessions and encouraged to attend. Patient provided with a safe and structured environment. Patient's physical health needs will be addressed by the Hospitalist. Hospitalist Consulted Labs including CBC, CMP, Lipid profile and Hemoglobin A1C levels ordered for baseline reference Social Assessment will be completed and the Risk Management Specialist will work with patient and family to ensure a suitable and safe disposition Medication adjustment will be made as clinically indicated No changes made Usual Wellness Tenriism/Preservation: - Start Trazodone 50 mg po QHS & 50 mg po QHS PRN between 10 PM & 2 AM for insomnia - Start Melatonin 5 mg po QHS to promote circadian rhythm - Start [place]-3 for brain health, reduce impulsivity, and as adjunctive treatment for mood disorder, continue upon discharge given overall benefits. - Start B1 prophylaxis with 200 mg po for 5 days The patient agreed on the treatment plan, understood the risk, benefit, alternative treatment, potential consequence of no treatment, and gave informed consent. Estimated days: 0 Post hospital care: primary care provider, psychiatric provider Medications and Allergies Medications and Allergies Allergies Allergy/AdvReac Type Severity Reaction Status Date / Time clopidogrel Allergy Swelling Verified 10/06/20 00:43 Home Medications Medication Instructions Recorded Confirmed Last Taken Type Aspirin [Aspirin BABY CHEW TAB] 81 mg PO QDAY 10/06/20 10/07/20 10/06/20 10:00 History Atorvastatin [Lipitor Tab] 80 mg PO QHS 10/06/20 10/07/20 10/06/20 22:00 History B-Complex with Vitamin C [Vitamin 1 tab PO DAILY 10/06/20 10/07/20 10/06/20 10:00 History B Complex-Vitamin C] Cholecalciferol (Vitamin D3) 1 tab PO DAILY 10/06/20 10/07/20 Unknown History [Vitamin D3 2,000 UNIT CAP] Donepezil HCl [Donepezil HCl Odt] 10 mg PO QHS 10/06/20 10/07/20 10/06/20 22:00 History Fenofibrate 160 mg PO DAILY 10/06/20 10/07/20 10/06/20 13:00 History Fiber 2 tab PO QHS 10/06/20 10/07/20 Unknown History Furosemide [Lasix] 20 mg PO QDAY 10/06/20 10/07/20 10/06/20 10:00 History Insulin Lispro [Humalog Kwikpen See Protocol SQ ACHS 10/06/20 10/07/20 Unknown History 200 UNITS/ML] Isosorbide Mononitrate [Isosorbide 30 mg PO QHS 10/06/20 10/07/20 10/06/20 22:00 History Mononitrate ER] LORazepam [Ativan] 0.5 mg PO BID PRN 10/06/20 10/07/20 Unknown History Lisinopril [Zestril TAB] 30 mg PO QDAY 10/06/20 10/07/20 10/06/20 10:00 History Memantine HCl 10 mg PO BID 10/06/20 10/07/20 10/06/20 22:00 History Mv,Ca,Min/FA/K1/Lycopene/Lutn [Eql 1 tab PO DAILY 10/06/20 10/07/20 10/05/20 History [place] Tablet] Mycophenolate [Cellcept] 2 tab PO BID 10/06/20 10/07/20 10/06/20 22:00 History NIFEdipine [Nifedipine ER] 60 mg PO DAILY 10/06/20 10/07/20 10/06/20 10:00 History OLANZapine [Zyprexa] 0.5 tab PO QHS 10/06/20 10/07/20 Unknown History [place]-3/Dha/Epa/Fish Oil [[place] 3 1,000 mg PO DAILY 10/06/20 10/07/20 Unknown History 500 Softgel] Primidone [Mysoline] 3 tab PO HS 10/06/20 10/07/20 10/06/20 22:00 History Ranolazine ER [Ranexa ER] 500 mg PO BID 10/06/20 10/07/20 10/06/20 22:00 History Sirolimus [Rapamune] 1 mg PO Q4W 10/06/20 10/07/20 10/05/20 History Sodium Bicarbonate 1 tab PO 3XW 10/06/20 10/07/20 10/05/20 10:00 History Sulfamethoxazole/Trimethoprim 1 each PO 4XW 10/06/20 10/07/20 10/05/20 History [Sulfamethoxazole-Tmp Ds Tablet] allopurinoL [Zyloprim] 100 mg PO 4XW 10/06/20 10/07/20 10/05/20 History carvediloL [Coreg] 12.5 mg PO BID 10/06/20 10/07/20 10/06/20 22:00 History cilostazoL [Pletal] 100 mg PO BID 10/06/20 10/07/20 10/06/20 22:00 History glipiZIDE XL [Glucotrol Xl] 10 mg PO QHS 10/06/20 10/07/20 10/06/20 22:00 History predniSONE [Deltasone] 5 mg PO QDAY 10/06/20 10/07/20 10/06/20 22:[address] [Jak NUR] 125 mg PO BID 10/07/20 10/07/20 10/06/20 22:00 History Doxazosin [Cardura] 4 mg PO BID 10/07/20 10/07/20 10/06/20 22:00 History Multivitamin Tab W-MINERAL 1 each PO QD 10/07/20 10/07/20 10/06/20 10:00 History [Multiple Vitamin/Mineral (Theragran M)] Active Meds: Active Medications Allopurinol (Allopurinol 100 Mg Tab) 100 mg PO [facility] Last Admin: 10/25/20 12:11 Dose: 100 mg Documented by: Aspirin (Aspirin 81 Mg Tab Chew) 81 mg PO QDAY [facility] Last Admin: 10/25/20 12:10 Dose: 81 mg Documented by: Atorvastatin Calcium (Atorvastatin 40 Mg Tab) 80 mg PO QHS [facility] Last Admin: 10/25/20 21:22 Dose: 80 mg Documented by: Carvedilol (Carvedilol 12.5 Mg Tab) 12.5 mg PO BID [facility] Last Admin: 10/25/20 21:19 Dose: 12.5 mg Documented by: Cholecalciferol (Cholecalciferol (Vit D3) 1000 Unit (25 Mcg) Tab) 2,000 unit PO QDAY [facility] Last Admin: 10/25/20 12:12 Dose: 2,000 unit Documented by: Cilostazol (Cilostazol 100 Mg Tab) 100 mg PO BID [facility] Last Admin: 10/25/20 21:24 Dose: 100 mg Documented by: Divalproex Sodium (Divalproex Dr 125 Mg Tab) 125 mg PO BID [facility] Last Admin: 10/25/20 21:19 Dose: 125 mg Documented by: Donepezil HCl (Donepezil 10 Mg Tab) 10 mg PO QHS [facility] Last Admin: 10/25/20 21:16 Dose: 10 mg Documented by: Doxazosin Mesylate (Doxazosin 4 Mg Tab) 4 mg PO BID [facility] Last Admin: 10/25/20 21:16 Dose: 4 mg Documented by: Fenofibrate (Fenofibrate 145 Mg Tab) 145 mg PO DAILY [facility] Last Admin: 10/25/20 12:10 Dose: 145 mg Documented by: Fish Oil ([place]-3 Fatty Acids/Fish Oil 1 Gram Cap) 1,000 mg PO DAILY [facility] Last Admin: 10/25/20 12:14 Dose: 1,000 mg Documented by: Furosemide (Furosemide 20 Mg Tab) 20 mg PO QDAY [facility] Last Admin: 10/25/20 12:13 Dose: 20 mg Documented by: Glipizide (Glipizide Xl 10 Mg Tab) 10 mg PO QHS [facility] Last Admin: 10/25/20 21:20 Dose: 10 mg Documented by: Insulin Human Lispro (Insulin Lispro 100 Unit/Ml) 0 unit SUB-Q QHS [facility]; Protocol Last Admin: 10/25/20 21:20 Dose: Not Given Documented by: Isosorbide Mononitrate (Isosorbide Mononitrate Er 30 Mg Tab) 30 mg PO QHS [facility] Last Admin: 10/25/20 21:21 Dose: 30 mg Documented by: Lisinopril (Lisinopril 10 Mg Tab) 30 mg PO QDAY [facility] Last Admin: 10/25/20 12:10 Dose: 30 mg Documented by: Lorazepam (Lorazepam 0.5 Mg Tab) 0.5 mg PO BID PRN PRN Reason: Anxiety Memantine (Memantine 10 Mg Tab) 10 mg PO BID [facility] Last Admin: 10/25/20 21:22 Dose: 10 mg Documented by: Multivitamins/Minerals (Multivitamins,Ther W-Minerals Tab) 1 each PO QDAY [facility] Last Admin: 10/25/20 12:12 Dose: 1 each Documented by: Mycophenolate Mofetil (Mycophenolate 250 Mg Cap) 500 mg PO BID [facility] Last Admin: 10/25/20 21:17 Dose: 500 mg Documented by: Nifedipine (Nifedipine Xl 60 Mg Tab) 60 mg PO DAILY [facility] Last Admin: 10/25/20 12:12 Dose: 60 mg Documented by: Olanzapine (Olanzapine 5 Mg Tab) 2.5 mg PO QHS [facility] Last Admin: 10/25/20 21:25 Dose: 2.5 mg Documented by: Prednisone (Prednisone 5 Mg Tab) 5 mg PO QDAY [facility] Last Admin: 10/25/20 12:11 Dose: 5 mg Documented by: Primidone (Primidone 50 Mg Tab) 150 mg PO QHS [facility] Last Admin: 10/25/20 21:22 Dose: 150 mg Documented by: Psyllium Hydrophilic Mucilloid (Psyllium Seed (With Sugar) 3.4 Gm Packet) 1 each PO QHS [facility] Last Admin: 10/25/20 21:22 Dose: 1 each Documented by: Ranolazine (Ranolazine Er 500 Mg Tab 12hr) 500 mg PO BID [facility] Last Admin: 10/25/20 21:18 Dose: 500 mg Documented by: Sirolimus (Sirolimus (Nf) 1 Mg Tab) [facility]: 10/25/20 21:24 Dose: 2 mg Documented by: Sirolimus (Sirolimus (Nf) 1 Mg Tab) [facility]: 10/24/20 21:21 Dose: 1 mg Documented by: Sodium Bicarbonate (Sodium Bicarbonate 650 Mg Tab) 650 mg PO MoWeFr [facility] Last Admin: 10/24/20 09:13 Dose: 650 mg Documented by: Vitamin B Complex/Vitamin C (B Complex W/Vitamin C Tab) 1 each PO DAILY [facility] Last Admin: 10/25/20 12:11 Dose: 1 each Documented by: Results - Results Labs/Vitals: Laboratory Last Values WBC 6.4 K/mm3 (4.5-11.0) 10/09/20 23:39 RBC 3.63 M/mm3 (3.65-5.03) L 10/09/20 23:39 Hgb 10.2 gm/dl (11.8-15.2) L 10/09/20 23:39 Hct 30.4 % (35.5-45.6) L 10/09/20 23:39 MCV 84 fl (84-94) 10/09/20 23:39 MCH 28 pg (28-32) 10/09/20 23:39 MCHC 34 % (32-34) 10/09/20 23:39 RDW 15.0 % (13.2-15.2) 10/09/20 23:39 Plt Count 262 K/mm3 (140-440) 10/09/20 23:39 [place] % (Auto) Camera Storage Clerk 10/09/20 23:39 Add Manual Diff Complete 10/09/20 23:39 Total Counted 100 10/09/20 23:39 Seg Neuts % (Manual) 72.0 % (40.0-70.0) H 10/09/20 23:39 Lymphocytes % (Manual) 18.0 % (13.4-35.0) 10/09/20 23:39 Monocytes % (Manual) 8.0 % (0.0-7.3) H 10/09/20 23:39 Eosinophils % (Manual) 2.0 % (0.0-4.3) 10/09/20 23:39 Nucleated RBC % Not Reportable 10/09/20 23:39 Seg Neutrophils # Man 4.6 K/mm3 (1.8-7.7) 10/09/20 23:39 Band Neutrophils # 0.0 K/mm3 10/09/20 23:39 Lymphocytes # (Manual) 1.2 K/mm3 (1.2-5.4) 10/09/20 23:39 Abs React Lymphs (Man) 0.0 K/mm3 10/09/20 23:39 Monocytes # (Manual) 0.5 K/mm3 (0.0-0.8) 10/09/20 23:39 Eosinophils # (Manual) 0.1 K/mm3 (0.0-0.4) 10/09/20 23:39 Basophils # (Manual) 0.0 K/mm3 (0.0-0.1) 10/09/20 23:39 Metamyelocytes # 0.0 K/mm3 10/09/20 23:39 Myelocytes # 0.0 K/mm3 10/09/20 23:39 Promyelocytes # 0.0 K/mm3 10/09/20 23:39 Blast Cells # 0.0 K/mm3 10/09/20 23:39 WBC Morphology Not Reportable 10/09/20 23:39 Hypersegmented Neuts Not Reportable 10/09/20 23:39 Hyposegmented Neuts Not Reportable 10/09/20 23:39 Hypogranular Neuts Not Reportable 10/09/20 23:39 Smudge Cells Not Reportable 10/09/20 23:39 Toxic Granulation Not Reportable 10/09/20 23:39 Toxic Vacuolation Not Reportable 10/09/20 23:39 Dohle Bodies Not Reportable 10/09/20 23:39 Pelger-Huet Anomaly Not Reportable 10/09/20 23:39 Sly Rods Not Reportable 10/09/20 23:39 Platelet Estimate Consistent w auto 10/09/20 23:39 Clumped Platelets Not Reportable 10/09/20 23:39 Plt Clumps, EDTA Not Reportable 10/09/20 23:39 Large Platelets Not Reportable 10/09/20 23:39 Giant Platelets Not Reportable 10/09/20 23:39 Platelet Satelliting Not Reportable 10/09/20 23:39 Plt Morphology Comment Not Reportable 10/09/20 23:39 RBC Morphology Not Reportable 10/09/20 23:39 Dimorphic RBCs Not Reportable 10/09/20 23:39 Polychromasia Not Reportable 10/09/20 23:39 Hypochromasia Not Reportable 10/09/20 23:39 Poikilocytosis Not Reportable 10/09/20 23:39 Anisocytosis 1+ 10/09/20 23:39 Microcytosis Not Reportable 10/09/20 23:39 Macrocytosis Not Reportable 10/09/20 23:39 Spherocytes Not Reportable 10/09/20 23:39 Pappenheimer Bodies Not Reportable 10/09/20 23:39 Sickle Cells Not Reportable 10/09/20 23:39 Target Cells Not Reportable 10/09/20 23:39 Tear Drop Cells Not Reportable 10/09/20 23:39 Ovalocytes Not Reportable 10/09/20 23:39 Helmet Cells Not Reportable 10/09/20 23:39 Nava-Riviera Bodies Not Reportable 10/09/20 23:39 [place] Rings Not Reportable 10/09/20 23:39 Johnnie Cells Not Reportable 10/09/20 23:39 Bite Cells Not Reportable 10/09/20 23:39 Crenated Cell Not Reportable 10/09/20 23:39 Elliptocytes Not Reportable 10/09/20 23:39 Acanthocytes (Spur) Not Reportable 10/09/20 23:39 Rouleaux Not Reportable 10/09/20 23:39 Hemoglobin C Crystals Not Reportable 10/09/20 23:39 Schistocytes Not Reportable 10/09/20 23:39 Malaria parasites Not Reportable 10/09/20 23:39 Khai Bodies Not Reportable 10/09/20 23:39 Hem Pathologist Commnt No 10/09/20 23:39 Sodium 140 mmol/L (137-145) 10/09/20 23:39 Potassium 4.0 mmol/L (3.6-5.0) 10/09/20 23:39 Chloride 103.8 mmol/L (98-107) 10/09/20 23:39 Carbon Dioxide 18 mmol/L (22-30) L 10/09/20 23:39 Anion Gap 22 mmol/L 10/09/20 23:39 BUN 59 mg/dL (9-20) H 10/09/20 23:39 Creatinine 1.7 mg/dL (0.8-1.3) H 10/09/20 23:39 Estimated GFR 48 ml/min 10/09/20 23:39 BUN/Creatinine Ratio 35 % 10/09/20 23:39 Glucose 132 mg/dL (75-100) H 10/09/20 23:39 POC Glucose 84 mg/dL (70-105) 10/26/20 07:14 Hemoglobin A1c 6.5 % (4-6) H 10/09/20 23:39 Calcium 9.3 mg/dL (8.4-10.2) 10/09/20 23:39 Total Bilirubin 0.30 mg/dL (0.1-1.2) 10/09/20 23:39 AST 40 units/L (5-40) 10/09/20 23:39 ALT 25 units/L (7-56) 10/09/20 23:39 Alkaline Phosphatase 51 units/L (35-129) 10/09/20 23:39 Total Protein 6.1 g/dL (6.3-8.2) L 10/09/20 23:39 Albumin 3.6 g/dL (3.9-5) L 10/09/20 23:39 Albumin/Globulin Ratio 1.4 % 10/09/20 23:39 Triglycerides 235 mg/dL (2-149) H 10/09/20 23:39 Cholesterol 143 mg/dL (50-199) 10/09/20 23:39 LDL Cholesterol Direct 77 mg/dL (50-130) 10/09/20 23:39 HDL Cholesterol 28 mg/dL (40-59) L 10/09/20 23:39 Cholesterol/HDL Ratio 5.10 % 10/09/20 23:39 Coronavirus (PCR) Negative (Negative) 10/11/20 Unknown Last Vital Signs Temp 97.4 F L 10/25/20 19:39 Pulse 101 H 10/25/20 21:21 Resp 20 10/25/20 19:39 BP 156/74 10/25/20 21:21 Pulse Ox 98 10/25/20 19:39
[2020-10-26] MEDS: MEMANTINE 10 MG TAB PO SCH ×2 (11:14→21:01)
[2020-10-26] MEDS: SODIUM BICARBONATE 650 MG TAB PO SCH (11:14)
[2020-10-26] MEDS: CILOSTAZOL 100 MG TAB PO SCH ×2 (11:14→21:01)
[2020-10-26] MEDS: OMEGA-3 FATTY ACIDS/FISH OIL 1 GRAM CAP PO SCH (11:14)
[2020-10-26] MEDS: CHOLECALCIFEROL (VIT D3) 1000 UNIT (25 mcg) TAB PO SCH (11:15)
[2020-10-26] MEDS: predniSONE 5 MG TAB PO SCH (11:15)
[2020-10-26] MEDS: FENOFIBRATE 145 MG TAB PO SCH (11:15)
[2020-10-26] MEDS: ASPIRIN 81 MG TAB CHEW PO SCH (11:15)
[2020-10-26] MEDS: NIFEdipine XL 60 MG TAB PO SCH (11:15)
[2020-10-26] MEDS: RANOLAZINE ER 500 MG TAB 12HR PO SCH ×2 (11:15→21:00)
[2020-10-26] MEDS: MYCOPHENOLATE 250 MG CAP PO SCH ×2 (11:15→21:00)
[2020-10-26] MEDS: B COMPLEX W/VITAMIN C TAB PO SCH (11:16)
[2020-10-26] MEDS: MULTIVITAMINS,THER W-MINERALS TAB PO SCH (11:16)
[2020-10-26] MEDS: DOXAZOSIN 4 MG TAB PO SCH ×2 (11:16→21:04)
[2020-10-26] MEDS: DIVALPROEX DR 125 MG TAB PO SCH ×2 (11:18→21:01)
[2020-10-26] MEDS: carvediloL 12.5 MG TAB PO SCH ×2 (11:18→21:04)
[2020-10-26] MEDS: LISINOPRIL 10 MG TAB PO SCH (12:08)
[2020-10-26] MEDS: FUROSEMIDE 20 MG TAB PO SCH (12:09)
--- NOTE | 2020-10-26 14:28 | XRay Report ---
ABDOMEN 2 VIEW INDICATION / CLINICAL INFORMATION: abd swelling. COMPARISON: None available. FINDINGS: TUBES / LINES: None. BOWEL GAS PATTERN: Nonobstructive bowel gas pattern. Large amount of stool noted throughout the colon . FREE AIR / EXTRALUMINAL GAS: None seen. ADDITIONAL FINDINGS: Multiple surgical clips noted overlying the pelvis. Mild multilevel degenerative changes of the lower lumbar spine. IMPRESSION: 1. No significant abnormality. 2. Large amount stool throughout the colon, could reflect constipation. Signer Name: Ken Woods MD Signed: 10/26/2020 2:23 PM Workstation Name: [id number]
--- NOTE | 2020-10-26 16:06 | Progress Note ---
Assessment and Plan Assessment and plan: (1) Vascular dementia with behavioral disturbance Current Visit: Yes Status: Acute Plan to address problem: Verbal prompting, verbal redirection, benzodiazepine therapy as clinically indicated, supportive care. (2) Cerebral atherosclerosis Current Visit: Yes Status: Acute Plan to address problem: Supportive care, risk factor reduction, antiplatelet therapy as clinically indicated. (3) Renal transplant recipient Current Visit: Yes Status: Acute Plan to address problem: Continue prehospital antigravity action medication, supportive care, outpatient transplant follow-up as per routine (4) Hypertension Current Visit: Yes Status: Acute Qualifiers: Hypertension type: essential hypertension Plan to address problem: Monitor blood pressure every shift, continue medical management (5) Hyperlipidemia Current Visit: Yes Status: Acute Qualifiers: Hyperlipidemia type: mixed hyperlipidemia Qualified Code(s): E78.2 - Mixed hyperlipidemia Plan to address problem: Statin therapy, supportive care. Low-cholesterol diet (6) abdominal distention? Patient without any GI issues at all, no nausea vomiting defecation issues Nurses were concerned about abdominal distention however patient does not show any signs of acute abdomen X-ray of abdomen benign Labs pending for tomorrow. History Interval history: 10/26/2020: Received a call from the nurse, they were worried about the patient's abdomen being distended. Patient is having normal bowel movements, no blood, no urinary issues, no nausea or vomiting. No labs have been obtained, will obtain abdominal x-ray. Hospitalist Physical - Physical exam Narrative exam: General appearance: no acute distress, well-nourished EENT: PERRL, EOM intact, hearing intact, clear oral mucosa Neck: Present: supple, normal ROM Respiratory: bilateral CTA, negative: rales, rhonchi, wheezing Cardiovascular: Regular rate/rhythm, Normal S1 & S2. No gallop, rub Extremities: no ischemia, No edema, normal temperature, normal color, Full ROM Abdominal: soft, no tenderness, non-distended, normal bowel sounds Integumentary: Present: clear, warm, dry no wounds, no erythema noted Psychiatric: appropriate mood/affect, patient is pleasantly confused, no agitation Neurologic: CNII-XII intact, moves all extremities, no sensory or motor abnormalities - Constitutional Vitals: Temp Pulse Resp BP Pulse Ox 98.0 F 101 H 18 122/71 100 10/26/20 08:09 10/26/20 12:08 10/26/20 08:09 10/26/20 12:08 10/26/20 08:09 Results - Labs CBC & Chem 7: 10/09/20 23:39 10/09/20 23:39 Labs: Laboratory Last Values WBC 6.4 K/mm3 (4.5-11.0) 10/09/20 23:39 RBC 3.63 M/mm3 (3.65-5.03) L 10/09/20 23:39 Hgb 10.2 gm/dl (11.8-15.2) L 10/09/20 23:39 Hct 30.4 % (35.5-45.6) L 10/09/20 23:39 MCV 84 fl (84-94) 10/09/20 23:39 MCH 28 pg (28-32) 10/09/20 23:39 MCHC 34 % (32-34) 10/09/20 23:39 RDW 15.0 % (13.2-15.2) 10/09/20 23:39 Plt Count 262 K/mm3 (140-440) 10/09/20 23:39 [place] % (Auto) Health And Safety Specialist 10/09/20 23:39 Add Manual Diff Complete 10/09/20 23:39 Total Counted 100 10/09/20 23:39 Seg Neuts % (Manual) 72.0 % (40.0-70.0) H 10/09/20 23:39 Lymphocytes % (Manual) 18.0 % (13.4-35.0) 10/09/20 23:39 Monocytes % (Manual) 8.0 % (0.0-7.3) H 10/09/20 23:39 Eosinophils % (Manual) 2.0 % (0.0-4.3) 10/09/20 23:39 Nucleated RBC % Not Reportable 10/09/20 23:39 Seg Neutrophils # Man 4.6 K/mm3 (1.8-7.7) 10/09/20 23:39 Band Neutrophils # 0.0 K/mm3 10/09/20 23:39 Lymphocytes # (Manual) 1.2 K/mm3 (1.2-5.4) 10/09/20 23:39 Abs React Lymphs (Man) 0.0 K/mm3 10/09/20 23:39 Monocytes # (Manual) 0.5 K/mm3 (0.0-0.8) 10/09/20 23:39 Eosinophils # (Manual) 0.1 K/mm3 (0.0-0.4) 10/09/20 23:39 Basophils # (Manual) 0.0 K/mm3 (0.0-0.1) 10/09/20 23:39 Metamyelocytes # 0.0 K/mm3 10/09/20 23:39 Myelocytes # 0.0 K/mm3 10/09/20 23:39 Promyelocytes # 0.0 K/mm3 10/09/20 23:39 Blast Cells # 0.0 K/mm3 10/09/20 23:39 WBC Morphology Not Reportable 10/09/20 23:39 Hypersegmented Neuts Not Reportable 10/09/20 23:39 Hyposegmented Neuts Not Reportable 10/09/20 23:39 Hypogranular Neuts Not Reportable 10/09/20 23:39 Smudge Cells Not Reportable 10/09/20 23:39 Toxic Granulation Not Reportable 10/09/20 23:39 Toxic Vacuolation Not Reportable 10/09/20 23:39 Dohle Bodies Not Reportable 10/09/20 23:39 Pelger-Huet Anomaly Not Reportable 10/09/20 23:39 Sly Rods Not Reportable 10/09/20 23:39 Platelet Estimate Consistent w auto 10/09/20 23:39 Clumped Platelets Not Reportable 10/09/20 23:39 Plt Clumps, EDTA Not Reportable 10/09/20 23:39 Large Platelets Not Reportable 10/09/20 23:39 Giant Platelets Not Reportable 10/09/20 23:39 Platelet Satelliting Not Reportable 10/09/20 23:39 Plt Morphology Comment Not Reportable 10/09/20 23:39 RBC Morphology Not Reportable 10/09/20 23:39 Dimorphic RBCs Not Reportable 10/09/20 23:39 Polychromasia Not Reportable 10/09/20 23:39 Hypochromasia Not Reportable 10/09/20 23:39 Poikilocytosis Not Reportable 10/09/20 23:39 Anisocytosis 1+ 10/09/20 23:39 Microcytosis Not Reportable 10/09/20 23:39 Macrocytosis Not Reportable 10/09/20 23:39 Spherocytes Not Reportable 10/09/20 23:39 Pappenheimer Bodies Not Reportable 10/09/20 23:39 Sickle Cells Not Reportable 10/09/20 23:39 Target Cells Not Reportable 10/09/20 23:39 Tear Drop Cells Not Reportable 10/09/20 23:39 Ovalocytes Not Reportable 10/09/20 23:39 Helmet Cells Not Reportable 10/09/20 23:39 [place] Bodies Not Reportable 10/09/20 23:39 [place] Rings Not Reportable 10/09/20 23:39 [place] Cells Not Reportable 10/09/20 23:39 Bite Cells Not Reportable 10/09/20 23:39 Crenated Cell Not Reportable 10/09/20 23:39 Elliptocytes Not Reportable 10/09/20 23:39 Acanthocytes (Spur) Not Reportable 10/09/20 23:39 Rouleaux Not Reportable 10/09/20 23:39 Hemoglobin C Crystals Not Reportable 10/09/20 23:39 Schistocytes Not Reportable 10/09/20 23:39 Malaria parasites Not Reportable 10/09/20 23:39 Khai Bodies Not Reportable 10/09/20 23:39 Hem Pathologist Commnt No 10/09/20 23:39 Sodium 140 mmol/L (137-145) 10/09/20 23:39 Potassium 4.0 mmol/L (3.6-5.0) 10/09/20 23:39 Chloride 103.8 mmol/L (98-107) 10/09/20 23:39 Carbon Dioxide 18 mmol/L (22-30) L 10/09/20 23:39 Anion Gap 22 mmol/L 10/09/20 23:39 BUN 59 mg/dL (9-20) H 10/09/20 23:39 Creatinine 1.7 mg/dL (0.8-1.3) H 10/09/20 23:39 Estimated GFR 48 ml/min 10/09/20 23:39 BUN/Creatinine Ratio 35 % 10/09/20 23:39 Glucose 132 mg/dL (75-100) H 10/09/20 23:39 POC Glucose 84 mg/dL (70-105) 10/26/20 07:14 Hemoglobin A1c 6.5 % (4-6) H 10/09/20 23:39 Calcium 9.3 mg/dL (8.4-10.2) 10/09/20 23:39 Total Bilirubin 0.30 mg/dL (0.1-1.2) 10/09/20 23:39 AST 40 units/L (5-40) 10/09/20 23:39 ALT 25 units/L (7-56) 10/09/20 23:39 Alkaline Phosphatase 51 units/L (35-129) 10/09/20 23:39 Total Protein 6.1 g/dL (6.3-8.2) L 10/09/20 23:39 Albumin 3.6 g/dL (3.9-5) L 10/09/20 23:39 Albumin/Globulin Ratio 1.4 % 10/09/20 23:39 Triglycerides 235 mg/dL (2-149) H 10/09/20 23:39 Cholesterol 143 mg/dL (50-199) 10/09/20 23:39 LDL Cholesterol Direct 77 mg/dL (50-130) 10/09/20 23:39 HDL Cholesterol 28 mg/dL (40-59) L 10/09/20 23:39 Cholesterol/HDL Ratio 5.10 % 10/09/20 23:39 Coronavirus (PCR) Negative (Negative) 10/11/20 Unknown Zhang/IV: Voiding Method Toilet Active Medications - Current Medications Current Medications: Generic Name Dose Route Start Last Admin Trade Name Freq PRN Reason Stop Dose Admin Allopurinol 100 mg 10/08/20 10:00 10/25/20 12:11 Allopurinol 100 Mg Tab PO 100 mg SuTuThSa BRYAN Administration Aspirin 81 mg 10/07/20 10:00 10/26/20 11:15 Aspirin 81 Mg Tab Chew PO 81 mg QDAY BRYAN Administration Atorvastatin Calcium 80 mg 10/07/20 22:00 10/25/20 21:22 Atorvastatin 40 Mg Tab PO 80 mg QHS BRYAN Administration Carvedilol 12.5 mg 10/07/20 10:00 10/26/20 11:18 Carvedilol 12.5 Mg Tab PO 12.5 mg BID BRYAN Administration Cholecalciferol 2,000 unit 10/07/20 10:00 10/26/20 11:15 Cholecalciferol (Vit D3) 1000 Unit (25 Mcg) Tab PO 2,000 unit QDAY BRYAN Administration Cilostazol 100 mg 10/07/20 10:00 10/26/20 11:14 Cilostazol 100 Mg Tab PO 100 mg BID BRYAN Administration Divalproex Sodium 125 mg 10/07/20 10:00 10/26/20 11:[address] 125 Mg Tab PO 125 mg BID BRYAN Administration Donepezil HCl 10 mg 10/07/20 22:00 10/25/20 21:16 Donepezil 10 Mg Tab PO 10 mg QHS BRYAN Administration Doxazosin Mesylate 4 mg 10/07/20 10:00 10/26/20 11:16 Doxazosin 4 Mg Tab PO 4 mg BID BRYAN Administration Fenofibrate 145 mg 10/07/20 12:00 10/26/20 11:15 Fenofibrate 145 Mg Tab PO 145 mg DAILY BRYAN Administration Fish Oil 1,000 mg 10/11/20 10:00 10/26/20 11:14 [place]-3 Fatty Acids/Fish Oil 1 Gram Cap PO 1,000 mg DAILY BRYAN Administration Furosemide 20 mg 10/11/20 10:00 10/26/20 12:09 Furosemide 20 Mg Tab PO 20 mg QDAY BRYAN Administration Glipizide 10 mg 10/07/20 22:00 10/25/20 21:20 Glipizide Xl 10 Mg Tab PO 10 mg QHS [facility] Administration Insulin Human Lispro 0 unit 10/14/20 22:00 10/25/20 21:20 Insulin Lispro 100 Unit/Ml SUB-Q Not Given QHS [facility] Protocol Isosorbide Mononitrate 30 mg 10/07/20 22:00 10/25/20 21:21 Isosorbide Mononitrate Er 30 Mg Tab PO 30 mg QHS [facility] Administration Lisinopril 30 mg 10/07/20 10:00 10/26/20 12:08 Lisinopril 10 Mg Tab PO 30 mg QDAY BRYAN Administration Lorazepam 0.5 mg 10/10/20 20:06 Lorazepam 0.5 Mg Tab PO BID PRN Anxiety Memantine 10 mg 10/07/20 10:00 10/26/20 11:14 Memantine 10 Mg Tab PO 10 mg BID BRYAN Administration Multivitamins/Minerals 1 each 10/11/20 10:00 10/26/20 11:16 Multivitamins,Ther W-Minerals Tab PO 1 each QDAY BRYAN Administration Mycophenolate Mofetil 500 mg 10/07/20 11:00 10/26/20 11:15 Mycophenolate 250 Mg Cap PO 500 mg BID BRYAN Administration Nifedipine 60 mg 10/07/20 10:00 10/25/20 12:12 Nifedipine Xl 60 Mg Tab PO 60 mg DAILY BRYAN Administration Olanzapine 2.5 mg 10/07/20 22:00 10/25/20 21:25 Olanzapine 5 Mg Tab PO 2.5 mg QHS BRYAN Administration Prednisone 5 mg 10/07/20 10:00 10/26/20 11:15 Prednisone 5 Mg Tab PO 5 mg QDAY BRYAN Administration Primidone 150 mg 10/07/20 22:00 10/25/20 21:22 Primidone 50 Mg Tab PO 150 mg QHS BRYAN Administration Psyllium Hydrophilic Mucilloid 1 each 10/10/20 22:00 10/25/20 21:22 Psyllium Seed (With Sugar) 3.4 Gm Packet PO 1 each QHS BRYAN Administration Ranolazine 500 mg 10/07/20 10:00 10/26/20 11:15 Ranolazine Er 500 Mg Tab 12hr PO 500 mg BID BRYAN Administration Sirolimus 2 mg 10/08/20 22:00 10/25/20 21:24 Sirolimus (Nf) 1 Mg Tab PO 2 mg SuTuThSa BRYAN Administration Sirolimus 1 mg 10/07/20 22:00 10/24/20 21:21 Sirolimus (Nf) 1 Mg Tab PO 1 mg MoWeFr BRYAN Administration Sodium Bicarbonate 650 mg 10/12/20 10:00 10/26/20 11:14 Sodium Bicarbonate 650 Mg Tab PO 650 mg MoWeFr BRYAN Administration Vitamin B Complex/Vitamin C 1 each 10/11/20 10:00 10/26/20 11:16 B Complex W/Vitamin C Tab PO 1 each DAILY BRYAN Administration Nutrition/Malnutrition Assess - Dietary Evaluation Nutrition/Malnutrition Findings: Nutrition Notes Start: 10/14/20 12:26 Freq: Status: Active Protocol: Document 10/18/20 13:53 CW (Rec: 10/18/20 13:59 CW [id number]) Nutrition Notes Initial or Follow up Reassessment Current Diagnosis Hypertension,Hyperlipidemia Other Pertinent Diagnosis dementia, hx kidney transplant Current Diet Cardiac, Consistent CHO with renal Labs/Tests no new labs Pertinent Medications Lasix, Prednisone glucotrol Height 6 ft Weight 85.003 kg [place] Body Weight (kg) 80.90 BMI 25.4 Weight Status Appropriate Subjective/Other Information F/U for intakes. Intakes vary but are typically 75% of meals provided with the occasional 100% intake of snacks/ONS. Intakes likely drop when dementia s/s spike. Percent of energy/protein needs met: 70%/100% (not including snacks /ONS) Burn Absent Trauma Absent GI Symptoms None Current % PO Good (75-100%) Minimum of two criteria No physical signs of malnutrition #1 Nutrition Diagnosis Inadequate oral intake As Evidenced by Signs and Symptoms PO intake typically 75% of meals with snacks Diagnosis Progress(for reassessment Resolved documentation) Is patient on ventilator? No Is Patient Ambulatory and/or Out of Bed Yes REE-([facility]-ambulatory/OOB) [ 2116.439 NUTR.[id number]] Calculation Used for Recommendations [facility] Additional Notes Protein: (0.6-0.9g/kg) 51-77g Fluid:1 ml/kcal or per MD Nutrition Intervention Change Diet Order: Continue Add Supplement/Snack (indicate name/kcal Nepro daily /protein ) Provides kCal: 425 Provides Protein (gm) 19 Goal #1 Meet at least 75% of protein and energy needs via PO and ONS intakes Revisit per MD consult or patient Sign Off request: Additional Comments S/O Pt meeting needs via PO intake on a stable basis
[2020-10-26] MEDS: DONEPEZIL 10 MG TAB PO SCH (21:01)
[2020-10-26] MEDS: PRIMIDONE 50 MG TAB PO SCH (21:02)
[2020-10-26] MEDS: PSYLLIUM SEED (WITH SUGAR) 3.4 GM PACKET PO SCH (21:03)
[2020-10-26] MEDS: SIROLIMUS 1 MG PO SCH (21:03)
[2020-10-26] MEDS: INSULIN LISPRO 100 UNIT/ML SUB-Q SCH (21:06)
--- NOTE | 2020-10-27 07:25 | Discharge Summary ---
Providers - Providers Date of Admission: 10/07/20 00:19 Date of discharge: 10/27/20 Attending physician: JAS DIALLO MD 10/06/20 23:44 Consult to Physician [CONS] Routine Comment: Consulting Provider: SHIRA BALBUENA Physician Instructions: Reason For Exam: new admission H & P Primary care physician: SHOP SUPERINTENDENT Hospitalization Reason for admission: Agitation Condition: Stable Hospital course: The patient was provided inpatient psychiatric treatment with safe and supportive environment, group/individual therapy, psychiatric medication, medication adjustment, adverse effect monitor, medical evaluation, medical treatment, social service assessment, social support meeting, placement assessment and psycho-education. The patients mood, cognition, behavior, motivation, compliance to treatment and appreciation on family/social support are improved and stabilized. At the time of discharge, the patient had no suicidal ideas, no homicidal ideas, no aggressive thoughts, no endangering behavior and no debilitating adverse effects. The patient agreed on the treatment plan, understood the risk, benefit, alternative treatment, potential consequence of no treatment, and gave informed consent. Progress Note: 10/20/2020: The patient was seen today, he is sitting in the dayroom, calm and cooperative. He smiles at me and greets me. He is confused but pleasant. He denies SI/HI or hallucinations of any kind. 10/21/2020: I interviewed the patient this morning. Medical records reviewed and patient's progress was discussed with unit staff. Nursing staff reports that "last evening, the patient spent part of his time in the activity room. He was yelled at by a peer and he became anxious the rest of the evening. Staff stayed nearby for comfort and assisted him with talking to his . He was focused on being picked up to leave the hospital. The call with his assisted him to become calmer. His appetite was fair and he was medication compliant. Overnight it took him awhile to get to sleep. He slept after midnight for about 7 hours. Will continue to monitor patient for safety." In my interview with the patient this morning, the patient reports mood as "Ok". Appetite is good. Sleep last night was ok. Patient denies any suicidal/homicidal ideation and denies hallucinations. No changes made in treatment plan today. 10/22/2020: I interviewed the patient this morning. Medical records reviewed and patient's progress was discussed with unit staff. Nursing staff reports that patient " Last evening the patient was pleasantly confused. He interacted well with others even though they had difficulty following his thought process. He denies si/hi/ah/vh. His appetite is good and he is medication compliant. Overnight he rested quietly and slept 7 hours. He was awake over an hour at one time but stayed in bed. Will continue to monitor patient for safety. In my interview with the patient this morning, the patient seen in the activity room socializing with peers. He continues to present with some confusion. He reports mood as "good". Appetite is good. Sleep last night was good. He denies any current suicidal ideation and denies hallucinations. No changes to the treat plan today. 10/23/2020: The patient was seen in the activity room eating breakfast. Patient reports mood as" I am about even where I should be." He reports sleep and appetite as good. He denies any current suicidal/homicidal ideation and denies hallucinations. Per nurse, the patient had a quiet night. No changes made to treatment plan today. 10/24/2020: The patient was seen in the activity room. He reports doing well and states mood as "OK". per nurse, patient had a quiet night and no aggressive behavior reported. The patient reports sleep and appetite as good. he denies any current suicidal/homicidal ideation and denies hallucinations. No changes made today. 10/25/2020: The patient seen eating breakfast in the activity room. he continue to confused. He states mood as good. No aggressive behavior reported. He denies any current suicidal/homicdal ideation and denies hallucinations. Per nurse, "pt spent the evening in activity room watching, confused, and forgetful, medication compliant, ate about 50mg of snack, able to make needs known, refused to sleep in his room, pt was wandering the hallway, javier chair was brought for pt on the hallway, he sat down, and slept off and on, slept for 4hrs , currently sleeping in javier chair, no distress noted, will continue to monitor for safety." No changes made to the treatment plan today. 10/26/2020: The patient was seen resting in bed. The patient still presents with some confusion. He reports doing well. He states mood as good. The patient states sleep and appetite as good. He denies any current suicidal/ homicidal thoughts and denies hallucinations. per nurse, "Last evening the patient presents as mildly anxious. He is walking in the hallway with peers. Patient is pleasantly confused and has pleasant interactions with peers and staff. His appetite is good and he is medication compliant. Staff assisted him with a phone call to his before bed. Overnight the patient rested quietly. He slept 8 hours." No changes made today. Disposition: [id number] Allergies/Adverse Reactions: Allergies clopidogrel Allergy (Verified 10/06/20 00:43) Swelling Vital Signs: Last Vital Signs Temp 97.7 F 10/26/20 19:33 Pulse 88 10/26/20 21:04 Resp 18 10/26/20 19:33 BP 143/75 10/26/20 21:04 Pulse Ox 99 10/26/20 19:33 Last Lab: Laboratory Last Values WBC 6.4 K/mm3 (4.5-11.0) 10/09/20 23:39 RBC 3.63 M/mm3 (3.65-5.03) L 10/09/20 23:39 Hgb 10.2 gm/dl (11.8-15.2) L 10/09/20 23:39 Hct 30.4 % (35.5-45.6) L 10/09/20 23:39 MCV 84 fl (84-94) 10/09/20 23:39 MCH 28 pg (28-32) 10/09/20 23:39 MCHC 34 % (32-34) 10/09/20 23:39 RDW 15.0 % (13.2-15.2) 10/09/20 23:39 Plt Count 262 K/mm3 (140-440) 10/09/20 23:39 [place] % (Auto) Road Mechanic 10/09/20 23:39 Add Manual Diff Complete 10/09/20 23:39 Total Counted 100 10/09/20 23:39 Seg Neuts % (Manual) 72.0 % (40.0-70.0) H 10/09/20 23:39 Lymphocytes % (Manual) 18.0 % (13.4-35.0) 10/09/20 23:39 Monocytes % (Manual) 8.0 % (0.0-7.3) H 10/09/20 23:39 Eosinophils % (Manual) 2.0 % (0.0-4.3) 10/09/20 23:39 Nucleated RBC % Not Reportable 10/09/20 23:39 Seg Neutrophils # Man 4.6 K/mm3 (1.8-7.7) 10/09/20 23:39 Band Neutrophils # 0.0 K/mm3 10/09/20 23:39 Lymphocytes # (Manual) 1.2 K/mm3 (1.2-5.4) 10/09/20 23:39 Abs React Lymphs (Man) 0.0 K/mm3 10/09/20 23:39 Monocytes # (Manual) 0.5 K/mm3 (0.0-0.8) 10/09/20 23:39 Eosinophils # (Manual) 0.1 K/mm3 (0.0-0.4) 10/09/20 23:39 Basophils # (Manual) 0.0 K/mm3 (0.0-0.1) 10/09/20 23:39 Metamyelocytes # 0.0 K/mm3 10/09/20 23:39 Myelocytes # 0.0 K/mm3 10/09/20 23:39 Promyelocytes # 0.0 K/mm3 10/09/20 23:39 Blast Cells # 0.0 K/mm3 10/09/20 23:39 WBC Morphology Not Reportable 10/09/20 23:39 Hypersegmented Neuts Not Reportable 10/09/20 23:39 Hyposegmented Neuts Not Reportable 10/09/20 23:39 Hypogranular Neuts Not Reportable 10/09/20 23:39 Smudge Cells Not Reportable 10/09/20 23:39 Toxic Granulation Not Reportable 10/09/20 23:39 Toxic Vacuolation Not Reportable 10/09/20 23:39 Dohle Bodies Not Reportable 10/09/20 23:39 Pelger-Huet Anomaly Not Reportable 10/09/20 23:39 Sly Rods Not Reportable 10/09/20 23:39 Platelet Estimate Consistent w auto 10/09/20 23:39 Clumped Platelets Not Reportable 10/09/20 23:39 Plt Clumps, EDTA Not Reportable 10/09/20 23:39 Large Platelets Not Reportable 10/09/20 23:39 Giant Platelets Not Reportable 10/09/20 23:39 Platelet Satelliting Not Reportable 10/09/20 23:39 Plt Morphology Comment Not Reportable 10/09/20 23:39 RBC Morphology Not Reportable 10/09/20 23:39 Dimorphic RBCs Not Reportable 10/09/20 23:39 Polychromasia Not Reportable 10/09/20 23:39 Hypochromasia Not Reportable 10/09/20 23:39 Poikilocytosis Not Reportable 10/09/20 23:39 Anisocytosis 1+ 10/09/20 23:39 Microcytosis Not Reportable 10/09/20 23:39 Macrocytosis Not Reportable 10/09/20 23:39 Spherocytes Not Reportable 10/09/20 23:39 Pappenheimer Bodies Not Reportable 10/09/20 23:39 Sickle Cells Not Reportable 10/09/20 23:39 Target Cells Not Reportable 10/09/20 23:39 Tear Drop Cells Not Reportable 10/09/20 23:39 Ovalocytes Not Reportable 10/09/20 23:39 Helmet Cells Not Reportable 10/09/20 23:39 [place] Bodies Not Reportable 10/09/20 23:39 [place] Rings Not Reportable 10/09/20 23:39 [employer] Cells Not Reportable 10/09/20 23:39 Bite Cells Not Reportable 10/09/20 23:39 Crenated Cell Not Reportable 10/09/20 23:39 Elliptocytes Not Reportable 10/09/20 23:39 Acanthocytes (Spur) Not Reportable 10/09/20 23:39 Rouleaux Not Reportable 10/09/20 23:39 Hemoglobin C Crystals Not Reportable 10/09/20 23:39 Schistocytes Not Reportable 10/09/20 23:39 Malaria parasites Not Reportable 10/09/20 23:39 Khai Bodies Not Reportable 10/09/20 23:39 Hem Pathologist Commnt No 10/09/20 23:39 Sodium 140 mmol/L (137-145) 10/09/20 23:39 Potassium 4.0 mmol/L (3.6-5.0) 10/09/20 23:39 Chloride 103.8 mmol/L (98-107) 10/09/20 23:39 Carbon Dioxide 18 mmol/L (22-30) L 10/09/20 23:39 Anion Gap 22 mmol/L 10/09/20 23:39 BUN 59 mg/dL (9-20) H 10/09/20 23:39 Creatinine 1.7 mg/dL (0.8-1.3) H 10/09/20 23:39 Estimated GFR 48 ml/min 10/09/20 23:39 BUN/Creatinine Ratio 35 % 10/09/20 23:39 Glucose 132 mg/dL (75-100) H 10/09/20 23:39 POC Glucose 104 mg/dL (70-105) 10/27/20 06:48 Hemoglobin A1c 6.5 % (4-6) H 10/09/20 23:39 Calcium 9.3 mg/dL (8.4-10.2) 10/09/20 23:39 Total Bilirubin 0.30 mg/dL (0.1-1.2) 10/09/20 23:39 AST 40 units/L (5-40) 10/09/20 23:39 ALT 25 units/L (7-56) 10/09/20 23:39 Alkaline Phosphatase 51 units/L (35-129) 10/09/20 23:39 Total Protein 6.1 g/dL (6.3-8.2) L 10/09/20 23:39 Albumin 3.6 g/dL (3.9-5) L 10/09/20 23:39 Albumin/Globulin Ratio 1.4 % 10/09/20 23:39 Triglycerides 235 mg/dL (2-149) H 10/09/20 23:39 Cholesterol 143 mg/dL (50-199) 10/09/20 23:39 LDL Cholesterol Direct 77 mg/dL (50-130) 10/09/20 23:39 HDL Cholesterol 28 mg/dL (40-59) L 10/09/20 23:39 Cholesterol/HDL Ratio 5.10 % 10/09/20 23:39 Coronavirus (PCR) Negative (Negative) 10/11/20 Unknown Core Measure Documentation - Palliative Care Palliative Care/ Comfort Measures: Not Applicable - Core Measures Any of the following diagnoses?: none (.) Exam - Constitutional Vitals: Temp Pulse Resp BP Pulse Ox 97.7 F 88 18 143/75 99 10/26/20 19:33 10/26/20 21:04 10/26/20 19:33 10/26/20 21:04 10/26/20 19:33 General appearance: Present: no acute distress - Psychiatric Psychiatric: appropriate mood/affect, cooperative Plan Activity: advance as tolerated Weight Bearing Status: Weight Bear as Tolerated Diet: regular Care Plan Goals: Maintain good and stable mental health. Plan of Treatment: The patient should be compliant with medications, not to use drugs and not to drink alcohol.The SNF understands that if suicidal ideas, homicidal ideas, or any endangering thoughts/behavior arise, they should immediately seek for emergent assistance including but not limited to crisis hot line and emergency room. Follow up with outpatient Psychiatrist and PCP within 7 - 14 days of discharge. Follow up with: PRIMARY CAREMD [Primary Care Provider] - 7 Days
[2020-10-27 09:04] VITALS: BP 113/63
[2020-10-27] MEDS: ASPIRIN 81 MG TAB CHEW PO SCH (09:04)
[2020-10-27] MEDS: DIVALPROEX DR 125 MG TAB PO SCH (09:04)
[2020-10-27] MEDS: MULTIVITAMINS,THER W-MINERALS TAB PO SCH (09:04)
[2020-10-27] MEDS: MEMANTINE 10 MG TAB PO SCH (09:05)
[2020-10-27] MEDS: CHOLECALCIFEROL (VIT D3) 1000 UNIT (25 mcg) TAB PO SCH (09:05)
[2020-10-27] MEDS: OMEGA-3 FATTY ACIDS/FISH OIL 1 GRAM CAP PO SCH (09:05)
[2020-10-27] MEDS: LISINOPRIL 10 MG TAB PO SCH (09:05)
[2020-10-27] MEDS: FENOFIBRATE 145 MG TAB PO SCH (09:05)
[2020-10-27] MEDS: FUROSEMIDE 20 MG TAB PO SCH (09:05)
[2020-10-27] MEDS: NIFEdipine XL 60 MG TAB PO SCH (09:06)
[2020-10-27] MEDS: predniSONE 5 MG TAB PO SCH (09:06)
[2020-10-27] MEDS: RANOLAZINE ER 500 MG TAB 12HR PO SCH (09:06)
[2020-10-27] MEDS: CILOSTAZOL 100 MG TAB PO SCH (09:06)
[2020-10-27] MEDS: B COMPLEX W/VITAMIN C TAB PO SCH (09:06)
[2020-10-27] MEDS: DOXAZOSIN 4 MG TAB PO SCH (09:07)
[2020-10-27] MEDS: carvediloL 12.5 MG TAB PO SCH (09:07)
[2020-10-27] MEDS: MYCOPHENOLATE 250 MG CAP PO SCH (09:07)
[2020-10-27] MEDS: allopurinoL 100 MG TAB PO SCH (09:07)
== END 2020-10-27 10:40 | DRG 881 ==
LOC: 5A 00:19 → 3A 16:52 → UNDOADMIN 16:52 → 5A 10-07 00:19 → UNDODISIN 10-27 10:40
PROVIDERS: ADMIT Psychiatry & Neurology Psychiatry; ATTEND Psychiatry & Neurology Psychiatry
DX: F32.9 Major depressive disorder, single episode, unspecified (principal); F01.51 Vascular dementia, unspecified severity, with behavioral disturbance; Z94.0 Kidney transplant status; I67.2 Cerebral atherosclerosis; N18.9 Chronic kidney disease, unspecified; E11.22 Type 2 diabetes mellitus with diabetic chronic kidney disease; I12.9 Hypertensive chronic kidney disease with stage 1 through stage 4 chronic kidney disease, or unspecified chronic kidney disease; E78.2 Mixed hyperlipidemia; Z20.822 Contact with and (suspected) exposure to COVID-19; M10.9 Gout, unspecified; Z79.899 Other long term (current) drug therapy; Z82.49 Family history of ischemic heart disease and other diseases of the circulatory system; Z83.3 Family history of diabetes mellitus; Z79.82 Long term (current) use of aspirin
CPT/HCPCS: 36415; 71045; 74018; 80048; 80053; 80061; 80307; 80320; 81001; 82962; 83036; 85007; 85025; G0378; A9270-GY; G0480; J3246; J7512; J7517; U0003